=== PATIENT | female | born 1950 | race Caucasian/White ===

== ENCOUNTER 2017-08-03 17:53 | Inpatient (IN) | payer OTHER ==
[~2017-08-03] VITALS: Ht 157.5 cm; Wt 113.4 kg
--- NOTE | ~2017-08-03 | HC ---
[facility] [place] [address] CONSULTATION Name: SONIA FUENTES Room #: 402-P ADM IN M.R.#: [id number] Admission: 08/03/17 Attend Phys: Pelon Abbasi DO Discharge: Date of : 52 Report #: [id number] THIS REPORT FOR: //name// CC: Akash Fuentes DATE OF SERVICE: 08/05/2017 WOUND CARE CONSULTATION PERSONAL PHYSICIAN: Dr. Abbasi. CHIEF COMPLAINT: Right superior iliac crest decubitus ulcer. HISTORY OF PRESENT ILLNESS: This is a 67-year-old white female who is now status post fall and intertrochanteric fracture and a fracture of her left hip. The patient upon admission to the hospital was in severe pain because of the hip fracture and then was found to have a decubitus ulcer on her right superior iliac crest on full examination. I have been asked to assist in the care of this at that time. This is actually the xsiqjq-ka-wwx of the wound care nurse here at the hospital and the wound care nurse states that she has been fairly debilitated in the past several days, laying in bed for prolonged periods of time and she feels that is how she developed this ulceration at her assisted living facility. Supposedly, according to the family, the patient has a long-standing history of noncompliance as well as poorly controlled diabetes. PAST MEDICAL HISTORY: Significant for diabetes mellitus, insulin dependent; hypertension; previous back surgery; previous history of right hip replacement; previous neck surgery; cholecystectomy; appendectomy; total abdominal hysterectomy and carpal tunnel surgery. CURRENT MEDICATIONS: Multiple, I reviewed the patient's medication list. DRUG ALLERGIES: INCLUDE IV DYE, MORPHINE AND DEMEROL. SOCIAL HISTORY: The patient rarely drinks alcohol, never smokes. FAMILY HISTORY: Significant for heart disease and diabetes. REVIEW OF SYSTEMS: CONSTITUTIONAL: The patient denies fevers or chills. NEUROLOGIC: The patient complains of generalized weakness, but no isolated weakness in the arms or legs. EYES: No complaints. ENT: No complaints. [facility] [address] [place] [address] CONSULTATION Name: SONIA FUENTES Room #: [facility] IN M.R.#: [id number] Admission: 08/03/17 Attend Phys: Pelon Abbasi DO Discharge: Date of : 51 Report #: [id number] CARDIAC: The patient denies chest pain, palpitations or peripheral edema. RESPIRATORY: The patient denies shortness of breath, cough or wheezes. GASTROINTESTINAL: The patient denies nausea, vomiting or abdominal pain. GENITOURINARY: The patient denies urgency or frequency. MUSCULOSKELETAL: The patient has pain in her left hip where the fracture occurred. SKIN: There is an unstageable decubitus ulcer in the right superior iliac crest. PHYSICAL EXAMINATION: VITAL SIGNS: Temperature 37.4, pulse 113, respiratory rate 14 and blood pressure 131/57. GENERAL: This is an alert and oriented x 3 obese white female, who appears to be in moderate distress secondary to pain. HEENT: Normocephalic, atraumatic. Mucous membranes are somewhat dry. Pupils are round. Sclerae are white. NECK: Supple, without rigidity or lymphadenopathy. LUNGS: Clear. HEART: Regular, without murmur. ABDOMEN: Obese, soft, otherwise nontender. BACK: Evaluation of the back reveals a decubitus ulcer, once again over the area of the superior iliac crest, which is unstageable. It is tender to palpation. The wound itself is covered with ecchymotic slough. Periwound is otherwise intact, without signs of significant erythema, warmth or cellulitis. EXTREMITIES: The patient does move all extremities. Bilateral heels are intact. Distal neurovascular is otherwise intact. NEUROLOGIC: Cranial nerves 2-12 are grossly intact. Motor and sensory grossly intact. LABORATORY DATA: White count 8.9, hemoglobin 7.4. Albumin is 3.4. IMPRESSION: 1. Unstageable decubitus ulcer of the right superior iliac crest in a patient with noncompliance and recent debility, present on admission. 2. Comminuted intertrochanteric fracture of the left hip. 3. Diabetes mellitus. 4. Obesity. 5. Generalized debility. PLAN: At this time, we will place TheraHoney over the ulcer, cover this with an Optifoam and plan, in the next 1-2 days, possibly doing surgical bedside debridement of the ulceration. We will try to make sure we maximize the patient's oral protein supplementation for healing. We will utilize physical and occupational therapy as able for orthopedics restrictions. We will continue all of the current medications. [address] [address] CONSULTATION Name: SONIA FUENTES Room #: 402-P ADM IN M.R.#: [id number] Admission: 08/03/17 Attend Phys: Pelon Abbasi DO Discharge: Date of : 52 Report #: [id number] We appreciate the ability to consult. We will continue to follow the patient at this time. By: [id number] Rohan Herron MD /edda
--- NOTE | ~2017-08-03 | EKG ---
[address] [address] ELECTROCARDIOGRAM REPORT Name: SONIA FUENTES Room #: 402-P ADM IN M.R.#: [id number] Admission: 08/03/17 Attend Phys: Pelon Abbasi DO Discharge: Date of : 52 Report #: [id number] THIS REPORT FOR: //name// [facility] ED Test Date: 2017-08-03 Test Time: 19:19:11 Pat Name: SONIA FUENTES Department: Room: 402 Gender: F Molding Engineer: JONO : 1950 Requested By: Lisa Dalton Order Number: [id number] MD: Noam Gonzalez Measurements Intervals [place] Rate: 101 P: 44 TN: 174 QRS: 24 QRSD: 90 T: 28 QT: 352 QTc: 457 Interpretive Statements Sinus tachycardia No previous ECG available for comparison Electronically Signed On 08-03-2017 23:41:42 [employer] CONSULTANT by Noam Gonzalez [email or web address] <ELECTRONICALLY SIGNED> By: Noam Gonzalez MD 08/03/17 2341 [id number] 18 Noam Gonzalez MD /MIKAL
--- NOTE | ~2017-08-03 | O ---
[facility] [place] [address] OPERATIVE REPORT Name: SONIA FUENTES Room #: 402-P [facility] IN M.R.#: [id number] Admission: 08/03/17 Attend Phys: Pelon Abbasi DO Discharge: Date of : 51 Report #: [id number] THIS REPORT FOR: //name// CC: Akash Fuentes DATE OF SERVICE: 08/04/2017 PREOPERATIVE DIAGNOSIS: Complex comminuted intertrochanteric fracture, left proximal femur. POSTOPERATIVE DIAGNOSIS: Complex comminuted intertrochanteric fracture, left proximal femur. PROCEDURE: Reduction and fixation of left proximal femur fracture using intramedullary TFN nail fixation. SURGEON: Riky Swain MD INDICATIONS: This 67-year-old morbidly obese female has chronic degenerative arthritis and moderate osteoporosis. She has had previous right total hip arthroplasty and has moderate degenerative change at the left hip. She fell injuring the left proximal femur with a complex comminuted intertrochanteric femur fracture. We have discussed preoperatively with the patient and her family treatment options. She is certainly at risk for perioperative problems and difficulty with fracture healing given her morbid obesity and the difficult complex intertrochanteric and subtrochanteric fracture pattern. She also will probably have some ongoing hip discomfort as a result of degenerative arthritis. I have explained that we really cannot replace the hip joint at this point given the new fracture and we reviewed various methods of fracture fixation. We have elected to proceed with a TFN intramedullary fixation device. DESCRIPTION OF PROCEDURE: The patient was taken to the operating room where she was placed under general anesthesia. Prophylactic intravenous antibiotics were administered. She was positioned on the fracture table such that the left hip and thigh could be accessed, this is difficult given her very large size. The lateral aspect of left hip and thigh were then meticulously prepped and draped. C-arm was used to visualize the area to localize the appropriate skin incisions and help with fracture reduction. A longitudinal skin incision made above the greater trochanter allowing enough room to align and access the greater trochanter for introduction of an intramedullary device. A guidewire was then passed through the tip of the greater trochanter and extended down into the intramedullary canal. The trochanter was opened and a Synthes TFN nail was selected using a 230-mm length and a 10-mm diameter. The nail was then advanced down the canal with satisfactory alignment and fixation, it was advanced until [address] [address] OPERATIVE REPORT Name: SONIA FUENTES Room #: 402-P [facility] IN .R.#: [id number] Admission: 08/03/17 Attend Phys: Pelon Abbasi DO Discharge: Date of : 51 Report #: [id number] the crossing helical blade would lie low in the neck and in the mid to slightly posterior portion of the head to allow maximum contact and fixation in the head and neck. A guidewire was then passed using the outrigger, placing this in the mid to lower neck region and advancing as far as possible up into the femoral head to a point just below the subchondral bone. This appeared to be in satisfactory position on multiple C-arm views. The cortex was reamed and the guidewire was over reamed and then a 105-mm helical blade was impacted over the guidewire, positioning this well up into the femoral neck and head in the low to slightly posterior head and neck region allowing maximum purchase and fixation. This did seem to fit and seat nicely with satisfactory purchase. Once this position was confirmed, the proximal locking screw was tightened down securing rotation alignment. A distal interlocked screw was then placed using the outrigger device. This also seated nicely and appeared to be secure. Post-reduction and post-fixation x-rays confirmed satisfactory overall alignment of the fracture and good position of the edmundo and screws. The wounds were then copiously irrigated. Good hemostasis was established. The deeper tissues were closed with 0 Vicryl and the skin was closed with skin davy. A sterile dressing was applied. The patient was then awakened and returned to recovery room in good condition. <ELECTRONICALLY SIGNED> By: Riky Swain MD 08/06/17 0747 1236 1331 Riky Swain MD /nt
[2017-08-03 17:54] VITALS: BP 227/76
[2017-08-03] MEDS ORDERED: NOVOLOG100 UNIT/1 SUBQ ×2 (17:56→17:57)
[2017-08-03] MEDS ORDERED: SENNA PLUS TAB1 EACH PO (17:57)
[2017-08-03] MEDS ORDERED: KLOR-CON 1010 MEQ PO (17:57)
[2017-08-03] MEDS ORDERED: VITAMIN D2000 UNIT PO (17:58)
[2017-08-03] MEDS ORDERED: TYLENOL325 MG PO (17:58)
[2017-08-03] MEDS ORDERED: VENLAFAXINE HCL50 MG PO (17:58)
[2017-08-03] MEDS ORDERED: IBUPROFEN 400400 M2 PO (17:59)
[2017-08-03] MEDS ORDERED: MUCINEX600 MG PO (17:59)
[2017-08-03] MEDS ORDERED: NEURONTIN600 MG PO ×2 (17:59)
[2017-08-03] MEDS ORDERED: LASIX 20 MG TAB20 MG PO (18:00)
[2017-08-03] MEDS ORDERED: JANUVIA50 MG PO (18:00)
[2017-08-03] MEDS ORDERED: LEVEMIR SUBQ ×2 (18:01)
[2017-08-03] MEDS ORDERED: LEVEMIR100 UNIT/1 SUBQ (18:01)
[2017-08-03] MEDS ORDERED: CLARITIN10 MG PO (18:01)
[2017-08-03] MEDS ORDERED: MULTIPLE VITAM1 EAC2 PO (18:02)
[2017-08-03] MEDS ORDERED: ASPIR 8181 MG PO (18:02)
[2017-08-03] MEDS ORDERED: LIPITOR10 MG PO (18:02)
[2017-08-03] MEDS ORDERED: LOPRESSOR25 PO (18:02)
[2017-08-03] MEDS ORDERED: BIOFREEZE118 ML TOP (18:03)
[2017-08-03] MEDS ORDERED: CHOLESTYRAMINE P4 GM PO (18:03)
[2017-08-03] MEDS ORDERED: BENTYL 20 MG TA20 M1 PO (18:04)
[2017-08-03] MEDS ORDERED: CYCLOBENZAPRINE5 MG PO (18:04)
[2017-08-03] MEDS ORDERED: FLONASE 0.05%50 MCG NASAL (18:05)
[2017-08-03 18:58] LABS: ABSOLUTE NEUTROPHILS 4.1 thou/uL (1.4-8.2); EOSINOPHILS 3.3 % (0.0-3.0); HEMATOCRIT 27.1 % (37.0-47.0); HEMOGLOBIN 9.5 gm/dL (12.0-15.0); LYMPHOCYTES 35.3 % (24.0-44.0); MCH 35.1 pg (26.0-34.0); MCHC 34.9 g/dL (28.0-37.0); MCV 100.4 fL (80.0-100.0); PLATELET COUNT 182 thou/uL (150-400); POLYS 54.4 % (36.0-66.0); RDW 13.5 % (10.5-14.5); WBC 7.5 thou/uL (4.0-11.0)
[2017-08-03 18:59] LABS: MANUAL DIFF NO
[2017-08-03 19:01] LABS: CALCIUM 9.1 mg/dL (8.5-10.1); CREATININE 1.7 mg/dL (0.6-1.0); POTASSIUM 4.5 mmol/L (3.5-5.1)
[2017-08-03 19:07] LABS: ALBUMIN 3.4 g/dL (3.4-5.0); TOTAL BILIRUBIN 0.2 mg/dL (<0.1-1.0); TOTAL PROTEIN 6.5 g/dL (6.4-8.2)
[2017-08-03 19:16] VITALS: BP 169/75
[2017-08-03 19:18] VITALS: BP 169/75
[2017-08-03 19:33] LABS: APTT 25.1 Seconds (24.5-32.8)
[2017-08-03 20:30] VITALS: BP 165/76
[2017-08-03 21:29] VITALS: BP 117/64
[2017-08-04] VITALS (8 sets, daily range): BP systolic 88–159; BP diastolic 49–97
[2017-08-04 05:58] LABS: HEMATOCRIT 24.2 % (37.0-47.0); HEMOGLOBIN 8.3 gm/dL (12.0-15.0); MCH 34.8 pg (26.0-34.0); MCHC 34.4 g/dL (28.0-37.0); MCV 101.2 fL (80.0-100.0); RBC 2.39 mil/uL (4.20-5.00); RDW 13.8 % (10.5-14.5); WBC 9.6 thou/uL (4.0-11.0)
[2017-08-04 06:06] LABS: % SATURATION 17 % (20-39); IRON 40 ug/dL (50-170); TIBC 240 ug/dL (250-450); UIBC 200 ug/dL
[2017-08-04 06:09] LABS: CALCIUM 8.4 mg/dL (8.5-10.1); CREATININE 1.7 mg/dL (0.6-1.0); POTASSIUM 4.9 mmol/L (3.5-5.1)
[2017-08-04 07:15] LABS: FOLIC ACID 33.1 ng/mL (8.6-58.9)
[2017-08-04 16:57] LABS: HEMATOCRIT 20.3 % (37.0-47.0); HEMOGLOBIN 6.8 gm/dL (12.0-15.0); MCH 34.1 pg (26.0-34.0); MCHC 33.5 g/dL (28.0-37.0); MCV 101.8 fL (80.0-100.0); RDW 13.8 % (10.5-14.5); WBC 11.5 thou/uL (4.0-11.0)
[2017-08-05] VITALS (7 sets, daily range): BP systolic 102–155; BP diastolic 38–60
[2017-08-05 01:15] LABS: ABG SAMPLE TYPE ARTERIAL; BE(vivo) -4.1 mmol/L (-2 to +3); HCO3 19.8 mmol/L (22.0-26.0); LACTATE 2.07 mmol/L (0.5-2.0); O2(CT) 9.2 mL/dL (15.0-23.0); O2Hb 95.7 % (92.0-98.0); PCO2 30.5 mmHg (35.0-45.0); PO2 105.4 mmHg (80.0-100.0); STICK SITE R.RADIAL; tCO2 20.7 mmol/L (24.0-30.0)
[2017-08-05 05:07] LABS: GLYCOHEMOGLOBIN (HGB A1C) 6.9 % (4.8-5.6)
[2017-08-05 09:11] LABS: ABSOLUTE NEUTROPHILS 6.5 thou/uL (1.4-8.2); BASOPHILS 0.5 % (0.0-2.0); EOSINOPHILS 0.3 % (0.0-3.0); HEMOGLOBIN 7.4 gm/dL (12.0-15.0); LYMPHOCYTES 16.4 % (24.0-44.0); MANUAL DIFF NO; MCH 32.6 pg (26.0-34.0); MCHC 33.6 g/dL (28.0-37.0); MCV 97.1 fL (80.0-100.0); MONOCYTES 9.1 % (1.0-8.0); PLATELET COUNT 155 thou/uL (150-400); POLYS 73.7 % (36.0-66.0); RBC 2.27 mil/uL (4.20-5.00); RDW 19.2 % (10.5-14.5); WBC 8.9 thou/uL (4.0-11.0)
[2017-08-05 09:27] LABS: CALCIUM 7.6 mg/dL (8.5-10.1); CREATININE 1.8 mg/dL (0.6-1.0); POTASSIUM 4.5 mmol/L (3.5-5.1)
[2017-08-06 04:00] VITALS: BP 155/76
[2017-08-06 06:30] LABS: WBC 8.8 thou/uL (4.0-11.0)
[2017-08-06 06:32] LABS: MCH 33.3 pg (26.0-34.0); MCHC 34.4 g/dL (28.0-37.0); MCV 96.9 fL (80.0-100.0); RBC 1.91 mil/uL (4.20-5.00); RDW 18.8 % (10.5-14.5)
[2017-08-06 06:46] LABS: HEMOGLOBIN 6.4 gm/dL (12.0-15.0)
[2017-08-06 06:47] LABS: HEMATOCRIT 18.5 % (37.0-47.0)
[2017-08-06 07:36] VITALS: BP 176/75
[2017-08-06 09:15] VITALS: BP 131/69; BP 132/62
[2017-08-06 15:22] VITALS: BP 129/64; BP 130/61; BP 164/80
[2017-08-06 19:30] VITALS: BP 138/67
[2017-08-07 04:00] VITALS: BP 180/83
[2017-08-07 06:06] LABS: ABSOLUTE NEUTROPHILS 6.9 thou/uL (1.4-8.2); BASOPHILS 0.6 % (0.0-2.0); EOSINOPHILS 1.4 % (0.0-3.0); HEMATOCRIT 24.3 % (37.0-47.0); LYMPHOCYTES 16.8 % (24.0-44.0); MCH 32.2 pg (26.0-34.0); MCHC 34.4 g/dL (28.0-37.0); MCV 93.4 fL (80.0-100.0); MONOCYTES 7.6 % (1.0-8.0); PLATELET COUNT 153 thou/uL (150-400); POLYS 73.6 % (36.0-66.0); RDW 18.6 % (10.5-14.5); WBC 9.4 thou/uL (4.0-11.0)
[2017-08-07 06:12] LABS: CALCIUM 7.8 mg/dL (8.5-10.1); CREATININE 1.7 mg/dL (0.6-1.0); POTASSIUM 4.2 mmol/L (3.5-5.1)
[2017-08-07 06:24] LABS: HEMOGLOBIN 8.4 gm/dL (12.0-15.0); MANUAL DIFF NO
[2017-08-07 07:11] VITALS: BP 182/73
[2017-08-07] MEDS ORDERED: NORCO 10-325 T1 EACH PO (08:24)
[2017-08-07] MEDS ORDERED: XARELTO10 MG PO (08:24)
[2017-08-07] MEDS ORDERED: HALDOL 0.5 MG0.5 MG PO (08:25)
[2017-08-07 15:11] VITALS: BP 171/70
== END 2017-08-07 18:21 | DRG 480 ==
LOC: ER 17:53 → 4N 19:14 → EROBS 19:14 → 4N 19:14 → ENTRNSPT 08-07 18:15 → 4N 08-07 18:21
PROVIDERS: Family Medicine; Nurse Practitioner Acute Care; Orthopaedic Surgery; Physician Assistant
PROC: 0QS706Z Reposition Left Upper Femur with Intramedullary Internal Fixation Device, Open Approach (ICD-10-PCS; principal; 2017-08-04)
PROC: 30233N1 Transfusion of Nonautologous Red Blood Cells into Peripheral Vein, Percutaneous Approach (ICD-10-PCS; 2017-08-04)
DX: S72.142A Displaced intertrochanteric fracture of left femur, initial encounter for closed fracture (principal); N17.0 Acute kidney failure with tubular necrosis; Z68.42 Body mass index [BMI] 45.0-49.9, adult; Z96.641 Presence of right artificial hip joint; L89.130 Pressure ulcer of right lower back, unstageable; E66.9 Obesity, unspecified; D64.9 Anemia, unspecified; N18.3 Chronic kidney disease, stage 3 (moderate); I12.9 Hypertensive chronic kidney disease with stage 1 through stage 4 chronic kidney disease, or unspecified chronic kidney disease; E11.22 Type 2 diabetes mellitus with diabetic chronic kidney disease; F41.9 Anxiety disorder, unspecified; T50.905A Adverse effect of unspecified drugs, medicaments and biological substances, initial encounter; R41.0 Disorientation, unspecified; W18.39XA Other fall on same level, initial encounter; Z90.49 Acquired absence of other specified parts of digestive tract; Z90.710 Acquired absence of both cervix and uterus; Z82.49 Family history of ischemic heart disease and other diseases of the circulatory system; Z79.4 Long term (current) use of insulin; Z82.5 Family history of asthma and other chronic lower respiratory diseases; Z79.899 Other long term (current) drug therapy; Y92.89 Other specified places as the place of occurrence of the external cause; Z88.5 Allergy status to narcotic agent; Z88.8 Allergy status to other drugs, medicaments and biological substances; Z91.041 Radiographic dye allergy status; Z83.3 Family history of diabetes mellitus; Y93.89 Activity, other specified; Y99.8 Other external cause status
CPT/HCPCS: 10091; 50010; 50101; 50133; 50386; 51412; 51538; 52145; 52304; 55445; 56525; 57092; 62110; 62900; 64031; 70005

== ENCOUNTER 2017-08-07 12:55 | Inpatient (IN) | payer OTHER ==
[~2017-08-07] VITALS: Ht 157.5 cm; Wt 113.9 kg
--- NOTE | ~2017-08-07 | HC ---
[facility] [place] [address] CONSULTATION Name: SONIA FUENTES Room #: 514-P ADM IN M.R.#: [id number] Admission: 08/07/17 Attend Phys: Riky Mazariegos MD Discharge: Date of : 51 Report #: [id number] THIS REPORT FOR: //name// CC: Akash Mazariegos DATE OF SERVICE: 08/07/2017 HISTORY OF PRESENT ILLNESS: The patient is a 67-year-old white female, who had a fall at her assisted living facility, was admitted to [facility]. She was diagnosed with a left proximal femur fracture. She underwent open reduction and internal fixation with trochanteric fixation nail on 08/04/2017. She has a prior history of poorly controlled diabetes mellitus. Postoperatively, she has had problems with delirium/encephalopathy. Psychiatry has been involved. CT of the head was negative. She has had problems with confusion and continues confused today, but is improved. Psychiatry recommended Haldol 1 mg b.i.d. scheduled, along with p.r.n. We are seeing her in rehabilitation medicine consultation. PAST MEDICAL HISTORY: Includes insulin-dependent diabetes mellitus, hypertension, and back surgery. She had a prior right hip replacement about 5 years ago, neck surgery, ALESIA, joann, appendectomy, carpal tunnel surgery, and . She has premorbid peripheral neuropathy. MEDICATIONS: Please see the full medication listing. ALLERGIES: MORPHINE. SOCIAL HISTORY: She lives at [facility]. Premorbid walker ambulator. No steps. Her kbzjnfwm-vy-ero is a nurse here at the hospital in wound care. REVIEW OF SYSTEMS: She was noted to have a right iliac crest, unstageable ulcer. Wound care is following. Did not offer any current complaints of chest pain or shortness of breath. No abdominal discomfort. She has a left hip discomfort as expected. She does have decreased sensation consistent with her peripheral neuropathy. PHYSICAL EXAMINATION: GENERAL: A 67-year-old obese, pleasant white female, in no obvious distress. NEUROLOGIC: She could not tell me the name of the hospital, but she can tell me the year. She was not correct regarding the name of the place that she lives in, but she knew what city it was in. She does follow basic 1 step commands. VITAL SIGNS: Temperature 99.1, pulse 107, respirations 20, blood pressure 182/73. HEENT: Facies appeared symmetric. [facility] [address] [place] [address] CONSULTATION Name: SONIA FUENTES Room #: 514-P ADM IN M.R.#: [id number] Admission: 08/07/17 Attend Phys: Riky Mazariegos MD Discharge: Date of : 52 Report #: [id number] EXTREMITIES: She has functional range of motion of both upper extremities with strength grade 4-/5. DTRs are trace to 1. Left hip is dressed. There is no focal calf swelling. She can dorsiflex that left ankle. She can move the right ankle as well. I would grade her strength probably at least 3+ to 4- out of 5. Left lower extremity and right lower extremity is probably 3+ to 4- out of 5. She does have decreased distal sensation, left large toe. Functionally, she was max assist with sit to stand. She does have less than 25 pounds weightbearing restriction on that left lower extremity. ASSESSMENT: A 67-year-old white female with the following problems: 1. Left proximal femur fracture, status post open reduction and internal fixation with trochanteric fixation nailing 08/04/2017, less than 25 pounds weightbearing. 2. Encephalopathy versus delirium. Psychiatry is involved. She is currently on Haldol as per Psychiatry. 3. Premorbid peripheral neuropathy. 4. Poorly controlled diabetes mellitus. 5. Acute renal insufficiency superimposed on chronic kidney disease. 6. Exogenous obesity. 7. Right iliac crest unstageable ulcer. PLAN: We will be checking with the therapist regarding her tolerance for an acute rehabilitation level. We are considering her for an acute in-hospital inpatient rehabilitation stay. Discussion with her uwcoauzb-oc-uyo, Lucinda Fuentes. We will be glad to follow along with you. <ELECTRONICALLY SIGNED> By: Riky Mazariegos MD 08/14/17 1643 1007 1408 Riky Mazariegos MD /[facility]
--- NOTE | ~2017-08-07 | PLAN ---
[facility] [place] [address] REHAB UNIT PLAN OF CARE Name: SONIA FUENTES Room #: 514-P ADM IN M.R.#: [id number] Admission: 08/07/17 Attend Phys: Riky Mazareigos MD Discharge: Date of : 52 Report #: [id number] THIS REPORT FOR: //name// CC: Akash Mazariegos DATE OF SERVICE: 08/09/2017 The patient was seen earlier. Sleeping in no distress. Temperature 36.7, pulse 106, respirations 21, blood pressure 140/71. She has been working in therapies with transfers at a max assist, bed mobility is max assist, dressing upper body is setup, dressing lower body is max assist. This therapy, she is noted to have dckj-ow-mjodkvtb comprehensive deficits. ASSESSMENT: 1. Left proximal femur fracture status post open reduction and internal fixation with trochanteric fixation nailing 12, 18 17, 25 pounds weightbearing. 2. Encephalopathy versus delirium. Psychiatry continues to involve. She has been on scheduled Haldol. 3. Premorbid peripheral neuropathy. 4. Poorly controlled diabetes mellitus. 5. Acute renal insufficiency superimposed on chronic kidney disease. 6. Exogenous obesity. 7. Right iliac crest unstageable ulcer. PLAN: The overall plan of care is based on the preadmission screen, post-admission physician evaluation and information garnered from therapy assessments. 1. Estimated length of stay is probably going to be fairly long, as she is at a lower functional level. 2. Medical prognosis is reasonably good. 3. Anticipated interventions includes the interdisciplinary acute inpatient rehabilitation program. PT, OT, speech rehab nursing is assisting regarding medication management, skin care prophylaxis, bowel and bladder issues and nursing education. The call center support consultant physicians are continuing to follow. 4. Anticipated functional outcomes would be for the patient to become modified independent with transfers, mobility, ADLs and improvement in cognition, so that she can hopefully return back to her prior living situation. 5. Discharge destination would be ideally back to her assisted living facility. 6. Expected therapy by discipline includes PT, OT and speech 1 hour per day each five days a week throughout the duration of the acute inpatient ___ stay. <ELECTRONICALLY SIGNED> By: Riky Mazariegos MD 08/14/17 1643 0907 0948 Riky Mazariegos MD /[facility]
--- NOTE | ~2017-08-07 | HC ---
[facility] [place] [address] CONSULTATION Name: SONIA FUENTES Room #: 514-P ADM IN M.R.#: [id number] Admission: 08/07/17 Attend Phys: Riky Mazariegos MD Discharge: Date of : 51 Report #: [id number] THIS REPORT FOR: //name// CC: Akash Mazariegos DATE OF SERVICE: 08/08/2017 REQUESTING PHYSICIAN: Dr. Mazariegos. CHIEF COMPLAINT: Right superior iliac crest ulceration. HISTORY OF PRESENT ILLNESS: The patient is a 67-year-old white female who is now status post fracture of the left proximal femur with ORIF on 08/04/2017. The patient was found on admission to have a right superior iliac crest unstageable decubitus ulcer. I have been following this while she was an acute inpatient. The patient now has been transferred to the acute rehab floor and we have been asked to follow her there as well. The patient has no other associated wounds. PAST MEDICAL AND SURGICAL HISTORY: Significant for diabetes, hypertension, previous right hip replacement 5 years ago, cholecystectomy, appendectomy. CURRENT MEDICATIONS: Multiple, I reviewed the patient's medication list. DRUG ALLERGIES: MORPHINE. SOCIAL HISTORY: The patient lives in an assisted living facility. FAMILY HISTORY: Not pertinent to current medical condition. REVIEW OF SYSTEMS: CONSTITUTIONAL: The patient denies fevers or chills. NEUROLOGIC: The patient has been having episodes of confusion, most likely related to medicines and hospital stable, but today is very lucid. Denies numbness, tingling, weakness in arms or legs. EYES: No complaints. ENT: No complaints. CARDIAC: The patient denies chest pain, palpitations; does have chronic lower extremity edema. RESPIRATORY: The patient denies shortness of breath, cough, or wheezes. GASTROINTESTINAL: The patient denies nausea, vomiting, or diarrhea. GENITOURINARY: The patient denies urgency or frequency. The patient did not have a Ken catheter in place. MUSCULOSKELETAL: The patient has pain in her left hip on the surgical site. SKIN: There is a decubitus ulcer, in the right superior iliac crest. [facility] [address] [place] [address] CONSULTATION Name: SONIA FUENTES Room #: 514-P [facility] IN M.R.#: [id number] Admission: 08/07/17 Attend Phys: Riky Mazariegos MD Discharge: Date of : 52 Report #: [id number] PHYSICAL EXAMINATION: VITAL SIGNS: Temperature 36.7, pulse 99, respirations 24, BP 188/85. GENERAL: This is alert and oriented x 3, pleasant white female who is in no acute distress at this time. HEENT: Normocephalic, atraumatic. Mucous membranes are moist. Pupils are round. Sclerae white. NECK: Supple, nontender. LUNGS: Clear. HEART: Regular, without murmur. ABDOMEN: Obese, soft, nontender, without organomegaly. EXTREMITIES: The patient moves all extremities with minimal difficulty. Distal pulses are intact. Bilateral heels are intact. SKIN: Evaluation of skin on the back over the area of the superior iliac crest reveals an unstageable decubitus ulcer, slough and some denuded skin. Periulcer itself is otherwise intact without erythema, warmth or signs of cellulitis. NEUROLOGIC: Cranial nerves 2-12 are grossly. Motor and sensory grossly intact. LABORATORY DATA: White count 9.2, hemoglobin 9.1, albumin is 3.4. IMPRESSION: 1. Unstageable decubitus ulcer, right posterior-superior iliac crest -- present on admission. 2. Status post left intertrochanteric fracture, now status post open reduction and internal fixation with intermedullary nail. 3. Diabetes mellitus. 4. Generalized debility. PLAN: At this time, we will continue with Medihoney over the ulcer itself covered with a foam dressing. This will be changed Friday, Friday and Friday. The patient will utilize physical and occupational therapy on the rehabilitation floor for strengthening. We will continue all other current medications. Make sure we maximize the patient's protein supplementation for continued healing. We will continue to follow the patient. <ELECTRONICALLY SIGNED> By: Rohan Herron MD 08/14/17 1132 1118 25 Rohan Herron MD /nt
--- NOTE | ~2017-08-07 | H ---
[facility] [place] [address] HISTORY AND PHYSICAL Name: SONIA FUENTES Room #: 514-P ADM IN M.R.#: [id number] Admission: 08/07/17 Attend Phys: Riky Mazariegos MD Discharge: Date of : 51 Report #: [id number] THIS REPORT FOR: //name// CC: Akash Mazariegos DATE OF SERVICE: 08/08/2017 HISTORY OF PRESENT ILLNESS: The patient is a 67-year-old white female who had a fall at her assisted living facility, was admitted to [facility]. She was diagnosed with left proximal femur fracture. She underwent open reduction and internal fixation with a trochanteric fixation nail on 08/04/2017. She has a prior history of poorly controlled diabetes mellitus. Postoperatively, she had problems with delirium and encephalopathy. Psychiatry has been involved. CT of the head was negative. They have placed her on Haldol 1 mg b.i.d. She was noted to have significant functional mobility and ADL deficits along with the cognitive concerns with her encephalopathy. She does have limited weightbearing at 25 pounds, left lower extremity. She has been admitted for acute in-hospital inpatient rehabilitation. PAST MEDICAL HISTORY: Includes insulin-dependent diabetes mellitus, hypertension, back surgery. She has had prior right hip replacement about 5 years ago, neck surgery, ALESIA, cholecystectomy, appendectomy, carpal tunnel surgery, and . She has premorbid peripheral neuropathy. MEDICATIONS: Please see the full medication listing. This list includes vitamins, herbals, and supplements. ALLERGIES: MORPHINE. SOCIAL HISTORY: She lives at the [facility] in the assisted living facility. She is a premorbid walker ambulator. No steps. There is [id number] who is nurse here at the hospital in wound care. REVIEW OF SYSTEMS: She is noted to have a posterior iliac crest unstageable ulcer. No current complaints of chest pain, shortness of breath, or abdominal discomfort. She has the decreased sensation of her distal lower extremities consistent with her premorbid peripheral neuropathy. PHYSICAL EXAMINATION: GENERAL: A 67-year-old obese white female in no obvious distress. VITAL SIGNS: Last recorded temperature 37.6, pulse 105, respirations 22, and blood pressure 150/69. NEUROLOGIC: The patient is alert. She is somewhat tangential, but able to follow basic 1-step commands. Appears a little less confused when I saw her yesterday. EOMs are full. Facies are symmetric. [facility] [address] [place] [address] HISTORY AND PHYSICAL Name: SONIA FUENTES Room #: 514-P [facility] IN M.R.#: [id number] Admission: 08/07/17 Attend Phys: Riky Mazariegos MD Discharge: Date of : 51 Report #: [id number] CHEST: Sounded clear to auscultation. CARDIAC: Regular rate and rhythm. ABDOMEN: Obese, bowel sounds positive, and nontender. EXTREMITIES: She does have a wound over her posterior iliac crest. The wound care is following. Her left hip incisions appeared to be intact. There is some serous drainage. She has functional range of motion of the upper extremities. Strength is grade 4+/5. Lower extremities, she has decreased distal sensation. No focal calf swelling. Strength of that left lower extremity is probably a grade 3+/5 and right lower extremity is probably 3+ as well. She has been needing max assist with sit to stand. ASSESSMENT: A 67-year-old white female with the following problems: 1. Left proximal femur fracture, status post open reduction and internal fixation with trochanteric fixation nailing on 08/04/2017, 25-pound weightbearing. 2. Encephalopathy versus delirium. Psychiatry is involved and she is continuing on scheduled Haldol. 3. Premorbid peripheral neuropathy. 4. Poorly controlled diabetes mellitus. 5. Acute renal insufficiency superimposed on chronic kidney disease. 6. Exogenous obesity. 7. Right iliac crest unstageable ulcer. PLAN: The patient is admitted for acute in-hospital inpatient rehabilitation. From a post-admission physician evaluation perspective, there are no relevant changes since the preadmission screening. Please see the above review of prior and current medical and functional conditions and comorbidities. Please see the patient's previous and current functional status. As far as risk of complications, the patient has multiple medical comorbidities as noted above. Initial plan of care involves the interdisciplinary acute inpatient rehabilitation program with the goal of maximizing the patient's functional independence, so that she can hopefully return back to her home setting. Measurable functional goals would be for the patient to become modified independent with transfers, mobility, and ADLs as well as improvement in cognition, so that she can return back to the home setting. Prognosis is reasonably good with estimated length of stay probably at least 10 days to 2 weeks pending progress. Potential barriers would include her multiple medical comorbidities and decreased functional status. The patient meets diagnostic criteria for an acute in-hospital inpatient rehabilitation stay. She meets medical necessity criteria and we will have the multiple change consultant physicians continue to follow while she is on the rehab meza. Psychiatry will continue to follow with her encephalopathy/delirium as well as Wound Care and Internal Medicine. The patient does have the tolerance [address] [address] HISTORY AND PHYSICAL Name: SONIA FUENTES Room #: 514-P [facility] IN M.R.#: [id number] Admission: 08/07/17 Attend Phys: Riky Mazariegos MD Discharge: Date of : 51 Report #: [id number] for an acute rehab therapy program and has appropriate discharge goals back to the home setting. <ELECTRONICALLY SIGNED> By: Riky Mazariegos MD 08/14/17 1643 0844 1037 Riky Mazariegos MD /[facility]
--- NOTE | ~2017-08-07 | D ---
[facility] [place] [address] DISCHARGE SUMMARY Name: SONIA FUENTES Room #: 514-P [facility] IN M.R.#: [id number] Admission: 08/07/17 Attend Phys: Riky Mazariegos MD Discharge: 08/15/17 Date of : 51 Report #: [id number] THIS REPORT FOR: //name// CC: Akash Mazariegos DATE OF SERVICE: 08/15/2017 The patient is a 67-year-old white female with a fall at her assisted living facility, was originally admitted with a left proximal femur fracture. She underwent open reduction and internal fixation with trochanteric fixation nail on 08/04/2017. She has a history of poorly controlled diabetes mellitus. Postoperatively, her course was complicated by delirium and encephalopathy. She was seen by Psychiatry. CT of the head was negative and she was placed on scheduled Haldol. She has been limited to 25 pounds weightbearing. She was admitted for acute in-hospital inpatient rehabilitation. Please see the full admission note dictation. HOSPITAL COURSE: The patient was on the acute inpatient rehabilitation meza. She was seen by Dr. Antonio Wynn, neuropsychology and he indicated the presentation including her significant cognitive deficits and visual hallucinations were consistent with a major neurocognitive disorder with dementia thought to be of the frontotemporal type. She was noted to have ovppvaep-ea-twwdzc cognitive disorder. She was cantankerous at times and not always participatory with therapies. Psychiatry followed with her and placed her back on the scheduled Haldol. We did work with her in therapies and she was needing max assist x 2 for transfers. Bed mobility, max assist and lower extremity dressing, max assist. She began having increased swelling, pain, and redness with some purulent drainage from the incisional wounds of the left hip. Orthopedics has been involved. She underwent a CT scan of that hip showing a fracture more comminuted than expected. Orthopedics noted that she does have a left surgical wound infection and the plan is for her to undergo surgery to clean out the infection. DISCHARGE DIAGNOSES: 1. Left proximal femur fracture status post open reduction internal fixation, now complicated by postoperative wound infection. 2. Postoperative encephalopathy. 3. Frontotemporal dementia of a moderate severity per neuropsychology involvement. 4. Premorbid peripheral neuropathy. 5. Poorly controlled diabetes mellitus. 6. Acute renal insufficiency superimposed on chronic kidney disease. 6. Exogenous Anxiety. 7. Obesity. [address] [address] DISCHARGE SUMMARY Name: SONIA FUENTES Room #: 514-P DIS IN M.R.#: [id number] Admission: 08/07/17 Attend Phys: Riky Mazariegos MD Discharge: 08/15/17 Date of : 51 Report #: [id number] PLAN: The patient was discharged back to the acute Med/Surg meza to undergo I and D of that left hip surgical site infection. We will defer medications, activity level, etc. as per the accepting service. <ELECTRONICALLY SIGNED> By: Riky Mazariegos MD 08/26/17 1003 0703 0741 Riky Mazariegos MD /[facility]
--- NOTE | ~2017-08-07 | HC ---
[facility] [place] [address] CONSULTATION Name: SONIA FUENTES Room #: 514-P [facility] IN M.R.#: [id number] Admission: 08/07/17 Attend Phys: Riky Mazariegos MD Discharge: Date of : 51 Report #: [id number] THIS REPORT FOR: //name// CC: Akash Mazariegos DATE OF SERVICE: 08/09/2017 ATTENDING PHYSICIAN: Riky Mazariegos MD SALES REPRESENTATIVE UNIFORMS: Antonio Wynn PhD CLINICAL PRESENTATION: The patient is a 67-year-old female admitted to the [facility], rehabilitation unit, for comprehensive inpatient rehabilitation program to improve functional mobility, activities of daily living and self-care and mental status secondary to a left proximal femur fracture. She is status post open reduction and internal fixation with an intertrochanteric nailing on 08/04/2017. Her diagnoses also include encephalopathy versus delirium, premorbid peripheral neuropathy, poorly controlled diabetes mellitus, acute renal insufficiency superimposed on chronic kidney disease, exogenous obesity and right iliac crest unstageable ulcer. A complete description of her medical condition and history can be found in her medical record. Neuropsychological consultation was requested to provide assistance in the assessment of cognitive and emotional status and to provide recommendations and services. Prior to this most recent admission, she was living in an assisted living facility. The patient is retired. She reports having been a high school graduate with 2 years of college. 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 She has 2 children. The patient states that she quit driving at age 66, thinking that it was the right time to discontinue. She does not report a prior history of treatment for anxiety or depression, but does remember initiating a treatment program for anxiety that includes medication at the time of her admission. Her daughter reported that she has had a steady deterioration in her ability to function for several years. She was unable to maintain her house and adequately manage her health care. Her family had to provide very frequent supervision and monitoring when the patient was living in the community. TECHNIQUES UTILIZED: Clinical interview, review of medical records, staff consultation and behavioral observation, mini-mental status exam 2 standard version, clock drawing and verbal fluency assessment (category), family interview. [facility] [address] [place] [address] CONSULTATION Name: SONIA FUENTES Room #: 514-P [facility] IN .R.#: [id number] Admission: 08/07/17 Attend Phys: Riky Mazariegos MD Discharge: Date of : 51 Report #: [id number] EXAMINATION FINDINGS: The patient was alert and cooperative with the assessment. She accurately described her admission as the result of a fall. However, she isamnestic about the circumstances surrounding her fall. The patient indicates having a history of falling. She does not report auditory or visual hallucinations. There is no suicidal ideation. The patient does not present with an aphasia. Her thoughts are logical and goal oriented. The patient had difficulty with initiative in regard to planning and problem solving, for exampple positioning herself was poor. Her bed positioning was poor. She had a tray table contributing to an uncomfortable position; however, she did not initiate an attempt to improve her position as well as modify the bedside table. She reports subjective feelings of anxiety. Difficulty with memory, word finding and intermittent dizziness is described. The patient appears restless and fidgety. She does not report difficulty with sleep or appetite. Difficulty with verbal fluency is noted throughout the interview. Her performance on the MMSE 2 brief version is extremely low with a raw score of 9 of 16. She was 3 of 3 for initial registration, 4 of 5 for orientation to time, 3 of [address] and 0 of 3 for immediate recall of 3 items after a brief time delay and distraction. Her performance on the MMSE 2 standard version is extremely low with a raw score of 17 of 30. She was 1 of 5 for serial 7s, 2 of 2 for naming, 1 of 1 for repetition. She was 3 of 3 for auditory comprehension. She could read and follow a single command. The patient was unable to write a sentence and could not accurately copy a simple geometric design. The patient was unable to accurately set the hands of a clock at a designated time. Verbal fluency was extremely low with a raw score of 6. The patient is presenting with severe deficits in cognition. Impairment includes orientation to place, immediate recall, attention and sustained concentration and visual spatial organization. A higher level executive functioning including initiative along with planning and problem solving is severely impaired at this time. DIAGNOSTIC IMPRESSION: Major neurocognitive disorder (dementia), possibly frontal - temporal type, without behavior disorder - in the moderate range with moderate to severe cognitive disorder at this time. Unspecified anxiety disorder. RECOMMENDATIONS: The patient will require assistance in the management of [address] [address] CONSULTATION Name: SONIA FUENTES Room #: 514-P [facility] IN M.R.#: [id number] Admission: 08/07/17 Attend Phys: Riky Mazariegos MD Discharge: Date of : 51 Report #: [id number] medication, finances and decision making in regard to nutrition upon discharge. She is in an assisted living at this time and hoping to return. However, she will need assistance in order to maintain safety. Decreased insight into areas of deficit is also suggested. Thank you very much for allowing me to provide the consultation on this patient. <ELECTRONICALLY SIGNED> By: Antonio Wynn, PhD 08/13/17 [id number] 1716 Antonio Wynn, PhD /nt
--- NOTE | ~2017-08-07 | HC ---
[facility] [place] [address] CONSULTATION Name: SONIA FUENTES Room #: 514-P [facility] IN M.R.#: [id number] Admission: 08/07/17 Attend Phys: Riky Mazariegos MD Discharge: Date of : 51 Report #: [id number] THIS REPORT FOR: //name// CC: Akash Mazariegos TYPE OF REPORT: Infectious diseases consultation. REASON FOR CONSULTATION: I was asked to evaluate concerning surgical site infection, left hip. HISTORY OF PRESENT ILLNESS: The patient is a 67-year-old diabetic who fractured her left proximal femur with a comminuted intertrochanteric fracture that required ORIF on 08/04/[address] Riky Swain. No intraoperative complications. Postoperatively, she had delirium and has been transferred to the acute rehabilitation floor for further care. The past 24 hours noticed increased erythema and drainage from her hip and thigh incision. Temperature up to 100.1. No chills or sweats. REVIEW OF SYSTEMS: Notes persistent pain in her left hip and thigh region. REVIEW OF SYSTEMS: No cardiopulmonary, GI or complaints. ALLERGIES: MORPHINE. MEDICATIONS: As noted on her OCT. PAST MEDICAL HISTORY: Diabetes, hypertension, cholecystectomy, appendectomy, right total hip arthroplasty, chronic kidney disease and obesity. FAMILY HISTORY: Noncontributory. SOCIAL HISTORY: Lives in assisted living. Nonsmoker. No significant alcohol intake. REVIEW OF SYSTEMS: The patient denies any headache, cough or sputum production. No nausea, vomiting or diarrhea. PHYSICAL EXAMINATION: VITAL SIGNS: Afebrile and hemodynamically stable. GENERAL: She was alert and cooperative, in no acute distress. She had significant amount of pain with rolling over in bed. She was obese. CHEST: Clear. HEART: Regular. ABDOMEN: Soft and nontender. EXTREMITIES: Left hip incision included 2 incisions, one proximal femur and 1 mid thigh region. There was erythema surrounding both areas with purulent [facility] [address] [place] [address] CONSULTATION Name: SONIA FUENTES Room #: 514-P ADM IN [facility].#: [id number] Admission: 08/07/17 Attend Phys: Riky Mazariegos MD Discharge: Date of : 51 Report #: [id number] drainage, small amount involving the lower portion. She had ecchymosis involving the lower portion of her leg as well. LABORATORY STUDIES: From 08/10/2017: Creatinine 1.6, which was her baseline. Hemoglobin 8.6, down from 9.5 on admission; WBC 10.5 and platelet count 248,000. Wound culture pending. RADIOLOGICAL DATA: X-ray of the femur shows IM edmundo in stable position. IMPRESSION AND PLAN: A 67-year old with surgical site infection, left hip open reduction and internal fixation. Depth of infection is yet to be determined. RECOMMENDATIONS: Recommend laboratory studies, Followup imaging studies and begin empiric antibiotic therapy. <ELECTRONICALLY SIGNED> By: Bryce Burgos MD 08/15/17 1354 0022 Bryce Burgos MD /edda
[~2017-08-07 12:55] MED LIST: ASPIR 8181 MG PO; BENTYL 20 MG TA20 M1 PO; BIOFREEZE118 ML TOP; CHOLESTYRAMINE P4 GM PO; CLARITIN10 MG PO; CYCLOBENZAPRINE5 MG PO; FLONASE 0.05%50 MCG NASAL; HALDOL 0.5 MG0.5 MG PO; IBUPROFEN 400400 M2 PO; JANUVIA50 MG PO; KLOR-CON 1010 MEQ PO; LASIX 20 MG TAB20 MG PO; LEVEMIR SUBQ; LEVEMIR100 UNIT/1 SUBQ; LIPITOR10 MG PO; LOPRESSOR25 PO; MUCINEX600 MG PO; MULTIPLE VITAM1 EAC2 PO; NEURONTIN600 MG PO; NORCO 10-325 T1 EACH PO; NOVOLOG100 UNIT/1 SUBQ; SENNA PLUS TAB1 EACH PO; TYLENOL325 MG PO; VENLAFAXINE HCL50 MG PO; VITAMIN D2000 UNIT PO; XARELTO10 MG PO
[2017-08-07 18:38] VITALS: BP 175/65
[2017-08-07 19:47] VITALS: BP 150/69
[2017-08-08 06:16] LABS: HEMATOCRIT 26.5 % (37.0-47.0); HEMOGLOBIN 9.1 gm/dL (12.0-15.0); MCH 32.1 pg (26.0-34.0); MCHC 34.2 g/dL (28.0-37.0); MCV 93.7 fL (80.0-100.0); RBC 2.83 mil/uL (4.20-5.00); RDW 17.5 % (10.5-14.5); WBC 9.2 thou/uL (4.0-11.0)
[2017-08-08 06:31] LABS: CALCIUM 8.4 mg/dL (8.5-10.1); CREATININE 1.5 mg/dL (0.6-1.0)
[2017-08-08 08:00] VITALS: BP 188/85
[2017-08-08 20:00] VITALS: BP 158/65
[2017-08-09 06:04] LABS: HEMATOCRIT 26.6 % (37.0-47.0); MCH 32.1 pg (26.0-34.0); MCV 94.3 fL (80.0-100.0); PLATELET COUNT 222 thou/uL (150-400); RBC 2.82 mil/uL (4.20-5.00); RDW 17.5 % (10.5-14.5); WBC 9.2 thou/uL (4.0-11.0)
[2017-08-09 06:14] LABS: CALCIUM 8.6 mg/dL (8.5-10.1); CREATININE 1.6 mg/dL (0.6-1.0); MAGNESIUM 1.8 mg/dL (1.8-2.4); POTASSIUM 4.1 mmol/L (3.5-5.1)
[2017-08-09 06:46] LABS: ABSOLUTE NEUTROPHILS 5.9 thou/uL (1.4-8.2); ANISOCYTOSIS 1+; NUCLEATED RBCS 1 /100WBC
[2017-08-09 06:47] LABS: POLYCHROMASIA SLIGHT
[2017-08-09 08:18] VITALS: BP 140/71
[2017-08-09 20:03] VITALS: BP 150/86
[2017-08-10 06:01] LABS: HEMATOCRIT 25.1 % (37.0-47.0); HEMOGLOBIN 8.6 gm/dL (12.0-15.0); MCH 32.2 pg (26.0-34.0); MCHC 34.3 g/dL (28.0-37.0); MCV 93.9 fL (80.0-100.0); PLATELET COUNT 248 thou/uL (150-400); RBC 2.68 mil/uL (4.20-5.00); RDW 17.7 % (10.5-14.5); WBC 10.5 thou/uL (4.0-11.0)
[2017-08-10 06:12] LABS: CALCIUM 9.1 mg/dL (8.5-10.1); CREATININE 1.6 mg/dL (0.6-1.0); POTASSIUM 3.9 mmol/L (3.5-5.1)
[2017-08-10 06:42] LABS: ABSOLUTE NEUTROPHILS 6.9 thou/uL (1.4-8.2); ANISOCYTOSIS 1+; METAMYELOCYTES 2 %; MYELOCYTES 1 %; PLATELET ESTIMATE NORMAL; POLYCHROMASIA 1+
[2017-08-10 09:00] VITALS: BP 145/64
[2017-08-10 19:40] VITALS: BP 123/91
[2017-08-11 04:36] LABS: % SATURATION 14 % (20-39); IRON 31 ug/dL (50-170); TIBC 214 ug/dL (250-450)
[2017-08-11 08:04] VITALS: BP 159/52
[2017-08-11 19:50] VITALS: BP 137/73
[2017-08-12 08:00] VITALS: BP 155/92
[2017-08-12 19:48] VITALS: BP 149/35
[2017-08-13 08:00] VITALS: BP 143/75
[2017-08-13 19:35] VITALS: BP 157/66
[2017-08-14 08:00] VITALS: BP 142/82
[2017-08-14 20:31] VITALS: BP 150/51
[2017-08-14 22:42] LABS: ABSOLUTE NEUTROPHILS 8.3 thou/uL (1.4-8.2); BASOPHILS 0.6 % (0.0-2.0); EOSINOPHILS 2.3 % (0.0-3.0); HEMATOCRIT 23.7 % (37.0-47.0); LYMPHOCYTES 16.5 % (24.0-44.0); MCH 31.5 pg (26.0-34.0); MCHC 33.9 g/dL (28.0-37.0); MCV 92.9 fL (80.0-100.0); MONOCYTES 7.5 % (1.0-8.0); PLATELET COUNT 257 thou/uL (150-400); POLYS 73.1 % (36.0-66.0); RBC 2.55 mil/uL (4.20-5.00); RDW 17.1 % (10.5-14.5); WBC 11.4 thou/uL (4.0-11.0)
[2017-08-14 22:55] LABS: ALBUMIN 2.5 g/dL (3.4-5.0); CALCIUM 9.1 mg/dL (8.5-10.1); CREATININE 1.6 mg/dL (0.6-1.0); POTASSIUM 4.3 mmol/L (3.5-5.1); TOTAL BILIRUBIN 0.4 mg/dL (<0.1-1.0); TOTAL PROTEIN 6.2 g/dL (6.4-8.2)
[2017-08-15 08:49] VITALS: BP 140/59
[2017-08-15 18:44] VITALS: BP 140/59
[2017-08-15 19:31] VITALS: BP 140/59
== END 2017-08-15 20:37 | disposition home or self-care (01) | DRG 535 ==
PROVIDERS: Family Medicine; Hospitalist; Nurse Practitioner; Physical Medicine & Rehabilitation; Specialist
DX: S72.142A Displaced intertrochanteric fracture of left femur, initial encounter for closed fracture (principal); G93.40 Encephalopathy, unspecified; Z68.42 Body mass index [BMI] 45.0-49.9, adult; N17.9 Acute kidney failure, unspecified; T84.52XA Infection and inflammatory reaction due to internal left hip prosthesis, initial encounter; Z96.641 Presence of right artificial hip joint; E11.42 Type 2 diabetes mellitus with diabetic polyneuropathy; E11.65 Type 2 diabetes mellitus with hyperglycemia; E66.09 Other obesity due to excess calories; E11.22 Type 2 diabetes mellitus with diabetic chronic kidney disease; I12.9 Hypertensive chronic kidney disease with stage 1 through stage 4 chronic kidney disease, or unspecified chronic kidney disease; L89.890 Pressure ulcer of other site, unstageable; R53.81 Other malaise; F01.50 Vascular dementia, unspecified severity, without behavioral disturbance, psychotic disturbance, mood disturbance, and anxiety; F41.9 Anxiety disorder, unspecified; D64.9 Anemia, unspecified; K59.00 Constipation, unspecified; N18.3 Chronic kidney disease, stage 3 (moderate); W18.39XA Other fall on same level, initial encounter; T40.605A Adverse effect of unspecified narcotics, initial encounter; Y83.8 Other surgical procedures as the cause of abnormal reaction of the patient, or of later complication, without mention of misadventure at the time of the procedure; Z88.8 Allergy status to other drugs, medicaments and biological substances; Z90.49 Acquired absence of other specified parts of digestive tract; Y99.8 Other external cause status; Z79.4 Long term (current) use of insulin; Z79.899 Other long term (current) drug therapy; Z88.5 Allergy status to narcotic agent; Z91.041 Radiographic dye allergy status; Y93.89 Activity, other specified; Y92.89 Other specified places as the place of occurrence of the external cause
CPT/HCPCS: 10112

== ENCOUNTER 2017-08-15 21:21 | Inpatient (IN) | payer OTHER ==
[~2017-08-15] VITALS: Ht 157.5 cm; Wt 113.0 kg
--- NOTE | ~2017-08-15 | O ---
[facility] [place] [address] OPERATIVE REPORT Name: SONIA FUENTES Room #: 405-P [facility] IN M.R.#: [id number] Admission: 08/15/17 Attend Phys: Pelon Abbasi DO Discharge: Date of : 51 Report #: [id number] THIS REPORT FOR: //name// CC: Akash Abbasi DATE OF SERVICE: 08/16/2017 PREOPERATIVE DIAGNOSIS: Left thigh infected seroma. POSTOPERATIVE DIAGNOSIS: Left thigh infected seroma. PROCEDURE: Left thigh irrigation and debridement. SURGEON: Josias Mata M.D. ANESTHESIA: General. ESTIMATED BLOOD LOSS: Minimal. DRAINS: None. TOURNIQUET TIME: Zero. COMPLICATIONS: There were no complications. DESCRIPTION OF PROCEDURE: The patient brought to the operating room where she was placed under general anesthesia. Once under adequate general anesthesia, her davy were removed from her 3 lateral thigh incisions. Previous scars were excised in an elliptical fashion with a #10 blade and subsequently, the seromas beneath the incisions were released. Any foreign body suture was removed as well during this. Subsequent deep irrigation and debridement of the thigh in the musculature was then performed with a pulsatile lavage. Cultures were taken prior to the irrigation. The wounds were irrigated copiously and subsequently closed over Hemovac drains with 2-0 Vicryl and davy for the skin. The wounds were dressed with Xeroform, 4 x 4s, and a sterile soft compressive dressing was placed. There were no complications from the procedure. The patient tolerated the procedure well and went to the recovery room without incident. <ELECTRONICALLY SIGNED> By: Josias Mata MD 08/18/17 [phone] [id number] Josias Mata MD /nt
--- NOTE | ~2017-08-15 | HC ---
[facility] [place] [address] CONSULTATION Name: SNOIA FUENTES Room #: 405-[facility] IN M.R.#: [id number] Admission: 08/15/17 Attend Phys: Pelon Abbasi DO Discharge: 08/21/17 Date of : 51 Report #: [id number] THIS REPORT FOR: //name// CC: Akash Abbasi DATE OF SERVICE: 08/15/2017 REASON FOR CONSULTATION: Possible left hip wound infection. HISTORY OF PRESENT ILLNESS: The patient is a 67-year-old female who sustained a left hip intertrochanteric hip fracture. She underwent surgical fixation with an intramedullary nail on 08/04/2017, and apparently was doing well until yesterday when her dressing was changed and it was noted that she had significant amount of erythema, edema and some purulent drainage to her wounds, predominantly the distal wound. REVIEW OF SYSTEMS: INTEGUMENTARY: The patient reports an ulcer on the right side of her buttocks. NEUROLOGIC: Denies numbness or tingling. PAST MEDICAL HISTORY: Reviewed partially from the chart, partially from the patient, which includes insulin-dependent diabetes, hypertension, prior back surgery, peripheral neuropathy. PAST SURGICAL HISTORY: Right hip replacement, fixation of the left hip as mentioned above, total abdominal hysterectomy, cholecystectomy, appendectomy, carpal tunnel surgery, she has had a . ALLERGIES: INCLUDE MORPHINE, MEPERIDINE AND ORAL AND IV DYE. MEDICATIONS: The MAR was reviewed, please see that. SOCIAL HISTORY: She lives at [facility] in an assisted living. She ambulates with a walker. Smoking and alcohol status is unknown. LABORATORY DATA: Done on 08/14/2017 show white blood cell count of 11.4, hemoglobin 8, hematocrit 23.7, the white blood cell count has been elevated from 08/10/2017 at 10.5, platelet count 257. ESR is elevated at 110. Chemistry shows an elevation in her blood glucose levels. CT scan showed fluid at the wound sites and intact hardware and fracture site. PHYSICAL EXAMINATION: GENERAL: She is alert and oriented, interacts appropriately. She is a well-developed, well-nourished female, in no acute distress. [address] [address] CONSULTATION Name: SONIA FUENTES Room #: 405-P [facility] IN M.R.#: [id number] Admission: 08/15/17 Attend Phys: Pelon Abbasi DO Discharge: 08/21/17 Date of : 51 Report #: [id number] EXTREMITIES: Examination of her left lower extremity. She is distally neurovascularly intact. Brisk capillary refill. There is calf edema, but there is no tenderness and Homans' is negative. The surgical incisions were evaluated. All 3 surgical incisions on the lateral aspect of her left hip showed some erythema with tenderness, the distal most one had a significant amount of purulent-type drainage and maceration with a small amount of necrosis around the edges. The proximal incisions had some mild amount of purulent drainage. IMPRESSION AND PLAN: Left surgical wound infections. At this point, I will discuss with my partner, Dr. Josias Mata and most likely, he will take her to surgery tomorrow to clean out the infection. We will obtain cultures as well. Thank you very much for allowing me to participate in the care of this patient. <ELECTRONICALLY SIGNED> By: Eden Chambers MD 09/11/17 1503 1743 0528 Eden Chambers MD /nt
[2017-08-15 20:40] VITALS: BP 137/89
[2017-08-16 03:03] VITALS: BP 153/73
[2017-08-16 03:42] LABS: HEMATOCRIT 22.8 % (37.0-47.0); HEMOGLOBIN 7.8 gm/dL (12.0-15.0); INR 1.1; MCH 31.8 pg (26.0-34.0); MCV 93.4 fL (80.0-100.0); PROTIME 11.1 Seconds (9.3-11.4); RBC 2.45 mil/uL (4.20-5.00); RDW 17.1 % (10.5-14.5)
[2017-08-16 03:46] LABS: ALBUMIN 2.2 g/dL (3.4-5.0); CALCIUM 8.7 mg/dL (8.5-10.1); CREATININE 1.7 mg/dL (0.6-1.0); POTASSIUM 4.3 mmol/L (3.5-5.1); TOTAL BILIRUBIN 0.4 mg/dL (<0.1-1.0); TOTAL PROTEIN 5.8 g/dL (6.4-8.2)
[2017-08-16 07:45] VITALS: BP 157/56
[2017-08-16 11:46] LABS: ABSOLUTE RETIC COUNT 0.1142 10^6/uL; OBSERVED RETIC COUNT 4.71 % (0.6-2.6)
[2017-08-16 11:58] LABS: % SATURATION 20 % (20-39); IRON 36 ug/dL (50-170); TIBC 182 ug/dL (250-450)
[2017-08-16 15:15] VITALS: BP 157/87
[2017-08-16 20:00] VITALS: BP 160/57
[2017-08-17 03:42] LABS: MCH 32.2 pg (26.0-34.0); MCHC 34.2 g/dL (28.0-37.0); MCV 94.2 fL (80.0-100.0); RBC 1.98 mil/uL (4.20-5.00); WBC 8.4 thou/uL (4.0-11.0)
[2017-08-17 03:45] LABS: CALCIUM 7.9 mg/dL (8.5-10.1); CREATININE 1.6 mg/dL (0.6-1.0); MAGNESIUM 1.5 mg/dL (1.8-2.4); POTASSIUM 4.5 mmol/L (3.5-5.1)
[2017-08-17 03:46] LABS: HEMATOCRIT 18.7 % (37.0-47.0); HEMOGLOBIN 6.4 gm/dL (12.0-15.0)
[2017-08-17 04:00] VITALS: BP 150/57
[2017-08-17 08:15] VITALS: BP 162/59
[2017-08-17 09:50] VITALS: BP 138/49; BP 144/44
[2017-08-17 16:30] VITALS: BP 102/43
[2017-08-17 16:34] LABS: HEMATOCRIT 24.3 % (37.0-47.0); HEMOGLOBIN 8.2 gm/dL (12.0-15.0)
[2017-08-17 20:15] VITALS: BP 149/45
[2017-08-18 04:34] LABS: ABSOLUTE NEUTROPHILS 5.9 thou/uL (1.4-8.2); BASOPHILS 0.9 % (0.0-2.0); EOSINOPHILS 3.4 % (0.0-3.0); HEMATOCRIT 21.7 % (37.0-47.0); HEMOGLOBIN 7.5 gm/dL (12.0-15.0); LYMPHOCYTES 15.8 % (24.0-44.0); MCH 31.4 pg (26.0-34.0); MCHC 34.4 g/dL (28.0-37.0); MCV 91.4 fL (80.0-100.0); PLATELET COUNT 284 thou/uL (150-400); POLYS 71.9 % (36.0-66.0); RBC 2.37 mil/uL (4.20-5.00); RDW 16.9 % (10.5-14.5); WBC 8.2 thou/uL (4.0-11.0)
[2017-08-18 04:52] LABS: CALCIUM 8.4 mg/dL (8.5-10.1); CREATININE 1.5 mg/dL (0.6-1.0); POTASSIUM 4.4 mmol/L (3.5-5.1)
[2017-08-18 05:29] VITALS: BP 162/66
[2017-08-18 08:00] VITALS: BP 149/43
[2017-08-18 17:40] VITALS: BP 174/78
[2017-08-18 20:45] VITALS: BP 162/58
[2017-08-19 04:09] VITALS: BP 129/51
[2017-08-19 06:20] LABS: HEMATOCRIT 23.6 % (37.0-47.0); HEMOGLOBIN 8.1 gm/dL (12.0-15.0); MCH 31.2 pg (26.0-34.0); MCHC 34.2 g/dL (28.0-37.0); MCV 91.4 fL (80.0-100.0); PLATELET COUNT 318 thou/uL (150-400); RBC 2.59 mil/uL (4.20-5.00); RDW 16.9 % (10.5-14.5); WBC 7.1 thou/uL (4.0-11.0)
[2017-08-19 08:31] VITALS: BP 131/58
[2017-08-19 09:37] LABS: ABSOLUTE NEUTROPHILS 5.2 thou/uL (1.4-8.2); ANISOCYTOSIS 1+; POLYCHROMASIA SLIGHT
[2017-08-19 17:26] VITALS: BP 143/51
[2017-08-19 20:00] VITALS: BP 126/49
[2017-08-20 04:00] VITALS: BP 103/62
[2017-08-20 06:24] LABS: CREATININE 1.5 mg/dL (0.6-1.0); MAGNESIUM 1.6 mg/dL (1.8-2.4); POTASSIUM 4.5 mmol/L (3.5-5.1)
[2017-08-20 08:00] VITALS: BP 127/59
[2017-08-20 16:02] VITALS: BP 136/63
[2017-08-20 20:00] VITALS: BP 136/68
[2017-08-21 04:00] VITALS: BP 138/54
[2017-08-21 06:15] LABS: CALCIUM 9.4 mg/dL (8.5-10.1); CREATININE 1.6 mg/dL (0.6-1.0); POTASSIUM 4.7 mmol/L (3.5-5.1)
[2017-08-21 09:40] VITALS: BP 134/52
[2017-08-21] MEDS ORDERED: IRON325 PO (12:21)
== END 2017-08-21 15:02 | DRG 907 ==
LOC: 4N 21:21
PROVIDERS: Internal Medicine; Nurse Practitioner Acute Care
PROC: 0KDR0ZZ Extraction of Left Upper Leg Muscle, Open Approach (ICD-10-PCS; principal; 2017-08-16)
PROC: 30233N1 Transfusion of Nonautologous Red Blood Cells into Peripheral Vein, Percutaneous Approach (ICD-10-PCS; 2017-08-17)
DX: M96.842 Postprocedural seroma of a musculoskeletal structure following a musculoskeletal system procedure (principal); E43 Unspecified severe protein-calorie malnutrition; Z68.42 Body mass index [BMI] 45.0-49.9, adult; I12.0 Hypertensive chronic kidney disease with stage 5 chronic kidney disease or end stage renal disease; L89.890 Pressure ulcer of other site, unstageable; N18.9 Chronic kidney disease, unspecified; E83.42 Hypomagnesemia; E11.42 Type 2 diabetes mellitus with diabetic polyneuropathy; E11.22 Type 2 diabetes mellitus with diabetic chronic kidney disease; D64.9 Anemia, unspecified; Z96.641 Presence of right artificial hip joint; Z90.710 Acquired absence of both cervix and uterus; Z90.49 Acquired absence of other specified parts of digestive tract; Z88.6 Allergy status to analgesic agent; Z79.4 Long term (current) use of insulin; Z88.8 Allergy status to other drugs, medicaments and biological substances; Z82.49 Family history of ischemic heart disease and other diseases of the circulatory system; Z83.3 Family history of diabetes mellitus; Z82.5 Family history of asthma and other chronic lower respiratory diseases; Z79.899 Other long term (current) drug therapy
CPT/HCPCS: 10790; 50101; 50386; 50915; 51412; 53078; 56525; 62110; 62900; 70005

== ENCOUNTER 2017-08-21 13:39 | Inpatient (IN) | payer OTHER ==
[~2017-08-21] VITALS: Ht 157.5 cm; Wt 115.7 kg
--- NOTE | ~2017-08-21 | H ---
[facility] [place] [address] HISTORY AND PHYSICAL Name: SONIA FUENTES Room #: 516-1 ADM IN M.R.#: [id number] Admission: 08/21/17 Attend Phys: Riky Mazariegos MD Discharge: Date of : 51 Report #: [id number] THIS REPORT FOR: //name// CC: Akash Mazariegos DATE OF SERVICE: 08/21/2017 HISTORY OF PRESENT ILLNESS: The patient is a 67-year-old white female previously known to me who was on the acute inpatient rehab meza after having a fall with a left proximal femur fracture. She underwent open reduction internal fixation with a trochanteric fixation nail on 08/04/2017. She was limited to 25 pounds weightbearing. Her course was complicated by encephalopathy and some noted delirium. She was admitted to the inpatient rehab meza. She was thought to have some frontotemporal dementia of a moderate severity per neuropsychology involvement. Her course was complicated by infection of that left surgical site involving the hip incision. She was transferred off the rehab meza and underwent further surgery with an I and D of an infected left thigh seroma on 08/16/2017. She continues on the limited weightbearing. She has been transferred back now to the acute inpatient rehab meza to complete her rehabilitation therapies. PAST MEDICAL HISTORY: Insulin-dependent diabetes mellitus, hypertension, back surgery, prior right hip replacement approximately 5 years ago, neck surgery, ALESIA, cholecystectomy, appendectomy, carpal tunnel surgery, and . She has premorbid peripheral neuropathy. As far as her current status, she also has a wound with wound care following which is an unstageable pressure ulcer of right posterior iliac crest. MEDICATIONS: Please see the full medication listing. This does include vitamins, herbals, and supplements. ALLERGIES: MORPHINE. SOCIAL HISTORY: She has been living at the [facility] in the assisted living facility. She is a premorbid walker ambulator. No steps. [id number], who is a nurse here at the hospital in wound care. REVIEW OF SYSTEMS: She does have the posterior iliac crest unstageable ulcer. She complains of some nausea and apparently had an emesis last evening or early this morning. She did not offer any specific complaints of abdominal pain, but she notes she is concerned regarding trying to eat this morning. She has some left hip discomfort as expected. No other focal extremity pain complaints. PHYSICAL EXAMINATION: GENERAL: A 67-year-old obese white female who was intermittently having crying [facility] [address] [place] [address] HISTORY AND PHYSICAL Name: SONIA FUENTES Room #: 516-1 [facility] IN [facility].#: [id number] Admission: 08/21/17 Attend Phys: Riky Mazariegos MD Discharge: Date of : 51 Report #: [id number] episodes as she notes frustration with her condition and is concerned regarding whether she will be able to eat again with the nausea. VITAL SIGNS: Temperature is 98.6, pulse 96, respirations 20, blood pressure 115/53. Facies appeared symmetric. HEENT: Appeared benign. CHEST: Sounded clear to auscultation. CARDIOVASCULAR: Regular rate and rhythm. ABDOMEN: Obese, bowel sounds positive, nontender. EXTREMITIES: She has an unstageable ulcer over right iliac crest is noted. Left hip incisions with just a small amount of bloody serous drainage. No focal calf swelling. She has discomfort moving that left lower extremity. She can dorsiflex the left ankle greater than antigravity. Right lower extremity strength is probably at least a grade 3+/5. She is max assist with bed to chair. She has been unable to ambulate. She has been max assist for lower body dressing. She does have the weightbearing precautions as noted above. ASSESSMENT: 1. Left proximal femur fracture, status post open reduction and internal fixation with fixation nailing on 08/04/2017. She has had a subsequent I and D of a left hip seroma on 08/16/2017. She is limited to less than 25 pounds weightbearing on that left lower extremity. 2. Encephalopathy. Psychiatry has been involved and she has been on scheduled Haldol. She is currently on Effexor and is still on the scheduled Haldol as well as all the IV antibiotics and her medications as listed. 3. Premorbid peripheral neuropathy. 4. Nausea. I had a discussion with the patient's nurse as well as with the hospitalist nurse practitioner who was here and will be further evaluating the patient this morning. 5. Poorly controlled diabetes mellitus. 6. Acute renal insufficiency superimposed on chronic kidney disease. 7. Exogenous obesity. 9. Right iliac crest unstageable ulcer. PLAN: The patient is admitted for acute in-hospital inpatient rehabilitation. From a postadmission physician evaluation perspective, there are no relevant changes since the preadmission screening. Please see the above review of prior and current medical and functional conditions and comorbidities. Please see the patient's previous and current functional status. As far as risk of complications, the patient has multiple medical comorbidities as noted above. Initial plan of care involves the interdisciplinary acute inpatient rehabilitation program with the goal of maximizing the patient's functional independence, so that she can hopefully return back to her prior living situation. Measurable functional goals would be for her to become modified independent with transfers, mobility and ADLs, so she can hopefully return back to her prior living situation. Prognosis is reasonably good with estimated length of stay probably fairly long as she is at a lower level. We will need to [facility] [address] [place] [address] HISTORY AND PHYSICAL Name: SONIA FUENTES Room #: 516-1 ADM IN M.R.#: [id number] Admission: 08/21/17 Attend Phys: Riky Mazariegos MD Discharge: Date of : 51 Report #: [id number] see how she progresses as far as her functional mobility with a 25-pound weightbearing restriction. Potential barriers would include her multiple medical comorbidities and decreased functional status. The patient meets diagnostic criteria for an acute in-hospital inpatient rehabilitation stay. She meets medical necessity criteria with the multiple talent consultant physicians that will continue to follow. She does have the tolerance for therapies and we have been working with the patient's [id number] and encouraging the patient to continue in this regard. We may have some difficulty this morning; however, with her nausea, but we will see how things go. The patient is appropriate. As far as discharge goals, back to the home setting. <ELECTRONICALLY SIGNED> By: Riky Mazariegos MD 08/25/17 1509 [id number] Riyk Mazariegos MD /PMT
--- NOTE | ~2017-08-21 | HC ---
[facility] [place] [address] CONSULTATION Name: SONIA FUENTES Room #: 516-1 ADM IN M.R.#: [id number] Admission: 08/21/17 Attend Phys: Riky Mazariegos MD Discharge: Date of : 51 Report #: [id number] THIS REPORT FOR: //name// CC: Akash Mazariegos DATE OF SERVICE: 08/24/2017 ATTENDING PHYSICIAN: Riky Mazariegos MD TANK CAR INSPECTOR: Antonio Wynn PhD CLINICAL PRESENTATION: The patient is a 67-year-old female admitted to the [facility] for a comprehensive inpatient rehabilitation program following a left thigh infected seroma and a left hip ORIF on 08/04/2017. She was initially in inpatient rehab following an open reduction and internal fixation with a trochanteric fixation nail on 08/04/2017. Her course was complicated by an encephalopathy and delirium. PAST MEDICAL HISTORY: Includes insulin-dependent diabetes mellitus, hypertension, back surgery, prior right hip replacement approximately 5 years ago, neck surgery, ALESIA, cholecystectomy, appendectomy, carpal tunnel syndrome, and . She has premorbid peripheral neuropathy. The patient also has been requiring additional wound care because of a pressure ulcer on the right posterior iliac crest. A complete description of her medical condition and history can be found in her medical record. Neuropsychological consultation was requested to provide assistance in the assessment of cognitive and emotional status and to provide recommendations and services. The patient was seen during her previous rehabilitation admission prior to her transfer for acute medical intervention. Prior to this recent deterioration in her medical condition, she was living in an assisted living facility. Her daughter indicates that she had been in this assisted living following an attempt to live independently. She has had a steady deterioration in functioning that includes the inability to maintain her home, personal health care and social pragmatics for the last several years. Her family had been attempting to provide very frequent supervision and monitoring to keep her in the community; however, the extent of services required, led to her referral for placement in assisted living. She is a high school graduate with 2 years of college. The patient is vague in regard to her ability to describe her prior work history. She has 2 children. She reports having discontinued driving at age 66. Decreased insight is noted. TECHNIQUES UTILIZED: Clinical interview, review of medical records, staff [address] [address] CONSULTATION Name: SONIA FUENTES Room #: 516-1 ADM IN M.R.#: [id number] Admission: 08/21/17 Attend Phys: Riky Mazariegos MD Discharge: Date of : 51 Report #: [id number] consultation and behavioral observation, Mini-Mental status exam 2 standard version, calibrated ideational fluency assessment (category and letter). EXAMINATION FINDINGS: The patient was alert and cooperative with the assessment. She was disorganized in her ability to describe recent medical events and the purpose of her treatment. She does not report difficulty with sleep or appetite and was alert and oriented during the assessment. Deficits are reported in memory and word finding. She states that she can forget where she is currently living and instead think that she resides in her prior placement. Variable insight into cognitive deficits are noted. Her behavior is impulsive. Her performance on the MMSE 2 brief version is extremely low with a raw score of 10 of 16. She was 3 of 3 for initial registration, 4 of 5 for orientation to time, 3 of [address] and 0 of 3 for immediate recall of 3 items after a brief time delay and distraction. Her performance on the MMSE 2 standard version was extremely low with a raw score of 19 of 30. She was 1 of 5 for serial sevens, 2 of 2 for naming, 1 of 1 for repetition and 3 of 3 for comprehension. She could read and follow single command. Her performance in category fluency was extremely low with a raw score of 13, T score of 19. Letter fluency was extremely low with a raw score of 10 and a T score of 24. Deficits in executive functioning are suggested by her poor performance in verbal fluency. Brief abstract reasoning test was within normal limits. This type of presentation suggests neurocognitive deficits that are often seen in frontotemporal neurodegenerative disorder. Recommended is a followup assessment to clarify the severity of cognitive deficits and initiation of a treatment program for cognitive disorder. 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 RECOMMENDATIONS: As indicated, the patient will benefit from a treatment program for neurocognitive disorder. She will need increased structure and supervision to maintain safety. Redirection can be used to assist in behavior management. A followup neuropsych assessment will be of value to clarify the severity of cognitive deficits and provide recommendations to assist with compensation. [address] [address] CONSULTATION Name: SONIA FUENTES Room #: 516-1 ADM IN M.R.#: [id number] Admission: 08/21/17 Attend Phys: Riky Mazariegos MD Discharge: Date of : 51 Report #: [id number] Thank you very much for allowing me to provide the consultation on this patient. <ELECTRONICALLY SIGNED> By: Antonio Wynn, PhD 09/01/17 1818 [id number] [id number] Antonio Wynn, PhD /nt
--- NOTE | ~2017-08-21 | HC ---
[facility] [place] [address] CONSULTATION Name: SONIA FUENTES Room #: 516-1 ADM IN M.R.#: [id number] Admission: 08/21/17 Attend Phys: Riky Mazariegos MD Discharge: Date of : 51 Report #: [id number] THIS REPORT FOR: //name// CC: Akash Mazariegos PERSONAL PHYSICIAN: Akash Lynch MD CHIEF COMPLAINT: Left hip wounds and decubitus ulcer to the right flank. HISTORY OF PRESENT ILLNESS: This is a 67-year-old white female, previously known to us from initial hospitalization, and found to have a right superior iliac crest decubitus ulcer, which we have been treating and has been improving. The patient unfortunately initially had an open reduction and internal fixation with trochanteric fixation nail on 08/04/2017. She then; however, was up on the rehab floor and was noted to have increased erythema, warmth and drainage coming from the surgical site. The patient was taken back to the operating room and had an I and D of an infected seroma on 08/16/2017. The patient now has been readmitted back to the rehab unit and we have been asked to assist in the care of the wounds at this time. PAST MEDICAL HISTORY: Insulin-dependent diabetes, hypertension, previous back surgery, previous right hip replacement, neck surgery. The patient has peripheral neuropathy as well as the unstageable decubitus ulcer of the right posterior superior iliac crest. CURRENT MEDICATIONS: Multiple, I reviewed the patient's medication list. DRUG ALLERGIES: MORPHINE. SOCIAL HISTORY: The patient had been living in assisted living at [facility] prior to this recent hip fracture. FAMILY HISTORY: Not pertinent to current medical condition. REVIEW OF SYSTEMS: CONSTITUTIONAL: The patient denies fevers or chills. NEUROLOGIC: The patient complains of overall mild generalized weakness, but no isolated weakness in arms or legs. EYES: No complaints. ENT: No complaints. CARDIAC: The patient denies chest pain, palpitations, or peripheral edema. RESPIRATORY: The patient denies shortness breath, cough or wheezes. GASTROINTESTINAL: The patient has nausea and vomiting for past 24 hours and has diminished appetite, but denies actual abdominal pain or diarrhea. GENITOURINARY: The patient denies urgency or frequency. MUSCULOSKELETAL: The patient has pain in her left hip area. [address] [address] CONSULTATION Name: SONIA FUENTES Room #: 516-1 ADM IN M.R.#: [id number] Admission: 08/21/17 Attend Phys: Riky Mazariegos MD Discharge: Date of : 52 Report #: [id number] SKIN: There is surgical wound to the left hip as well as a decubitus ulcer in the right posterior superior iliac crest. PHYSICAL EXAMINATION: VITAL SIGNS: Temperature 37, pulse 96, respirations 20, and BP 115/53. GENERAL: This is an alert and oriented x3, pleasant white female who is in no acute distress. HEENT: Normocephalic, atraumatic. Mucous membranes are dry. Pupils are round. Sclerae are white. LUNGS: Show nonlabored respirations. ABDOMEN: Obese, soft, otherwise nontender. EXTREMITIES: Evaluation of left hip reveals surgical wounds times [address], it is otherwise clean and dry. There is mild erythema, warmth, and some mild tenderness. There is no associated fluctuance. Previous drains have been removed. Distal neurovascular is otherwise intact. Evaluation of right posterior superior iliac crest reveals an unstageable decubitus ulcer, which is fairly clean and granulating. There is minimal depth, periwound itself. Periulcer itself is otherwise intact without erythema, warmth or signs of cellulitis. Bilateral heels are intact. NEUROLOGIC: Cranial nerves 2-12 are grossly intact. Motor and sensory grossly intact. LABORATORY VALUES: White count 9.4, hemoglobin 8.1. Sed rate 100. Albumin low at 2.7. C-reactive protein was elevated at 30.6. BUN 43, creatinine 1.6. IMPRESSION: 1. Unstageable decubitus ulcer of the right posterior superior iliac crest, overall improving, present on admission. 2. Left lateral thigh surgical wounds, status post I and D of infected seroma, overall stable. 3. Status post open reduction and internal fixation of femoral neck fracture. 4. Diabetes mellitus. 5. Generalized debility. 6. Protein-calorie malnutrition-severe with albumin of 2.7. PLAN: At this time, we will continue with Aquacel Ag to all the wound sites, cover with an ABD, have this changed daily. The patient to utilize her physical and occupation therapy for strengthening. We have to make sure we maximize the patient's oral supplementation of protein for healing as well as nutritional supplementation as well for healing. We will continue to follow the patient and watch her wounds closely. <ELECTRONICALLY SIGNED> By: Rohan Herron MD 08/27/17 1316 [id number] [id number] Rohan Herron MD /nt
--- NOTE | ~2017-08-21 | PLAN ---
[facility] [place] [address] REHAB UNIT PLAN OF CARE Name: SONIA FUENTES Room #: 516-1 ADM IN M.R.#: [id number] Admission: 08/21/17 Attend Phys: Riky Mazariegos MD Discharge: Date of : 51 Report #: [id number] THIS REPORT FOR: //name// CC: Akash Mazariegos DATE OF SERVICE: 08/23/2017 The patient was seen back earlier. Last recorded temperature 38, pulse 111, respirations 16, blood pressure 167/70. She has had some intermittent episodes of crying and then she will be laughing. She was sleepy in no obvious distress. Hip incisional area is dressed. She has been working in therapies. Transfers bed to wheelchair are max assist utilizing a sliding board. She has not been able to ambulate. Bed mobility is max assist. Lower body dressing has been max assist. ASSESSMENT: 1. Left proximal femur fracture, status post open reduction and internal fixation with fixation nailing 08/04/2017. She had subsequent I and D of the left seroma of the hip on 08/16/2017. She is limited to less than 25 pounds weightbearing. 2. Encephalopathy. 3. Premorbid peripheral neuropathy. 4. Nausea that was a concern yesterday and she is to have Bentyl and Zofran as needed as per Internal Medicine. 5. Poorly controlled diabetes mellitus. 6. Acute renal insufficiency superimposed on chronic kidney disease. 7. Exogenous obesity. 8. Right iliac crest unstageable ulcer. PLAN: The overall plan of care is based on the preadmission screen, post-admission physician evaluation and information garnered from therapy assessments: 1. Estimated length of stay is probably at least 2-3 weeks and likely longer as she is at a lower level of functional mobility. 2. Medical prognosis is reasonably good. 3. Anticipated interventions include the interdisciplinary acute inpatient rehabilitation program with PT and OT and Speech, rehabilitation nursing assisting regarding medication management, skin care following bowel and bladder issues and nursing education. She is to have the multiple oracle hrms consultant physicians continue to follow her while she is on the rehab meza. 4. Anticipated functional outcomes would be for the patient to initially improve as far as her functional mobility and transfers. Goal would be to become independent with basic transfers within her weightbearing precautions at least at a wheelchair level. 5. Discharge destination would be back to the [place] [address] REHAB UNIT PLAN OF CARE Name: SONIA FUENTES Room #: 516-1 ADM IN [facility].#: [id number] Admission: 08/21/17 Attend Phys: Riky Mazariegos MD Discharge: Date of : 52 Report #: [id number] in an assisted living facility. She may likely need more assistance when she is ready for discharge. 6. Expected therapy by discipline includes PT, OT and Speech 1 hour per day each five days a week throughout the duration of the acute inpatient rehabilitation stay. <ELECTRONICALLY SIGNED> By: Riky Mazariegos MD 08/25/17 1509 [id number] Riky Mazariegos MD /[facility]
[~2017-08-21 13:39] MED LIST changes: +IRON325 PO
[2017-08-21 15:15] VITALS: BP 118/60
[2017-08-21 20:20] VITALS: BP 115/53
[2017-08-22 04:49] LABS: HEMATOCRIT 24.2 % (37.0-47.0); HEMOGLOBIN 8.1 gm/dL (12.0-15.0); MCH 31.4 pg (26.0-34.0); MCHC 33.5 g/dL (28.0-37.0); MCV 93.9 fL (80.0-100.0); RBC 2.57 mil/uL (4.20-5.00); RDW 17.3 % (10.5-14.5); WBC 9.4 thou/uL (4.0-11.0)
[2017-08-22 05:05] LABS: CALCIUM 8.9 mg/dL (8.5-10.1); CREATININE 1.6 mg/dL (0.6-1.0)
[2017-08-22 10:00] LABS: ALBUMIN 2.7 g/dL (3.4-5.0); DIRECT BILIRUBIN < 0.1 mg/dL (<0.1-0.3); MAGNESIUM 1.9 mg/dL (1.8-2.4); SGOT 28 U/L (15-37); SGPT 28 U/L (30-65); TOTAL BILIRUBIN 0.3 mg/dL (<0.1-1.0); TOTAL PROTEIN 6.3 g/dL (6.4-8.2)
[2017-08-22 12:00] VITALS: BP 127/45
[2017-08-22 20:59] VITALS: BP 167/70
[2017-08-23 11:04] VITALS: BP 176/67
[2017-08-23 20:05] VITALS: BP 142/47
[2017-08-24 07:25] VITALS: BP 146/62
[2017-08-24 22:05] VITALS: BP 140/80
[2017-08-25 04:27] LABS: BASOPHILS 1.2 % (0.0-2.0); HEMATOCRIT 22.4 % (37.0-47.0); HEMOGLOBIN 7.6 gm/dL (12.0-15.0); LYMPHOCYTES 27.8 % (24.0-44.0); MCH 31.5 pg (26.0-34.0); MCV 92.6 fL (80.0-100.0); MONOCYTES 7.2 % (1.0-8.0); PLATELET COUNT 272 thou/uL (150-400); POLYS 58.8 % (36.0-66.0); RBC 2.42 mil/uL (4.20-5.00); RDW 17.5 % (10.5-14.5); WBC 6.8 thou/uL (4.0-11.0)
[2017-08-25 04:45] LABS: ALBUMIN 2.4 g/dL (3.4-5.0); CALCIUM 9.1 mg/dL (8.5-10.1); CREATININE 1.3 mg/dL (0.6-1.0); POTASSIUM 4.1 mmol/L (3.5-5.1); TOTAL BILIRUBIN 0.3 mg/dL (<0.1-1.0)
[2017-08-25 07:30] VITALS: BP 154/77
[2017-08-25 19:43] VITALS: BP 120/60
[2017-08-26 08:45] VITALS: BP 143/60
[2017-08-26 20:11] VITALS: BP 158/90
[2017-08-27 08:23] VITALS: BP 128/70
[2017-08-27 21:11] VITALS: BP 175/53
[2017-08-28 09:00] VITALS: BP 152/92
[2017-08-28 20:21] VITALS: BP 144/94
[2017-08-29 06:29] LABS: HEMATOCRIT 21.1 % (37.0-47.0); HEMOGLOBIN 7.4 gm/dL (12.0-15.0); MCH 32.3 pg (26.0-34.0); MCHC 34.9 g/dL (28.0-37.0); MCV 92.6 fL (80.0-100.0); PLATELET COUNT 204 thou/uL (150-400); RBC 2.28 mil/uL (4.20-5.00); WBC 5.4 thou/uL (4.0-11.0)
[2017-08-29 06:49] LABS: CALCIUM 9.1 mg/dL (8.5-10.1); CREATININE 1.5 mg/dL (0.6-1.0); MAGNESIUM 1.7 mg/dL (1.8-2.4); POTASSIUM 4.6 mmol/L (3.5-5.1)
[2017-08-29 08:49] LABS: ABSOLUTE NEUTROPHILS 2.9 thou/uL (1.4-8.2); METAMYELOCYTES 2 %
[2017-08-29 08:50] LABS: ANISOCYTOSIS 1+; POLYCHROMASIA SLIGHT
[2017-08-29 10:46] VITALS: BP 138/80
[2017-08-29 21:15] VITALS: BP 144/86
[2017-08-30 08:00] VITALS: BP 157/59
[2017-08-30 20:05] VITALS: BP 180/92
[2017-08-31 10:34] VITALS: BP 146/71
[2017-08-31 20:09] VITALS: BP 176/84
[2017-09-01 06:20] LABS: ABSOLUTE NEUTROPHILS 2.2 thou/uL (1.4-8.2); BASOPHILS 0.8 % (0.0-2.0); EOSINOPHILS 6.2 % (0.0-3.0); HEMATOCRIT 23.1 % (37.0-47.0); HEMOGLOBIN 7.8 gm/dL (12.0-15.0); LYMPHOCYTES 35.6 % (24.0-44.0); MCH 31.8 pg (26.0-34.0); MCHC 33.8 g/dL (28.0-37.0); MCV 94.3 fL (80.0-100.0); PLATELET COUNT 218 thou/uL (150-400); POLYS 47.4 % (36.0-66.0); RBC 2.45 mil/uL (4.20-5.00); RDW 18.8 % (10.5-14.5); WBC 4.7 thou/uL (4.0-11.0)
[2017-09-01 06:40] LABS: ALBUMIN 2.8 g/dL (3.4-5.0); CALCIUM 9.1 mg/dL (8.5-10.1); CREATININE 1.2 mg/dL (0.6-1.0); POTASSIUM 4.3 mmol/L (3.5-5.1); TOTAL BILIRUBIN 0.3 mg/dL (<0.1-1.0); TOTAL PROTEIN 6.4 g/dL (6.4-8.2)
[2017-09-01 07:49] VITALS: BP 164/41
[2017-09-01 19:33] VITALS: BP 136/65
[2017-09-02 08:30] VITALS: BP 163/57
[2017-09-02 20:00] VITALS: BP 176/88
[2017-09-03 08:00] VITALS: BP 159/81
[2017-09-03 19:43] VITALS: BP 182/96
[2017-09-04 06:18] LABS: HEMATOCRIT 22.1 % (37.0-47.0); HEMOGLOBIN 7.4 gm/dL (12.0-15.0); MCH 31.9 pg (26.0-34.0); MCHC 33.3 g/dL (28.0-37.0); MCV 95.8 fL (80.0-100.0); RBC 2.31 mil/uL (4.20-5.00); RDW 19.5 % (10.5-14.5); WBC 4.6 thou/uL (4.0-11.0)
[2017-09-04 06:25] LABS: CREATININE 1.4 mg/dL (0.6-1.0); POTASSIUM 4.2 mmol/L (3.5-5.1)
[2017-09-04 08:30] VITALS: BP 139/64
[2017-09-04 19:40] VITALS: BP 146/74
[2017-09-05 08:00] VITALS: BP 147/68
[2017-09-05] MEDS ORDERED: CIPRO500 MG PO (11:51)
[2017-09-05] MEDS ORDERED: FLAGYL500 MG PO (11:52)
[2017-09-05] MEDS ORDERED: RIFAMPIN 300 M300 M1 PO (11:52)
[2017-09-05] MEDS ORDERED: LEVEMIR SUBQ (11:54)
== END 2017-09-05 17:46 | DRG 535 ==
PROVIDERS: Hospitalist; Nurse Practitioner; Physical Medicine & Rehabilitation; Specialist
PROC: 05HD33Z Insertion of Infusion Device into Right Cephalic Vein, Percutaneous Approach (ICD-10-PCS; principal; 2017-08-30)
PROC: B54MZZA Ultrasonography of Right Upper Extremity Veins, Guidance (ICD-10-PCS; principal; 2017-08-30)
DX: S72.002A Fracture of unspecified part of neck of left femur, initial encounter for closed fracture (principal); G93.40 Encephalopathy, unspecified; E43 Unspecified severe protein-calorie malnutrition; N17.9 Acute kidney failure, unspecified; Z68.42 Body mass index [BMI] 45.0-49.9, adult; D62 Acute posthemorrhagic anemia; T81.4XXA Infection following a procedure, initial encounter; M00.852 Arthritis due to other bacteria, left hip; R41.0 Disorientation, unspecified; F03.90 Unspecified dementia, unspecified severity, without behavioral disturbance, psychotic disturbance, mood disturbance, and anxiety; E11.42 Type 2 diabetes mellitus with diabetic polyneuropathy; R11.0 Nausea; I12.9 Hypertensive chronic kidney disease with stage 1 through stage 4 chronic kidney disease, or unspecified chronic kidney disease; E11.22 Type 2 diabetes mellitus with diabetic chronic kidney disease; N18.9 Chronic kidney disease, unspecified; E66.9 Obesity, unspecified; L89.890 Pressure ulcer of other site, unstageable; R53.81 Other malaise; F01.50 Vascular dementia, unspecified severity, without behavioral disturbance, psychotic disturbance, mood disturbance, and anxiety; F32.9 Major depressive disorder, single episode, unspecified; F41.9 Anxiety disorder, unspecified; B96.1 Klebsiella pneumoniae [K. pneumoniae] as the cause of diseases classified elsewhere; E11.65 Type 2 diabetes mellitus with hyperglycemia; B96.89 Other specified bacterial agents as the cause of diseases classified elsewhere; Z96.641 Presence of right artificial hip joint; Z79.4 Long term (current) use of insulin; Z91.041 Radiographic dye allergy status; Z88.8 Allergy status to other drugs, medicaments and biological substances; Z79.899 Other long term (current) drug therapy; Z90.710 Acquired absence of both cervix and uterus; Z90.49 Acquired absence of other specified parts of digestive tract; Z88.6 Allergy status to analgesic agent; W19.XXXA Unspecified fall, initial encounter; Y93.89 Activity, other specified; Y92.89 Other specified places as the place of occurrence of the external cause; Y99.8 Other external cause status; Z83.3 Family history of diabetes mellitus; Z82.49 Family history of ischemic heart disease and other diseases of the circulatory system
CPT/HCPCS: 10112; 27000

== ENCOUNTER → 2017-11-19 | Outpatient (CLI) | payer OTHER ==
[~2017-11-19] MED LIST changes: +CIPRO500 MG PO; +FLAGYL500 MG PO; +RIFAMPIN 300 M300 M1 PO
== END ==
LOC: CAT 06:12
DX: S72.92XD Unspecified fracture of left femur, subsequent encounter for closed fracture with routine healing (principal); X58.XXXD Exposure to other specified factors, subsequent encounter

== ENCOUNTER 2018-05-02 22:39 | Inpatient (IN) | payer OTHER ==
[~2018-05-02] VITALS: Ht 157.5 cm; Wt 107.2 kg
--- NOTE | ~2018-05-02 | EKG ---
[address] [address] ELECTROCARDIOGRAM REPORT Name: SONIA FUENTES Room #: 224-P [facility] IN M.R.#: [id number] Admission: 05/03/18 Attend Phys: Mike Cohn MD Discharge: 05/05/18 Date of : 52 Report #: [id number] THIS REPORT FOR: //name// [facility] ED Test Date: 2018-05-02 Test Time: 22:48:51 Pat Name: SONIA FUENTES Department: Room: 224 Gender: F Drilling Field Operator: CALEB : 1950 Requested By: Luis Tierney Order Number: [id number] MD: Noam Gonzalez Measurements Intervals G[place]mith Rate: 94 P: 45 IN: 160 QRS: 23 QRSD: 88 T: 49 QT: 338 QTc: 423 Interpretive Statements Sinus rhythm Low voltage, precordial leads Compared to ECG 08/03/2017 19:19:11 Low QRS voltage now present Sinus tachycardia no longer present Electronically Signed On 05-08-2018 14:23:55 CDT by Noam Gonzalez [email or web address] <ELECTRONICALLY SIGNED> By: Noam Gonzalez MD 05/08/18 1423 [id number] [id number] Noam Gonzalez MD /EPI
[2018-05-02 22:46] VITALS: BP 158/72
[2018-05-02 23:28] LABS: ABSOLUTE NEUTROPHILS 6.6 thou/uL (1.4-8.2); BASOPHILS 1.1 % (0.0-2.0); EOSINOPHILS 2.6 % (0.0-3.0); HEMOGLOBIN 10.7 gm/dL (12.0-15.0); LYMPHOCYTES 22.9 % (24.0-44.0); MCH 35.3 pg (26.0-34.0); MCHC 35.7 g/dL (28.0-37.0); MCV 98.8 fL (80.0-100.0); MONOCYTES 6.5 % (1.0-8.0); PLATELET COUNT 207 thou/uL (150-400); POLYS 66.9 % (36.0-66.0); RBC 3.04 mil/uL (4.20-5.00); RDW 13.4 % (10.5-14.5); WBC 9.9 thou/uL (4.0-11.0)
[2018-05-02 23:30] LABS: CALCIUM 9.4 mg/dL (8.5-10.1); CREATININE 1.7 mg/dL (0.6-1.0); POTASSIUM 5.3 mmol/L (3.5-5.1)
[2018-05-02 23:55] LABS: URINE BILIRUBIN NEGATIVE (Negative); URINE BLOOD 2+ (Negative); URINE CLARITY CLOUDY; URINE COLOR YELLOW; URINE GLUCOSE-RANDOM* NEGATIVE (Negative); URINE KETONES NEGATIVE (Negative); URINE PROTEIN (DIPSTICK) 2+ (Negative); URINE UROBILINOGEN 0.2 E.U./dl (0.2-1.0)
[2018-05-03 00:04] LABS: URINE LEUKOCYTES-REFLEX 2+ (Negative); URINE NITRITE-REFLEX POSITIVE (Negative)
[2018-05-03 00:05] LABS: CASTS None Seen /LPF (None Seen); MUCUS None Seen strn/LPF (None Seen); SQUAMOUS None Seen /LPF (0-3); URINE WBC-REFLEX >25 Many /HPF (0-5)
[2018-05-03 00:06] LABS: CRYSTALS None Seen /LPF (None Seen); URINE RBC 3-10 Few /HPF (0-2)
[2018-05-03 01:30] VITALS: BP 158/72
[2018-05-03 01:50] VITALS: BP 142/44
[2018-05-03 02:09] VITALS: BP 153/55
[2018-05-03] MEDS ORDERED: VITAMINC500 PO (02:52)
[2018-05-03] MEDS ORDERED: ASPERCREME76.5 GM TRANSDERM (02:54)
[2018-05-03] MEDS ORDERED: ASPIRIN325 PO (02:55)
[2018-05-03] MEDS ORDERED: BIOFREEZE118 ML TRANSDERM (02:56)
[2018-05-03] MEDS ORDERED: FOLIC ACID1 MG PO (02:58)
[2018-05-03] MEDS ORDERED: CHOLESTYRAMINE P4 GM PO (02:58)
[2018-05-03] MEDS ORDERED: LOPRESSOR50 PO (03:00)
[2018-05-03] MEDS ORDERED: LASIX 20 MG TAB20 MG PO (03:01)
[2018-05-03] MEDS ORDERED: LISINOPRIL10 MG PO (03:02)
[2018-05-03] MEDS ORDERED: LISINOPRIL20 MG PO (03:03)
[2018-05-03] MEDS ORDERED: NOVOLOG100 UNIT/1 SUBQ (03:04)
[2018-05-03] MEDS ORDERED: NORCO 5-325 TA1 EACH PO (03:05)
[2018-05-03] MEDS ORDERED: ONDANSETRON HCL4 M2 PO (03:14)
[2018-05-03] MEDS ORDERED: NYAMYC15 GM TOP (03:15)
[2018-05-03] MEDS ORDERED: PROBIOTIC1 EAC1 PO (03:15)
[2018-05-03 06:13] LABS: CALCIUM 9.3 mg/dL (8.5-10.1); CREATININE 1.7 mg/dL (0.6-1.0)
[2018-05-03 07:24] VITALS: BP 142/44
[2018-05-03 15:56] VITALS: BP 157/57
[2018-05-03 19:32] VITALS: BP 154/56
[2018-05-04] VITALS (7 sets, daily range): BP systolic 147–199; BP diastolic 60–82
[2018-05-04 00:05] LABS: GLYCOHEMOGLOBIN (HGB A1C) 5.5 % (4.8-5.6)
[2018-05-05 09:05] VITALS: BP 149/68
[2018-05-05 10:11] LABS: ABSOLUTE NEUTROPHILS 4.7 thou/uL (1.4-8.2); BASOPHILS 0.8 % (0.0-2.0); EOSINOPHILS 2.1 % (0.0-3.0); HEMATOCRIT 30.9 % (37.0-47.0); LYMPHOCYTES 27.8 % (24.0-44.0); MCH 35.2 pg (26.0-34.0); MCHC 35.5 g/dL (28.0-37.0); MCV 99.1 fL (80.0-100.0); MONOCYTES 4.4 % (1.0-8.0); PLATELET COUNT 249 thou/uL (150-400); POLYS 64.9 % (36.0-66.0); RBC 3.12 mil/uL (4.20-5.00); RDW 13.3 % (10.5-14.5); WBC 7.2 thou/uL (4.0-11.0)
[2018-05-05 10:17] LABS: CALCIUM 9.9 mg/dL (8.5-10.1); CREATININE 1.5 mg/dL (0.6-1.0); POTASSIUM 4.7 mmol/L (3.5-5.1)
[2018-05-05] MEDS ORDERED: CEFUROXIME500 MG PO (14:15)
== END 2018-05-05 18:12 | DRG 683 ==
LOC: ER 22:39 → EROBS 05-03 01:20 → 4W 05-03 01:20 → SICU 05-04 21:13
PROVIDERS: Emergency Medicine; Hospitalist; Nurse Practitioner Family
DX: N17.9 Acute kidney failure, unspecified (principal); N39.0 Urinary tract infection, site not specified; E11.40 Type 2 diabetes mellitus with diabetic neuropathy, unspecified; F32.9 Major depressive disorder, single episode, unspecified; F41.9 Anxiety disorder, unspecified; N18.9 Chronic kidney disease, unspecified; E11.22 Type 2 diabetes mellitus with diabetic chronic kidney disease; I12.9 Hypertensive chronic kidney disease with stage 1 through stage 4 chronic kidney disease, or unspecified chronic kidney disease; Z96.641 Presence of right artificial hip joint; W18.30XA Fall on same level, unspecified, initial encounter; Y93.89 Activity, other specified; Y92.89 Other specified places as the place of occurrence of the external cause; Y99.8 Other external cause status; Z98.891 History of uterine scar from previous surgery; Z90.49 Acquired absence of other specified parts of digestive tract; Z90.710 Acquired absence of both cervix and uterus; Z79.4 Long term (current) use of insulin; Z79.82 Long term (current) use of aspirin; Z79.51 Long term (current) use of inhaled steroids; Z79.899 Other long term (current) drug therapy; Z88.5 Allergy status to narcotic agent; Z88.8 Allergy status to other drugs, medicaments and biological substances; Z91.041 Radiographic dye allergy status; Z82.49 Family history of ischemic heart disease and other diseases of the circulatory system; Z83.3 Family history of diabetes mellitus; Z83.6 Family history of other diseases of the respiratory system
CPT/HCPCS: 10040; 15002

== ENCOUNTER 2019-10-11 19:22 | Inpatient (IN) | payer OTHER ==
[~2019-10-11] VITALS: Ht 157.5 cm; Wt 110.0 kg
--- NOTE | ~2019-10-11 | HC ---
[facility] [place] [address] CONSULTATION Name: SONIA FUENTES Room #: 357-P ADM IN M.R.#: [id number] Admission: 10/11/19 Attend Phys: Mega Soares MD Discharge: Date of : 52 Report #: [id number] THIS REPORT FOR: cc: ANGELICA SANCHEZ Physician not on staff Jayant Andersen MD ~ CC: ANGELICA Soares Physician staff DATE OF SERVICE: 10/13/2019 REASON FOR CONSULTATION: Elevated creatinine. REASON FOR PRESENTATION: Lower extremity wound. HISTORY OF PRESENT ILLNESS: This is a very well-known patient to me. She is 69 years old with past medical history of diabetes mellitus, hypertension, and issues with compliance. She is known to have cellulitis and diabetic ulcer. She failed outpatient medical therapy and was admitted to further evaluate her right lower extremity cellulitis and wound care. She is chronic kidney disease patient of myself. Her baseline creatinine is anywhere from 1.6 to 1.7. Workup in the past was all consistent with diabetic nephropathy. The patient is being considered for an angiogram and because of an elevated creatinine ____. PAST MEDICAL HISTORY: 1. Diabetes mellitus. 2. Hypertension. 3. Back surgery. 4. Right hip replacement. 5. Neck surgery. 6. Cholecystectomy. 7. Appendectomy. 8. Carpal tunnel surgery. 9. . ALLERGIES: MORPHINE. SOCIAL HISTORY: She resides in a nursing facility. REVIEW OF SYSTEMS: GENERAL: No fever or chills. CARDIOVASCULAR: No chest pain or palpitation. PULMONARY: No cough or hemoptysis. GASTROINTESTINAL: No nausea or vomiting. GENITOURINARY: No frequency, no urgency. [facility] [address] [place] [address] CONSULTATION Name: SONIA FUENTES Room #: 357-P ADM IN M.R.#: [id number] Admission: 10/11/19 Attend Phys: Mega Soares MD Discharge: Date of : 51 Report #: [id number] MUSCULOSKELETAL: As per the history of present illness. PHYSICAL EXAMINATION: GENERAL: She is alert, oriented, tearful and crying. VITAL SIGNS: Temperature is 36.6, pulse rate is 93, blood pressure is 152/67. HEAD AND NECK: No jugular venous distention. CHEST: No crackles. CARDIOVASCULAR: No rub detected. ABDOMEN: Soft, nontender with no hepatosplenomegaly. LOWER EXTREMITIES: Edema present. Dressing applied over the right ankle area. LABORATORY VALUES: From today revealed sodium of 137, potassium of 3.9, BUN of 33, creatinine of 1.8. ASSESSMENT AND IMPRESSION: 1. Chronic kidney disease at baseline. 2. Right diabetic foot ulcer. 3. Peripheral vascular disease. 4. Diabetes mellitus. 5. Hypertension. PLAN: 1. Risk of contrast nephropathy is high in this patient. This was discussed with her and she wants me to reach out to her [id number] who is a nurse with the wound care in our hospital. 2. Continue IV fluid. 3. Continue to hold all nephrotoxic medications. 4. Blood pressure control. 5. Blood sugar control. 6. We will continue to follow. By: [id number] Jayant Andersen MD /nt
[~2019-10-11 19:22] MED LIST changes: +ASPERCREME76.5 GM TRANSDERM; +ASPIRIN325 PO; +BIOFREEZE118 ML TRANSDERM; +CEFUROXIME500 MG PO; +FOLIC ACID1 MG PO; +LISINOPRIL10 MG PO; +LISINOPRIL20 MG PO; +LOPRESSOR50 PO; +NORCO 5-325 TA1 EACH PO; +NYAMYC15 GM TOP; +ONDANSETRON HCL4 M2 PO; +PROBIOTIC1 EAC1 PO; +VITAMINC500 PO
[2019-10-11 19:26] VITALS: BP 167/120; BP 76/57
[2019-10-11 20:09] LABS: ABSOLUTE NEUTROPHILS 4.2 thou/uL (1.4-8.2); BASOPHILS 0.5 % (0.0-2.0); EOSINOPHILS 0.8 % (0.0-3.0); HEMATOCRIT 22.3 % (37.0-47.0); HEMOGLOBIN 7.6 gm/dL (12.0-15.0); LYMPHOCYTES 27.9 % (24.0-44.0); MCH 34.1 pg (26.0-34.0); MCHC 33.8 g/dL (28.0-37.0); MCV 100.6 fL (80.0-100.0); MONOCYTES 9.9 % (1.0-8.0); PLATELET COUNT 337 thou/uL (150-400); POLYS 60.9 % (36.0-66.0); RBC 2.22 mil/uL (4.20-5.00); RDW 14.3 % (10.5-14.5); WBC 6.9 thou/uL (4.0-11.0)
[2019-10-11 20:13] LABS: CALCIUM 9.6 mg/dL (8.5-10.1); CREATININE 2.1 mg/dL (0.6-1.0); POTASSIUM 4.2 mmol/L (3.5-5.1)
[2019-10-11 21:06] VITALS: BP 162/67
--- NOTE | 2019-10-11 21:07 | NUR ---
HAND OFF TOOL SENT TO [facility]
[2019-10-11 21:17] VITALS: BP 162/67
--- NOTE | 2019-10-11 21:18 | NUR ---
ACUTE CARE NURSING ASSISTANT CALLED IN PATIENT UNIT TO GIVE REPORT ON PT, WAS TOLD NURSE WAS IN THE MIDDLE OF PT CARE AND WILL RETURN CALL DIOGENES.
[2019-10-11 22:00] VITALS: BP 135/114
[2019-10-12] VITALS (8 sets, daily range): BP systolic 124–188; BP diastolic 45–144
--- NOTE | 2019-10-12 06:17 | NUR ---
Arrived from ER around 2200 accompanied by family members. Only has pain whenever she moves otherwise she denies need for pain med. She has been assisted to reposition. Incontinent of bladder x1 , femae external cath applied. Right leg elevated with pillows. MRSA swab sent to lab to R/O isolation ( hx of MRSA >[address] per tele. Right lower leg edema. Iv fluids infusing and IV ABT given. Will continue to monitor.
[2019-10-12 07:13] LABS: MCHC 33.2 g/dL (28.0-37.0); WBC 4.3 thou/uL (4.0-11.0)
[2019-10-12 07:15] LABS: HEMOGLOBIN 6.7 gm/dL (12.0-15.0); MCH 33.7 pg (26.0-34.0); MCV 101.7 fL (80.0-100.0); RBC 1.97 mil/uL (4.20-5.00); RDW 14.2 % (10.5-14.5)
[2019-10-12 07:33] LABS: CALCIUM 8.4 mg/dL (8.5-10.1); CREATININE 1.8 mg/dL (0.6-1.0); POTASSIUM 3.9 mmol/L (3.5-5.1)
[2019-10-12] MEDS ORDERED: NEURONTIN300 MG PO (07:53)
[2019-10-12] MEDS ORDERED: NOVOLOG100 UNIT/1 SUBQ (08:03)
[2019-10-12] MEDS ORDERED: LEVEMIR100 UNIT/2 SUBQ ×2 (08:06→08:07)
[2019-10-12] MEDS ORDERED: LEVO-T25 MCG PO (08:08)
[2019-10-12] MEDS ORDERED: CLARITIN10 M3 PO (08:12)
[2019-10-12] MEDS ORDERED: MELATONIN3 M1 PO (08:16)
[2019-10-12] MEDS ORDERED: METOCLOPRAMIDE 55 M1 (08:25)
--- NOTE | 2019-10-12 10:06 | NUR ---
Pt consult d/t wound status. Admit from SNF w/ right LE blistering, swelling, erthyema. Hx neuropathy, CKD, anemia, DM, wounds. Most recent wound was ulcer to right valdez which had healed over past 2 weeks. Been on Abx since 10/04 without improvement. Labs: BUN 33, creat 1.8, BG 113-150. Meds: IVFs, IV Abx, insulin. BLE edema present. Weight consistent with last admit at 236-237#. Pt states she has her weight taken once a week at [facility] and is usually around 230#. Reports good appetite and intake, voices understanding of importance of protein foods for wound healing. Ate >75% of breakfast this morning. Reports eating 75-100% of meals at [facility] and doesn't normally drink supplements. Obtained lunch preference for today and instructed Pt on ordering meal changes from menu. No nutritional supplement indicated at this time. Will follow wound healing progress and intake records. Consider to be low nutritional risk.
--- NOTE | 2019-10-12 16:04 | NUR ---
INITIAL ASSESSMENT: Received consult. RAHEEM reviewed chart and spoke with nursing and attending physician. Pt was admitted from [facility] due to RLE cellulitis. Pt is currently on IV abx. ID/wound care/renal and IR consulted. Pt also with GI bleed. RAHEEM met with pt at bedside. Pt unable to answer questions. RAHEEM spoke with pt's dtr-in-law/DPOA, Anny, via phone to obtain info for assessment. Pt is currently in LTC at [facility]. Pt's DIL states that family has requested referral to be sent to [facility] for review. Pt's family have concerns regarding the care pt has been receiving at the [place] facility. Pt has not used skilled days since 2018. Family prefers [facility] and would be okay with [facility] if [facility] is not an option. Should pt need LTAC level of care, preference would be [facility]. Disharge community planner to fax referral to [facility] for review. RAHEEM is following to assist as needed with discharge planning.
--- NOTE | 2019-10-12 16:09 | NUR ---
DISCHARGE PLANNING. ANTICIPATED DISCHARGE PLANNED FOR LATER THIS WEEK. PATIENT REFERRAL FAXED TO [facility] PER FAMILY REQUEST. DISCHARGE PLAN IS TO [facility]. CALL PLACED TO [facility], [facility] ADMISSIONS TO NOTIFY. VOICE MAIL LEFT FOR [facility]. AWAITING RESPONSE. FOLLOWING.
--- NOTE | 2019-10-12 20:23 | NUR ---
PT IS A&OX3, PT IS CONTIUNING IV ABX AND PAIN MANAGENENT , PT HAS 1 UNIT BLOOD TRANSFUSTION , FINSHED AT 1600PM, PT DOES NOT HAVE REACHTION BY THIS TIME, PT'S VS ARE STABLE, PT WILL BE NPO AFTER MN FOR PROCEDUE ANGIOGRAPHY RIGHT LOW EXTREMITY INTERVENTION APPROPRIATE TOMORROW, PT HAS SIGNED THE CONSENT.
[2019-10-13 03:08] VITALS: BP 172/74
[2019-10-13 07:20] VITALS: BP 152/67
[2019-10-13 09:01] LABS: ABSOLUTE NEUTROPHILS 1.9 thou/uL (1.4-8.2); BASOPHILS 0.5 % (0.0-2.0); EOSINOPHILS 1.4 % (0.0-3.0); HEMATOCRIT 24.1 % (37.0-47.0); HEMOGLOBIN 8.1 gm/dL (12.0-15.0); LYMPHOCYTES 39.9 % (24.0-44.0); MCH 33.4 pg (26.0-34.0); MCHC 33.7 g/dL (28.0-37.0); MCV 98.9 fL (80.0-100.0); MONOCYTES 8.2 % (1.0-8.0); PLATELET COUNT 274 thou/uL (150-400); RBC 2.44 mil/uL (4.20-5.00); RDW 15.7 % (10.5-14.5); WBC 3.7 thou/uL (4.0-11.0)
[2019-10-13 15:00] VITALS: BP 152/64
[2019-10-13 19:30] VITALS: BP 159/64
--- NOTE | 2019-10-13 19:58 | NUR ---
SHE CONT TO REST IN BED AT THIS TIME. TO GEOTECHNICAL OPERATING ENGINEER EARLIER AND BACK. NO NEW ORDERS. SHE IS PLEASANT WITH CARE. RESPIRATIONS NO LABORED.
--- NOTE | 2019-10-14 03:13 | NUR ---
she has been refusing some turns tonight.. she has been awake all night watching movies. continues on iv fluids. careplan reviewed. denies pain. she has not been tearful, but has been a little agressive wth conversations. progressing slowly toward goals.
[2019-10-14 04:30] VITALS: BP 176/82
[2019-10-14 06:18] LABS: HEMATOCRIT 25.6 % (37.0-47.0); HEMOGLOBIN 8.6 gm/dL (12.0-15.0); MCH 32.9 pg (26.0-34.0); MCHC 33.5 g/dL (28.0-37.0); MCV 98.3 fL (80.0-100.0); RBC 2.61 mil/uL (4.20-5.00); RDW 15.9 % (10.5-14.5); WBC 3.4 thou/uL (4.0-11.0)
[2019-10-14 06:37] LABS: ALBUMIN 2.5 g/dL (3.4-5.0); CALCIUM 8.6 mg/dL (8.5-10.1); CREATININE 1.5 mg/dL (0.6-1.0); PHOSPHORUS 2.7 mg/dL (2.5-4.9); POTASSIUM 4.1 mmol/L (3.5-5.1)
[2019-10-14 08:14] VITALS: BP 158/89
--- NOTE | 2019-10-14 14:56 | NUR ---
ASSUMED CARE AT 0700, SHIFT ASSESSMENT DONE, MEDS GIVEN, VSS. REPORTED PAIN, PRN PAIN MEDS GIVEN. ON BEDREST FOR NOW. NSR ON MONITOR, ROOM AIR. WOUND CARE DONE PER ORDER. WILL CONTINUE TO ASSESS AND ASSIST WITH ADLs NEEDED.
--- NOTE | 2019-10-14 15:43 | NUR ---
SW reviewed chart and spoke with nursing and attending physician. Pt had angiogram yesterday. CTS consulted. [facility] is able to accept pt as skilled. They have a waiting list for their snf care unit. SW updated pt's dtr-in-law, Anny. Anny is agreeable with discharge plan. Should a LTC bed not be available when pt is done with her skilled time, pt's family is agreeable with pt returning to [facility] until a LTC bed is available at the [facility]. RAHEEM explained that [facility] does not accept Medicaid in their predatory animal exterminator care unit. Discharge is anticipated for early next week pending CTS recommendations. RAHEEM is following to assist as needed with discharge planning.
[2019-10-14 16:45] VITALS: BP 151/71
[2019-10-14 19:18] VITALS: BP 118/56
[2019-10-15 03:40] LABS: ALBUMIN 2.4 g/dL (3.4-5.0); CALCIUM 9.1 mg/dL (8.5-10.1); CREATININE 1.7 mg/dL (0.6-1.0); PHOSPHORUS 3.6 mg/dL (2.5-4.9); POTASSIUM 4.4 mmol/L (3.5-5.1)
[2019-10-15 04:36] VITALS: BP 147/70
--- NOTE | 2019-10-15 05:27 | NUR ---
encouraged turns, but is mostly wanting to stay in placed. pulled up in the bed. and she is staying dry with the external catheter. cooperative and no tearful episodes tonight. i encouraged her to take her hydrocodone, and she has had her pain controlled tonight.
[2019-10-15 07:29] VITALS: BP 135/49
--- NOTE | 2019-10-15 15:18 | 2DMMODE ---
[facility] [place] [address] 2 D/M-MODE ECHOCARDIOGRAM Name: SONIA FUENTES Room #: 357-P ADM IN M.R.#: [id number] Admission: 10/11/19 Attend Phys: Mega Soares MD Discharge: Date of : 52 Report #: [id number] THIS REPORT FOR: cc: ANGELICA SANCHEZ Physician not on staff Jaxon Chaudhary MD ~ APPROVED REPORT Study performed: 10/15/2019 14:30:20 EXAM: Comprehensive 2D, Doppler, and color-flow Echocardiogram Patient Location: Bedside Room #: 357 Status: routine BSA: 2.09 HR: 78 bpm BP: 135/49 mmHg Rhythm: NSR Other Information Study Quality: Technically Limited Technically limited study due to body habitus, inability to position patient. Indications Pre-Op Diabetes Hypertension/HDD Volumes Left Atrial Volume (Systole) Single Plane 4CH: 28.37 mL Single Plane 2CH: 23.05 mL LA ESV Index: 14.00 mL/m2 Aortic Valve AoV Peak Issac.: 1.41 m/s AO Peak Gr.: 7.96 mmHg LVOT Max P.89 mmHg LVOT Max V: 0.85 m/s Mitral Valve E/A Ratio: 0.7 MV Decel. Time: 254.05 ms MV E Max Issac.: 0.71 m/s MV A Issac.: 1.07 m/s [facility] [address] [place] [address] 2 D/M-MODE ECHOCARDIOGRAM Name: SONIA FUENTES Room #: 357-P ADM IN M.R.#: [id number] Admission: 10/11/19 Attend Phys: Mega Soares, Discharge: Date of : 52 Report #: [id number] MV PHT: 73.68 ms IVRT: 152.25 ms Pulmonary Valve PV Peak Issac.: 0.78 m/s PV Peak Gr.: 2.47 mmHg Pulmonary Vein P Vein S: 0.54 m/s P Vein A: 0.23 m/s P Vein D: 0.38 m/s P Vein A Dur.: 96.9 msec P Vein S/D Ratio: 1.42 Left Ventricle The left ventricle is normal size. There is normal left ventricular wall thickness. The left ventricular systolic function is normal. The left ventricular ejection fraction is within the normal range. LVEF is 55-60%. Grade I - abnormal relaxation pattern. Right Ventricle The right ventricle is normal size. The right ventricular systolic function is normal. Atria The left atrium size is normal. The right atrium size is normal. Aortic Valve The aortic valve is normal in structure. No aortic regurgitation is present. There is no aortic valvular stenosis. Mitral Valve The mitral valve is normal in structure. There is no mitral valve regurgitation noted. No evidence of mitral valve stenosis. Tricuspid Valve The tricuspid valve is normal in structure. There is no tricuspid valve regurgitation noted. Pulmonic Valve The pulmonary valve is normal in structure. There is no pulmonic valvular regurgitation. Great Vessels The aortic root is normal in size. The inferior vena cava is not well visualized. Pericardium [facility] [address] [place] [address] 2 D/M-MODE ECHOCARDIOGRAM Name: SONIA FUENTES Room #: 357-P ADM IN M.R.#: [id number] Admission: 10/11/19 Attend Phys: Mega Soares, Discharge: Date of : 52 Report #: [id number] There is no pericardial effusion. <Conclusion> The left ventricle is normal size. There is normal left ventricular wall thickness. The left ventricular systolic function is normal. Grade I - abnormal relaxation pattern. The right ventricle is normal size. The left atrium size is normal. The aortic valve is normal in structure. There is no mitral valve regurgitation noted. There is no tricuspid valve regurgitation noted. <ELECTRONICALLY SIGNED> By: Jaxon Chaudhary MD 10/15/19 1517 16 16 Jaxon Chaudhary MD /INF
[2019-10-15 16:17] VITALS: BP 125/98
--- NOTE | 2019-10-15 16:36 | NUR ---
RAHEEM reviewed chart and spoke with nursing and attending physician. CTS consulted. No weekend discharge planned. RAHEEM discussed discharge plan with pt's dtr-in-law. Plan is for [facility] to [facility] to [facility], then will return to [facility] for LTC if a LTC bed is not available. [facility] staff called into pt's room earlier today and told her that she needed to be back into their facility by October 20, or they will give away her LTC bed or start charging her $175/day. RAHEEM spoke with Daylin at [facility], who states that Medicaid only pays for 10 days of a bed hold. After the 10 days, the pt is charged a private pay rate of $175/day. RAHEEM discussed with Director of Case Mgmt. RAHEEM updated pt's dtr-in-law. RAHEEM is following to assist as needed with discharge planning.
[2019-10-15 19:55] VITALS: BP 94/29
[2019-10-16 03:52] VITALS: BP 124/62
--- NOTE | 2019-10-16 06:04 | NUR ---
FOLLOWING POC WITH IVPB ANTIBIOTICS. PT STATES NO PAIN OR NAUSEA. LOW LOSS AIR MATTRESS IN PLACE. EXTERNAL CATH IN PLACE WITH GOOD RESULTS. PT HAS NO COMPLAINTS AND IS GOOD SPIRITS.
[2019-10-16 06:09] LABS: ALBUMIN 2.3 g/dL (3.4-5.0); CALCIUM 8.6 mg/dL (8.5-10.1); CREATININE 1.9 mg/dL (0.6-1.0); PHOSPHORUS 4.3 mg/dL (2.5-4.9); POTASSIUM 4.4 mmol/L (3.5-5.1)
[2019-10-16 07:14] VITALS: BP 138/55
[2019-10-16 11:17] VITALS: BP 125/57
[2019-10-16 15:31] VITALS: BP 117/58
--- NOTE | 2019-10-16 16:10 | NUR ---
Assumed pt care at 7am.Pt in bed resting without c/o.Asessment completed.vss. Pt tolerated meds and diet.Drsg change done to rt heel as ordered.Pt instructed on hand hygiene. Dr Baptiste here,order noted.Pt will be going for nuc stress test on friday.Dtr in law here,updates given.Will continue to monitor.
[2019-10-16 19:10] VITALS: BP 125/57
[2019-10-17 04:25] VITALS: BP 120/62
--- NOTE | 2019-10-17 06:51 | NUR ---
VSS AND TELE SHOWS NSR. FOLLOWING POC WITH IVPB. EXTERNAL CATH IN PLACED AND FUNCTIONING WELL. PT IN GOOD SPIRITS. HOURLY ROUNDING.
[2019-10-17 07:29] VITALS: BP 136/62
--- NOTE | 2019-10-17 08:46 | HC ---
[facility] [place] [address] CONSULTATION Name: SONIA FUENTES Room #: 357-P ADM IN M.R.#: [id number] Admission: 10/11/19 Attend Phys: Mega Soares MD Discharge: Date of : 51 Report #: [id number] THIS REPORT FOR: cc: ANGELICA SANCHEZ Physician not on staff Arcenio Coats MD ~ CC: ANGELICA Soares Physician staff We were asked by Dr. Salazar and Dr. Chen to see the patient. HISTORY OF PRESENT ILLNESS: The patient is a 69-year-old with cellulitis of the right ankle. The patient has been in the hospital since 10/11/2019. [facility] with cellulitis in the right ankle, onset 2 days earlier. According to the correction facility records, the patient had been on doxycycline for 7 days prior to that. The patient has diabetes and blood glucose is not well controlled, ranging from 64-379 at the correction facility. 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 The orifice of the deep femoral artery also has discrete narrowing. PAST MEDICAL HISTORY: Significant for hypertension, diabetes mellitus (x 37 years according to the patient), neuropathy, chronic kidney disease and anemia. ALLERGIES: MORPHINE, CONTRAST DYE, DEMEROL. Past history also includes anxiety, depression and irritable bowel syndrome, orthopedics and back surgery. CURRENT MEDICATIONS: At time of discharge includes iron, insulin, gabapentin, levothyroxine, Claritin, melatonin, metoclopramide, ascorbic acid, aspirin, cholestyramine, folic acid, metoprolol, furosemide, lisinopril, hydrocodone, lactobacillus, venlafaxine, vitamin D, guaifenesin, multivitamins, atorvastatin, dicyclomine and fluticasone nasal spray. ALLERGIES: As mentioned MORPHINE, IODINATED CONTRAST and DEMEROL. SOCIAL HISTORY: The patient denies tobacco use. Does use alcohol on occasion. REVIEW OF SYSTEMS: At the time of admission; CONSTITUTIONAL: Negative for fever or chills. EYES: Negative for eye pain or visual change. HEENT: Negative for rhinorrhea, sore throat. RESPIRATORY: Negative for cough or shortness of breath. [address] [address] CONSULTATION Name: SONIA FUENTES Room #: 357-P [facility] IN M.R.#: [id number] Admission: 10/11/19 Attend Phys: Mega Soares MD Discharge: Date of : 51 Report #: [id number] CARDIAC: Negative for chest pain or palpitations. GASTROINTESTINAL: Negative for abdominal pain, nausea, vomiting and diarrhea. GENITOURINARY: Negative for burning, frequency, urgency or blood. MUSCULOSKELETAL: Negative for back pain or muscle pain. SKIN: Ulcer, right heel with cellulitis in the foot. NEUROLOGIC: Describes peripheral neuropathy in the feet. ENDOCRINE: Has diabetes. Denies tremor, palpitations or goiter. HEMATOLOGIC: Denies bruisability. Does have anemia. PHYSICAL EXAMINATION: GENERAL: The patient is status post catheterization. VITAL SIGNS: Temperature 36.6, heart rate 93, respiratory rate 18, blood pressure 152/67 and O2 sat 96% on room air. HEENT: No scleral icterus, no arcus. NECK: No mass, no bruit. CHEST: Clear to auscultation anteriorly. HEART: Rhythm regular, no murmur. ABDOMEN: Obese, soft, no mass. EXTREMITIES: Right leg is wrapped. Forefoot is cellulitic. Gaiter area and pretibial region has scaling skin and there is trace edema in that right lower extremity. Palpable left popliteal pulse. No right popliteal pulse. Right femoral pulse is 2+. Left femoral pulse has bandage from arteriogram. ASSESSMENT: The patient has lower extremity arterial occlusive disease. The patient does not present with claudication. She clearly does have cellulitis. This may improve with antibiotics and proper wound care. If the patient is felt to have failed conservative measures and we have risk for limb loss, then surgery would be appropriate. Risks and details of femoral to popliteal bypass were briefly discussed, but I will wait for full discussion until speaking with [id number] who is one of our wound care nurses and the referring physicians. Thank you for the consult. <ELECTRONICALLY SIGNED> By: Arcenio Coats MD 10/17/19 0846 1420 [id number] Arcenio Coats MD /nt
[2019-10-17 11:21] VITALS: BP 152/79
--- NOTE | 2019-10-17 15:32 | NUR ---
Assumed care approx. 0700 this AM. Pt ALOx4, on room air and SR on the monitor. Wound care completed per orders (see plan of care charting). Pt has been turning self in bed. Pt calls appropriately when help is needed. No acute changes noted. Will continue to monitor. Pt progressing toward plan of care goals.
[2019-10-17 21:00] VITALS: BP 133/49
[2019-10-18 04:20] VITALS: BP 154/71
[2019-10-18 05:18] LABS: ALBUMIN 2.6 g/dL (3.4-5.0); CALCIUM 9.5 mg/dL (8.5-10.1); CREATININE 1.7 mg/dL (0.6-1.0); PHOSPHORUS 4.8 mg/dL (2.5-4.9); POTASSIUM 3.9 mmol/L (3.5-5.1)
--- NOTE | 2019-10-18 05:59 | NUR ---
PT HAS BEEN NPO SINCE 2399 SHE IS SCHEDULED FOR STRESS TEST TODAY. PT STATES NO PAIN, VSS, TELE SHOWS SR. POC WITH IVPB ANTIBIOTICS. HOURLY ROUNDING.
[2019-10-18 07:37] VITALS: BP 152/70
[2019-10-18 09:28] LABS: APTT 30.6 Seconds (24.5-32.8); PROTIME 10.6 Seconds (9.3-11.4)
[2019-10-18 10:51] LABS: URINE BILIRUBIN NEGATIVE (Negative); URINE BLOOD 1+ (Negative); URINE CLARITY SL CLOUDY; URINE COLOR YELLOW; URINE GLUCOSE-RANDOM* NEGATIVE (Negative); URINE KETONES NEGATIVE (Negative); URINE LEUKOCYTES-REFLEX NEGATIVE (Negative); URINE NITRITE-REFLEX NEGATIVE (Negative); URINE PROTEIN (DIPSTICK) NEGATIVE (Negative); URINE UROBILINOGEN 0.2 E.U./dl (0.2-1.0)
[2019-10-18 11:20] LABS: BACTERIA-REFLEX 1-9 Few /HPF (None Seen); CASTS None Seen /LPF (None Seen); SQUAMOUS 0-3 Few /LPF (0-3); URIC ACID CRYSTALS 4-10 Moderate /LPF (None Seen); URINE RBC None Seen /HPF (0-2); URINE WBC-REFLEX 0-5 Rare /HPF (0-5)
--- NOTE | 2019-10-18 12:43 | NUR ---
RAHEEM reviewed chart and spoke with nursing and attending physician. Pt to have stress test today for cardiac clearance for CTS procedure. shoe lay out planner to fax clinical/therapy updates to [facility] for review. RAHEEM sent SNF/LTC list to pt's dtr-in-law for review. RAHEEM is following to assist as needed with discharge planning.
[2019-10-18 16:55] VITALS: BP 152/68
[2019-10-18 19:40] VITALS: BP 141/66
[2019-10-19] VITALS (20 sets, daily range): BP systolic 91–152; BP diastolic 35–70
[2019-10-19 04:35] LABS: ALBUMIN 2.6 g/dL (3.4-5.0); CALCIUM 9.3 mg/dL (8.5-10.1); CREATININE 1.8 mg/dL (0.6-1.0); PHOSPHORUS 4.6 mg/dL (2.5-4.9)
--- NOTE | 2019-10-19 05:30 | NUR ---
Pt. slept well during the night. Kept NPO after MN for procedure today. Hibiclens bath given at HS then again this am. Afebrile. Dressing intact on right foot. Lower extremities elevated with pillows. Denies being in pain. Bed alarm for safety. Making some progress towards care plan goals.
--- NOTE | 2019-10-19 09:26 | NUR ---
Nutrition Followup: Pt NPO for rt femoral popliteal artery bypass today. Rt mid back wound and rt lateral foot heel wound status improving. Cellulitis improving on abx. Weight trending up from 236# on 10/11 to current wt 242.4#, and highest at 250# on . Edema and diuresis continuing. PO intake at 50-100% past 7 days with an avg intake of 77%. Has had 3 meals NPO past 7 days. BG 135-239 past 4 days. Meds: IVF, IV Abx, insulin, folic acid, ascorbic acid, multi w/ iron, Vit. D. Pt unavailable on first attempt, but with improving wound status and avg intake >75%, remains low nutritional risk at this time. Will attempt followup to speak with Pt on 10/21/19.
--- NOTE | 2019-10-19 10:42 | NUR ---
SW reviewed chart and spoke with nursing. Pt to have fem-pop bypass today. Pt's dtr-in-law requests LTC referrals to be sent to [facility] for review. SW is following to assist as needed with discharge planning.
[2019-10-19 14:14] LABS: HEMATOCRIT 22.1 % (37.0-47.0); HEMOGLOBIN 7.2 gm/dL (12.0-15.0)
--- NOTE | 2019-10-19 15:00 | NUR ---
PT ARRIVED FROM RECOVERY TO ICU AT 1450. PT WAKES EASILY BUT APPEARS DROWSY. VSS. SEE ASSESSMENT FOR FURTHER DETAILS. BLOOD GLUCOSE NOTED TO BE 341 AND AN INSULIN GTT WAS INITIATED PER DR. CORDOVA. PT WAS STARTED ON 2 UNITS/HR PER PROTOCOL. NURSE WILL CONTINUE TO MONITOR.
--- NOTE | 2019-10-19 17:48 | HC ---
[facility] [place] [address] CONSULTATION Name: SONIA FUENTES Room #: [facility]-P ADM IN M.R.#: [id number] Admission: 10/11/19 Attend Phys: Mega Soares MD Discharge: Date of : 52 Report #: [id number] THIS REPORT FOR: cc: ANGELICA SANCHEZ Physician not on staff Garrett Betts MD ~ CC: ANGELICA Soares Physician staff DATE OF SERVICE: 10/11/2019 CHIEF COMPLAINT: Pressure ulcerations and cellulitis of the right lower extremity. HISTORY OF PRESENT ILLNESS: This is a 69-year-old female patient with whom I am familiar from prior hospitalization. The patient has developed over the last couple of days increasing pain involving her right leg. She has developed blistering to the posterior portion of her right heel as well as right lateral foot with significant surrounding redness, drainage and pain to the point where she is not able to bear weight. She denies any specific injury associated with this. PAST MEDICAL HISTORY: Positive for type 2 diabetes mellitus. She has had prior hip fracture, history of renal insufficiency, chronic kidney disease stage 3, history of peripheral neuropathy as well as pressure ulceration on her back. ALLERGIES: MORPHINE, IODINATED CONTRAST MATERIAL and MEPERIDINE. MEDICATIONS: Include Tylenol, amlodipine, vitamin C, Prevalite, aspirin, atorvastatin, ceftriaxone, vitamin D, Bentyl, enoxaparin, ferrous sulfate, folic acid, furosemide, gabapentin, gentamicin ointment, hydrocodone, hydromorphone, insulin, acidophilus, Zestril, loratadine, melatonin, metoprolol, ondansetron and venlafaxine. SOCIAL HISTORY: Negative for tobacco use. Positive for occasional alcohol use. FAMILY HISTORY: Positive for heart disease in her mother, diabetes and lung disease in her father. REVIEW OF SYSTEMS: CONSTITUTIONAL: The patient denies fever, chills or weight loss. NEUROLOGICAL: The patient has some numbness of her lower extremities. ENT: The patient denies earache, nasal drainage, sore throat. CARDIOVASCULAR: The patient denies chest pain, palpitations or diaphoresis. PULMONARY: The patient denies cough or shortness of breath. [facility] [address] [place] [address] CONSULTATION Name: SONIA FUENTES Room #: 247-P [facility] IN ..#: [id number] Admission: 10/11/19 Attend Phys: Mega Soares MD Discharge: Date of : 52 Report #: [id number] GASTROINTESTINAL: The patient denies nausea, vomiting, diarrhea or abdominal pain. ORTHOPEDIC: The patient does complain of significant pain in the right lower extremity with blistering and drainage. Other systems in a 14-point review of systems are negative. PHYSICAL EXAMINATION: VITAL SIGNS: At this time include temperature 99.5, pulse 121, respiratory rate 15, blood pressure 76/57. GENERAL: This is a somewhat chronically ill-appearing female patient who appears to be in moderate distress. Examination of the patient is performed in the Emergency Department as she has been brought in by ambulance. HEENT: Head normocephalic. Nose and throat are clear. NECK: Supple. LUNGS: Clear. HEART: Regular. ABDOMEN: Soft. Bowel sounds present. BACK: Examination of the back demonstrates a small stage 3 pressure ulceration to the right lower back area. No deep structures were exposed. No evidence of infection. Right lower extremity demonstrates significant tenderness, redness and swelling. Redness encompassing the entirety of the right foot as well as extending up the lower leg. The pressure ulceration to the heel and lateral foot are unstageable at this time. Pulses are not palpable at present. LABORATORY STUDIES: Include white blood cell count 6.9 with hemoglobin of 7.6. Sodium 132, potassium 4.2, chloride 99, CO2 of 21, BUN 42, creatinine 2.1, glucose 150. Albumin is low at 2.5. CLINICAL IMPRESSION: 1. Cellulitis of the right foot and lower leg. 2. Unstageable pressure ulceration to the right heel and right lateral foot. 3. Peripheral vascular disease by clinical exam. 4. Stage 2/3 pressure ulceration to the right lower back. 5. Diabetes mellitus with hyperglycemia. 6. Chronic kidney disease. RECOMMENDATIONS: At this point in time, recommend empiric antibiotic therapy, pending culture and sensitivity that has been obtained at the bedside today. Recommend topical Xeroform gauze and Kerlix, PRAFO boots, current medications. We will check an arterial Dopplers to examine her inflow. All questions have been answered. I had a discussion with the patient and family members at bedside and all in agreement with current plan of care. The patient was seen [address] [address] CONSULTATION Name: SONIA FUENTES Room #: 247-P ADM IN M.R.#: [id number] Admission: 10/11/19 Attend Phys: Mega Soares MD Discharge: Date of : 52 Report #: [id number] and evaluated in the Emergency Department. She will be admitted later. Wound care orders have been written. <ELECTRONICALLY SIGNED> By: Garrett Betts MD 10/19/19 1748 [id number] 0019 Garrett Betts MD /nt
[2019-10-20] VITALS (15 sets, daily range): BP systolic 96–171; BP diastolic 34–64
[2019-10-20 05:28] LABS: MCH 33.4 pg (26.0-34.0); MCHC 33.4 g/dL (28.0-37.0); MCV 99.9 fL (80.0-100.0); RBC 1.76 mil/uL (4.20-5.00); RDW 15.9 % (10.5-14.5); WBC 5.6 thou/uL (4.0-11.0)
[2019-10-20 05:38] LABS: CALCIUM 7.6 mg/dL (8.5-10.1); CREATININE 1.9 mg/dL (0.6-1.0); POTASSIUM 4.7 mmol/L (3.5-5.1)
[2019-10-20 05:39] LABS: HEMATOCRIT 17.6 % (37.0-47.0); HEMOGLOBIN 5.9 gm/dL (12.0-15.0)
--- NOTE | 2019-10-20 07:46 | NUR ---
Received report from offgoing RN and assumed patient care. Patient noted to have insulin infusing for the the target range of 90-130. Insulin titrated down throughout the night. Patient is oriented and on room air. Patient medicated for pain twice. Patient Hgb and Hct were critically low this morning. GLASS BEVELER (Megan Flowers) was notified and received orders for 2 units of PRBC's. Patient VS remained stable and no acute events occurred during this shift.
--- NOTE | 2019-10-20 13:43 | NUR ---
Pt is currently in ICU s/p fempop. DC Plan is to return to SNF at [facility] with transition back to ltc there. CM confirmed plan with the pt's dtr in law. 5N is not an option and LTAC not indicated at this time. The dc production planner scheduler has faxed clinical updates and talked with the admissions liason at LTAC[facility]. DC back to SNF anticipated soon. Care team updated. Will follow.
--- NOTE | 2019-10-20 16:58 | NUR ---
FAXED CLINICAL UPDATE TO [facility] RECEIVED CONFIRMATION WILL F/U WITH FACILITY IN THE AM. DP TO FOLLOW.
--- NOTE | 2019-10-20 17:08 | NUR ---
[place] CL[place] [facility] [place]FIRM[place] AND LEFT MSG WITH ADM. DP TO FOLLOW.
[2019-10-20 18:34] LABS: HEMATOCRIT 25.4 % (37.0-47.0)
[2019-10-20 18:38] LABS: HEMOGLOBIN 8.4 gm/dL (12.0-15.0)
--- NOTE | 2019-10-20 20:00 | NUR ---
PATIENT HOME MEDICATIONS RESUMED THIS SHIFT. PATIENT REPORTS PAIN MANAGED WITH MEDS ORDERED. PO AND IV PAIN MEDICATIONS ALTERNATED THIS SHIFT. PATIENT ABLE TO SIT UP ON SIDE OF BED WITH THERAPY, PAIN INCREASED AFTER ACTIVITY. BLOOD TRANSFUSED X2 UNITS THIS SHIFT. H & H RECHECKED POST ADMINISTRATION. WOUND CARE PROVIDED THIS SHIFT. BLE ELEVATED THROUGHOUT SHIFT. PATIENT RESISTANT TO SOME TURNS THIS SHIFT, ENCOURAGED TO MOVE MORE AND PARTICIPATE IN TURNS. VALERIA DRAINS REMAIN PATENT WITH SEROSANGUINEOUS DRAINAGE NOTED. PREVENA WOUND VAC INTACT WITH SUCTION IN PLACE, NO DRAINAGE NOTED THIS SHIFT IN WOUND VAC. FALL PRECAUTIONS MAINTAINED THIS SHIFT, PATIENT CALLS FOR ASSIST APPROPRIATELY.
[2019-10-21] VITALS (14 sets, daily range): BP systolic 125–160; BP diastolic 37–64
[2019-10-21 05:20] LABS: ALBUMIN 2.3 g/dL (3.4-5.0); CALCIUM 7.7 mg/dL (8.5-10.1); CREATININE 1.6 mg/dL (0.6-1.0); PHOSPHORUS 2.6 mg/dL (2.5-4.9); POTASSIUM 4.7 mmol/L (3.5-5.1)
--- NOTE | 2019-10-21 05:20 | NUR ---
Pt continues to have severe discomfort, in different areas, and declines movement/repositioning, but has been adjusted with pillows as she allows. She has rested well through the night, her vitals have been stable, is afebrile, the monitor reads ST rates in the 100's, BP cuff to her right upper arm is positional making for elevated SBP's. All her operative sites, wounds sites are intact. Ken remains patent, draining clear yellow urine, averaging 40+ ml/hr. Bowel sounds are hypoactive, abd is rounded, no BM this shift. The bed is in the low/locked position, the call light is within reach and the siderails are up x 4. Will continue to monitor.
--- NOTE | 2019-10-21 10:06 | NUR ---
PATIENT DROWSY, EASILY AROUSABLE. VITALS STABLE. INCISIONS, VALERIA DRAINS, AND WOUND VAC DOCUMENTED. ORDERS RECEIVED TO TRANSFER TO CCU AND AWAITING ROOM AVAILABILITY.
--- NOTE | 2019-10-21 11:55 | NUR ---
REPORT CALLED TO DAVIS COHEN IN CCU. DAUGHTER CAME IN PATIENT WAS BEING TRANSFERRED TO ROOM 201. BELONGINGS INCLUDING PURSE WITH PATIENT.
--- NOTE | 2019-10-21 18:00 | NUR ---
PATIENT TRANSFERRED FROM ICU, VIA BED,ALERT, ORIENTED X4 AND FORGETFUL. MEDICATED FOR PAIN INDICATED, WD VAC INPLACE TO RT LEG, VSS AND AFEBRILE. AND WILL CONTINUE WITH POC.
[2019-10-22 04:36] VITALS: BP 126/59
[2019-10-22 05:25] LABS: HEMATOCRIT 23.2 % (37.0-47.0); HEMOGLOBIN 7.6 gm/dL (12.0-15.0); MCH 31.1 pg (26.0-34.0); MCHC 32.6 g/dL (28.0-37.0); MCV 95.5 fL (80.0-100.0); RBC 2.43 mil/uL (4.20-5.00); RDW 17.5 % (10.5-14.5); WBC 5.2 thou/uL (4.0-11.0)
[2019-10-22 07:01] VITALS: BP 122/46
--- NOTE | 2019-10-22 07:41 | O ---
[facility] [place] [address] OPERATIVE REPORT Name: SONIA FUENTES Room #: 201-P ADM IN M.R.#: [id number] Admission: 10/11/19 Attend Phys: Mega Soares MD Discharge: Date of : 51 Report #: [id number] THIS REPORT FOR: cc: ANGELICA SANCHEZ Physician not on staff Arcenio Coats MD ~ CC: ANGELICA Soares Physician staff DATE OF SERVICE: 10/19/2019 PREOPERATIVE DIAGNOSIS: Right superficial femoral artery occlusion. POSTOPERATIVE DIAGNOSIS: Right superficial femoral artery occlusion. OPERATION: Right femoral to above knee popliteal artery bypass with reversed autogenous greater saphenous vein. Intraoperative arteriogram. SURGEON: Arcenio Coats MD RELAY TESTER: Alli Grant PA-C ANESTHESIA: General. INDICATIONS: The patient is a 69-year-old with diabetes mellitus with neuropathy and superficial femoral artery occlusion. There is also a tight lesion in the deep femoral and the patient has nonhealing lesions in the foot. FINDINGS AND TECHNIQUE: After general anesthesia was established, an incision was made in the medial distal thigh over the saphenous vein. The vein itself was identified and protected and the incision deepened to expose the above the knee popliteal artery. This was a soft vessel and felt to be a reasonable place for our distal anastomosis. An incision was made in the right groin to expose the common femoral artery. We needed to elevate the inguinal ligament to expose the most proximal portion of the common femoral as distally the vessel was quite calcified in the posterior aspect. The saphenous vein was harvested through interrupted incisions and prepared for use as a conduit. The reversed vein was sewn in end-to-side fashion to the common femoral artery. The vein was brought through the vein harvest tunnels and the distal end was sewn to the side of above the knee popliteal artery. Flow was established in [address] [address] OPERATIVE REPORT Name: SONIA FUENTES Room #: 201-P ADM IN M.R.#: [id number] Admission: 10/11/19 Attend Phys: Mega Soares MD Discharge: Date of : 51 Report #: [id number] this. An arteriogram was taken to demonstrate good flow through the graft and good patency of the distal anastomosis. When the arteriogram was done, protamine was given to reverse the heparin. Hemostasis was ascertained. Everardo drains were brought in the subcutaneous tunnels and when hemostasis was satisfactory, the wounds were closed in layers. Prior to closing the wounds, flow was checked and found to be approximately 70 mL per minute. A Doppler signal was audible as well. Satisfied with our graft, the incisions were closed in layers. The patient was taken to the recovery area in good condition with a warm foot. All counts were reported as correct. <ELECTRONICALLY SIGNED> By: Arcenio Coats MD 10/22/19 0741 1546 1559 Arcenio Coats MD /edda
[2019-10-22 11:15] VITALS: BP 137/54
--- NOTE | 2019-10-22 14:33 | NUR ---
Case discussed with the care team. Awaiting CTS imput regarding dc timeframe. Pt still has VALERIA drain intake with drainage this am. PT/OT worked with the pt and attempted to sob. Pt with pain tolerance and anxiety. Care team working on scheduled pain meds and to pretreat pain prior to therapy. Therapy to see jordana. Message left for admissions at [facility]. Anticipating the pt may be ready for dc early next week and will need SNF for ongoing therapy. She will likely dc with the prevena and need f/u in CTS office for removal. DC plan reveiwed with the pt's dtr in law Anny. Dc exercise planner to fax update to the SNF. Will follow.
--- NOTE | 2019-10-22 15:47 | NUR ---
FAXED CLINICAL UPDATE TO [facility] RECEIVED CONFIRMATION AND LEFT MSG WITH ADM. DP TO FOLLOW.
[2019-10-22 16:00] VITALS: BP 150/64
--- NOTE | 2019-10-22 17:23 | NUR ---
PT ASSESSED, VSS, R HEEL DRESSING CHANGED WHILE PT/OT WORKED WITH PT TO HELP HER TRY TO SIT ON THE SIDE OF THE BED. LOW AIRLOSS BED MACHINE ATTACHED TO MATTRESS. DR VALDERRAMA IN TO SEE PT, WILL CONTINUE TO ADDRESS PAIN NEEDS BY GIVING PAIN MEDS NEEDED,
[2019-10-22 20:30] VITALS: BP 139/52
--- NOTE | 2019-10-23 03:31 | NUR ---
ASSUMED CARE 1899. NO EVENTS OVERNIGHT. PT FLAT AFFECT. DECLINES TO BE REPOSITIONED BOTH BY RN AND METROLOGY TECHNICIAN. ENCOURAGED TO SELF SHIFT IN BED BUT PT STATES, " I KNOW BUT I DON'T WANT TO.". DENIES ANY PAIN. DRAINS AND WOUND VACs IN PLACE. RIGHT HEAL DRESSING INTACT. WILL CONTINUE TO MONITOR.
[2019-10-23 06:04] VITALS: BP 139/61
[2019-10-23 09:47] VITALS: BP 125/53
--- NOTE | 2019-10-23 10:45 | NUR ---
ORIENTED TO PLACE AND SELF. SOMNOLENT. REFUSING TO BE TURNED, REPOSITIONED. SR PER TELE. DENIES PAIN. WILL CONTINUE TO FOLLOW CLOSELY.
[2019-10-23 12:49] VITALS: BP 154/89
[2019-10-23 16:38] VITALS: BP 144/75
[2019-10-23 19:10] VITALS: BP 151/57
[2019-10-24 04:41] VITALS: BP 149/47
[2019-10-24 04:55] LABS: CALCIUM 8.9 mg/dL (8.5-10.1); CREATININE 1.5 mg/dL (0.6-1.0); POTASSIUM 4.5 mmol/L (3.5-5.1)
[2019-10-24 04:57] LABS: HEMATOCRIT 23.3 % (37.0-47.0); HEMOGLOBIN 7.7 gm/dL (12.0-15.0); MCH 31.3 pg (26.0-34.0); MCHC 32.9 g/dL (28.0-37.0); MCV 95.3 fL (80.0-100.0); RBC 2.45 mil/uL (4.20-5.00); RDW 17.3 % (10.5-14.5); WBC 6.2 thou/uL (4.0-11.0)
[2019-10-24 07:30] VITALS: BP 160/62
--- NOTE | 2019-10-24 08:07 | NUR ---
PAIN WELL CONTROLLED WITH HYDROCODONE AND WAS GIVEN TWICE THIS SHIFT.REFUSES TO TURN;NEEDS REINFORCEMENT.ORTIZ TO DD.WOUND VAC INTACT.MONITOR SHOWS SINUS TACHY.POC CONTINUED.
[2019-10-24 11:30] VITALS: BP 150/60
[2019-10-24 16:00] VITALS: BP 128/66
--- NOTE | 2019-10-24 19:03 | NUR ---
ASSUMED CARE OF PT AT SHIFT CHANGE. ASSESSMENTS CHARTED. MEDS GIVEN PER OCT. VSS. NO C/O PAIN. PT REPORTS FEELING MUCH BETTER. R FOOT/HEEL WOUNDS DRESSED. FAMILY AT BEDSIDE IN THE AFTERNOON. WILL CONTINUE TO MONITOR AND FOLOOW POC.
[2019-10-24 20:12] VITALS: BP 141/56
--- NOTE | 2019-10-25 04:16 | NUR ---
ASSESSMENT DOCUMENTED.PT BEEN RESTING IN NO ACUTE DISTRESS.VSS.A/OX4.DENIES PAIN.WOUND VAC IN PLACE.DIANA BOB.POC IS TO CONT WITH PLAN OF CARE.WILL CONT TO MONITOR.
[2019-10-25 05:05] VITALS: BP 149/64
[2019-10-25 08:10] VITALS: BP 160/68
[2019-10-25 11:18] VITALS: BP 141/59
[2019-10-25] MEDS ORDERED: KEFLEX500 M1 PO (12:43)
[2019-10-25] MEDS ORDERED: PEPCID20 MG PO (12:43)
--- NOTE | 2019-10-25 13:39 | NUR ---
PT DISCHARGING TODAY TO [facility] FAXED DC ORDERS/SUMMARY TO FACILITY RECEIVED CONFIRMATION TRANSPORT SET FOR 1500 BY IVAN PELAYO. FAMILY NOTIFIED BY RAHEEM LUBIN) OF DC AND TIME OF TRANSPORT. UNIT NOTIFIED AND CHART COPY PER US. RN TO CALL REPORT TO [phone].
--- NOTE | 2019-10-25 15:32 | NUR ---
ASSUMED CARE OF PT AT SHIFT CHANGE. ASSESSMENTS CHARTED. MEDS GIVEN PER OCT. PT A&OX4. NO C/O PAIN. WORKED WITH OT/PT, SITTING IN CHAIR. DISCHARGE ORDERS COMPLETE. MANJIT, BRITTANI AND DIANA [facility] WOUND VAC DISCONNECTED AND PORTABLE VAC ATTACHED. TRANSPORTED VIA WHEELCHAIR VAN TO FACILITY.
== END 2019-10-25 15:30 | DRG 252 ==
LOC: ER 19:22 → EROBS 20:42 → 3W 20:42 → ICU 10-19 14:27 → 2N 10-21 11:45
PROVIDERS: Emergency Medicine; Hospitalist; Nurse Practitioner; Nurse Practitioner Family; Student in an Organized Health Care Education/Training Program; Surgery Vascular Surgery; ADMIT Internal Medicine
DX: I70.201 Unspecified atherosclerosis of native arteries of extremities, right leg (principal); N17.0 Acute kidney failure with tubular necrosis; L03.115 Cellulitis of right lower limb; L97.319 Non-pressure chronic ulcer of right ankle with unspecified severity; L97.419 Non-pressure chronic ulcer of right heel and midfoot with unspecified severity; Z68.41 Body mass index [BMI] 40.0-44.9, adult; E44.0 Moderate protein-calorie malnutrition; D62 Acute posthemorrhagic anemia; L89.132 Pressure ulcer of right lower back, stage 2; L98.499 Non-pressure chronic ulcer of skin of other sites with unspecified severity; E11.42 Type 2 diabetes mellitus with diabetic polyneuropathy; E11.22 Type 2 diabetes mellitus with diabetic chronic kidney disease; N18.3 Chronic kidney disease, stage 3 (moderate); I12.9 Hypertensive chronic kidney disease with stage 1 through stage 4 chronic kidney disease, or unspecified chronic kidney disease; F41.9 Anxiety disorder, unspecified; F32.9 Major depressive disorder, single episode, unspecified; K58.9 Irritable bowel syndrome, unspecified; Z96.641 Presence of right artificial hip joint; D63.8 Anemia in other chronic diseases classified elsewhere; I77.1 Stricture of artery; D53.9 Nutritional anemia, unspecified; E11.43 Type 2 diabetes mellitus with diabetic autonomic (poly)neuropathy; K31.84 Gastroparesis; G47.00 Insomnia, unspecified; E11.51 Type 2 diabetes mellitus with diabetic peripheral angiopathy without gangrene; E66.01 Morbid (severe) obesity due to excess calories; Z79.01 Long term (current) use of anticoagulants; E11.621 Type 2 diabetes mellitus with foot ulcer; Z87.81 Personal history of (healed) traumatic fracture; Z79.2 Long term (current) use of antibiotics; Z90.710 Acquired absence of both cervix and uterus; Z90.49 Acquired absence of other specified parts of digestive tract; Z79.82 Long term (current) use of aspirin; Z82.49 Family history of ischemic heart disease and other diseases of the circulatory system; Z83.6 Family history of other diseases of the respiratory system; Z72.89 Other problems related to lifestyle; Z88.6 Allergy status to analgesic agent; Z91.041 Radiographic dye allergy status; Z79.4 Long term (current) use of insulin; Z79.899 Other long term (current) drug therapy
CPT/HCPCS: 10078; 10081; 10879; 47375; 48888; 50010; 50101; 50386; 50455; 50643; 50953; 51412; 51481; 51751; 56524; 56526; 56527; 56528; 56531; 56534; 56668; 56682; 56760; 57092; 57093; 57167; 57242; 62110; 62900; 70005; 85076

== ENCOUNTER → 2019-11-03 | Outpatient (CLI) | payer OTHER ==
[~2019-11-03] MED LIST changes: +CLARITIN10 M3 PO; +KEFLEX500 M1 PO; +LEVEMIR100 UNIT/2 SUBQ; +LEVO-T25 MCG PO; +MELATONIN3 M1 PO; +METOCLOPRAMIDE 55 M1; +NEURONTIN300 MG PO; +PEPCID20 MG PO
== END ==
LOC: HYPER 12:51
DX: T81.89XA Other complications of procedures, not elsewhere classified, initial encounter (principal); E11.621 Type 2 diabetes mellitus with foot ulcer; L89.612 Pressure ulcer of right heel, stage 2; L97.411 Non-pressure chronic ulcer of right heel and midfoot limited to breakdown of skin; E11.622 Type 2 diabetes mellitus with other skin ulcer; L89.132 Pressure ulcer of right lower back, stage 2; L98.491 Non-pressure chronic ulcer of skin of other sites limited to breakdown of skin; S90.821A Blister (nonthermal), right foot, initial encounter; L03.115 Cellulitis of right lower limb; E11.51 Type 2 diabetes mellitus with diabetic peripheral angiopathy without gangrene; E11.40 Type 2 diabetes mellitus with diabetic neuropathy, unspecified; E11.22 Type 2 diabetes mellitus with diabetic chronic kidney disease; I12.9 Hypertensive chronic kidney disease with stage 1 through stage 4 chronic kidney disease, or unspecified chronic kidney disease; N18.9 Chronic kidney disease, unspecified; E46 Unspecified protein-calorie malnutrition; E78.5 Hyperlipidemia, unspecified; I25.9 Chronic ischemic heart disease, unspecified; M62.81 Muscle weakness (generalized); M54.5 Low back pain; M16.0 Bilateral primary osteoarthritis of hip; K58.9 Irritable bowel syndrome, unspecified; F33.9 Major depressive disorder, recurrent, unspecified; F41.9 Anxiety disorder, unspecified; Z79.84 Long term (current) use of oral hypoglycemic drugs; Z79.4 Long term (current) use of insulin; Z68.42 Body mass index [BMI] 45.0-49.9, adult; Z95.828 Presence of other vascular implants and grafts; Z96.649 Presence of unspecified artificial hip joint; Z79.82 Long term (current) use of aspirin; X58.XXXA Exposure to other specified factors, initial encounter; Y93.89 Activity, other specified; Y99.8 Other external cause status; Y92.89 Other specified places as the place of occurrence of the external cause; Y83.8 Other surgical procedures as the cause of abnormal reaction of the patient, or of later complication, without mention of misadventure at the time of the procedure

== ENCOUNTER → 2019-11-17 | Outpatient (CLI) | payer OTHER | LOC: HYPER 09:04 | DX: T81.32XD Disruption of internal operation (surgical) wound, not elsewhere classified, subsequent encounter (principal); S90.821D Blister (nonthermal), right foot, subsequent encounter; L03.115 Cellulitis of right lower limb; E11.40 Type 2 diabetes mellitus with diabetic neuropathy, unspecified; E11.51 Type 2 diabetes mellitus with diabetic peripheral angiopathy without gangrene; E11.22 Type 2 diabetes mellitus with diabetic chronic kidney disease; I12.9 Hypertensive chronic kidney disease with stage 1 through stage 4 chronic kidney disease, or unspecified chronic kidney disease; N18.9 Chronic kidney disease, unspecified; M62.81 Muscle weakness (generalized); R26.2 Difficulty in walking, not elsewhere classified; M54.40 Lumbago with sciatica, unspecified side; E78.5 Hyperlipidemia, unspecified; K58.9 Irritable bowel syndrome, unspecified; M16.0 Bilateral primary osteoarthritis of hip; I25.9 Chronic ischemic heart disease, unspecified; F33.9 Major depressive disorder, recurrent, unspecified; F41.9 Anxiety disorder, unspecified; Z68.42 Body mass index [BMI] 45.0-49.9, adult; Z79.4 Long term (current) use of insulin; Z91.81 History of falling; Y83.8 Other surgical procedures as the cause of abnormal reaction of the patient, or of later complication, without mention of misadventure at the time of the procedure; X58.XXXD Exposure to other specified factors, subsequent encounter ==

== ENCOUNTER → 2019-11-24 | Outpatient (CLI) | payer OTHER | LOC: HYPER 13:35 | DX: T81.32XD Disruption of internal operation (surgical) wound, not elsewhere classified, subsequent encounter (principal); S90.821D Blister (nonthermal), right foot, subsequent encounter; L03.115 Cellulitis of right lower limb; E11.51 Type 2 diabetes mellitus with diabetic peripheral angiopathy without gangrene; E11.40 Type 2 diabetes mellitus with diabetic neuropathy, unspecified; E11.22 Type 2 diabetes mellitus with diabetic chronic kidney disease; I12.9 Hypertensive chronic kidney disease with stage 1 through stage 4 chronic kidney disease, or unspecified chronic kidney disease; N18.9 Chronic kidney disease, unspecified; E78.5 Hyperlipidemia, unspecified; E46 Unspecified protein-calorie malnutrition; I25.9 Chronic ischemic heart disease, unspecified; K58.9 Irritable bowel syndrome, unspecified; M16.0 Bilateral primary osteoarthritis of hip; M62.81 Muscle weakness (generalized); M54.40 Lumbago with sciatica, unspecified side; F41.9 Anxiety disorder, unspecified; F33.9 Major depressive disorder, recurrent, unspecified; Z68.42 Body mass index [BMI] 45.0-49.9, adult; Z79.84 Long term (current) use of oral hypoglycemic drugs; Z79.4 Long term (current) use of insulin; X58.XXXD Exposure to other specified factors, subsequent encounter; Y83.8 Other surgical procedures as the cause of abnormal reaction of the patient, or of later complication, without mention of misadventure at the time of the procedure ==

== ENCOUNTER → 2019-12-01 | Outpatient (CLI) | payer OTHER | LOC: HYPER 13:51 | DX: T81.32XD Disruption of internal operation (surgical) wound, not elsewhere classified, subsequent encounter (principal); L89.610 Pressure ulcer of right heel, unstageable; S90.821D Blister (nonthermal), right foot, subsequent encounter; L03.115 Cellulitis of right lower limb; L84 Corns and callosities; E11.51 Type 2 diabetes mellitus with diabetic peripheral angiopathy without gangrene; E11.40 Type 2 diabetes mellitus with diabetic neuropathy, unspecified; E11.22 Type 2 diabetes mellitus with diabetic chronic kidney disease; I12.9 Hypertensive chronic kidney disease with stage 1 through stage 4 chronic kidney disease, or unspecified chronic kidney disease; N18.9 Chronic kidney disease, unspecified; E46 Unspecified protein-calorie malnutrition; E78.5 Hyperlipidemia, unspecified; I25.9 Chronic ischemic heart disease, unspecified; K58.9 Irritable bowel syndrome, unspecified; M62.81 Muscle weakness (generalized); M16.0 Bilateral primary osteoarthritis of hip; M54.40 Lumbago with sciatica, unspecified side; F41.9 Anxiety disorder, unspecified; F33.9 Major depressive disorder, recurrent, unspecified; Z79.84 Long term (current) use of oral hypoglycemic drugs; Z79.4 Long term (current) use of insulin; X58.XXXD Exposure to other specified factors, subsequent encounter; Y83.8 Other surgical procedures as the cause of abnormal reaction of the patient, or of later complication, without mention of misadventure at the time of the procedure ==

== ENCOUNTER → 2019-12-15 | Outpatient (CLI) | payer OTHER | LOC: HYPER 14:06 | DX: T81.32XD Disruption of internal operation (surgical) wound, not elsewhere classified, subsequent encounter (principal); S90.821D Blister (nonthermal), right foot, subsequent encounter; S30.811D Abrasion of abdominal wall, subsequent encounter; L84 Corns and callosities; E11.51 Type 2 diabetes mellitus with diabetic peripheral angiopathy without gangrene; E11.40 Type 2 diabetes mellitus with diabetic neuropathy, unspecified; E11.22 Type 2 diabetes mellitus with diabetic chronic kidney disease; I12.9 Hypertensive chronic kidney disease with stage 1 through stage 4 chronic kidney disease, or unspecified chronic kidney disease; N18.9 Chronic kidney disease, unspecified; E78.5 Hyperlipidemia, unspecified; E46 Unspecified protein-calorie malnutrition; I25.9 Chronic ischemic heart disease, unspecified; K58.9 Irritable bowel syndrome, unspecified; M54.40 Lumbago with sciatica, unspecified side; M16.0 Bilateral primary osteoarthritis of hip; F41.9 Anxiety disorder, unspecified; F33.9 Major depressive disorder, recurrent, unspecified; Z79.4 Long term (current) use of insulin; Z79.84 Long term (current) use of oral hypoglycemic drugs; Z68.42 Body mass index [BMI] 45.0-49.9, adult; X58.XXXD Exposure to other specified factors, subsequent encounter ==

== ENCOUNTER 2019-12-24 06:17 | Emergency (ER) | payer OTHER ==
[~2019-12-24] VITALS: Ht 157.5 cm; Wt 102.6 kg
--- NOTE | ~2019-12-24 | EMS ---
[address] [address] EMS Patient Care Report Name: SONIA FUENTES Room #: DEP BRANDIN Laws#: [id number] Admission: 12/24/19 Attend Phys: Discharge: 12/24/19 Date of : 51 Report #: [id number] THIS REPORT FOR: //name// Report Transmitted: 12/24/2019 08:10 EMS Care Summary [facility] MED-ACT Incident [id number] @ 12/24/2019 05:35 Incident Location [address] [place] [address] Patient SONIA FUENTES Female, 69 Years 1950 Patient Address [address] [place] [address] Patient History Diabetes,Hypertension (HTN),Depression,Anxiety, Patient Allergies Morphine,Dye allergy,Demerol, Patient Medications Aspirin, Gabapentin, Lipitor, Insulin, Levothyroxine, Cholecalciferol, Novolog, Ascorbic Acid, Folic acid, Fluticasone, Loratadine, Lisinopril, Chief Complaint injury to left foot 5th digit Disposition Transported No Lights/[place] Dispatch Reason Falls Transported To [facility] Narrative Dispatched to a C2 fall. On arrival jail staff reports the following: [address] [address] EMS Patient Care Report Name: SONIA FUENTES Room #: DEP ER Eusebia#: [id number] Admission: 12/24/19 Attend Phys: Discharge: 12/24/19 Date of : 52 Report #: [id number] around 0400 patient was moving from wheel chair to the toilet when she fell. This resulted in a laceration to the bottom of her foot pinkie toe. Nurse has been holding pressure since it happened but it wouldn't stop bleeding so EMS activated. Patient is unsure of events today. Patient states sometimes she loses her balance and falls but isn't sure if that happened today. She denies; head/neck/chest/abd/back pain, shortness of breath. She reports she doesn't have pain when she has been up walking since the fall. Patient found in a wheel chair. A open, B non labored, C s/r radial. HPI, PE. Patient is able to stand and pivot to sit on the cot. Secure to cot. PMH, V/S. Move to MICU. Transport to [facility]. Monitor V/S. Biocom to [facility]. On arrival at [facility], sheet drag procedure used to move patient to ED bed 6. Report given to DAVIS Berry. Patient condition unchanged. Initial Vitals @06:09P: 105,R: 16,BP: 135/83,SpO2: 98, @06:00P: 106,R: 18,BP: 105/46,Temp: 97.7F,Glucose: 179,SpO2: 98, @05:50P: 114,R: 16,BP: 121/42,Pain: 0/10,GCS: 15,SpO2: 97,Revised Trauma: 12, Assessments @05:48MENTAL:Person Oriented,Time Oriented,Place Oriented,SKIN:HEENT:Head/Face: No Abnormalities,Neck/Airway: No Abnormalities,LUNG SOUNDS:General: No Abnormalities,ABDOMEN:General: No Abnormalities,PELVIS//GI:EXTREMITIES:Left Leg: Other,Right Leg: Other,Left Arm: No Abnormalities,Right Arm: No Abnormalities,PULSE:NEURO: Impression Injury of Foot Timeline 05:32,Call Received 05:32,Psap Call 05:35,Dispatched 05:36,En Route 05:40,On Scene 05:44,At Patient 05:50,BP: 121/42 M,PULSE: 114,RR: 16 R,SPO2: 97 Ox,ETCO2: ,BG: ,PAIN: 0,GCS: 15, 05:51,Depart Scene 06:00,BP: 105/46 M,PULSE: 106,RR: 18 R,SPO2: 98 Ox,ETCO2: ,B,PAIN: ,GCS: , 06:09,BP: 135/83 M,PULSE: 105,RR: 16 R,SPO2: 98 Ox,ETCO2: ,BG: ,PAIN: ,GCS: , 06:13,At Destination [facility] [address] [facility] [place] [address] EMS Patient Care Report Name: SONIA FUENTES Room #: DEP [facility] Laws#: [id number] Admission: 12/24/19 Attend Phys: Discharge: 12/24/19 Date of : 52 Report #: [id number] 06:29,Call Closed Disclaimer v1.1 Copyright 2020 [employer] This EMS Care Summary contains data elements from the applicable legal record (which may be displayed differently). It is designed to provide pertinent information for the following purposes: continuity of care, clinical quality, and state data reporting. The complete legal record is available to ED staff and administrators of the receiving hospital in [place]'s Patient Tracker. All data is provided "as is."
[2019-12-24] MEDS ORDERED: KEFLEX500 M1 PO (07:30)
[2019-12-24] MEDS ORDERED: BACITRAYCIN PLU28 G1 TOP (07:36)
[2019-12-24 08:05] LABS: HEMATOCRIT 21.5 % (37.0-47.0); HEMOGLOBIN 7.2 gm/dL (12.0-15.0); MCH 34.6 pg (26.0-34.0); MCHC 33.6 g/dL (28.0-37.0); MCV 102.9 fL (80.0-100.0); RBC 2.09 mil/uL (4.20-5.00); RDW 20.5 % (10.5-14.5); WBC 4.5 thou/uL (4.0-11.0)
[2019-12-24 08:21] VITALS: BP 145/60
--- NOTE | 2019-12-24 08:46 | EKG ---
[facility] [place] [address] ELECTROCARDIOGRAM REPORT Name: SONIA FUENTES Room #: [facility]..#: [id number] Admission: 12/24/19 Attend Phys: Discharge: Date of : 52 Report #: [id number] THIS REPORT FOR: cc: FAM - Family physician unknown FAM - Family physician unknown Lew Live MD [facility] ~ THIS REPORT FOR: //name// [facility] ED Test Date: 2019-12-24 Test Time: 06:32:45 Pat Name: SONIA FUENTES Department: Room: Gender: F Film Tests Checker: RAJESH : 1950 Requested By: Amanda Rivera Order Number: [id number] MD: Lew Live Measurements Intervals [place] Rate: 100 P: 31 IL: 165 QRS: -1 QRSD: 89 T: 11 QT: 336 QTc: 434 Interpretive Statements Sinus tachycardia Abnormal R-wave progression, early transition Cannot rule out inferior infarct, age indeterminant Compared to ECG 05/02/2018 22:48:51 Inferior Q waves are now present Electronically Signed On 12-24-2019 8:44:14 CDT by Lew Live [email or web address] <ELECTRONICALLY SIGNED> By: Lew Live MD, FAC 12/24/19 0844 0632 Lew Live MD, [facility] /EPI
== END 2019-12-24 09:06 ==
LOC: ER 06:17
PROVIDERS: Emergency Medicine Emergency Medical Services
DX: S91.115A Laceration without foreign body of left lesser toe(s) without damage to nail, initial encounter (principal); M54.6 Pain in thoracic spine; I12.9 Hypertensive chronic kidney disease with stage 1 through stage 4 chronic kidney disease, or unspecified chronic kidney disease; E11.22 Type 2 diabetes mellitus with diabetic chronic kidney disease; N18.3 Chronic kidney disease, stage 3 (moderate); Z96.641 Presence of right artificial hip joint; Z90.49 Acquired absence of other specified parts of digestive tract; Z98.890 Other specified postprocedural states; W01.0XXA Fall on same level from slipping, tripping and stumbling without subsequent striking against object, initial encounter; Y93.89 Activity, other specified; Y92.121 Bathroom in nursing home as the place of occurrence of the external cause; Y99.8 Other external cause status

== ENCOUNTER 2019-12-30 15:43 | Inpatient (IN) | payer OTHER ==
[~2019-12-30] VITALS: Ht 157.5 cm; Wt 105.7 kg
--- NOTE | ~2019-12-30 | HC ---
[facility] [place] [address] CONSULTATION Name: SONIA FUENTES Room #: 214-P ADM IN M.R.#: [id number] Admission: 12/30/19 Attend Phys: Mike Cohn MD Discharge: Date of : 52 Report #: [id number] THIS REPORT FOR: cc: ANGELICA SANCHEZ Physician not on staff Garrett Betts MD ~ CC: ANGELICA Cohn Physician staff DATE OF SERVICE: 12/31/2019 CHIEF COMPLAINT: Lower extremity ulcerations. HISTORY OF PRESENT ILLNESS: This is a 69-year-old female patient with history of diabetes, peripheral vascular disease and chronic lower extremity ulcers. She was admitted to the hospital with Hemoccult positive stool and a hemoglobin of 5.7. She is here for further workup and evaluation. She has ongoing wound care needs and I have been asked to see her with regard to wound care. The patient seems to be bright and in good spirits today. Denies any pain. States that she slept relatively well last night. PAST MEDICAL HISTORY: Prior history of anxiety, depression, peripheral neuropathy, diabetes mellitus, irritable bowel syndrome, history of hypertension, cholecystectomy, appendectomy, , left hip arthroplasty. SOCIAL HISTORY: The patient admits to occasional alcohol use. She is a nonsmoker. FAMILY HISTORY: Noncontributory. MEDICATIONS: Include insulin, Synthroid, loratadine, melatonin, ascorbic acid, aspirin, cholestyramine, metoprolol, furosemide, cholecalciferol, atorvastatin, fluticasone, gabapentin, famotidine, metoclopramide, Zestril, meclizine, hydrocodone. ALLERGIES: MORPHINE, IODINATED CONTRAST AND MEPERIDINE. REVIEW OF SYSTEMS: CONSTITUTIONAL: The patient denies fever, chills or weight loss. NEUROLOGICAL: The patient denies focal weakness, numbness or tingling. EYES: The patient denies visual changes, redness, or drainage. ENT: The patient denies earache, nasal drainage, sore throat. CARDIOVASCULAR: The patient denies chest pain, palpitations or diaphoresis. PULMONARY: The patient denies cough or shortness of breath. GASTROINTESTINAL: The patient denies nausea, vomiting, diarrhea or abdominal [address] [address] CONSULTATION Name: SONIA FUENTES Room #: 214-[facility] IN ..#: [id number] Admission: 12/30/19 Attend Phys: Mike Cohn MD Discharge: Date of : 52 Report #: [id number] pain. ORTHOPEDIC: The patient notes ulceration involving both feet. Other systems in a 14-point review of systems are negative. PHYSICAL EXAMINATION: VITAL SIGNS: At this time include temperature 36.7, pulse 98, respiratory rate 12, blood pressure 132/51. GENERAL: This is a chronically ill-appearing female patient who appears to be in minimal distress. HEENT: Head normocephalic. Nose and throat clear. NECK: Supple. LUNGS: Clear. ABDOMEN: Soft. EXTREMITIES: Examination of the lower extremities demonstrates a small circular ulceration on the medial right mid foot. There is a dry crust in place. It is not infected. She has a few areas of scattered eschar including the lateral ankle on the left foot and near the left fifth toe. The eschar is dry, stable and intact. Postoperative changes noted on the thigh area. LABORATORY DATA: Include white blood cell count 3000 with a hemoglobin of 7.0, up from 6.4 yesterday, hematocrit 21, platelet count 147,000. Sodium 144, potassium 4.5, chloride 114, CO2 of 18, BUN 47, creatinine 1.8, glucose of 137. Albumin is 3.3, total protein 6.5. CLINICAL IMPRESSION: 1. Arterial ulcerations of both lower extremities, right medial foot and left lateral ankle and fifth toe. 2. Diabetes mellitus with peripheral neuropathy. 3. Severe peripheral arterial disease, status post right superficial femoral artery occlusion and status post right femoral to above-knee popliteal artery bypass with reverse autogenous saphenous vein graft 10/19/2019. 4. Chronic kidney disease stage 3. 5. Anemia and gastrointestinal bleeding. 6. History of recurrent urinary tract infections. 7. Hypertension. RECOMMENDATIONS: At this point in time, we will recommend Betadine to the areas of eschar, a bordered gauze to the right medial foot. She will need ongoing nutritional support. She is to be seen by GI. Likely will have upper and lower endoscopy. She has been transfused. Recommend continuation of other current medications. I appreciate being asked to see her in consultation. By: [id number] Garrett Betts MD /nt
[~2019-12-30 15:43] MED LIST changes: +BACITRAYCIN PLU28 G1 TOP
[2019-12-30 16:51] LABS: MCHC 33.6 g/dL (28.0-37.0); MCV 104.3 fL (80.0-100.0); PLATELET COUNT 178 thou/uL (150-400); RBC 1.83 mil/uL (4.20-5.00); RDW 19.6 % (10.5-14.5); WBC 5.3 thou/uL (4.0-11.0)
[2019-12-30 17:02] LABS: HEMOGLOBIN 6.4 gm/dL (12.0-15.0)
[2019-12-30 17:03] LABS: HEMATOCRIT 19.1 % (37.0-47.0)
[2019-12-30 17:06] LABS: CALCIUM 7.8 mg/dL (8.5-10.1); CREATININE 2.4 mg/dL (0.6-1.0); POTASSIUM 4.5 mmol/L (3.5-5.1); PROTIME 10.5 Seconds (9.3-11.4)
[2019-12-30 17:09] LABS: % SATURATION 43 % (20-39); IRON 105 ug/dL (50-170); TIBC 247 ug/dL (250-450)
[2019-12-30 17:12] LABS: ALBUMIN 3.3 g/dL (3.4-5.0); TOTAL BILIRUBIN 0.3 mg/dL (<0.1-1.0); TOTAL PROTEIN 6.5 g/dL (6.4-8.2)
[2019-12-30 17:38] LABS: ABSOLUTE NEUTROPHILS 1.7 thou/uL (1.4-8.2); ATYPICAL LYMPHS 1 %
[2019-12-30 17:39] LABS: ANISOCYTOSIS 2+; MACROCYTES 2+; POLYCHROMASIA OCCASIONAL
[2019-12-30 18:44] LABS: URINE BILIRUBIN NEGATIVE (Negative); URINE BLOOD 2+ (Negative); URINE CLARITY CLEAR; URINE COLOR YELLOW; URINE GLUCOSE-RANDOM* NEGATIVE (Negative); URINE KETONES NEGATIVE (Negative); URINE NITRITE-REFLEX NEGATIVE (Negative); URINE PROTEIN (DIPSTICK) NEGATIVE (Negative); URINE UROBILINOGEN 0.2 E.U./dl (0.2-1.0)
[2019-12-30 18:45] LABS: URINE LEUKOCYTES-REFLEX 2+ (Negative)
[2019-12-30 18:50] LABS: SQUAMOUS 4-10 Moderate /LPF (0-3)
[2019-12-30 18:52] LABS: BACTERIA-REFLEX 1-9 Few /HPF (None Seen); CASTS None Seen /LPF (None Seen); CRYSTALS None Seen /LPF (None Seen)
[2019-12-30 19:03] VITALS: BP 127/65
[2019-12-30] MEDS ORDERED: FAMOTIDINE 20 M20 MG PO (19:06)
[2019-12-30] MEDS ORDERED: REGLAN 5 MG TAB5 MG PO (19:13)
[2019-12-30] MEDS ORDERED: LISINOPRIL10 MG PO (19:14)
[2019-12-30] MEDS ORDERED: MECLIZINE HCL25 M1 PO (19:15)
[2019-12-30] MEDS ORDERED: NORCO 5-325 TA1 EAC1 PO (19:16)
[2019-12-30 19:42] VITALS: BP 127/65
[2019-12-30 19:53] VITALS: BP 158/75
--- NOTE | 2019-12-30 20:38 | NUR ---
BLOOD COCHECKED WITH VIKTORIYA ADAIR, AND BRYANT CAMACHO
[2019-12-31 00:45] VITALS: BP 138/52
--- NOTE | 2019-12-31 03:58 | NUR ---
ASSUMED CARE OF PATIENT AT 1999. PATIENT TRANSFERRED FROM ER WITH RBCs INFUSING. UNABLE TO DOCUMENT/EDIT ED BLOOD TRANSFUSION DOCUMENTATION. 15 MIN V/S, POST TRANSFUSION V/S, AND TIME OF COMPLETION. PATIENT TOLERATED INFUSION WELL WITH NO REACTION OBSERVED OR SYMPTOMS REPORTED BY PATIENT. PATIENT REMAINED COMPLIANT WITH CLEAR LIQUID DIET THROUGHOUT NOC.
[2019-12-31 04:45] VITALS: BP 126/45
[2019-12-31 05:06] LABS: ABSOLUTE NEUTROPHILS 1.1 thou/uL (1.4-8.2); BASOPHILS 0.3 % (0.0-2.0); EOSINOPHILS 3.5 % (0.0-3.0); LYMPHOCYTES 52.7 % (24.0-44.0); MCH 33.5 pg (26.0-34.0); MCHC 33.4 g/dL (28.0-37.0); MCV 100.1 fL (80.0-100.0); MONOCYTES 6.2 % (1.0-8.0); PLATELET COUNT 147 thou/uL (150-400); POLYS 37.3 % (36.0-66.0); RBC 2.09 mil/uL (4.20-5.00); RDW 22.7 % (10.5-14.5)
[2019-12-31 05:20] LABS: CALCIUM 7.5 mg/dL (8.5-10.1); CREATININE 1.8 mg/dL (0.6-1.0); MAGNESIUM 1.4 mg/dL (1.8-2.4); POTASSIUM 4.5 mmol/L (3.5-5.1)
[2019-12-31 06:16] LABS: ANISOCYTOSIS 3+
[2019-12-31 08:10] VITALS: BP 132/51
--- NOTE | 2019-12-31 08:21 | EKG ---
[facility] [place] [address] ELECTROCARDIOGRAM REPORT Name: SONIA FUENTES Room #: 214-P ADM IN M.R.#: [id number] Admission: 12/30/19 Attend Phys: Mike Cohn MD Discharge: Date of : 52 Report #: [id number] THIS REPORT FOR: cc: ANGELICA SANCHEZ Physician not on staff Noam Gonzalez MD ~ THIS REPORT FOR: //name// [facility] ED Test Date: 2019-12-30 Test Time: 16:08:20 Pat Name: SONIA FUENTES Department: Room: [facility] Gender: F Mma Fighter: [facility] PE[facility] : 1950 Requested By: Romel Dhaliwal Order Number: [id number] MD: Noam Gonzalez Measurements Intervals Newton Rate: 96 P: 39 NC: 152 QRS: 2 QRSD: 92 T: 17 QT: 339 QTc: 429 Interpretive Statements Sinus rhythm Low voltage, precordial leads Compared to ECG 12/24/2019 06:32:45 Low QRS voltage now present Sinus tachycardia no longer present Myocardial infarct finding no longer present Electronically Signed On 12-31-2019 8:20:04 CDT by Noam Gonzalez [email or web address] <ELECTRONICALLY SIGNED> By: Noam Gonzalez MD 12/31/19 0820 Noam Gonzalez MD /EPI
--- NOTE | 2019-12-31 09:10 | NUR ---
ASSUMED CARE OF PT AT SHIFT CHANGE, A&0X4, MAYBE SLIGHTLY FORGETFUL, IN GOOD SPIRITS AND HUMOROUS, ENCOURAGED HER TO USE CALL LIGHT FOR ANY NEEDS. SEVERAL CONSULTS ON BOARD TO VISIT WITH HER, SHE'S AWARE OF HER CONDITION. NOTED MAG LOW PRIOR SHIFT, PHYSICIAN CONTACTED AND ORDER DONE. SEE SEPARATE INTERVENTIONS FOR ASSESSMENTS. WOUNDS/ABRASIONS, CHRONIC AND RECENT. WILL NOTE ANY NEW ORDERS. TURN Q2, LINENS CHANGED AND GOWN, NEW PUREWICK AND SUCTION CHOSEN TO FACILITATE OUTPUT, NOTED GOOD APPETITE EVEN WITH CLEAR LIQUIDS AND EXCELLENT OUTPUT THIS A.M.
[2019-12-31 09:27] LABS: FOLIC ACID 96.6 ng/mL (8.6-58.9)
[2019-12-31 12:30] VITALS: BP 122/51
[2019-12-31 16:37] VITALS: BP 143/46
--- NOTE | 2019-12-31 16:39 | NUR ---
Case opened to follow for dc planning. Pt known to cm from previous admissions. Pt admitted with low hgb 6.4.GI consult in progress. 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 She was recently here in October and dc'd back to the SNF for wound care and therapy. Therapy evals are in progress. Pt got blood transfusion and getting an EGD/Colon tomorrow. Pt's dtr in law is a nurse in wound care and available as needed via her cell phone. [facility] updated via phone and fax. They are holding her bed and can accept her for readmission when medically stable. The pt has 32 snf days left if therapy is needed. Should the pt be dc ready over the weekend;unit staff to call Sumit in admissions at [phone] to coordinate.Dtr in law Anny updated and feels pt would benefit from additional snf rehab when she returns there. They will need the covid screening form at [place]. Covid neg test results faxed with her clinical update.
[2019-12-31 20:05] VITALS: BP 161/60
[2020-01-01 04:49] VITALS: BP 128/41
--- NOTE | 2020-01-01 05:54 | NUR ---
ASSUMED CARE OF PATIENT AT 1900. PATIENT APPEARED TEARFUL AND STATED THAT SHE WAS ANXIOUS ABOUT UPCOMING PROCEDURES IN THE AM. PATIENT CONTINUED ON CLEAR LIQUID DIET AND THEN NPO AFTER MIDNIGHT. CONTINUING TO MONITOR FOR BLEEDING D/T POSITIVE OCCULT AND LOW HGB. PATIENT FINISHED PREP FOR COLONOSCOPY. PATIENT UNWILLING TO TRANSFER TO BEDSIDE COMMODE D/T URGENCY AND WAS INCONTINENT OF LOOSE, BROWN BM.
--- NOTE | 2020-01-01 07:03 | NUR ---
Dr. Benton notified that pt. completed bowel prep but bm not clear yet. Enema x1 given with large amount of liquid bm ,light greenish return.
[2020-01-01 08:00] VITALS: BP 135/57
[2020-01-01 09:06] LABS: ALBUMIN 2.8 g/dL (3.4-5.0); CALCIUM 7.2 mg/dL (8.5-10.1); CREATININE 1.5 mg/dL (0.6-1.0); POTASSIUM 4.5 mmol/L (3.5-5.1); TOTAL BILIRUBIN 0.6 mg/dL (<0.1-1.0); TOTAL PROTEIN 5.7 g/dL (6.4-8.2)
--- NOTE | 2020-01-01 09:22 | NUR ---
ASSUMED CARE OF PT AT SHIFT CHANGE, A&0X4 AND HUMOROUS YET IN A PERIOD OF CRYING, WITHOUT TEARS AND EASILY ANSWERS QUESTIONS AND JOKES, THEN OPENS UP HER MOUTH AGAIN AND WAILS. REPORTS OF CLEAR GREEN STOOL P ENEMA ORDERED AROUND 0700 AND REPORT OF LOW GRADE TEMP, PT WAS WARM TO TOUCH; REPORTED TO SURGERY W/DETAILS; ROOM ALSO VERY WARM. NOTED MAG WAS LOW YESTERDAY, DR SILVER 'LYTE PROTOCOL, GAVE MAG, THEN ENTERED LAB LATE FOR RE-DRAW. WILL CALL LAB ONCE PT RETURNS FOR FURTHER LABS ORDERED. TATYANA CUMMINGS'S (JEREMIAH-WOUND COORDINATOR RN) TELE NUMBER ON BOARD FOR ANY QUESTIONS NEEDING ANSWERED. FEEL FREE TO TEXT. PT LEFT AROUND 0800 FOR PROCEDURES, HAD BM ALL OVER FLOOR AND REC RN LET US KNOW; CLEANED. ENCOURAGED PT UPON RETURN TO CALL FOR ANY NEEDS. WILL CONT TO ASSESS UPON RETURN. NOTED HR TACHY THROUGH NIGHT.
[2020-01-01 12:00] VITALS: BP 145/45
[2020-01-01 16:00] VITALS: BP 154/64
[2020-01-01 16:01] LABS: HEMATOCRIT 21.2 % (37.0-47.0); HEMOGLOBIN 7.1 gm/dL (12.0-15.0); MCH 33.8 pg (26.0-34.0); MCHC 33.4 g/dL (28.0-37.0); MCV 101.2 fL (80.0-100.0); PLATELET COUNT 133 thou/uL (150-400); RDW 22.4 % (10.5-14.5); WBC 4.8 thou/uL (4.0-11.0)
[2020-01-01 16:25] LABS: ABSOLUTE NEUTROPHILS 2.7 thou/uL (1.4-8.2)
[2020-01-01 16:26] LABS: PLATELET ESTIMATE SLIGHTLY DECREASED
[2020-01-01 16:27] LABS: ANISOCYTOSIS 2+; MACROCYTES 2+
[2020-01-01 16:28] LABS: LARGE PLATELETS OCCASIONAL; POLYCHROMASIA SLIGHT
[2020-01-01 19:40] VITALS: BP 161/43
--- NOTE | 2020-01-02 04:09 | NUR ---
ASSUMED CARE OF PATIENT AT 1900. PATIENT C/O PRURITIS AND IRRITATION AROUND LEFT FOREARM IV. DISCONTINUED IV IN LEFT FOREARM. PATIENT REPORTED SOME RELIEF OF SYMPTOMS. IV IN RIGHT AC REMAINS PATENT. PATIENT SLEPT WELL THROUGH [facility] DESPITE BEING ANXIOUS AT BEGINNING OF SHIFT.
[2020-01-02 04:38] LABS: ABSOLUTE NEUTROPHILS 1.8 thou/uL (1.4-8.2); RDW 21.8 % (10.5-14.5); WBC 3.8 thou/uL (4.0-11.0)
[2020-01-02 04:40] LABS: BASOPHILS 0.2 % (0.0-2.0); EOSINOPHILS 3.4 % (0.0-3.0); LYMPHOCYTES 40.6 % (24.0-44.0); MCH 34.1 pg (26.0-34.0); MCHC 33.9 g/dL (28.0-37.0); MCV 100.7 fL (80.0-100.0); MONOCYTES 8.7 % (1.0-8.0); PLATELET COUNT 128 thou/uL (150-400); POLYS 47.1 % (36.0-66.0); RBC 1.87 mil/uL (4.20-5.00)
[2020-01-02 04:48] LABS: HEMATOCRIT 18.9 % (37.0-47.0); HEMOGLOBIN 6.4 gm/dL (12.0-15.0)
[2020-01-02 04:56] LABS: CALCIUM 7.1 mg/dL (8.5-10.1); CREATININE 1.6 mg/dL (0.6-1.0); MAGNESIUM 1.7 mg/dL (1.8-2.4); POTASSIUM 4.6 mmol/L (3.5-5.1)
[2020-01-02 05:12] VITALS: BP 146/44
[2020-01-02 08:00] VITALS: BP 144/57
[2020-01-02 11:33] VITALS: BP 136/46; BP 138/52; BP 140/49; BP 141/47
--- NOTE | 2020-01-02 16:07 | P ---
[facility] [place] [address] PROCEDURE REPORT Name: SONIA FUENTES Room #: 214-P ADM IN M.R.#: [id number] Admission: 12/30/19 Attend Phys: Mike Cohn MD Discharge: Date of : 51 Report #: [id number] THIS REPORT FOR: cc: ANGELICA SANCHEZ Physician not on staff Julius Benton MD ~ CC: ANGELICA Cohn MD Physician staff DATE OF SERVICE: 01/01/2020 PROCEDURE PERFORMED: Upper endoscopy with biopsies. HISTORY OF PRESENT ILLNESS: The patient is a 69-year-old female who is a fairly poor historian, who lives in a nursing facility with a history of chronic anemia, multiple medical problems, was noted to have a hemoglobin at 5.7 at the group home facility. Hemoglobin on admission here was 6.4. She received 1 unit of packed cells today. After transfusion, hemoglobin was 7. The patient does report some rust-colored type stools at times. She denies any abdominal pain, no nausea or vomiting. It is unclear when her last colonoscopy if ever was performed. The plan is for an EGD and colonoscopy today. The patient has been on aspirin in the past as well as Pepcid and iron. No family history of colon cancer. DESCRIPTION OF PROCEDURE: The risks and benefits of the procedure were explained to the patient, those risks including but not limited to bleeding, perforation and the risk of sedation. The durable power of disability attorney understood these risks and gave informed consent. Sedation was given using propofol per anesthesia. Next, using a standard Olympus upper endoscope, the scope was placed in the patient's mouth and advanced under direct vision through the esophagus, stomach and into the second portion of the duodenum. The esophagus was normal throughout. The GE junction was normal. Overall, the gastric mucosa was normal in the fundus and body. In the gastric antrum, mild gastritis was noted. Several small erosions were noted. No evidence of bleeding. No evidence of blood throughout the exam today. Biopsies were obtained to rule out H. pylori. The pylorus was normal and patent. The duodenal bulb, first and second portion were all normal. The scope was then withdrawn and the procedure terminated. The patient tolerated the procedure well. IMPRESSION: 1. Mild gastritis with a few antral erosions. No evidence of bleeding. 2. Otherwise, normal upper endoscopy. [address] [address] PROCEDURE REPORT Name: SONIA FUENTES Room #: 214-P [facility] IN .R.#: [id number] Admission: 12/30/19 Attend Phys: Mike Cohn MD Discharge: Date of : 52 Report #: [id number] RECOMMENDATIONS: 1. Await biopsy results. 2. Continue PPI therapy. 3. We will proceed with colonoscopy next today. Thank you for allowing me to participate in her care. <ELECTRONICALLY SIGNED> By: Julius Benton MD 01/02/20 1607 1010 1930 Julius Benton MD /nt
--- NOTE | 2020-01-02 16:07 | P ---
[facility] [place] [address] PROCEDURE REPORT Name: SONIA FUENTES Room #: 214-P [facility] IN M.R.#: [id number] Admission: 12/30/19 Attend Phys: Mike Cohn MD Discharge: Date of : 52 Report #: [id number] THIS REPORT FOR: cc: ANGELICA SANCHEZ Physician not on staff Julius Benton MD ~ CC: ANGELICA Cohn MD Physician staff PROCEDURE PERFORMED: Colonoscopy with snare polypectomy. HISTORY OF PRESENT ILLNESS: The patient is a 69-year-old female with anemia. She has a history of chronic anemia. Hemoglobin was 6.4 on admission, received 1 unit of packed cells. The patient is a fairly poor historian. Unsure when her last colonoscopy if ever was performed. She has a durable power of dealer development manager. Upper endoscopy was just performed, which showed a few gastric erosions. No signs of bleeding. Plan is for colonoscopy. DESCRIPTION OF PROCEDURE: The risks and benefits of the procedure were explained to the patient's durable power of dealer development manager. Those risks including but not limited to bleeding, perforation and the risk of sedation. She understood these risks and gave informed consent. Sedation was given using propofol per anesthesia. Next, a digital rectal exam was initially performed, which showed small nonbleeding external hemorrhoids, otherwise normal. Next, using a standard Olympus colonoscope, the scope was placed in the patient's anus and advanced under direct vision to the cecum. The overall prep was somewhat poor in areas. Multiple washings and aspirations were performed. I was able to visualize most areas quite well; however, in the cecum, there was an 8 mm partially pedunculated polyp. This was removed by snare cautery. No evidence of bleeding, otherwise normal. The ileocecal valve was normal. The ascending, transverse, descending and sigmoid colon were normal. The rectal mucosa was normal. Small nonbleeding internal hemorrhoids were also noted. The scope was then withdrawn and the procedure terminated. The patient tolerated the procedure well. IMPRESSION: 1. Cecal polyp 2. Small internal and external hemorrhoids,, nonbleeding. 3. Otherwise, normal colonoscopy. RECOMMENDATIONS: No obvious signs of bleeding were noted on EGD or colonoscopy today. The patient does have a few small antral erosions. We would recommend continuing PPI therapy, holding aspirin at this time. Continue to monitor hemoglobin. The patient does have a history of chronic anemia of note. [address] [address] PROCEDURE REPORT Name: SONIA FUENTES Room #: 214-P [facility] IN .R.#: [id number] Admission: 12/30/19 Attend Phys: Mike Cohn MD Discharge: Date of : 51 Report #: [id number] Thank you for allowing me to participate in her care. <ELECTRONICALLY SIGNED> By: Julius Benton MD 01/02/20 1607 1013 55 Julius Benton, /edda
[2020-01-02 16:14] LABS: HEMATOCRIT 22.7 % (37.0-47.0); HEMOGLOBIN 7.7 gm/dL (12.0-15.0)
[2020-01-02 16:15] VITALS: BP 140/79
[2020-01-02 16:25] VITALS: BP 147/47
--- NOTE | 2020-01-02 17:46 | NUR ---
RECEIVED PT'S CARE AROUND 714; PT. ON BED; RESTING WITH EYES CLOSED; EQUAL CHEST RISING NOTICED; SR ON THE MONITOR; HGB 6.4; PER RN NAVIGATOR REPORT TWO UNITS ORDERED; WAITING ENGINEER[employer] FROM BLOOD BLANK; DURING AM ASSESMENT PT. AOX4; NO C/O PAIN; AM MEDICATION GIVEN; TRANSFUSION ORDERS UPDATE BY DR. RAYGOZA; ONE UNIT OF BLOOD; BLOOD BLANK NOTIFIED; BLOOD TRANSFUSED; PT. TOLERATED WELL; NO C/O PAIN; HGB RE-ASSESED AFTER ONE HOUR; 7.7; PHYSICIAN NOTIFIED; FLUIDS D/C; PT. EDUCATED ABOUT THE IMPORTANCE OF TURNING FROM SIDE TO SIDE & RELIEVING BUTTOCKS PRESSURE; ST. UNDERSTANDING; SR ON THE MONITOR; MONITORING; NO BM THROUGH THE DAY; GI NOTIFIED ABOUT HGB; ORDERS RECEIVED; ASPIRIN D/C; ASSESSMENT CHARGED; FOLLOWING POC; WILL PASS ON REPORT;
[2020-01-02 19:58] VITALS: BP 153/61
--- NOTE | 2020-01-03 02:26 | NUR ---
PT LYING IN BED. DENIES PAIN. RESTING COMFORTABLY. NO NEEDS VOICED. CALL LIGHT WITHIN REACH. FREQUENT OBSERVATION.
[2020-01-03 04:17] VITALS: BP 155/65
[2020-01-03 04:37] LABS: CALCIUM 7.5 mg/dL (8.5-10.1); CREATININE 1.5 mg/dL (0.6-1.0); MAGNESIUM 1.9 mg/dL (1.8-2.4); PHOSPHORUS 1.8 mg/dL (2.5-4.9); POTASSIUM 4.5 mmol/L (3.5-5.1)
[2020-01-03 04:44] LABS: ABSOLUTE NEUTROPHILS 1.4 thou/uL (1.4-8.2); BASOPHILS 0.3 % (0.0-2.0); HEMATOCRIT 23.7 % (37.0-47.0); HEMOGLOBIN 8.1 gm/dL (12.0-15.0); LYMPHOCYTES 42.5 % (24.0-44.0); MCH 33.1 pg (26.0-34.0); MCHC 34.4 g/dL (28.0-37.0); MCV 96.4 fL (80.0-100.0); MONOCYTES 8.6 % (1.0-8.0); PLATELET COUNT 138 thou/uL (150-400); POLYS 43.6 % (36.0-66.0); RBC 2.46 mil/uL (4.20-5.00); RDW 22.3 % (10.5-14.5); WBC 3.1 thou/uL (4.0-11.0)
--- NOTE | 2020-01-03 05:55 | HC ---
[facility] [place] [address] CONSULTATION Name: SONIA FUENTES Room #: 214-P ADM IN M.R.#: [id number] Admission: 12/30/19 Attend Phys: Mike Cohn MD Discharge: Date of : 51 Report #: [id number] THIS REPORT FOR: cc: ANGELICA SANCHEZ Physician not on staff Jayant Andersen MD ~ CC: ANGELICA Cohn Physician staff REASON FOR THE CONSULTATION: Acute kidney injury. REASON FOR THE PRESENTATION: Abnormal labs. HISTORY OF PRESENT ILLNESS: A 69-year-old with extensive past medical history including diabetes mellitus and hypertension. She has chronic kidney disease. She follows up with me in the clinic. She is also known to have anemia in the past. Her baseline creatinine in my clinic runs in the 1.6 range. She was found to have a low hemoglobin and was transferred to our facility to further evaluate. She denies any melena or hematochezia. She denies any nausea or vomiting. She had been in the hospital for numerous issues including a recent fracture of the little toe of the left foot post fall. She also had the recent angiogram for a nonhealing foot ulcer. The patient's creatinine on presentation yesterday was 2.4 and has trended down to 1.8. PAST MEDICAL HISTORY: 1. Diabetes mellitus. 2. Hypertension. 3. Diabetic neuropathy. 4. Diabetic nephropathy. 5. Back surgery. 6. Right hip surgery. 7. Cholecystectomy. 8. Total abdominal hysterectomy. 9. Appendectomy. 10. Carpal tunnel surgery. 11. . 12. CKD with a baseline creatinine of around 1.6. MEDICATIONS: 1. Insulin. 2. Melatonin. 3. Aspirin. 4. Metoprolol. 5. Furosemide. 6. Lisinopril. [facility] [address] [place] [address] CONSULTATION Name: SONIA FUENTES Room #: 214-P [facility] IN [facility].#: [id number] Admission: 12/30/19 Attend Phys: Mike Cohn MD Discharge: Date of : 51 Report #: [id number] ALLERGIES: DYE AND MEPERIDINE. SOCIAL HISTORY: Resides in a nursing facility. No drug or alcohol abuse. REVIEW OF SYSTEMS: GENERAL: No fever or chills. CARDIOVASCULAR: No chest pain or palpitation. PULMONARY: No cough or hemoptysis. GASTROINTESTINAL: No nausea or vomiting. GENITOURINARY: No frequency or urgency. MUSCULOSKELETAL: Recent fracture of little toe. SKIN: Abrasion on the left lower extremity. NEUROLOGICAL: No headache, no dizziness. FAMILY HISTORY: Significant for hypertension. PHYSICAL EXAMINATION: VITAL SIGNS: Temperature 36.9, respiratory rate is 20, pulse rate is 80, blood pressure is 138/52. HEAD AND NECK: No jugular venous distention, no bruit, no thyromegaly. CHEST: Clear to auscultation bilaterally. CARDIOVASCULAR: Regular with no rub detected. ABDOMEN: Soft, nontender with no hepatosplenomegaly. EXTREMITIES: Lower extremities, no edema. LABORATORY VALUES: From today reviewed. Hemoglobin is up to 7 from 6.4 yesterday. Platelets are 147. Sodium is 144, BUN is 47, creatinine is down to 1.8. Magnesium is 1.4. ASSESSMENT, IMPRESSION, PLAN: 1. Acute kidney injury. 2. Chronic kidney disease with a baseline creatinine of around 1.6. 3. Anemia. 4. Diabetes mellitus. 5. Hypertension. 6. Creatinine seems to be improving and this seems to be all prerenal acute kidney failure due to volume depletion. 7. Continue to hold lisinopril and furosemide. 8. Continue IV fluid for one more day. 9. Okay to resume lisinopril when the acute kidney injury resolves. Her volume status seems to be acceptable and she is not in need for any diuretics at this point. <ELECTRONICALLY SIGNED> By: Jayant Andersen MD 01/03/20 0555 0613 [id number] Jayant Andersen MD /nt
[2020-01-03 07:45] VITALS: BP 171/82
--- NOTE | 2020-01-03 10:42 | NUR ---
Assess due to high BMI 45=extreme class III obesity. Hx DM, HTN. Admit with anemia and diabetic foot ulcer-seen by wound care. Last A1C from 09/2019 6% showing well controlled diabetes. This admit BG elevated 197-230 and on ss insulin. Appetite 75-100% of meals. Does have reduced tuber machine cutter strength 21.4 right and 27.4 left as noted by geriatric rRNP. Hgb continues to drop so NPO today for M2 capsule study. Wts gradually increasing from past few years. Low nutrition risk. Resume carb control diet when appropriate.
[2020-01-03 12:00] VITALS: BP 137/91
--- NOTE | 2020-01-03 13:17 | NUR ---
PT CARE ASSUMED AT 0700. A&Ox4. PT IN BED WITH EXTERNAL FEMALE CATHETER. NPO DUE TO SWALLOW CAPSUL. AFTER POSSIBLE DISCHARGE. BED BATH GIVEN. IV PATENT WITH NO REDNESS OR EDEMA. ACHS. ROOM AIR. FALL PROTOCOL IN PLACE. CALL LIGHT IN REACH. WILL CONTINUE TO MONITOR. REPORT GIVEN TO DAVIS SURESH.
--- NOTE | 2020-01-03 15:40 | NUR ---
FAXED TODAY'S PT/OT NOTES RECEIVED CONFIRMATION AND LEFT MSG WITH ADM. THAT PT IS NOT DISCHARGING TODAY POSS DC TOMORROW. DP TO FOLLOW.
--- NOTE | 2020-01-03 15:41 | NUR ---
tenative plan for dc tomorrow pending study and lab results.
[2020-01-03 16:00] VITALS: BP 137/91
[2020-01-03 16:09] LABS: HEMATOCRIT 25.6 % (37.0-47.0); HEMOGLOBIN 8.7 gm/dL (12.0-15.0); MCH 32.6 pg (26.0-34.0); MCHC 33.9 g/dL (28.0-37.0); MCV 96.3 fL (80.0-100.0); RBC 2.66 mil/uL (4.20-5.00); RDW 21.9 % (10.5-14.5); WBC 2.8 thou/uL (4.0-11.0)
[2020-01-03 16:35] LABS: CALCIUM 7.6 mg/dL (8.5-10.1); CREATININE 1.4 mg/dL (0.6-1.0); MAGNESIUM 1.7 mg/dL (1.8-2.4); PHOSPHORUS 3.2 mg/dL (2.5-4.9); POTASSIUM 4.4 mmol/L (3.5-5.1)
--- NOTE | 2020-01-03 18:46 | NUR ---
PT CARE ASSUMED AT 1230. ASSESSMENT CHARTED. MEDICATION CHARTED. GI CAPSULE SWALLOWED AT 1300, CLEAR LIQUIDS ALLOWED AT 1500, SOLID FOOD ALLOWED AT 1700. MINIMAL ASSISSTANCE REQUIRED. DAILY MORNING MEDS DELIVERED AFTER NPO D/C'D. PT IN CHAIR MUCH OF THE DAY, TOLERATED WELL.
[2020-01-03 20:24] VITALS: BP 151/48
--- NOTE | 2020-01-04 03:25 | NUR ---
SLEPT PART OF SHIFT. UP WATCHING TV LATE. DENIES COMPLAINTS OF PAIN OR SHORTNESS OF AIR. NO EVIDENCE OF GI BLEED THIS SHIFT. FEMALE CATH IN PLACE AND PERICARE DONE PRN. WORKING ON GOALS AND PLAN OF CARE A DAY. PROGRESSING SLOWLY TOWARDS DISCHARGE GOALS. M2 BELT REMOVED AT 2130 LAST NOC PER ORDERS. CONTINUE TO ASSES CLOSELY.
[2020-01-04 04:36] VITALS: BP 148/79
[2020-01-04 07:30] VITALS: BP 142/51
[2020-01-04 08:30] VITALS: BP 142/51
[2020-01-04] MEDS ORDERED: ACETAMINOPHEN325 M1 PO (09:25)
[2020-01-04] MEDS ORDERED: EFFEXOR 5050 MG/1 T1 PO (09:25)
[2020-01-04 11:30] VITALS: BP 142/51
--- NOTE | 2020-01-04 15:11 | NUR ---
PT DISCHARGING TODAY TO [facility] FAXED DC ORDERS/SUMMARY TO FACILITY SPOKE WITH JEREMY IN ADM SHE RECEIVED ORDERS AND ARRANGED TRANSPORTATION FOR 1530 BY VAN. NOTIFIED PT'S DIL (JEREMIAH) OF DC AND TIME OF TRANSPORT AND SHE WANTED TRANSPORT DELAYED TIL DR MARTINEZ READS THE M2 CAPSULE STUDY AND SAYS IT'S OK SO HE READ STUDY AND JULIÁN RYAN RN WILL NOTIFY JEREMIAH OF RESULTS. LEFT VOICEMAIL FOR JEREMIAH WITH TIME OF TRANSPORT AND UNIT NOTIFIED CHART COPY PER US. RN TO CALL REPORT TO [phone].
--- NOTE | 2020-01-06 10:08 | PATH ---
[facility] [address] [place] [address] PATHOLOGY RPT PROCEDURE Name: SONIA FUENTES Room #: 214-P DIS IN M.R.#: [id number] Admission: 12/30/19 Date of : 52 Discharge: 01/04/20 Report #: [id number] Path Case #: [id number] [facility] Accession Number: [id number] . 01 Material submitted: . PART A: gastrointestinal site - BIOPSY OF GASTRITIS RULE OUT H PYLORI PART B: cecum - POLYP AT CECUM . 01 Clinical history: . Anemia, GI bleed Rule H. pylori . 02 Diagnosis: A. Gastric mucosa, gastritis rule out H. pylori, endoscopic biopsy: - Moderate active gastritis with features of reactive gastropathy. - Negative for intestinal metaplasia or atrophy. - Negative for Helicobacter pylori (properly-controlled immunohistochemical stain performed). . B. Polyp, at cecum, endoscopic biopsy: - Inflammatory polyp with hyperplastic features. - Negative for dysplasia. . (IUV:mml; 01/05/2020) QLM 01/05/2020 1302 Local . 02 Electronically signed: . Gabbi Alvarez MD, Pathologist NPI- [id number] . 01 Gross description: . A. The specimen is received in formalin, labeled "LarrySonia barbour, BX of gastritis" and consists of 4 fragments of rodriguez tissue measuring 1.2 x 0.8 x 0.2 cm in aggregate which are entirely submitted in A1. . B. The specimen is received in formalin, labeled "Sonia Fuentes, polyp at cecum" and consists of a segment of rodriguez tissue measuring 0.7 x 0.5 x 0.4 cm. The margin is inked black. It is bisected and entirely submitted in B1. (SDY; 01/04/2020) SYU/SYU 01/04/2020 1310 Local . 02 Pathologist provided ICD-10: K29.00, K63.5 . 02 CPT . 250173, 688336, [id number] [place] [address] PATHOLOGY RPT PROCEDURE Name: LARRYSONIA BARBOUR Room #: 214-P DIS IN M.R.#: [id number] Admission: 12/30/19 Date of : 52 Discharge: 01/04/20 Report #: [id number] Path Case #: [id number] Specimen Comment: A courtesy copy of this report has been sent to [phone] Specimen Comment: [phone] Specimen Comment: Report sent to Specimen Comment: A duplicate report has been generated due to demographic updates. Performed at: [address], [place] [id number] MD Bandar Brewster MD Phone: [phone] Performed at: [address] [id number] MD Gabbi Alvarez MD Phone: [phone]
== END 2020-01-04 15:45 | DRG 377 ==
LOC: ER 15:43 → 2N 18:06 → EROBS 18:06 → 2N 21:42
PROVIDERS: Internal Medicine; Nurse Practitioner; Physician Assistant; ADMIT Hospitalist
DX: K29.71 Gastritis, unspecified, with bleeding (principal); N17.0 Acute kidney failure with tubular necrosis; L03.119 Cellulitis of unspecified part of limb; I77.2 Rupture of artery; Z68.41 Body mass index [BMI] 40.0-44.9, adult; E44.0 Moderate protein-calorie malnutrition; D12.0 Benign neoplasm of cecum; D64.9 Anemia, unspecified; K64.8 Other hemorrhoids; E11.649 Type 2 diabetes mellitus with hypoglycemia without coma; L97.519 Non-pressure chronic ulcer of other part of right foot with unspecified severity; F41.9 Anxiety disorder, unspecified; F32.9 Major depressive disorder, single episode, unspecified; E11.40 Type 2 diabetes mellitus with diabetic neuropathy, unspecified; K58.9 Irritable bowel syndrome, unspecified; J30.2 Other seasonal allergic rhinitis; N18.3 Chronic kidney disease, stage 3 (moderate); Z96.641 Presence of right artificial hip joint; E11.22 Type 2 diabetes mellitus with diabetic chronic kidney disease; I12.9 Hypertensive chronic kidney disease with stage 1 through stage 4 chronic kidney disease, or unspecified chronic kidney disease; Z96.642 Presence of left artificial hip joint; K64.4 Residual hemorrhoidal skin tags; D63.8 Anemia in other chronic diseases classified elsewhere; F03.90 Unspecified dementia, unspecified severity, without behavioral disturbance, psychotic disturbance, mood disturbance, and anxiety; E11.43 Type 2 diabetes mellitus with diabetic autonomic (poly)neuropathy; K31.84 Gastroparesis; E03.9 Hypothyroidism, unspecified; E83.42 Hypomagnesemia; K59.00 Constipation, unspecified; G47.00 Insomnia, unspecified; S90.512A Abrasion, left ankle, initial encounter; W18.39XA Other fall on same level, initial encounter; S91.119A Laceration without foreign body of unspecified toe without damage to nail, initial encounter; E66.01 Morbid (severe) obesity due to excess calories; Z98.1 Arthrodesis status; Z82.49 Family history of ischemic heart disease and other diseases of the circulatory system; Z87.440 Personal history of urinary (tract) infections; Z79.4 Long term (current) use of insulin; Z79.891 Long term (current) use of opiate analgesic; Z90.710 Acquired absence of both cervix and uterus; Z90.49 Acquired absence of other specified parts of digestive tract; Z90.89 Acquired absence of other organs; Z91.81 History of falling; Z79.2 Long term (current) use of antibiotics; Z79.899 Other long term (current) drug therapy; Z88.8 Allergy status to other drugs, medicaments and biological substances; Z88.5 Allergy status to narcotic agent; Z91.041 Radiographic dye allergy status; Z83.3 Family history of diabetes mellitus; Y93.89 Activity, other specified; Y92.89 Other specified places as the place of occurrence of the external cause; Y99.8 Other external cause status
CPT/HCPCS: 10081; 62110; 62900; 70005

== ENCOUNTER → 2020-01-12 | Outpatient (CLI) | payer OTHER ==
[~2020-01-12] MED LIST changes: +ACETAMINOPHEN325 M1 PO; +EFFEXOR 5050 MG/1 T1 PO; +FAMOTIDINE 20 M20 MG PO; +MECLIZINE HCL25 M1 PO; +NORCO 5-325 TA1 EAC1 PO; +REGLAN 5 MG TAB5 MG PO
== END ==
LOC: HYPER 13:45
DX: T81.32XD Disruption of internal operation (surgical) wound, not elsewhere classified, subsequent encounter (principal); S90.821D Blister (nonthermal), right foot, subsequent encounter; L84 Corns and callosities; E11.51 Type 2 diabetes mellitus with diabetic peripheral angiopathy without gangrene; E11.40 Type 2 diabetes mellitus with diabetic neuropathy, unspecified; E11.22 Type 2 diabetes mellitus with diabetic chronic kidney disease; I12.9 Hypertensive chronic kidney disease with stage 1 through stage 4 chronic kidney disease, or unspecified chronic kidney disease; N18.9 Chronic kidney disease, unspecified; E78.5 Hyperlipidemia, unspecified; E46 Unspecified protein-calorie malnutrition; R26.2 Difficulty in walking, not elsewhere classified; I25.9 Chronic ischemic heart disease, unspecified; I99.8 Other disorder of circulatory system; K58.9 Irritable bowel syndrome, unspecified; M62.81 Muscle weakness (generalized); M54.40 Lumbago with sciatica, unspecified side; M16.0 Bilateral primary osteoarthritis of hip; F41.9 Anxiety disorder, unspecified; F33.9 Major depressive disorder, recurrent, unspecified; Z79.4 Long term (current) use of insulin; Z68.42 Body mass index [BMI] 45.0-49.9, adult; Z79.84 Long term (current) use of oral hypoglycemic drugs; X58.XXXD Exposure to other specified factors, subsequent encounter; Y83.8 Other surgical procedures as the cause of abnormal reaction of the patient, or of later complication, without mention of misadventure at the time of the procedure

== ENCOUNTER → 2020-01-26 | Outpatient (CLI) | payer OTHER | LOC: HYPER 08:03 | PROVIDERS: ATTEND Emergency Medicine | DX: T81.32XD Disruption of internal operation (surgical) wound, not elsewhere classified, subsequent encounter (principal); E11.621 Type 2 diabetes mellitus with foot ulcer; L97.512 Non-pressure chronic ulcer of other part of right foot with fat layer exposed; S90.821D Blister (nonthermal), right foot, subsequent encounter; E11.22 Type 2 diabetes mellitus with diabetic chronic kidney disease; I12.9 Hypertensive chronic kidney disease with stage 1 through stage 4 chronic kidney disease, or unspecified chronic kidney disease; N18.9 Chronic kidney disease, unspecified; E11.40 Type 2 diabetes mellitus with diabetic neuropathy, unspecified; E11.51 Type 2 diabetes mellitus with diabetic peripheral angiopathy without gangrene; E78.5 Hyperlipidemia, unspecified; E46 Unspecified protein-calorie malnutrition; I25.10 Atherosclerotic heart disease of native coronary artery without angina pectoris; I25.9 Chronic ischemic heart disease, unspecified; R26.2 Difficulty in walking, not elsewhere classified; K58.9 Irritable bowel syndrome, unspecified; M16.0 Bilateral primary osteoarthritis of hip; M54.40 Lumbago with sciatica, unspecified side; F33.9 Major depressive disorder, recurrent, unspecified; F41.9 Anxiety disorder, unspecified; Z79.4 Long term (current) use of insulin; Z68.42 Body mass index [BMI] 45.0-49.9, adult; Z79.84 Long term (current) use of oral hypoglycemic drugs; X58.XXXD Exposure to other specified factors, subsequent encounter; Y83.8 Other surgical procedures as the cause of abnormal reaction of the patient, or of later complication, without mention of misadventure at the time of the procedure ==

== ENCOUNTER → 2020-02-09 | Outpatient (CLI) | payer OTHER | LOC: HYPER 07:53 | PROVIDERS: ATTEND Emergency Medicine | DX: T81.31XD Disruption of external operation (surgical) wound, not elsewhere classified, subsequent encounter (principal); S90.821D Blister (nonthermal), right foot, subsequent encounter; L03.115 Cellulitis of right lower limb; E11.51 Type 2 diabetes mellitus with diabetic peripheral angiopathy without gangrene; E11.40 Type 2 diabetes mellitus with diabetic neuropathy, unspecified; M62.81 Muscle weakness (generalized); R26.2 Difficulty in walking, not elsewhere classified; M54.40 Lumbago with sciatica, unspecified side; K58.9 Irritable bowel syndrome, unspecified; M16.0 Bilateral primary osteoarthritis of hip; E11.22 Type 2 diabetes mellitus with diabetic chronic kidney disease; I12.9 Hypertensive chronic kidney disease with stage 1 through stage 4 chronic kidney disease, or unspecified chronic kidney disease; N18.9 Chronic kidney disease, unspecified; I25.9 Chronic ischemic heart disease, unspecified; E46 Unspecified protein-calorie malnutrition; F33.9 Major depressive disorder, recurrent, unspecified; E78.5 Hyperlipidemia, unspecified; F41.9 Anxiety disorder, unspecified; Z91.81 History of falling; Z68.42 Body mass index [BMI] 45.0-49.9, adult; Z79.4 Long term (current) use of insulin; Z79.82 Long term (current) use of aspirin; X58.XXXD Exposure to other specified factors, subsequent encounter; Y83.8 Other surgical procedures as the cause of abnormal reaction of the patient, or of later complication, without mention of misadventure at the time of the procedure ==

== ENCOUNTER → 2020-03-01 | Outpatient (CLI) | payer OTHER ==
[~2020-03-01] MED LIST changes: +ASA81BEC PO; +AUGMENTIN 500-1 EACH PO; +CATAPRES0.1 MG PO; +CEFTRIAXON1 GM/50 M1 IVPB; +DILAUDID2 MG PO; +GABAPENTIN100 MG PO; +HUMALOG100 UNIT/1 SUBQ; +HYDROCORT-PRAMO30 G1 RECTAL; +INSULIN AS100 UNIT/3 SUBQ; +IRON325 M1 PO; +KLOR-CON 10 ER10 MEQ PO; +LANTUS SUBQ; +LEVEMIR FL100 UNIT/2 SUBQ; +LEVO-T100 MCG PO; +LORATIDINE 10 M10 M1 PO; +MONISTAT 315 GM TRANSDERM; +MOTION SICKNESS25 MG PO; +NEURONTIN100 MG PO; +NORVASC5 MG PO; +NOVOLOG FL100 UNIT/M SUBQ; +NYSTATIN1 EA10 TRANSDERM; +OLANZAPINE ODT5 MG PO; +OLANZAPINE2.5 MG PO; +SENNA LAXATIVE8.6 MG PO; +VITAMIN D350 MCG PO; +ZINC SULFATE 2220 MG PO
== END ==
LOC: HYPER 11:52
PROVIDERS: ATTEND Emergency Medicine
DX: T81.31XD Disruption of external operation (surgical) wound, not elsewhere classified, subsequent encounter (principal); S90.821D Blister (nonthermal), right foot, subsequent encounter; E11.51 Type 2 diabetes mellitus with diabetic peripheral angiopathy without gangrene; E11.40 Type 2 diabetes mellitus with diabetic neuropathy, unspecified; M62.81 Muscle weakness (generalized); R26.2 Difficulty in walking, not elsewhere classified; M54.40 Lumbago with sciatica, unspecified side; K58.9 Irritable bowel syndrome, unspecified; M16.0 Bilateral primary osteoarthritis of hip; E11.22 Type 2 diabetes mellitus with diabetic chronic kidney disease; I12.9 Hypertensive chronic kidney disease with stage 1 through stage 4 chronic kidney disease, or unspecified chronic kidney disease; N18.9 Chronic kidney disease, unspecified; I25.9 Chronic ischemic heart disease, unspecified; E46 Unspecified protein-calorie malnutrition; F33.9 Major depressive disorder, recurrent, unspecified; E78.5 Hyperlipidemia, unspecified; F41.9 Anxiety disorder, unspecified; Z91.81 History of falling; Z68.42 Body mass index [BMI] 45.0-49.9, adult; Z79.4 Long term (current) use of insulin; Z79.82 Long term (current) use of aspirin; X58.XXXD Exposure to other specified factors, subsequent encounter; Y83.8 Other surgical procedures as the cause of abnormal reaction of the patient, or of later complication, without mention of misadventure at the time of the procedure

== ENCOUNTER 2020-03-10 14:15 | Emergency (ER) | payer OTHER ==
[~2020-03-10] VITALS: Ht 157.5 cm; Wt 102.1 kg
[~2020-03-10 14:15] MED LIST changes: -ASA81BEC PO; -AUGMENTIN 500-1 EACH PO; -CATAPRES0.1 MG PO; -CEFTRIAXON1 GM/50 M1 IVPB; -DILAUDID2 MG PO; -GABAPENTIN100 MG PO; -HUMALOG100 UNIT/1 SUBQ; -HYDROCORT-PRAMO30 G1 RECTAL; -INSULIN AS100 UNIT/3 SUBQ; -IRON325 M1 PO; -KLOR-CON 10 ER10 MEQ PO; -LANTUS SUBQ; -LEVEMIR FL100 UNIT/2 SUBQ; -LEVO-T100 MCG PO; -LORATIDINE 10 M10 M1 PO; -MONISTAT 315 GM TRANSDERM; -MOTION SICKNESS25 MG PO; -NEURONTIN100 MG PO; -NORVASC5 MG PO; -NOVOLOG FL100 UNIT/M SUBQ; -NYSTATIN1 EA10 TRANSDERM; -OLANZAPINE ODT5 MG PO; -OLANZAPINE2.5 MG PO; -SENNA LAXATIVE8.6 MG PO; -VITAMIN D350 MCG PO; -ZINC SULFATE 2220 MG PO
[2020-03-10 15:11] LABS: ABSOLUTE NEUTROPHILS 1.9 thou/uL (1.4-8.2); EOSINOPHILS 2.7 % (0.0-3.0); HEMOGLOBIN 7.8 gm/dL (12.0-15.0); LYMPHOCYTES 49.5 % (24.0-44.0); MCH 35.4 pg (26.0-34.0); MCHC 33.7 g/dL (28.0-37.0); MONOCYTES 5.2 % (1.0-8.0); PLATELET COUNT 152 thou/uL (150-400); POLYS 41.6 % (36.0-66.0); RBC 2.19 mil/uL (4.20-5.00); RDW 18.9 % (10.5-14.5); WBC 4.5 thou/uL (4.0-11.0)
[2020-03-10 15:19] LABS: CALCIUM 8.8 mg/dL (8.5-10.1); POTASSIUM 4.6 mmol/L (3.5-5.1)
[2020-03-10 15:25] LABS: ALBUMIN 3.7 g/dL (3.4-5.0); TOTAL BILIRUBIN 0.3 mg/dL (0.2-1.0); TOTAL PROTEIN 6.7 g/dL (6.4-8.2)
[2020-03-10 18:00] VITALS: BP 152/55
== END 2020-03-10 18:09 | disposition home or self-care (01) ==
LOC: ER 14:15
PROVIDERS: Physician Assistant
DX: N17.9 Acute kidney failure, unspecified (principal); D64.9 Anemia, unspecified; I12.9 Hypertensive chronic kidney disease with stage 1 through stage 4 chronic kidney disease, or unspecified chronic kidney disease; E11.22 Type 2 diabetes mellitus with diabetic chronic kidney disease; N18.3 Chronic kidney disease, stage 3 (moderate); E11.40 Type 2 diabetes mellitus with diabetic neuropathy, unspecified; Z88.5 Allergy status to narcotic agent; Z88.8 Allergy status to other drugs, medicaments and biological substances; Z79.899 Other long term (current) drug therapy; Z79.82 Long term (current) use of aspirin; Z79.4 Long term (current) use of insulin; Z96.641 Presence of right artificial hip joint; Z98.890 Other specified postprocedural states; Z90.49 Acquired absence of other specified parts of digestive tract

== ENCOUNTER → 2020-03-22 | Outpatient (CLI) | payer OTHER | LOC: HYPER 07:36 | PROVIDERS: ATTEND Emergency Medicine | DX: T81.32XD Disruption of internal operation (surgical) wound, not elsewhere classified, subsequent encounter (principal); E11.51 Type 2 diabetes mellitus with diabetic peripheral angiopathy without gangrene; S90.821D Blister (nonthermal), right foot, subsequent encounter; L03.115 Cellulitis of right lower limb; E11.40 Type 2 diabetes mellitus with diabetic neuropathy, unspecified; M62.81 Muscle weakness (generalized); R26.2 Difficulty in walking, not elsewhere classified; M54.40 Lumbago with sciatica, unspecified side; K58.9 Irritable bowel syndrome, unspecified; M16.0 Bilateral primary osteoarthritis of hip; E46 Unspecified protein-calorie malnutrition; E11.22 Type 2 diabetes mellitus with diabetic chronic kidney disease; I13.0 Hypertensive heart and chronic kidney disease with heart failure and stage 1 through stage 4 chronic kidney disease, or unspecified chronic kidney disease; I25.9 Chronic ischemic heart disease, unspecified; N18.9 Chronic kidney disease, unspecified; E78.5 Hyperlipidemia, unspecified; F33.9 Major depressive disorder, recurrent, unspecified; F41.9 Anxiety disorder, unspecified; Z91.81 History of falling; Z68.42 Body mass index [BMI] 45.0-49.9, adult; Z79.4 Long term (current) use of insulin; Z79.82 Long term (current) use of aspirin; X58.XXXD Exposure to other specified factors, subsequent encounter; Y83.2 Surgical operation with anastomosis, bypass or graft as the cause of abnormal reaction of the patient, or of later complication, without mention of misadventure at the time of the procedure ==

== ENCOUNTER → 2020-04-12 | Outpatient (CLI) | payer OTHER | LOC: HYPER 14:12 | PROVIDERS: ATTEND Emergency Medicine | DX: T81.32XD Disruption of internal operation (surgical) wound, not elsewhere classified, subsequent encounter (principal); S91.301D Unspecified open wound, right foot, subsequent encounter; E11.40 Type 2 diabetes mellitus with diabetic neuropathy, unspecified; E11.51 Type 2 diabetes mellitus with diabetic peripheral angiopathy without gangrene; E11.22 Type 2 diabetes mellitus with diabetic chronic kidney disease; I12.9 Hypertensive chronic kidney disease with stage 1 through stage 4 chronic kidney disease, or unspecified chronic kidney disease; N18.9 Chronic kidney disease, unspecified; E78.5 Hyperlipidemia, unspecified; E66.01 Morbid (severe) obesity due to excess calories; E46 Unspecified protein-calorie malnutrition; R26.2 Difficulty in walking, not elsewhere classified; I25.9 Chronic ischemic heart disease, unspecified; K58.9 Irritable bowel syndrome, unspecified; M62.81 Muscle weakness (generalized); M16.0 Bilateral primary osteoarthritis of hip; M54.40 Lumbago with sciatica, unspecified side; F41.9 Anxiety disorder, unspecified; F33.9 Major depressive disorder, recurrent, unspecified; Z79.4 Long term (current) use of insulin; Z95.828 Presence of other vascular implants and grafts; Z68.42 Body mass index [BMI] 45.0-49.9, adult; Z79.84 Long term (current) use of oral hypoglycemic drugs; Z68.41 Body mass index [BMI] 40.0-44.9, adult; Y83.8 Other surgical procedures as the cause of abnormal reaction of the patient, or of later complication, without mention of misadventure at the time of the procedure ==

== ENCOUNTER 2020-06-08 12:43 | Inpatient (IN) | payer OTHER ==
[~2020-06-08] VITALS: Ht 157.5 cm; Wt 99.8 kg
--- NOTE | ~2020-06-08 | EMS ---
[address] [address] EMS Patient Care Report Name: SONIA FUENTES Room #: 463-P ADM IN M.R.#: [id number] Admission: 06/08/20 Attend Phys: Mike Cohn MD Discharge: Date of : 52 Report #: [id number] THIS REPORT FOR: //name// Report Transmitted: 06/08/2020 18:02 EMS Care Summary [facility] Incident [id number] @ 06/08/2020 12:07 Incident Location [address] [place] [address] Patient SONIA FUENTES Female, 70 Years 1950 Patient Address [address] [place] [address] Patient History Hypertension (HTN),Kidney/Renal Failure,Type 2 Diabetes, Patient Allergies Morphine,Dye allergy,Demerol, Patient Medications Lipitor, Gabapentin, Levothyroxine, Lasix, Metformin, Levemir, Famotidine, Metoprolol, Insulin, Loratadine, Chief Complaint "I am bleeding." Disposition Transported No Lights/Mosca Dispatch Reason Hemorrhage/Laceration Transported To [facility] Narrative The pt was found in her wheel chair being wheeled to the front to meet EMS c/o [address] [address] EMS Patient Care Report Name: SONIA FUENTES Room #: 463-P ADM IN [facility]#: [id number] Admission: 06/08/20 Attend Phys: Mike Cohn MD Discharge: Date of : 52 Report #: [id number] a lower GI bleed. The pt states she woke up this AM and went to the bathroom a found her brief to be full of bright red blood. She denies any pain, n/v or diarrhea. She state she felt fine yesterday and was having no issued. The pt denies having a GI bleed before. She states she has had multiple blood transfusions but no know cause for blood loss. She denies any pain. Initial Vitals @12:35P: 99,SpO2: 96, @12:25P: 102,R: 16,BP: 122/66,Pain: 0/10,SpO2: 96, @12:38P: 98,R: 16,BP: 120/80,Pain: 0/10,Glucose: 112,SpO2: 98,PA Suspected: false Assessments @12:22MENTAL:Person Oriented,Time Oriented,Event Oriented,Place Oriented,SKIN:Pale,HEENT:Head/Face: No Abnormalities,Neck/Airway: No Abnormalities,LUNG SOUNDS:General: No Abnormalities,ABDOMEN:General: No Abnormalities,PELVIS//GI:Rectal Bleeding,EXTREMITIES:Left Arm: No Abnormalities,Right Arm: No Abnormalities,Left Leg: No Abnormalities,Right Leg: No Abnormalities,PULSE:NEURO:No Abnormalities, Impression Hemorrhage Timeline 12:05,Call Received 12:05,Psap Call 12:07,Dispatched 12:07,En Route 12:14,On Scene 12:17,At Patient 12:21,Depart Scene 12:25,BP: 122/66 M,PULSE: 102,RR: 16 R,SPO2: 96 Ox,ETCO2: ,BG: ,PAIN: 0,GCS: , 12:35,BP: / M,PULSE: 99,RR: R,SPO2: 96 Ox,ETCO2: ,BG: ,PAIN: ,GCS: , 12:38,BP: 120/80 M,PULSE: 98,RR: 16 R,SPO2: 98 Ox,ETCO2: ,B,PAIN: 0,GCS: , 12:40,At Destination 13:06,Call Closed Disclaimer v1.1 Copyright 2020 [employer] This EMS Care Summary contains data elements from the applicable legal record (which may be displayed differently). It is designed to provide pertinent information for the following purposes: continuity of care, clinical quality, and state data reporting. The complete legal record is available to ED staff and administrators of the receiving hospital in [facility]'s Patient Tracker. All data [address] [address] EMS Patient Care Report Name: SONIA FUENTES Room #: 463-P ADM IN M.R.#: [id number] Admission: 06/08/20 Attend Phys: Mike Cohn MD Discharge: Date of : 52 Report #: [id number] is provided "as is."
[2020-06-08 12:45] VITALS: BP 131/58
[2020-06-08 13:20] LABS: ABSOLUTE NEUTROPHILS 6.8 thou/uL (1.4-8.2); BASOPHILS 0.2 % (0.0-2.0); EOSINOPHILS 1.3 % (0.0-3.0); HEMOGLOBIN 6.5 gm/dL (12.0-15.0); LYMPHOCYTES 24.1 % (24.0-44.0); MCV 109.2 fL (80.0-100.0); MONOCYTES 6.2 % (1.0-8.0); PLATELET COUNT 134 thou/uL (150-400); POLYS 68.2 % (36.0-66.0); RDW 15.6 % (10.5-14.5)
[2020-06-08 13:26] LABS: CALCIUM 9.1 mg/dL (8.5-10.1)
[2020-06-08 13:28] LABS: HEMATOCRIT 19.7 % (37.0-47.0)
[2020-06-08 13:35] LABS: APTT 31.2 Seconds (24.5-32.8); PROTIME 10.4 Seconds (9.3-11.4)
[2020-06-08 14:27] LABS: ANISOCYTOSIS 2+; MACROCYTES 1+; POLYCHROMASIA SLIGHT
[2020-06-08 14:53] VITALS: BP 131/47; BP 134/52; BP 140/44; BP 148/47
[2020-06-08] MEDS ORDERED: GABAPENTIN100 MG PO (15:01)
[2020-06-08] MEDS ORDERED: LEVO-T100 MCG PO (15:02)
[2020-06-08] MEDS ORDERED: LIPITOR10 MG PO (15:02)
[2020-06-08] MEDS ORDERED: LEVEMIR FL100 UNIT/2 SUBQ ×3 (15:02→15:14)
[2020-06-08] MEDS ORDERED: LORATIDINE 10 M10 M1 PO (15:02)
[2020-06-08] MEDS ORDERED: MOTION SICKNESS25 MG PO (15:03)
[2020-06-08] MEDS ORDERED: NOVOLOG FL100 UNIT/M SUBQ ×2 (15:06→15:07)
[2020-06-08] MEDS ORDERED: VITAMIN D350 MCG PO (15:08)
[2020-06-08] MEDS ORDERED: SENNA LAXATIVE8.6 MG PO (15:09)
[2020-06-08] MEDS ORDERED: ASA81BEC PO (15:10)
[2020-06-08] MEDS ORDERED: IRON325 M1 PO (15:11)
--- NOTE | 2020-06-08 15:15 | NUR ---
Blood increased to 175 ml/hr at this time as it has been 15 minutes since the start of the transfusion and patient is without complaints or reaction.
[2020-06-08] MEDS ORDERED: MONISTAT 315 GM TRANSDERM (15:17)
[2020-06-08] MEDS ORDERED: NYSTATIN1 EA10 TRANSDERM (15:18)
[2020-06-08 15:51] VITALS: BP 152/53
[2020-06-08 16:07] LABS: FOLIC ACID 91.7 ng/mL (8.6-58.9)
[2020-06-08 16:14] VITALS: BP 151/58
[2020-06-08 17:08] VITALS: BP 154/54
[2020-06-08 19:25] VITALS: BP 150/66
--- NOTE | 2020-06-08 19:56 | NUR ---
PT ARRIVED TO UNIT PER CART FROM ED AROUND 1700 IN STABLE CONDITION. ADMISSION HX COMPLETED.PT NORM LECHUGA HERE,UPDATES GIVEN.DR MARTINEZ HERE,ORDER NOTED.PT FAMILY TO SIGN ALL ADMITTING PAPERWORK IN AM.REPORT OFF TO JUSTINO CANNON.
[2020-06-09 00:32] VITALS: BP 114/43
[2020-06-09 00:41] VITALS: BP 133/57
--- NOTE | 2020-06-09 04:42 | NUR ---
care assumed at 1900 patient was in bed asleep. patient took hs meds with a lot of encouragement. snacks and fluids offered. patient skin is warm and pale. patient had a temp. of 101.0 patient temp is 99.0 at this time. patient had ct scan order with contast, patient allergic to contrast, called dr. dawn for ct witout contrast.fall precaution in place. call light within reach. patient in bed asleep at this time breathing regular and unlaboured.
[2020-06-09 05:49] LABS: HEMOGLOBIN 6.8 gm/dL (12.0-15.0); PLATELET COUNT 123 thou/uL (150-400)
[2020-06-09 05:51] LABS: ABSOLUTE NEUTROPHILS 11.5 thou/uL (1.4-8.2); BASOPHILS 0.4 % (0.0-2.0); EOSINOPHILS 0.6 % (0.0-3.0); HEMATOCRIT 20.6 % (37.0-47.0); LYMPHOCYTES 12.1 % (24.0-44.0); MCH 33.9 pg (26.0-34.0); MONOCYTES 6.4 % (1.0-8.0); POLYS 80.5 % (36.0-66.0); RBC 2.01 mil/uL (4.20-5.00); RDW 19.7 % (10.5-14.5); WBC 14.4 thou/uL (4.0-11.0)
[2020-06-09 06:05] LABS: MCV 102.5 fL (80.0-100.0)
[2020-06-09 06:09] LABS: CALCIUM 8.8 mg/dL (8.5-10.1); CREATININE 2.4 mg/dL (0.6-1.0); MAGNESIUM 1.6 mg/dL (1.8-2.4); POTASSIUM 4.6 mmol/L (3.5-5.1)
[2020-06-09 08:26] VITALS: BP 135/44
--- NOTE | 2020-06-09 09:46 | NUR ---
FAXED CLINICAL UPDATE TO JIM SPOKE WITH ATIF IN ADM SHE RECEIVED UPDATE. DP TO FOLLOW.
[2020-06-09 11:59] LABS: ABSOLUTE RETIC COUNT 0.2924 10^6/uL; OBSERVED RETIC COUNT 14.36 % (0.6-2.6)
[2020-06-09 12:04] LABS: DIRECT BILIRUBIN 0.2 mg/dL (<0.1-0.2); TOTAL BILIRUBIN 0.6 mg/dL (0.2-1.0)
[2020-06-09 13:38] LABS: % SATURATION 14 % (20-39); IRON 26 ug/dL (50-170); TIBC 189 ug/dL (250-450)
--- NOTE | 2020-06-09 14:21 | NUR ---
Assumed pt care at 7am.Pt in and out of bed with assist x1.Assessment completed.vss but low bp noted.Pt tolerated meds and diet.No bleeding stool noted this am but pt reported small bm early this am.Dr Chao and Lalit here,order noted.Around 1300,pt left per wc to gi lab for flex sig.Will continue to monitor.
--- NOTE | 2020-06-09 15:07 | NUR ---
PT ADMITTED RELATED TO GI BLEED. NAVDEEP REVIEWED CHART AND SPOKE WITH CARE TEAM. NAVDEEP ATTEMPTED PC TO PT IN HER ROOM BUT SHE WAS DOWN GETTING FLEX SIG. NAVDEEP CALLED AND LEFT VM WITH SON JUAN AND MARTINEZ DTR IN LAW JEREMIAH. JEREMIAH CALLED BACK AND INDICATED THAT PT RESIDES IN LTC AT [facility] AND THAT THEY ANTICIPATE HER RETURNING THERE ONCE MEDICALLY STABLE. SHE INDICATED THAT PT HAD BEEN USING A FWW AND A WC TO ASSIST WITH MOBILITY CROTCH BREAKER. GI INDICATED THAT SOURCE OF BLEEDING ISN'T GI RELATED AND GYNOCOLOGY WAS CONSULTED. JEREMIAH WAS AWARE AND IDNICATED THAT IF IT SHOULD BE DETERMIEND THAT PT NEEDS FURTHER UROLOGY SERVICES SHE WOULD PREFER THAT PT TRANSFER TO [facility]. CM TO FOLLOW INDICATED WITH DC PLANNING. PHYSICAIN INDICATED LIKELY NO DC OVER THE WEEKEND. HEALTHCARE RESORT SHAHEEN P: F:
[2020-06-09 16:00] VITALS: BP 148/67
[2020-06-09 20:24] VITALS: BP 146/68
[2020-06-10 00:10] VITALS: BP 146/68
--- NOTE | 2020-06-10 03:07 | NUR ---
PATIENT AOX4 FORGETFUL AND CONFUSED AT TIMES.PATIENT ENCOURAGED FLUIDS AND SNACKS. PATIENT CALM AND COOPERATIVE WITH CARE AND MEDS. PATIENT HAD VAGINAL BLEEDING THIS SHIFT. PERICARE AND BARRIER CREAM APPLIED NEEDED. FALL PRECAUTION IN PLACE. PATIENT IN BED ASLEEP AT THIS TIME BREATHING REGULAR AND UNLABOURED.
[2020-06-10 04:04] VITALS: BP 110/72
[2020-06-10 08:45] VITALS: BP 134/35
--- NOTE | 2020-06-10 14:46 | NUR ---
ASSUMED CARE OF PATIENT THIS AM. ASSESSMENT CHARTED. MEDS GIVEN PER MAR W SMALL SIPS OF WATER. BP LOW; PROVIDER CALLED AND ADVISED. PATIENT HAD A PELVIC EXAM W NO APPARENT FINDINGS. A&OX4 BUT DROWSY AND TIRED D/T HAVING TO AMBULATE FOR PELVIC EXAM. PATIENT IS CURRENTLY NPO BUT STATES SIGMOIDOSCOPY IS NO LONGER INDICATED; PROVIDER PAGED. FSBS ARE MONITORED W NO COVERAGE NEEDED. ENCOURAGED TO REPOSITION EVERY 2 HOURS. DENIES PAIN AT THIS TIME; VOICES NO NEEDS AT THIS TIME. WILL CONTINUE TO MONITOR
[2020-06-10 19:35] VITALS: BP 134/50
--- NOTE | 2020-06-10 23:35 | NUR ---
Care of patient assumed at 1915: Patient seated in bed at start of shift. Calm, pleasant and cooperative. Alert and oriented x4. Denies pain or discomfort. Dressing intact to right groin. Incontinent of bladder. Pericare, linen change and barrier cream applied. Took medication whole without difficulty. NPO at midnight for procedure in AM. Fall precautions in place.
[2020-06-11 05:36] LABS: MCH 34.4 pg (26.0-34.0); MCHC 33.5 g/dL (28.0-37.0); MCV 102.6 fL (80.0-100.0); RBC 1.74 mil/uL (4.20-5.00); RDW 18.7 % (10.5-14.5); WBC 7.4 thou/uL (4.0-11.0)
[2020-06-11 05:45] LABS: HEMATOCRIT 17.8 % (37.0-47.0)
[2020-06-11 05:54] LABS: CALCIUM 8.6 mg/dL (8.5-10.1); CREATININE 2.4 mg/dL (0.6-1.0); POTASSIUM 4.4 mmol/L (3.5-5.1)
[2020-06-11 07:20] VITALS: BP 120/44
[2020-06-11 07:41] VITALS: BP 131/46
[2020-06-11 10:50] VITALS: BP 119/44; BP 137/50
[2020-06-11 14:06] LABS: HEMOGLOBIN 6.8 g/dL (11.1-15.9)
[2020-06-11 14:28] VITALS: BP 119/44; BP 147/73; BP 150/46
--- NOTE | 2020-06-11 16:03 | NUR ---
Assumed pt care at 7am.Assessment completed.vss b ut low dbp noted.Pt was npo this am untill cleared by Dr Ramey.Pt hgb was 6.0. Two units prbc on hold in the lab.Transfusion started at 1050 and well tolerated.Pt will bed having flex. sig in am.Regular meal given at lunch.Pt has fair appetite. Fall bundle in place.Pt in and out of bed with assist.No verbal c/o.Will continue to monitor.
[2020-06-11 17:39] VITALS: BP 174/73
[2020-06-11 19:40] VITALS: BP 144/69
[2020-06-11 20:15] LABS: HEMOGLOBIN 9.5 gm/dL (12.0-15.0)
--- NOTE | 2020-06-12 04:46 | NUR ---
ASSUMED CARE OF PT AT 1900HRS. PT IS A0X3 AND LETS NEEDS BE KNOWN. FALL PRECAUTION IN PLACE. PT WAS INCT TO BLADDER THIS SHIFT. PT PLACED NPO AT TX FOR POSSIBLE PROCEDURE IN THE AM. NO BLEEDING NOTED. PT RECEIVED 2 UNITS OF PRBC PREVIOUS SHIFT. PT CAN BE EMOTIONAL AT TIMES. VSS AND NO S/S OF ACUTE DISTRESS. WILL CONTINUE TO MONITOR.
[2020-06-12 05:46] LABS: CALCIUM 8.7 mg/dL (8.5-10.1); HEMATOCRIT 27.2 % (37.0-47.0); HEMOGLOBIN 9.2 gm/dL (12.0-15.0); MCH 32.1 pg (26.0-34.0); POTASSIUM 4.3 mmol/L (3.5-5.1); RBC 2.88 mil/uL (4.20-5.00); RDW 20.2 % (10.5-14.5); WBC 7.7 thou/uL (4.0-11.0)
[2020-06-12 05:49] LABS: MCV 94.7 fL (80.0-100.0)
--- NOTE | 2020-06-12 07:04 | HC ---
[facility] [place] [address] CONSULTATION Name: SONIA FUENTES Room #: 463-P ADM IN M.R.#: [id number] Admission: 06/08/20 Attend Phys: Mike Cohn MD Discharge: Date of : 52 Report #: [id number] THIS REPORT FOR: cc: FAM - No family physician/PCP FAM - No family physician/PCP Karlos Bryant MD ~ REQUESTING PHYSICIAN: Mike Cohn M.D. REASON FOR CONSULTATION: Macrocytic anemia with mild thrombocytopenia. HISTORY OF PRESENT ILLNESS: The patient is a 70-year-old female admitted from an outside facility after she was noted to have bright red blood in her brief. She was uncertain whether it was vaginal or GI. Note that the patient's history is pertinent that she has had several admissions for anemia since at least December of this year. Back in December, she had seen Dr. Benton and she has had both upper and lower endoscopy as well as capsule endoscopy that found a few hemorrhoids, but nothing to suggest that as a reason for her severe anemia. Also, during those times, she had iron panel back done, B12 and folate. They were all replete. Do note that her MCV has been increasing since at least 12/2019 and also note that her platelets have been decreasing since about the same time. Note that her hemoglobin has quite been less than 10 since at least 07/2017. The patient at this time denies any headache, significant pain, swallowing trouble, significant weight change, awareness of adenopathy or masses, new skin rash, exposure to anyone with any unusual illnesses. PAST MEDICAL HISTORY: 1. Notable for the anemia, macrocytic with mild thrombocytopenia with normal B12, folate and iron in the past. 2. Peripheral arterial disease, status post surgery in September with wound difficulties since then by her description, also history of diabetes, history of hypertension, history of left hip fracture, history of peripheral arterial disease, peripheral neuropathy, renal insufficiency, transfusions. 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 Note that recent CAT scan raised the question of a pelvic mass of both the cystic and solid components. PAST SURGICAL HISTORY: Right hip replacement, cholecystectomy, appendectomy, , carpal tunnel, left hip repair, left hip infection, debility, chronic kidney disease 3, protein-calorie malnutrition and hemorrhoids. 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 No recent smoking or alcohol. No street drugs. [facility] [address] [place] [address] CONSULTATION Name: SONIA FUENTES Room #: 463-P [facility] IN ..#: [id number] Admission: 06/08/20 Attend Phys: Mike Cohn MD Discharge: Date of : 52 Report #: [id number] FAMILY HISTORY: No one with any blood disorder that she is aware of. Do note that she has a family member that works at [employer], I believe, in [place]. CURRENT MEDICATIONS: List currently includes furosemide 20 daily, folic acid 1 mg daily, cholestyramine 4 grams daily, fluticasone 2 sprays daily, ferrous sulfate 325 daily with meals, levothyroxine 12.5 mcg daily, atorvastatin 10 mg daily, gabapentin ____ at bedtime, venlafaxine 50 b.i.d., metoclopramide 5 mg a.c. and at bedtime, metoprolol 50 b.i.d., sennosides p.r.n., meclizine p.r.n., insulin on a sliding scale, MiraLax p.r.n. PHYSICAL EXAMINATION: GENERAL: The patient appears her stated age. VITAL SIGNS: Height is 5 feet 2, 157.5 cm; weight is 225 pounds, 102 kilograms. NEUROLOGIC: She is alert, oriented and pleasant and thought to be a reliable historian. LUNGS: Clear. HEART: Regular rate. ABDOMEN: Obese. No masses. EXTREMITIES: Does have some may be 1-2 mm edema at the ankles. LABORATORY DATA: As mentioned above. Do note that we have not had liver functions for some time. ASSESSMENT AND PLAN: 1. Macrocytic anemia, unclear at this time either hyper or hypoproliferative. We will check reticulocyte count, LDH and haptoglobin. Doubt she has hemolysis, but we will check these and also liver functions. We will also check erythropoietin. I am suspicious that a component of this may be hypoproliferative related to renal insufficiency. There is also a distinct possibility given her macrocytosis and/or platelets that this could be related to evolving bone marrow disorder. The possibility of a bone marrow biopsy thereafter was discussed with the patient. She is agreeable with blood tests at this time. We will transfuse to keep hemoglobin above 7. Also note that coags were normal. 2. Questionable pelvic mass. Await CAT scan results and workup for others. 3. Peripheral arterial disease, defer to others. 4. Hypertension, meds per others. 5. Diabetes management and meds per others. 6. Weakness. Physical therapy, occupational therapy to see the patient. 7. History of fever ____ will defer to others. [facility] [address] [place] [address] CONSULTATION Name: SONIA FUENTES Room #: 463-P ADM IN M.R.#: [id number] Admission: 06/08/20 Attend Phys: Mike Cohn MD Discharge: Date of : 52 Report #: [id number] We will follow with you. <ELECTRONICALLY SIGNED> By: Karlos Bryant MD 06/12/20 0704 [id number] Karlos Bryant MD /nt
[2020-06-12 08:45] VITALS: BP 157/83
[2020-06-12 11:33] LABS: APTT 29.6 Seconds (24.5-32.8); PROTIME 10.5 Seconds (9.3-11.4)
[2020-06-12 15:40] VITALS: BP 137/59
--- NOTE | 2020-06-12 15:40 | NUR ---
Received awake on bed. Very tearful and emotional- reassured and talked to patient. On room air. Vital signs stable. On MS, not on telemetry; no signs and complains of chest pain, crushing sensation and heaviness. On nothing per omid- pt informed and aware, mouth swabs done; possible flexisig today. On blood sugar monitoring- taken and recorded accordingly; with sliding scale insulin given as prescribed. With SL at R AC and L AC- intact; C/D/I. With wound at R groin- dressing in place. Falls bundle in place. With on and off incontinence due to stress; able to use bedside commode with moderate assist and gait belt. Bilateral LE edema, kept elevated; skin intact. Monitored closely for bleeding; none noted. Pt seen and examined by Dr Chao this AM, for bone marrow aspiration under IR- called IR to check, as per staff IR doctor is requiring covid swab to be done prior to procedure- Covid swab done and sent to lab- pt informed. Talked to Gastro COMMISSION AUDITOR if they are planning to do flexisig today- as per COMMISSION AUDITOR Gastro, no procedure scheduled for today- patient informed again and resumed diet since she won't have any procedure scheduled today as per IR and Gastro. To continue monitoring patient. Diet resumed for lunch time, tolerated and no nausea, no vomiting and no abdominal pain noted. Still a/w urine sample.
[2020-06-12 19:45] VITALS: BP 147/84
[2020-06-12 23:28] LABS: URINE BILIRUBIN NEGATIVE (Negative); URINE BLOOD 3+ (Negative); URINE CLARITY CLEAR; URINE COLOR YELLOW; URINE GLUCOSE-RANDOM* NEGATIVE (Negative); URINE KETONES NEGATIVE (Negative); URINE LEUKOCYTES 3+ (Negative); URINE NITRITE NEGATIVE (Negative); URINE PROTEIN (DIPSTICK) 2+ (Negative); URINE SPECIFIC GRAVITY 1.025 (1.005-1.035); URINE UROBILINOGEN 0.2 E.U./dl (0.2-1.0)
[2020-06-12 23:37] LABS: BACTERIA 1-9 Few /HPF (None Seen); CASTS None Seen /LPF (None Seen); MUCUS 0-3 Light strn/LPF (None Seen); SQUAMOUS 0-3 Few /LPF (0-3); URINE RBC 0-2 Rare /HPF (0-2); URINE WBC >25 Many /HPF (0-5); WBC CLUMPS Packed (None Seen)
[2020-06-12 23:38] LABS: CRYSTALS None Seen /LPF (None Seen)
--- NOTE | 2020-06-13 02:21 | NUR ---
ASSUMED PT CARE AROUND 1930. AXOX4. IRRITABLE AND DOES NOT SHOW INTEREST IN HOLDING A CONVERSATION. VSS. NO S/S ACUTE DISTRESS NOTED OR REPORTED AT THIS TIME. WILL CONT TO MONITOR FOR ANY CHANGES IN CONDITION.
[2020-06-13 07:00] VITALS: BP 148/59
--- NOTE | 2020-06-13 10:01 | NUR ---
CM SPOKE MARTINEZ PT'S DTR IN LAW YESTERDAY EVENING AND SHE EXPRESSED FRUSTRATION THAT SHE HADN'T HEARD FROM PHYSICIANS. SHE INDICATED THAT SHE WAS ALSO FRUSTRATED THAT IT APPEARED THAT ALL SOURCES OF BLEEDING HAD BEEN RULED OUT AND THAT IT APPEARED TO HER THAT TRANSFER FOR UROLOGICAL EVAL AND TREAT SEEDED APPROPRIATE AND THAT SHE DIDN'T FEEL ANYONE WAS WANTING TO HELP WITH THAT. NAVDEEP NOTIFIED DR. SOUZA AND CM COMPRESSOR OPERATOR PORTABLE. IT LOOKS AT THOUGH PT IS TO HAVE BONE MARROW BIOPSY IN IR THIS DAY. DR. SOUZA ASKED THAT CM INITIATE POSSIBLE TRANSFER TO [facility] FOR UROLOGY SERVICES EVAL AND TREAT. CM CALLED [facility] AND SPOKE MARTINEZ [place]. SHE INDICATED THAT [facility] IS OPEN FOR TRANSFERS AND THAT THEY WOULD REVIEW FOR POSSIBLE TRANSFER. CM FAXED CLINICAL REFERRAL FOR REVIEW AND PROVIDED DR. SOUZA'T PHONE NUMBER. CM TO FOLLOW INDICATED WITH DC PLANNING.
--- NOTE | 2020-06-13 11:00 | NUR ---
PT. IS CALM AND COOPERATIVE. BLEEDING IS CURRENTLY CONTROLLED. DENIES PAIN TRANSFER TO [facility] FOR UROLOGY REQUEST BONE MARROW BIOPSY R/O FOR BLEEDING RIGHT GROIN DRESSING INTACT
--- NOTE | 2020-06-13 12:36 | NUR ---
I have reviewed the student's documentation.
--- NOTE | 2020-06-13 13:56 | NUR ---
Assumed pt care at 7am.Assessment completed.vss.Pt in bed for breakfast.Am meds given and well tolerated.Received call from IR about picking up pt for bone marrow biopsy.Dpoa called and consent obtained. At 1330,pt left per bed accompanied by 2 rns.Will continue to monitor.
[2020-06-13 15:59] VITALS: BP 181/86
[2020-06-13 20:35] VITALS: BP 143/63
--- NOTE | 2020-06-14 00:17 | NUR ---
Care assumed of patient at 1915: Patient sleeping quietly in bed at start of shift. Easily aroused. Alert and oriented x4. Pleasant and cooperative. 1+ pitting edema to bilateral lower extremities. Legs elevated. Patient incontinent of bladder x2. Aruna care, barrier cream and linens changed. New dressing placed to right groin. Dressing clean, dry and intact to left flank. Denies pain or discomfort. No s/s of bleeding observed this shift. Took HS medication whole without difficulty. Resting quietly in bed at this time.
[2020-06-14 05:37] LABS: HEMATOCRIT 27.6 % (37.0-47.0); HEMOGLOBIN 9.1 gm/dL (12.0-15.0); MCH 31.6 pg (26.0-34.0); MCHC 33.1 g/dL (28.0-37.0); MCV 95.3 fL (80.0-100.0); RBC 2.89 mil/uL (4.20-5.00); RDW 19.5 % (10.5-14.5); WBC 7.1 thou/uL (4.0-11.0)
[2020-06-14 05:59] LABS: CALCIUM 8.9 mg/dL (8.5-10.1); CREATININE 2.2 mg/dL (0.6-1.0); POTASSIUM 4.5 mmol/L (3.5-5.1)
[2020-06-14 08:01] VITALS: BP 151/76
--- NOTE | 2020-06-14 13:37 | NUR ---
PATIENT WAS IN BED SLEEPING WHEN CARE ASSUMED AT 0700AM. PATIENT IS ALERT, AND ORIENTED X 3-4 ABLE TO VOICE NEED. PATIENT IS CALM, COOPERATIVE WITH CARE. PATIENT TOOK ALL MORNING MEDICATION WHOLE WITHOUT DIFFICULTY. PATIENT IS ABLE TO FEED SELF, APPETITE GOOD. BLOOD SUGAR THIS MORNIG WITH RESULT OF 240, 10 UNITS INSULIN GIVEN PER SLIDING SCALE ORDER. FOR LUNCH, BLOOD SUGAR 409, 20 UNITS INSLIN GIVEN PER SLIDING SCALE ORDER, AND DR. SOUZA PAGED X 2, AWAITING CALL BACK. BLE REMAIN WITH 1+ PITTING EDEMA, ELEVATED. PATIENT DECLINE SCD'S PATIENT DENIES HAVING PHYSICAL PAIN, NO SIGN OF ACUTE DISTRESS NOTED AT THIS TIME, CALL LIGHT IN REACH, WILL MONITOR FOR SAFETY.
--- NOTE | 2020-06-14 14:09 | NUR ---
CM CALLED THE [facility] TO CHECK ON STATUS OF TRANSFER THIS AM. THEY INDICATED THAT [facility] IS CLOSED TO TRANSFERS DUE TO CAPACITY. CM NOTIFIED PT'S DTR IN LAW AND SHE INDICATED THAT SHE WOULD PREFER THAT WE WAIT ON [facility] BUT THAT IF IT HAD TO BE [facility] WOULD BE OK TO CONSIDER FOR POSSIBEL TRANSFER. CM FAXED UPDATED HEM ONC NOTES FROM TODAY AND ASKED [facility] ACCESS TO SEE ABOUT POSSIBLE TRANSFER TO [facility] FOR UROLOGY SERVICES. CM TO FOLLOW INDICATED WITH DC PLANNING.
[2020-06-14 15:56] VITALS: BP 151/78
[2020-06-14] MEDS ORDERED: CEFTRIAXON1 GM/50 M1 IVPB (17:36)
[2020-06-14 19:05] VITALS: BP 138/79
--- NOTE | 2020-06-14 20:11 | NUR ---
PATIENT IV SITES X 2 REMOVED AND CLEANED AND DRESSED. VSS. PATIENT PICKED UP BY AMBULANCE FOR TRANSFER TO [facility]. REPORT CALLED AND GIVEN BY DAY NURSE AT 1830. PATIENT A/0 X4 AND IN GOOD SPIRITS. DENIES PAIN. HRR, LUNGS CTA BILATERALLY. SMALL BM TODAY. LEFT FLOOR AT 2009 BY CART. [facility] NURSE DARIUS ON 4TH FLOOR NOTIFIED PATIENT IS ON WAY. TRANSFER PAPERS AND ALL PATIENT BELONGINGS SENT WITH EMS.
--- NOTE | 2020-06-16 08:10 | HC ---
[facility] [place] [address] CONSULTATION Name: SONIA FUENTES Room #: 463-P [facility] IN M.R.#: [id number] Admission: 06/08/20 Attend Phys: Mike Cohn MD Discharge: 06/14/20 Date of : 52 Report #: [id number] THIS REPORT FOR: cc: FAM - No family physician/PCP FAM - No family physician/PCP Garrett Betts MD ~ DATE OF SERVICE: 06/08/2020 CHIEF COMPLAINT: Right inguinal surgical wound. HISTORY OF PRESENT ILLNESS: This is a 70-year-old female patient with whom I am familiar from multiple previous hospitalizations as well as outpatient evaluation. She has had chronic ulcerations on her lower extremities with peripheral vascular disease, has undergone percutaneous revascularization as well as fem-pop bypass and then a more recent femoral endarterectomy. She has had a chronic wound following the endarterectomy in the groin that is not entirely healed. I have been asked to see her with regard to wound care. Overall, she is admitted for bleeding. 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 She has had multiple evaluations in the past for possible GI bleeding and no source has ever been located. Her hemoglobin is low and she is requiring transfusion. PAST MEDICAL HISTORY: Positive for history of diabetes mellitus, peripheral arterial disease, irritable bowel syndrome, hypertension, chronic kidney disease, debility, and protein-calorie malnutrition. SOCIAL HISTORY: The patient has never smoked, only drinks alcohol on special occasions. She currently lives in a long-term care facility. CURRENT MEDICATIONS: Include insulin, melatonin, vitamin C, metoprolol, Lasix, vitamin D3, fluticasone, metoclopramide, gabapentin, levothyroxine, loratadine, meclizine, ferrous sulfate. ALLERGIES: MORPHINE, IODINATED CONTRAST AND MEPERIDINE. REVIEW OF SYSTEMS: CONSTITUTIONAL: The patient denies fever, chills or weight loss. NEUROLOGICAL: The patient denies focal weakness, numbness or tingling. EYES: The patient denies visual changes, redness, or drainage. ENT: The patient denies earache, nasal drainage, sore throat. CARDIOVASCULAR: The patient denies chest pain, palpitations or diaphoresis. PULMONARY: The patient denies cough or shortness of breath. GASTROINTESTINAL: The patient denies nausea, vomiting, diarrhea or abdominal pain. [address] [address] CONSULTATION Name: SONIA FUENTES Room #: 463-P [facility] IN .R.#: [id number] Admission: 06/08/20 Attend Phys: Mike Cohn MD Discharge: 06/14/20 Date of : 52 Report #: [id number] GENITOURINARY: The patient does complain of bleeding, unclear as to whether it is vaginal or urinary. Other systems in a 14-point review of systems are negative. PHYSICAL EXAMINATION: VITAL SIGNS: At this time include temperature 38.7, pulse 118, respiratory rate 16, blood pressure 133/57. GENERAL: This is a chronically ill-appearing female patient who appears to be in minimal distress. HEENT: Head normocephalic. Nose and throat are clear. NECK: Supple. LUNGS: Clear. ABDOMEN: Soft. Bowel sounds present. EXTREMITIES: In the inguinal region on the right side, there is a small surgical wound that is healthy, clean, granulating, and superficial with no exposure of deep structures. Distally, she has no breakdown on her heels or feet. NEUROLOGIC: The patient is alert, does move all 4 extremities spontaneously. LABORATORY DATA: Includes white blood cell count 14.4 with a hemoglobin of 6.8. Sodium 137, potassium 4.0, chloride 105, CO2 of 21, BUN 42, creatinine 2.0, glucose of 108. CLINICAL IMPRESSION: 1. Surgical wound to the right inguinal region following a previous femoral endarterectomy. 2. Anemia of unknown etiology with bleeding, possibly urological source. 3. Hypertension. 4. Diabetes type 2. 5. Chronic kidney disease stage 3. 6. Peripheral neuropathy. 7. Moderate protein-calorie malnutrition. RECOMMENDATIONS: At this point in time, we will recommend topical Puracol AG, Xeroform and bordered foam to the groin. She is being worked up for a bleeding source and her chronic condition is being managed. She will need ongoing nutritional support. I appreciate being asked to see her in consultation. <ELECTRONICALLY SIGNED> By: Garrett Betts MD 06/16/20 0810 [id number] Garrett Betts MD /nt
--- NOTE | 2020-06-21 05:08 | PATH ---
[facility] [place] [address] [address] PATHOLOGY RPT PROCEDURE Name: SONIA FUENTES Room #: 463-P DIS IN M.R.#: [id number] Admission: 06/08/20 Date of : 52 Discharge: 06/14/20 Report #: [id number] Path Case #: [id number] [facility] Accession Number: [id number] . 01 Material submitted: . PART A: bone - BONE MARROW BIOPSY PART B: bone - BONE MARROW CLOT PART C: bone - BONE MARROW ASPIRATE SLIDES PART D: bone - PERIPHERAL BLOOD SMEARS PART E: bone - BONE MARROW FLOW . 01 Clinical history: . MACROCYTIC ANEMIA, LOW PLATELETS 70 year old woman with anemia and thrombocytopenia. . 02 Diagnosis: Bone marrow aspirate, biopsy and cell clot: - Hypercellular bone marrow with trilineage hematopoiesis, mild dyspoiesis and no evidence of lymphoma or acute leukemia. (See comment) (CLW/db; 06/20/2020) . . Special studies report received from [facility], [address] [place] [address], [address], [place], [address], on case [id number], labeled with their number [id number], dated 06/16/2020. . Flow Cytometry: Hematologic Neoplasia Assessment . Clinical History Macrocytic anemia and low platelets . Indication for Study Evaluation for anemia and thrombocytopenia . Specimen Bone Marrow Aspirate . Viability 90% (7AAD exclusion) . Interpretation Bone Marrow Aspirate: - Features of myeloid dysmaturation without overt increase in blasts (see comment). - No immunophenotypic evidence of a B-cell or a T-cell lymphoproliferative disorder. . 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 Correlation with available clinical, laboratory, and morphologic data is required for confirmation and subclassification. . Populations Analyzed Myeloid Blasts: 1.6% CD56 on a minor subset; in absence of other significant immunophenotypic abnormalities Lymphocytes: 11% B-cells: 0.7%, polytypic/polyclonal sIg light chain pattern T-cells: no significant abnormalities of the markers tested CD4+ T-cells: 6.3% (including 0.2% CD57+ cells) CD8+ T-cells: 3.0% (including 0.6% CD57+ cells) CD4:CD8: 2.1 NK cells: 0.7% Neutrophilic Cells: 77% Partial CD56 ( 29% of neutrophilic cells positive) Monocytic Cells: 4% Slightly decreased CD14, CD11b, and CD13; partial CD56 (approximately 59% of monocytic cells positive) Eosinophils: 4% No relative increase Basophils: 1.1% No relative increase Plasma Cells: 0.0% None detected (plasma cells are typically underrepresented by flow cytometry; cytoplasmic light chains were not assessed) CD45 Negative 1% No significant reactivity with the markers Events/Debris: tested (may represent unlysed red blood cells, erythroid precursors, platelets, debris, etc.) (erythroid precursors may be underrepresented due to sample lysis/processing) . Morphologic Evaluation A slide was reviewed for quality control specialist purposes only. . Specimen Description Total Cell Yield: 19.56 X 10 and 6 . Reagent(s) Used CD2, CD3, CD4, CD5, CD7, CD8, CD10, CD11b, CD13, CD14, CD16, CD19, CD20, CD33, CD34, CD38, CD45, CD56, CD57, CD64, CD117, HLA-DR, kappa, lambda . at [facility]. Trisha Livingston MD Pathologist . [place] [address] PATHOLOGY RPT PROCEDURE Name: SONIA FUENTES Room #: 463-P DIS IN M.R.#: [id number] Admission: 06/08/20 Date of : 52 Discharge: 06/14/20 Report #: [id number] Path Case #: [id number] Flow cytometry is optimally used to immunophenotypically characterize abnormal populations when they are detected. Negative flow cytometry results do not exclude lymphoma or neoplasia. Possible false negative flow cytometry results may occur in, but are not limited to, the following: neoplastic cells in Hodgkin lymphoma are not typically adequately represented by routine clinical flow cytometry; neoplastic cells may be lost or inadequately represented due to degeneration, sample processing, sampling artifact, or patchy involvement; plasma cells are typically underrepresented by flow cytometry; immature cells/blasts may be underrepresented due to hemodilution; myeloproliferative disorders and low grade myelodysplasia may not have immunophenotypic abnormalities or increased blasts. Correlation with all available clinical, laboratory, and morphologic data is always necessary to assess for the possibility of false negative flow cytometry results and to establish a diagnosis. Each marker in this analysis was used to assess for potential antigenic abnormalities or to evaluate detected abnormalities. . Any image or images that accompany this report are labor representative images only and should not be used to render a diagnosis. . Disclaimer(s) This test was developed and its performance characteristics determined by [facility]. It has not been cleared or approved by the Food and Drug Administration. . Performing [facility] is a business unit of [employer] a wholly-owned subsidiary of [employer]. . This test was performed at [facility]. at [address], [address] - [employer]: Kirby Felix MD. . For inquiries, the physician may contact Lab: [phone] . A complete copy of the report is on file. . Professional services performed by [employer] at [address], [place] [address]. Technical services performed by [employer]. at [address] [facility] [address], [place] [address]. . (CLW:xin 06/16/2020) . [facility] 06/20/2020 1308 Local . 02 [facility] [place] [address] PATHOLOGY RPT PROCEDURE Name: SONIA FUENTES Room #: 463-P DIS IN M.R.#: [id number] Admission: 06/08/20 Date of : 52 Discharge: 06/14/20 Report #: [id number] Path Case #: [id number] Comment: Overall, the bone marrow is hypercellular for the patient's age with trilineage hematopoiesis, dyspoiesis and no evidence of lymphoma or acute leukemia. The findings may represent a low grade myelodysplastic syndrome; however, that diagnosis requires correlation with clinical history, additional laboratory data and cytogenetic chromosomal analysis. Please correlate clinically. (CLW/db; 06/20/2020) . 02 Electronically signed: . Amanda Fish MD, Pathologist NPI- [id number] . 01 Gross description: . A. Received in formalin labeled "RogelioMadalynla, bone" is a cylindrical core of rodriguez-white bone measuring 0.9 cm in length and 0.2 cm in diameter. The specimen is submitted entirely in cassette A1 following immuno-decalcification. . B. Received in formalin labeled "Phillyangle Sonia, BM clot" is a portion of red-brown clotted blood material measuring 4.6 x 3.0 x 0.8 cm. The specimen is serially sectioned and submitted entirely in cassettes B1-B3. (SK; 06/14/2020) [facility] 06/14/2020 0826 Local . 02 Microscopic: . CBC Data (06/13/20): WBC 7,800 /uL, RBC 2.92, hemoglobin 9.2 g/dL, hematocrit 29.9%, MCV 102.5 fL, MCH 31.6 pg, MCHC 30.8 g/dL, RDW 23.9%, and platelet count 119,000 /uL. White blood cell differential: segs 68.3%, lymphs 23.4%, monos 4.7%, eos 2.8%, and basos 0.8%. . Peripheral Blood Smear: No peripheral blood smear submitted. . Aspirate Smears: Cytomorphological examination of the Marks's stained aspirate smears show spicules present. The overall cellularity is approximately 60%. The myeloid to erythroid ratio is 2:1. Full myeloid maturation is identified and is mildly dyspoietic with abnormal nuclear lobation and mitotic figures. Erythroid maturation is mildly dyserythropoietic with irregular nuclear contours, nuclear cytoplasmic dyssynchrony, basophilic stippling and rare mitotic figures. In a 500 cell differential, there are 4% blasts (no Tressa rods are seen), 55% more differentiated myeloids, 29% erythroid precursors, and 12% lymphocytes. Megakaryocytes are proportional in number and both normal and abnormal in morphology with variable sizes and nuclear abnormalities. No lymphoid aggregates or markedly atypical lymphoid cells are seen. Plasma cells are without atypia. Iron stain of the aspirate smear shows 0/4+ iron positivity with only a rare small [address] [address] PATHOLOGY RPT PROCEDURE Name: SONIA FUENTES Room #: 463-P DIS IN M.R.#: [id number] Admission: 06/08/20 Date of : 52 Discharge: 06/14/20 Report #: [id number] Path Case #: [id number] disrupted spicule present. No ringed sideroblasts are identified. . Core Biopsy and Cell Clot: The decalcified bone marrow core biopsy is small but adequate. The bone marrow is hypercellular with an overall cellularity of approximately 70%. The myeloid to erythroid ratio is 2:1. Myeloid and erythroid maturation are mildly dyspoietic. Megakaryocytes are normal in number and both normal and abnormal in morphology. No lymphoid aggregates or markedly atypical lymphoid cells are seen. Bony trabeculae and blood vessels are unremarkable. The cell clot has rare spicules present that are similar in cellularity and differential morphology as previously described. . Properly controlled special stains are performed. . Block A1: Iron - 2/4+ iron positivity; Reticulin - Focal 1/4+ reticulin fibrosis (no significant fibrosis). . Block B1: Iron - 3/4+ iron positivity with rare spicules present. . To confirm the flow cytometry findings and to identify cells in a tissue architectural context, properly controlled immunohistochemical stains are performed. . Block A1: CD34 - No increased or abnormally localized blasts; CD117 - Stains scattered cells (suggesting mildly left shifted maturation); MPO - Confirms the M:E ratio; Glycophorin A - Confirms the M:E ratio; CD68 - Stains scattered histiocytes. . Block B1: CD34 - No increased blasts; CD117 - Stains scattered cells; MPO - Confirms the M:E ratio; Glycophorin A - Confirms the M:E ratio; CD68 - Stain scattered histiocytes. . Flow Cytometry: Flow cytometric immunophenotypic analysis was performed at [facility]. The diagnosis is "features of myeloid dysmaturation without overt increase in blasts, no immunophenotypic evidence of a B-cell or a T-cell lymphoproliferative disorder." There are 1.6% myeloid blasts. CD56 is on a minor subset in the absence of other significant immunophenotypic abnormalities. There are 11% lymphocytes. Of the lymphocytes, there are 0.7% polyclonal B-cells. T-cells have a CD4/CD8 ratio of 2.1 and no aberrant T-cell antigen expression. There are 77% [facility] [address] [place] [address] PATHOLOGY RPT PROCEDURE Name: SONIA FUENTES Room #: 463-P DIS IN M.R.#: [id number] Admission: 06/08/20 Date of : 52 Discharge: 06/14/20 Report #: [id number] Path Case #: [id number] neutrophilic cells that have partial CD56 expression (approximately 29% of neutrophilic cells). There are 4% monocytic cells that have slightly decreased CD14, CD11b and CD13 expression with partial CD56 co-expression (approximately 59% of monocytic cells). Please see separate flow cytometry report from [facility] ([id number]). . Cytogenetics: Cytogenetic chromosomal analysis is pending at [facility] ([id number]). (CLW/db; 06/20/2020) . 02 Pathologist provided ICD-10: D75.89, D69.6, D53.9 . 02 CPT . 167606, 355906, 797126, 418018, 436832, 743016, 106506, 760706, 628893, V04841, [id number] Specimen Comment: A courtesy copy of this report has been sent to [phone], [phone] Specimen Comment: [id number] Specimen Comment: Report sent to / DR SOUZA Performed at: 01 [facility] [address] [place] [address] [address], [place], [place] [id number] MD Giovany Saba MD Phone: [phone] Performed at: 02 [facility] [address] [place], [place] [id number] MD Pelon Branham MD Phone: [phone]
== END 2020-06-14 20:15 | disposition short-term general hospital (02) | DRG 871 ==
LOC: ER 12:43 → EROBS 13:56 → 4W 13:56 → 4S 16:19 → EROBS 16:19 → 4W 16:29
PROVIDERS: Emergency Medicine; Internal Medicine Hematology & Oncology; Nurse Practitioner; ADMIT Hospitalist; ATTEND Hospitalist
PROC: 30233N1 Transfusion of Nonautologous Red Blood Cells into Peripheral Vein, Percutaneous Approach (ICD-10-PCS; principal; 2020-06-08)
PROC: 07DR3ZX Extraction of Iliac Bone Marrow, Percutaneous Approach, Diagnostic (ICD-10-PCS; 2020-06-13)
DX: A41.9 Sepsis, unspecified organism (principal); N17.0 Acute kidney failure with tubular necrosis; K92.2 Gastrointestinal hemorrhage, unspecified; L03.314 Cellulitis of groin; E44.0 Moderate protein-calorie malnutrition; N18.4 Chronic kidney disease, stage 4 (severe); Z68.41 Body mass index [BMI] 40.0-44.9, adult; R19.00 Intra-abdominal and pelvic swelling, mass and lump, unspecified site; K64.9 Unspecified hemorrhoids; D50.0 Iron deficiency anemia secondary to blood loss (chronic); Z20.828 Contact with and (suspected) exposure to other viral communicable diseases; F41.9 Anxiety disorder, unspecified; F32.9 Major depressive disorder, single episode, unspecified; Z96.641 Presence of right artificial hip joint; D53.9 Nutritional anemia, unspecified; E11.42 Type 2 diabetes mellitus with diabetic polyneuropathy; G47.00 Insomnia, unspecified; N93.9 Abnormal uterine and vaginal bleeding, unspecified; R31.9 Hematuria, unspecified; F03.90 Unspecified dementia, unspecified severity, without behavioral disturbance, psychotic disturbance, mood disturbance, and anxiety; E11.22 Type 2 diabetes mellitus with diabetic chronic kidney disease; S31.103A Unspecified open wound of abdominal wall, right lower quadrant without penetration into peritoneal cavity, initial encounter; E11.51 Type 2 diabetes mellitus with diabetic peripheral angiopathy without gangrene; Z90.49 Acquired absence of other specified parts of digestive tract; Z88.8 Allergy status to other drugs, medicaments and biological substances; Z88.6 Allergy status to analgesic agent; Z91.041 Radiographic dye allergy status; Y92.89 Other specified places as the place of occurrence of the external cause; Z82.49 Family history of ischemic heart disease and other diseases of the circulatory system; Z83.3 Family history of diabetes mellitus; Z83.6 Family history of other diseases of the respiratory system; X58.XXXA Exposure to other specified factors, initial encounter; Y93.89 Activity, other specified; Y99.8 Other external cause status
CPT/HCPCS: 10047

== ENCOUNTER 2020-06-21 20:28 | Inpatient (IN) | payer OTHER ==
[~2020-06-21] VITALS: Ht 157.5 cm; Wt 105.7 kg
--- NOTE | ~2020-06-21 | O ---
[facility] [place] [address] OPERATIVE REPORT Name: SONIA FUENTES Room #: 452- ADM IN M.R.#: [id number] Admission: 06/21/20 Attend Phys: Moi Baptiste MD Discharge: Date of : 52 Report #: [id number] THIS REPORT FOR: cc: ERICA - No family physician/PCP ERICA - No family physician/PCP Onur Kirby MD ~ CC: [facility] physician/PCP Moi Baptiste DATE OF SERVICE: 07/10/2020 PREOPERATIVE DIAGNOSIS: Rectal bleeding. POSTOPERATIVE DIAGNOSIS: Rectal bleeding. OPERATION: Rectal exam under anesthesia with oversewing of bleeding ulcer. SURGEON: Onur Kirby MD ANESTHESIA: General. ESTIMATED BLOOD LOSS: 20 mL. SPECIMEN: None. DESCRIPTION OF PROCEDURE: After informed consent was obtained, the patient was brought to the operating room and placed supine. SCDs were placed and working, general anesthesia was induced. The patient was placed in the lithotomy position. The area was then prepped and draped in the usual sterile fashion with Betadine. Digital rectal exam was performed and this did not demonstrate any hard masses. Troy speculum was then inserted. There was phill bleeding. She did have some ulcerated areas that did appear somewhat circumferential but these were not actively bleeding. They just appeared raw. There was a spot in the mucosa that was actively bleeding. This was approximately 4 cm from the anal verge. I grasped the area. It was somewhat friable. I then placed a [id number]-tc-ygfth 2-0 Vicryl suture to oversew this area. This controlled the bleeding very nicely. I then packed the anus with gauze. There was no more bleeding. The area was then packed with FloSeal and Gelfoam. Sterile dressings were applied. COMPLICATIONS: None. [facility] [address] [place] [address] OPERATIVE REPORT Name: ALFREDOSONIA Room #: 452-P [facility] IN ..#: [id number] Admission: 06/21/20 Attend Phys: Moi Baptiste MD Discharge: Date of : 52 Report #: [id number] DISPOSITION: The patient was taken to recovery in satisfactory condition. By: 1722 1736 Onur Kirby MD /nt
[~2020-06-21 20:28] MED LIST changes: +ASA81BEC PO; +CEFTRIAXON1 GM/50 M1 IVPB; +GABAPENTIN100 MG PO; +IRON325 M1 PO; +LEVEMIR FL100 UNIT/2 SUBQ; +LEVO-T100 MCG PO; +LORATIDINE 10 M10 M1 PO; +MONISTAT 315 GM TRANSDERM; +MOTION SICKNESS25 MG PO; +NOVOLOG FL100 UNIT/M SUBQ; +NYSTATIN1 EA10 TRANSDERM; +SENNA LAXATIVE8.6 MG PO; +VITAMIN D350 MCG PO
[2020-06-21 20:29] VITALS: BP 118/55
[2020-06-21 20:53] LABS: HEMOGLOBIN 9.7 gm/dL (12.0-15.0); RDW 19.2 % (10.5-14.5)
[2020-06-21 21:07] LABS: ANION GAP 15 mmol/L (7-16); BUN 61 mg/dL (7-18); CHLORIDE 100 mmol/L (98-107); CO2 17 mmol/L (21-32); CREATININE 3.5 mg/dL (0.6-1.0); GLUCOSE 297 mg/dL (74-106); POTASSIUM 4.6 mmol/L (3.5-5.1); SODIUM 132 mmol/L (136-145)
[2020-06-21 21:09] LABS: HEMATOCRIT 28.7 % (37.0-47.0); MCH 31.7 pg (26.0-34.0); MCHC 33.7 g/dL (28.0-37.0); MCV 94.2 fL (80.0-100.0); RBC 3.04 mil/uL (4.20-5.00); WBC 2.3 thou/uL (4.0-11.0)
[2020-06-21 21:17] LABS: ALBUMIN 3.6 g/dL (3.4-5.0); SGOT 34 U/L (15-37); SGPT 29 U/L (30-65); TOTAL BILIRUBIN 0.4 mg/dL (0.2-1.0); TROPONIN-I <0.06 ng/mL (<0.06)
[2020-06-21 21:46] VITALS: BP 118/55
[2020-06-21 21:53] LABS: URINE BILIRUBIN NEGATIVE (Negative); URINE BLOOD 1+ (Negative); URINE CLARITY CLEAR; URINE COLOR YELLOW; URINE GLUCOSE-RANDOM* NEGATIVE (Negative); URINE KETONES NEGATIVE (Negative); URINE LEUKOCYTES-REFLEX NEGATIVE (Negative); URINE NITRITE-REFLEX NEGATIVE (Negative); URINE PROTEIN (DIPSTICK) 2+ (Negative); URINE SPECIFIC GRAVITY 1.025 (1.005-1.035); URINE UROBILINOGEN 0.2 E.U./dl (0.2-1.0)
[2020-06-21 22:35] LABS: BACTERIA-REFLEX 1-9 Few /HPF (None Seen); CELLULAR CASTS 0-3 Few /LPF (None Seen); CRYSTALS None Seen /LPF (None Seen); FINE GRANULAR CASTS 0-3 Few /LPF (None Seen); HYALINE CASTS 0-3 Few /LPF (None Seen); MUCUS 0-3 Light strn/LPF (None Seen); SQUAMOUS 0-3 Few /LPF (0-3); URINE WBC-REFLEX 0-5 Rare /HPF (0-5)
[2020-06-22 06:06] LABS: HEMATOCRIT 24.9 % (37.0-47.0); HEMOGLOBIN 8.4 gm/dL (12.0-15.0); MCHC 33.8 g/dL (28.0-37.0); MCV 94.6 fL (80.0-100.0); RBC 2.63 mil/uL (4.20-5.00); RDW 20.1 % (10.5-14.5); WBC 2.8 thou/uL (4.0-11.0)
[2020-06-22 06:12] LABS: CALCIUM 8.3 mg/dL (8.5-10.1); CREATININE 2.8 mg/dL (0.6-1.0); POTASSIUM 4.1 mmol/L (3.5-5.1)
[2020-06-22] MEDS ORDERED: NEURONTIN100 MG PO (07:16)
[2020-06-22] MEDS ORDERED: INSULIN AS100 UNIT/3 SUBQ (07:22)
[2020-06-22 18:39] VITALS: BP 174/78
[2020-06-22 19:41] VITALS: BP 171/81
[2020-06-22 20:10] VITALS: BP 158/68
[2020-06-23 04:34] VITALS: BP 146/59
[2020-06-23 05:43] LABS: HEMATOCRIT 27.1 % (37.0-47.0); HEMOGLOBIN 9.1 gm/dL (12.0-15.0); MCH 31.7 pg (26.0-34.0); MCHC 33.5 g/dL (28.0-37.0); MCV 94.6 fL (80.0-100.0); RBC 2.87 mil/uL (4.20-5.00); WBC 8.3 thou/uL (4.0-11.0)
[2020-06-23 06:15] LABS: ALBUMIN 2.7 g/dL (3.4-5.0); CALCIUM 7.9 mg/dL (8.5-10.1); CREATININE 2.7 mg/dL (0.6-1.0); PHOSPHORUS 2.9 mg/dL (2.5-4.9); POTASSIUM 4.5 mmol/L (3.5-5.1)
--- NOTE | 2020-06-23 06:29 | NUR ---
PT ARRIVED FROM ER VIA CART. CAREPLAN, MED REC, AND INTERVENTIONS COMPLETED. PT HAS A SMALL WOUND ON LLQ OF ABDOMEN AND HEALING WOUNDS TO TOP OF BUTTOCK. BARRIER CREAM APPLIED TO BOTTOM. PT ARRIVED AMS FROM FACILITY. PT WILL CRY OUT WHEN MOVING OR DOING CARES. PT DC'D HERE ON 06/14 AND WAS A/0 X4 AND WOULD AMBULATE X1 WITH WALKER. KEPT PT ON BEDREST WITH Q2 TURNS. POC WITH IVF AND IVPB ANTIBIOTICS FOR UTI. PT POSITIVE FOR COVID. FALL AND ISOLATION PRECAUTIONS IN PLACE.
[2020-06-23 07:23] VITALS: BP 153/59
--- NOTE | 2020-06-23 15:15 | NUR ---
INITIAL ASSESSMENT: Received consult. RAHEEM reviewed chart and spoke with nursing and attending physician. Pt was admitted from [facility] due to CHRIS. Pt placed in Enhanced Isolation due to positive COVID test on 06/21. Pt also tested positive at her facility. Pt was recently at [facility] and transferred to [facility] on 06/14 for urology services. Pt returned to [facility] on Sat. 06/17. 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 Pt is currently on IV abx. Not requiring O2. RAHEEM placed call to pt's room. No answer. RAHEEM spoke with pt's dtr-in-law, Anny, via phone. Introduced role of RAHEEM. Pt is normally alert/orientated and able to make her needs known. Anny is unsure if pt was using her skilled benefit prior to admission. Discharge plan is for pt to return to [facility] when medically stable. Should pt need LTAC level of care, family's preference is [facility]. No weekend discharge planned. Pt's family request ID consult. RAHEEM notified attending physician of request. RAHEEM left voice message for the admissions gate attendant at [facility]. RAHEEM is following to assist as needed with discharge planning.
[2020-06-23 15:42] VITALS: BP 154/57
--- NOTE | 2020-06-23 18:37 | NUR ---
PT ALERT AND ORIENTED TIMES THREE, WITH BLUNTED AFFECT. VSS, IVF INFUSING PER ORDER. PT TOLERATES MEDS, BUT HAS VERY POOR APPETITE. DRESSING TO ABD CHANGED. PT TURNED FREQUENTLEY THIS SHIFT. WILL CONTINUE TO MONITOR.
[2020-06-23 19:22] VITALS: BP 152/62
[2020-06-24 03:27] VITALS: BP 153/58
--- NOTE | 2020-06-24 05:01 | HC ---
[facility] [place] [address] CONSULTATION Name: SONIA FUENTES Room #: 356-P ADM IN M.R.#: [id number] Admission: 06/21/20 Attend Phys: Moi Baptiste MD Discharge: Date of : 52 Report #: [id number] THIS REPORT FOR: cc: ERICA - Moira family physician/PCP ERICA - No family physician/PCP Grover Brar MD ~ DATE OF SERVICE: 06/23/2020 INFECTIOUS DISEASE CONSULTATION ATTENDING PHYSICIAN: Dr. Baptiste. REASON FOR EVALUATION: COVID-19 infection in the setting of pancytopenia and chronic ulcerations, been followed by Wound Care. HISTORY OF SUBJECTIVE: Chart reviewed, patient examined. This is a 70-year-old woman with history of diabetes mellitus, has had a recent complicated history, had recently been hospitalized and discharged within the last 10 days with essentially anemia, felt to be chronic with associated gastrointestinal blood loss, also had longstanding lower extremity wounds, has known history of vasculopathy as well. At the time of discharge, she was noted to have elevated creatinine as well as anemia that had been progressive and recheck these values had worsened. She apparently had a fall as well, became more confused and lethargic. It is difficult to get any additional history from her. She only wakes up briefly. She was noted to have fevers overnight to 101.3. She did test positive for SARS-CoV-2. Of note, had tested negative within the last 2 weeks. On 06/12/2020, she did undergo bone marrow test examination at the previous hospitalization for the macrocytic anemia and thrombocytopenia. There is no evidence of lymphoma or acute leukemia at that point. In fact, her recent leukopenia has resolved. She did undergo chest x-ray, which was otherwise unremarkable and she was maintained on room air. Empirically, started on ceftriaxone. ALLERGIES: LISTED TO IODINE, MORPHINE, MEPERIDINE. CURRENT MEDICATIONS: Include ascorbic acid, folic acid, cholecalciferol, famotidine, loratadine, levothyroxine, ceftriaxone, ferrous sulfate, metoprolol, atorvastatin, alprazolam, gabapentin, venlafaxine, p.r.n. analgesics and antiemetics. PAST MEDICAL HISTORY: Includes anxiety and depression, IBS, diabetes mellitus, hypertension, previous cholecystectomy, appendectomy, , carpal tunnel, multiple orthopedic surgeries. She has had some chronic renal insufficiency, chronic anemia. [address] [address] CONSULTATION Name: SONIA FUENTES Room #: 356-P [facility] IN M.R.#: [id number] Admission: 06/21/20 Attend Phys: Moi Baptiste MD Discharge: Date of : 52 Report #: [id number] SOCIAL HISTORY: Nonsmoker, occasional ethanol, no illicit drug use. FAMILY HISTORY: Noncontributory. REVIEW OF SYSTEMS: Limited due to her encephalopathy. PHYSICAL EXAMINATION: GENERAL: She appears somewhat chronically ill, undernourished. She is in grzw-jl-mnozulje distress. She is pleasant when she arouses, although is evidently confused. VITAL SIGNS: Temperature now 98, pulse 92, respirations 19, blood pressure 154/57. SKIN: Warm, dry, no rashes. HEENT: Normocephalic. Extraocular muscles intact. NECK: Supple. LUNGS: Diminished breath sounds, otherwise clear. HEART: Regular. I do not appreciate a murmur. ABDOMEN: Soft, no apparent peritoneal signs. GENITOURINARY AND RECTAL: Deferred. LABORATORY DATA: CBC from this morning, white count of 8.3, H and H 9.1 and 27.1, platelets of 61. Renal function, sodium 137, potassium 4.5, chloride 106, bicarbonate is 18, anion gap of 13, BUN and creatinine 44 and 2.7, glucose of 241. Albumin of 2.7, estimated GFR of 17. Bone marrow as described above. Urinalysis was otherwise unremarkable with 0-[address] of the head was otherwise unremarkable for acute process. Liver functions were unremarkable as well. Albumin 3.6, total protein 7.0 on admission. ASSESSMENT: Febrile illness. The patient with now confirmed coronavirus. It certainly could be playing a role. At this point, she is not overtly symptomatic from a pulmonary standpoint. She has an unremarkable chest x-ray. She is maintained adequate sats on room air. I think we will do some watchful waiting and is problematic with her elevated creatinine with utilizing remdesivir as well. If would worsen, could consider convalescent plasma and corticosteroids. She is on famotidine and vitamins as well. We will monitor expectantly, certainly at risk for nosocomial related complications. I think it is reasonable to continue empiric therapy with ceftriaxone in the event that she has an occult pyogenic infection. At this point, it is not evident and [facility] [address] [place] [address] CONSULTATION Name: SONIA FUENTES Room #: [facility] IN M.R.#: [id number] Admission: 06/21/20 Attend Phys: Moi Baptiste MD Discharge: Date of : 52 Report #: [id number] certainly the usual sites including lungs and urinary tract do not bear that out. Continue wound care as prescribed. We will follow. <ELECTRONICALLY SIGNED> By: Grover Brar MD 06/24/20 0501 1729 0119 Grover Brar MD /nt
[2020-06-24 06:23] LABS: CALCIUM 7.2 mg/dL (8.5-10.1); CREATININE 2.7 mg/dL (0.6-1.0)
[2020-06-24 06:27] LABS: ALBUMIN 2.3 g/dL (3.4-5.0); PHOSPHORUS 1.6 mg/dL (2.5-4.9)
[2020-06-24 08:37] VITALS: BP 154/58
--- NOTE | 2020-06-24 11:17 | NUR ---
ASSUMED PATIENT CARE THIS AM AT APPROXIMATELY 0700, PATIENT IS AWAKE, ALERT AND ORIENTED TO PERSON/PLACE. PATIENT IS SLEEPING WELL. VSS. REMAINS IN COVID ISOLATION, ON ROOM AIR, LOW GRADE FEVER NOTED THIS AM WILL CTM. NO ACUTE DISTRESS NOTED THIS AM. POOR APPETITE THIS AM. ONLY DRINKING PO LIQUIDS PATIENT ASSESSMENT AND MEDS CHARTED. TURNING Q2H AND PRN, HEELS OFFLOADED WITH PRAFO BOOTS. ALL SAFETY PRECAUTIONS IN PLACE.
[2020-06-24 17:02] VITALS: BP 141/53
[2020-06-24 19:32] LABS: ABSOLUTE NEUTROPHILS 6.9 thou/uL (1.4-8.2); EOSINOPHILS 0.4 % (0.0-3.0); WBC 8.8 thou/uL (4.0-11.0)
[2020-06-24 19:34] LABS: BASOPHILS 0.3 % (0.0-2.0); HEMATOCRIT 20.3 % (37.0-47.0); LYMPHOCYTES 16.6 % (24.0-44.0); MCH 31.5 pg (26.0-34.0); MCHC 33.6 g/dL (28.0-37.0); MCV 93.7 fL (80.0-100.0); MONOCYTES 3.6 % (1.0-8.0); POLYS 79.1 % (36.0-66.0); RBC 2.17 mil/uL (4.20-5.00)
[2020-06-24 19:37] LABS: PLATELET COUNT 51 thou/uL (150-400)
[2020-06-24 19:38] LABS: HEMOGLOBIN 6.8 gm/dL (12.0-15.0)
[2020-06-24 20:50] VITALS: BP 134/47
[2020-06-25 03:46] VITALS: BP 154/61
[2020-06-25 06:57] LABS: URINE BILIRUBIN NEGATIVE (Negative); URINE BLOOD 3+ (Negative); URINE GLUCOSE-RANDOM* NEGATIVE (Negative); URINE KETONES NEGATIVE (Negative); URINE LEUKOCYTES 1+ (Negative); URINE NITRITE NEGATIVE (Negative); URINE PROTEIN (DIPSTICK) 2+ (Negative); URINE SPECIFIC GRAVITY 1.015 (1.005-1.035)
[2020-06-25 06:58] LABS: URINE CLARITY CLOUDY; URINE COLOR BROWN
[2020-06-25 07:12] LABS: BACTERIA >30 Many /HPF (None Seen); CASTS None Seen /LPF (None Seen); SQUAMOUS 4-10 Moderate /LPF (0-3); URINE RBC >20 Many /HPF (0-2); URINE WBC 6-15 Few /HPF (0-5)
[2020-06-25 07:13] LABS: TRIPLE PHOSPHATE CRYSTALS >10 Many /LPF (None Seen)
[2020-06-25 07:16] VITALS: BP 182/48
[2020-06-25 08:06] LABS: HEMATOCRIT 21.9 % (37.0-47.0); HEMOGLOBIN 7.3 gm/dL (12.0-15.0); MCH 31.4 pg (26.0-34.0); MCHC 33.4 g/dL (28.0-37.0); MCV 94.1 fL (80.0-100.0); RBC 2.33 mil/uL (4.20-5.00); RDW 21.1 % (10.5-14.5); WBC 7.7 thou/uL (4.0-11.0)
[2020-06-25 08:17] LABS: CALCIUM 7.6 mg/dL (8.5-10.1); CREATININE 2.4 mg/dL (0.6-1.0); MAGNESIUM 1.3 mg/dL (1.8-2.4)
[2020-06-25 08:23] VITALS: BP 163/64
[2020-06-25 11:50] LABS: ALBUMIN 2.2 g/dL (3.4-5.0); DIRECT BILIRUBIN 0.1 mg/dL (<0.1-0.2); TOTAL BILIRUBIN 0.7 mg/dL (0.2-1.0); TOTAL PROTEIN 5.7 g/dL (6.4-8.2)
--- NOTE | 2020-06-25 14:39 | NUR ---
ASSUMED PATIENT CARE THIS AM AT APPROXIMATELY 0700. PATIENT IS AWAKE AND ORIENTED TO SELF, DROWSY BUT OPENS EYES WITH VERBAL STIMULI. PATIENT ASSESSMENTS AND MEDICATIONS CHARTED. O2 SAT STABLE ON ROOM AIR, CONTINUED TO HAVE FEVERS GREATER THAN [address] LEMUS AWARE AND ORDERS HAVE BEEN RECIEVED. ANTIBIOTICS CHANGED BY ID PHYSICIAN AUTOMOTIVE SERVICES MANAGER DR. BARROS. CT SCAN COMPLETED THIS SHIFT FOR FEVER OF UNKNOWN ORIGIN. REPORT CALLED TO DR. BARROS. AWAITING ANY NEW ORDERS. PATIENT TURNED AND REPOSITIONED Q2H. MOISTURE BARRIER CREAM APPLIED PRN TO BUTTOCKS WITH INCONTINENT EPISODES. HEELS OFFLOADED IN PRAFO BOOTS, JEFF PUMP IN PLACE. ISOLATION PRECAUTIONS REMAIN IN PLACE
[2020-06-25 16:11] VITALS: BP 164/68
[2020-06-25 19:51] VITALS: BP 159/71
[2020-06-26 04:47] VITALS: BP 121/57
[2020-06-26 08:01] VITALS: BP 142/48
--- NOTE | 2020-06-26 08:05 | NUR ---
Pt. very drowsy at beginning of shift. Opened eyes briefly ,took meds and went right back to sleep. She has been repositioned. Cont. on enhanced precaution. Tylenol given for elevated temp wth good results. She has been afebrile this am. Tolerating room air well with no respiratory distress. Incontinent of bladder and bowel. Complete bed bath given to help with elevated temp and for incontinence. Female extrnal cath in place. Z guard applied to buttocks after each incontinence. Foam dressing intact on right abdominal area. Pt. slept well during the night and she definitely is more awake this am and talking though oriented to person only.
[2020-06-26 09:19] LABS: HEMATOCRIT 22.8 % (37.0-47.0); HEMOGLOBIN 7.5 gm/dL (12.0-15.0); MCH 31.1 pg (26.0-34.0); MCV 94.4 fL (80.0-100.0); RBC 2.41 mil/uL (4.20-5.00); RDW 20.4 % (10.5-14.5); WBC 4.8 thou/uL (4.0-11.0)
[2020-06-26 09:42] LABS: ALBUMIN 2.1 g/dL (3.4-5.0); CALCIUM 7.8 mg/dL (8.5-10.1); CREATININE 2.4 mg/dL (0.6-1.0); MAGNESIUM 1.3 mg/dL (1.8-2.4); TOTAL BILIRUBIN 0.4 mg/dL (0.2-1.0); TOTAL PROTEIN 5.7 g/dL (6.4-8.2)
--- NOTE | 2020-06-26 15:08 | NUR ---
RAHEEM reviewed chart and spoke with nursing and attending physician. Pt remains in Enhanced Isolation due to COVID-19. Pt is febrile and on IV abx. Pt is not requiring O2. RA[facility]. RAHEEM left voice message for Sumit in admissions. RAHEEM discussed case with pt's dtr-in-law, Anny. RAHEEM is following to assist as needed with discharge planning.
[2020-06-26 15:10] VITALS: BP 118/53
[2020-06-26 20:05] VITALS: BP 115/44
[2020-06-27 04:00] VITALS: BP 120/51
[2020-06-27 06:29] LABS: HEMATOCRIT 21.4 % (37.0-47.0); HEMOGLOBIN 7.1 gm/dL (12.0-15.0); MCH 31.3 pg (26.0-34.0); MCHC 33.4 g/dL (28.0-37.0); MCV 93.9 fL (80.0-100.0); PLATELET COUNT 59 thou/uL (150-400); RBC 2.27 mil/uL (4.20-5.00); RDW 20.4 % (10.5-14.5); WBC 3.4 thou/uL (4.0-11.0)
[2020-06-27 06:50] LABS: ALBUMIN 2.1 g/dL (3.4-5.0); CALCIUM 7.9 mg/dL (8.5-10.1); CREATININE 2.3 mg/dL (0.6-1.0); POTASSIUM 4.1 mmol/L (3.5-5.1); TOTAL BILIRUBIN 0.4 mg/dL (0.2-1.0); TOTAL PROTEIN 5.5 g/dL (6.4-8.2)
--- NOTE | 2020-06-27 07:21 | NUR ---
Pt. drowsy but arousable at beginning of shift. Tylenol given for elevated temp. Dr. Moisés Burgos made some changes on her IV ABT. She is afebrile this am and more awake. Tolerating room air well with no respiratory distress. She has been repositioned with arms elevated. Incontinent of bladder and had small greenish bm x1. External cath in place and changed again this am. Z guard applied to buttocks after each incontinence. PRAFO boots on and JEFF on the bed.
[2020-06-27 07:46] VITALS: BP 118/38
[2020-06-27 08:40] LABS: ABSOLUTE NEUTROPHILS 1.2 thou/uL (1.4-8.2); ANISOCYTOSIS 2+; ATYPICAL LYMPHS 2 %; PLATELET ESTIMATE DECREASED
[2020-06-27 08:42] LABS: LARGE PLATELETS FEW; MACROCYTES 1+; MICROCYTES 1+
[2020-06-27 15:22] VITALS: BP 121/60
--- NOTE | 2020-06-27 18:08 | HC ---
[facility] [place] [address] CONSULTATION Name: SONIA FUENTES Room #: 356-P ADM IN M.R.#: [id number] Admission: 06/21/20 Attend Phys: Moi Baptiste MD Discharge: Date of : 52 Report #: [id number] THIS REPORT FOR: cc: ERICA - No family physician/PCP ERICA - No family physician/PCP Rohan Herron MD ~ DATE OF SERVICE: 06/23/2020 WOUND CARE CONSULTATION PERSONAL PHYSICIAN: Nata. CHIEF COMPLAINT: Gluteal rash and COVID-19 positive. HISTORY OF PRESENT ILLNESS: This is a 70-year-old white female who has been a previous patient of mine for a right inguinal surgical wound and right foot diabetic ulcer, all of which is healed. The patient is now admitted for COVID-19 positive as well as low hemoglobin levels. The patient was supposedly more confused and lethargic, which prompted them to transfer her back to [facility] for admission. The patient most recently was admitted for GI bleed and has had a complete workup and still the actual cause is unclear. We have been asked to follow the patient for gluteal rash. PAST MEDICAL HISTORY: Significant for neuropathy, diabetes mellitus, hypertension, peripheral arterial disease, generalized debility, anemia. CURRENT MEDICATIONS: Multiple. I reviewed the patient's medication list. DRUG ALLERGIES: Include IV CONTRAST. SOCIAL HISTORY: The patient resides in a care facility. Does not smoke. Drinks alcohol occasionally. FAMILY HISTORY: Not pertinent to current medical condition. REVIEW OF SYSTEMS: Unobtainable because of the patient's altered mental status. PHYSICAL EXAMINATION: VITAL SIGNS: Temperature 37.2, pulse 91, respirations 19, BP 153/59. GENERAL: This is an alert and oriented x 1 person, but not place or time, chronically ill-appearing white female who is in mild distress secondary to her symptoms. HEENT: Normocephalic, atraumatic. Mucous membranes are dry. Pupils are round. Sclerae white. [facility] [address] [place] [address] CONSULTATION Name: SONIA FUENTES Room #: [facility]- ADM IN M.R.#: [id number] Admission: 06/21/20 Attend Phys: Moi Baptiste MD Discharge: Date of : 52 Report #: [id number] NECK: Without JVD. LUNGS: Slight diminished breath sounds heard throughout. Occasional scattered wheeze. HEART: Regular. ABDOMEN: Obese, soft, nontender. On the right lower abdominal wall is a small resolving papule without signs of overt infection. Right groin shows a surgical wound to be well healed without signs of any open area. ABDOMEN: Otherwise soft, nontender. Evaluation of the gluteal region reveals moisture-associated dermatitis without signs of active open ulcerations or significant excoriation. EXTREMITIES: The patient moves all extremities without difficulty. Evaluation of bilateral heels reveals the heels to be tender and slightly boggy, but no open ulcerations. Distal pulses are intact. NEUROLOGIC: Cranial nerves 2-12 grossly intact. Motor and sensory grossly intact. LABORATORY DATA: White count 8.3, hemoglobin 9.1. COVID-19 test was positive. BUN 44, creatinine 2.7, albumin 2.7. Chest x-ray essentially showed no acute findings. IMPRESSION: 1. Abrasion to right lower abdominal wall. 2. Moisture-associated skin dermatitis to the sacral/gluteal region. 3. Boggy heels bilaterally. 4. COVID-19 positive. 5. Anemia of unknown etiology, chronic for the past year. 6. Hypertension. 7. Diabetes mellitus type 2. 8. Chronic kidney disease - 3. 9. Peripheral neuropathy. 10. Moderate protein-calorie malnutrition, albumin 2.7 and generalized debility. PLAN: We will start bordered foam to the lower abdominal wall abrasion Friday, Friday and Friday and p.r.n. We will start moisture barrier cream, leave open to air not to the moisture-associated skin dermatitis in the sacral-gluteal region. Have the patient turned every 2 hours and offload as much as possible. We will put heel protectors on the patient all times. The patient will be on enhanced precautions secondary to the COVID-19 positive test. We will continue to maximize her oral protein supplementation for [place] [address] CONSULTATION Name: SONIA FUENTES Room #: 356-P [facility] IN M.R.#: [id number] Admission: 06/21/20 Attend Phys: Moi Baptiste MD Discharge: Date of : 52 Report #: [id number] physical and occupation as the patient is able. Continue all other current medications. <ELECTRONICALLY SIGNED> By: Rohan Herron MD 06/27/20 1808 1155 28 Rohan Herron MD /nt
[2020-06-27 21:29] VITALS: BP 155/67
[2020-06-28 00:34] VITALS: BP 121/48
[2020-06-28 04:15] VITALS: BP 110/42
--- NOTE | 2020-06-28 05:26 | NUR ---
Pt. more alert at HS though she tearful at times. Oriented to person only. She has been afebrile this shift. Tolerating room air well with no respiratory distress. She has been repositioned. Incontinent of bladder and had a small greenish bm. External cath in place and had another 800 ml. Z guard aplied to buttocks. Foam dressing intact on right upper abd and right dorsal foot. Prafo boot in place.
[2020-06-28 07:36] VITALS: BP 120/49
--- NOTE | 2020-06-28 13:53 | NUR ---
Note Given: Y Facility List Provided:Y Facility Britt: [facility] Has access to smartphone however is a LTC resident at [facility]. Facility to be called for status updates upon discharge.
[2020-06-28 15:24] VITALS: BP 130/63
--- NOTE | 2020-06-28 15:46 | NUR ---
RAHEEM reviewed chart and spoke with nursing and attending physician. Pt remains in Enhanced Isolation due to COVID-19. PT is afebrile and not requiring O2. Pt is on IV abx. Therapy ordered to evaluate pt. RAHEEM spoke with Daylin in admissions at [facility], who states pt was in the group home care unit, and they will use pt's skilled benefit when she returns. SW to fax clinical/therapy updates to the facility tomorrow. RAHEEM updated pt's dtr-in-law. RAHEEM is following to assist as needed with discharge planning.
--- NOTE | 2020-06-28 16:30 | NUR ---
assumed care of pt at at 0700. pt aox2-3 voicing no concerns but is tearful throughout the day - unwilling to discuss why. eating small amounts. incontinent. on room air. afebrile today. dressings changed per order. turned q2h and prn. ivf infusing per order. wcm.
[2020-06-28 19:25] VITALS: BP 146/53
[2020-06-29 03:27] VITALS: BP 156/62
[2020-06-29 06:01] LABS: WBC 3.8 thou/uL (4.0-11.0)
[2020-06-29 06:03] LABS: MCH 31.2 pg (26.0-34.0); MCHC 32.9 g/dL (28.0-37.0); MCV 94.8 fL (80.0-100.0); RBC 1.95 mil/uL (4.20-5.00); RDW 20.7 % (10.5-14.5)
[2020-06-29 06:09] LABS: CALCIUM 7.1 mg/dL (8.5-10.1); CREATININE 2.4 mg/dL (0.6-1.0); MAGNESIUM 1.4 mg/dL (1.8-2.4); POTASSIUM 4.1 mmol/L (3.5-5.1)
[2020-06-29 06:12] LABS: HEMATOCRIT 18.5 % (37.0-47.0); HEMOGLOBIN 6.1 gm/dL (12.0-15.0)
--- NOTE | 2020-06-29 06:30 | NUR ---
AM HGB IS 6.1, NOTIFIED PROVIDER. NO DERICK BLEEDING. PROVIDER ORDERED PROTONIX AND D/C THE FAMOTIDINE. PROTONIX IS THE GI BLEED DOSAGE. T&C FOR ONE UNIT.
[2020-06-29 08:55] VITALS: BP 156/64
[2020-06-29 10:44] VITALS: BP 121/65; BP 144/75
[2020-06-29 12:28] VITALS: BP 144/75
--- NOTE | 2020-06-29 16:21 | NUR ---
RAHEEM reviewed chart and spoke with nursing and attending physician. Pt remains in Enhanced Isolation due to COVID-19. Pt was febrile and is on IV abx. Pt is not requiring O2. GI consulted due to hemoglobin: 6.1. RAHEEM faxed clinical updates to [facility] for review. RAHEEM updated pt's dtr-in-law, Anny. Plan is for pt to reutrn to [facility] when medically stable. RAHEEM is following to assist as needed with discharge planning.
--- NOTE | 2020-06-29 16:22 | NUR ---
ASSUMED CARE OF PT AT 0700. PT AOX4 MOD RESP DISTRESS. INCREASED TO 6L NC. COARSE LUNG SOUNDS. PRODUCTIVE COUGH. OTHERWISE STABLE FOR NOW. CALLS APPROPRIATELY. PHYISICIAN NOTIFIED OF INCREASED O2 NEEDS. WCM.
[2020-06-29 16:31] VITALS: BP 158/76
[2020-06-29 20:59] VITALS: BP 128/62
--- NOTE | 2020-06-30 03:46 | NUR ---
Patient making slow progress towards outcome goals. Vital signs and rhythm stable. COVID positive but asymptomatic. No active signs of bleeding. Incontinent of urine, external female catheter in place. Patient tearful, Xanax given with some relief.
[2020-06-30 04:34] VITALS: BP 133/62
[2020-06-30 07:57] VITALS: BP 145/68
--- NOTE | 2020-06-30 09:42 | NUR ---
Nutrition: pt with inadequate intake > 7 days, eating 0-25% of meals plus some supplements. Requires to be fed. REC consider change IVFs to Clinimix PPN at same rate to supplement nutrition til po/LOC improves.
[2020-06-30 09:53] LABS: HEMATOCRIT 23.8 % (37.0-47.0); HEMOGLOBIN 7.8 gm/dL (12.0-15.0); MCH 30.5 pg (26.0-34.0); MCHC 32.8 g/dL (28.0-37.0); MCV 92.9 fL (80.0-100.0); RBC 2.56 mil/uL (4.20-5.00); RDW 20.7 % (10.5-14.5); WBC 4.1 thou/uL (4.0-11.0)
[2020-06-30 10:04] LABS: CALCIUM 7.6 mg/dL (8.5-10.1); CREATININE 2.2 mg/dL (0.6-1.0); MAGNESIUM 1.4 mg/dL (1.8-2.4); POTASSIUM 4.2 mmol/L (3.5-5.1)
[2020-06-30 14:55] LABS: OBSERVED RETIC COUNT 2.88 % (0.6-2.6)
--- NOTE | 2020-06-30 16:04 | NUR ---
If patient to discharge over the weekend call [facility] at [phone]. Fax orders to [phone]. Call [facility] for transport at [phone] and request transport and give time. Request chart copy to be made.
[2020-06-30 16:06] LABS: APTT 24.5 Seconds (24.5-32.8); D-DIMER 3.77 ug/mLFEU (0.19-0.50); INR 1.1
[2020-06-30 16:11] LABS: FIBRINOGEN 456.4 mg/dL (210-360)
[2020-06-30 19:42] VITALS: BP 165/56
[2020-07-01 03:52] VITALS: BP 144/68
--- NOTE | 2020-07-01 04:03 | NUR ---
ASSESSED AT START OF SHIFT. PT ALERT TO SELF TEARFUL ON ASSESSMENT. IV INTACT WITH FLUIDS INFUSING. ANXIETY MED WITH NIGHT TIME MEDS GIVEN AND PT JOSETTE IT WELL. EXT FEMALE CAH IN PLACE AND PATENT. PT NPO AFTER MIDNIGHT. BSG CHECKED WITH COVERAGE. FALL PREC IN PLACE AND WILL CONT WIH POC TILL EOS.
[2020-07-01 06:09] LABS: HEMATOCRIT 21.5 % (37.0-47.0); HEMOGLOBIN 7.1 gm/dL (12.0-15.0); MCH 30.7 pg (26.0-34.0); MCHC 33.2 g/dL (28.0-37.0); MCV 92.5 fL (80.0-100.0); PLATELET COUNT 132 thou/uL (150-400); RBC 2.32 mil/uL (4.20-5.00); RDW 20.4 % (10.5-14.5); WBC 5.6 thou/uL (4.0-11.0)
[2020-07-01 06:40] LABS: ALBUMIN 1.9 g/dL (3.4-5.0); CALCIUM 7.6 mg/dL (8.5-10.1); MAGNESIUM 1.5 mg/dL (1.8-2.4); POTASSIUM 3.9 mmol/L (3.5-5.1); TOTAL BILIRUBIN 0.5 mg/dL (0.2-1.0); TOTAL PROTEIN 5.7 g/dL (6.4-8.2)
[2020-07-01 07:29] LABS: ABSOLUTE NEUTROPHILS 2.5 thou/uL (1.4-8.2); ANISOCYTOSIS 1+; PLATELET ESTIMATE NORMAL
[2020-07-01 07:53] VITALS: BP 141/62
--- NOTE | 2020-07-01 15:44 | NUR ---
ASSUMED CARE OF PT AT 0700. PT AOX1-2 IN MILD RESP DISTRESS. SUPPLEMENTED WITH O2 AND BIPAP PRN PER PULM. MAINTAINS SPO2. INCONTINENT OF DARK STOOL. FLEX SIGMOID PLANNED FOR FRIDAY. MINIMAL APPETITE. NO PROGRESS TOWARD POC GOALS.
[2020-07-01 17:30] VITALS: BP 187/81
[2020-07-01 19:11] VITALS: BP 152/54
[2020-07-02 03:35] VITALS: BP 161/68
--- NOTE | 2020-07-02 07:43 | NUR ---
able to drink and swollow pudding. she needs encouraging to drink. lethargic. turns, and adl's. continues on iv fluids.
[2020-07-02 10:22] LABS: HCO3 12.4 mmol/L (22.0-26.0); PCO2 26.6 mmHg (35.0-45.0); PO2 102.7 mmHg (80.0-100.0); sO2 97.2 % (92.0-98.0)
[2020-07-02 10:25] LABS: pH 7.285 (7.360-7.450)
[2020-07-02 11:25] VITALS: BP 134/82
[2020-07-02 13:17] LABS: HEMATOCRIT 21.9 % (37.0-47.0); HEMOGLOBIN 7.2 gm/dL (12.0-15.0); MCH 30.5 pg (26.0-34.0); MCHC 32.9 g/dL (28.0-37.0); MCV 92.9 fL (80.0-100.0); PLATELET COUNT 153 thou/uL (150-400); RBC 2.36 mil/uL (4.20-5.00); RDW 19.8 % (10.5-14.5); WBC 3.8 thou/uL (4.0-11.0)
[2020-07-02 13:29] LABS: CREATININE 1.9 mg/dL (0.6-1.0); POTASSIUM 4.5 mmol/L (3.5-5.1)
[2020-07-02 13:37] LABS: MAGNESIUM 1.8 mg/dL (1.8-2.4); PHOSPHORUS 3.6 mg/dL (2.5-4.9); TOTAL BILIRUBIN 0.6 mg/dL (0.2-1.0); TOTAL PROTEIN 6.3 g/dL (6.4-8.2)
[2020-07-02 13:38] LABS: ABSOLUTE NEUTROPHILS 2.8 thou/uL (1.4-8.2); ANISOCYTOSIS 1+; PLATELET ESTIMATE NORMAL
[2020-07-02 14:42] VITALS: BP 126/68; BP 132/70
[2020-07-02 15:48] VITALS: BP 129/67
--- NOTE | 2020-07-02 16:09 | NUR ---
VAT CONSULTED FOR A LINE FOR THIS CKD3, COVID+ PT. A 4FRDBL PLACED IN RT IJ AND LINE RELEASED TO RN FOR USE. PLEASE SEE NI FOR DETAILS
[2020-07-02 18:40] LABS: HEMATOCRIT 25.9 % (37.0-47.0); HEMOGLOBIN 8.6 gm/dL (12.0-15.0)
[2020-07-02 19:00] LABS: CALCIUM 8.1 mg/dL (8.5-10.1); CREATININE 2.1 mg/dL (0.6-1.0); POTASSIUM 4.5 mmol/L (3.5-5.1)
[2020-07-02 19:01] LABS: BE(vivo) -14.7 mmol/L (-2 to +3); PCO2 25.7 mmHg (35.0-45.0); PO2 161.4 mmHg (80.0-100.0); sO2 98.8 % (92.0-98.0)
[2020-07-02 19:08] LABS: pH 7.251 (7.360-7.450)
--- NOTE | 2020-07-02 19:38 | NUR ---
ASSUMED PATIENT CARE AT 0700. NOTED PATIENT LATHARGIC IN EARLY AM. NOTIFIED DR MEANS AND DR RAYGOZA. NEW ORDER RECEIVED. PATIANT ON 35% FI02 BIPAP AFTER ABG. PATIENT RECEIVED ONE UNIT RBC NO REACTION NOTED. INCONTINUE URINE AND BM. GENERLIZED EDEMA 3+. NOT FLOLLOW COMMAND. FAMILY UPDATED. NOT TOWARDS POC GOALS.
[2020-07-02 20:07] VITALS: BP 132/64
--- NOTE | 2020-07-02 23:00 | NUR ---
ABG results reported to Dr. Rogers at shift change. He ordered to transfer pt. to ICU and place a arana for accurate I/O. Pt. remains lethargic on a BIPAP at 35%. She started moaning when arana placed. Incontinent of bladder and had medium dark green bm at that time. Family member notified that pt. being trasferred to ICU who stated she missed a call from Dr. Rogers and she will get hold of him. Report given to CURATOR OF PHOTOGRAPHY AND PRINTS and pt. transferred with all her belongings.
[2020-07-02 23:32] VITALS: BP 125/88
[2020-07-03] VITALS (29 sets, daily range): BP systolic 115–176; BP diastolic 46–99
[2020-07-03 05:46] LABS: BE(vivo) -9.4 mmol/L (-2 to +3); HCO3 16.6 mmol/L (22.0-26.0); PCO2 36.4 mmHg (35.0-45.0); PO2 123.6 mmHg (80.0-100.0); pH 7.277 (7.360-7.450); sO2 98.1 % (92.0-98.0)
[2020-07-03 05:50] LABS: ABSOLUTE NEUTROPHILS 2.2 thou/uL (1.4-8.2); BASOPHILS 0.2 % (0.0-2.0); EOSINOPHILS 0.1 % (0.0-3.0); HEMATOCRIT 22.9 % (37.0-47.0); HEMOGLOBIN 7.5 gm/dL (12.0-15.0); LYMPHOCYTES 17.6 % (24.0-44.0); MCH 30.6 pg (26.0-34.0); MCHC 32.8 g/dL (28.0-37.0); MCV 93.2 fL (80.0-100.0); MONOCYTES 7.8 % (1.0-8.0); PLATELET COUNT 138 thou/uL (150-400); POLYS 74.3 % (36.0-66.0); RBC 2.46 mil/uL (4.20-5.00); RDW 18.4 % (10.5-14.5)
[2020-07-03 06:08] LABS: ALBUMIN 1.9 g/dL (3.4-5.0); CALCIUM 7.8 mg/dL (8.5-10.1); CREATININE 1.7 mg/dL (0.6-1.0); POTASSIUM 3.8 mmol/L (3.5-5.1); TOTAL BILIRUBIN 0.4 mg/dL (0.2-1.0); TOTAL PROTEIN 5.8 g/dL (6.4-8.2)
[2020-07-03 06:26] LABS: INR 1.2; PROTIME 11.8 Seconds (9.3-11.4)
[2020-07-03 06:31] LABS: FIBRINOGEN 479.4 mg/dL (210-360)
--- NOTE | 2020-07-03 07:01 | NUR ---
PT SLEEPING . CONT ON BIPAP-DOES AWAKEN EASILY WITH NURSING CARE AND REPOSITIONING. SPEAKING IN SENTENCES THIS AM. WILL CONT TO CRY, DENIES PAIN. PH IMPROVING ON ABG. BICARB GTT INFUSING ORDERED. UO ADEQUATE. CONT PLAN OF CARE. REMAINS IN ENHANCED PRECAUTIONS
--- NOTE | 2020-07-03 07:35 | NUR ---
Pt TRANSFERRED TO ICU. WILL PLACE ON HOLD AND AWAIT NEW ORDERS TO RESUME WHEN APPROPRIATE
[2020-07-04] VITALS (16 sets, daily range): BP systolic 156–189; BP diastolic 59–84
[2020-07-04 05:39] LABS: CALCIUM 7.7 mg/dL (8.5-10.1); CREATININE 1.7 mg/dL (0.6-1.0); PHOSPHORUS 2.5 mg/dL (2.5-4.9); POTASSIUM 3.3 mmol/L (3.5-5.1)
--- NOTE | 2020-07-04 08:21 | HC ---
[facility] [place] [address] CONSULTATION Name: SONIA FUENTES Room #: 244-P ADM IN M.R.#: [id number] Admission: 06/21/20 Attend Phys: Moi Baptiste MD Discharge: Date of : 52 Report #: [id number] THIS REPORT FOR: cc: ERICA - No family physician/PCP ERICA - No family physician/PCP Jayant Andersen MD ~ REASON FOR CONSULTATION: Elevated creatinine. REASON FOR PRESENTATION: ____ facility because of abnormal labs and low hemoglobin. HISTORY OF PRESENT ILLNESS: This is a very well-known patient to me. She is a 70-year-old with long-standing diabetes mellitus, hypertension, chronic kidney disease with a baseline creatinine of around 2.0. She had some issues with a diabetic foot infection in the previous admissions. She is known to reside in a nursing facility and was sent from her nursing facility because of low hemoglobin, elevated creatinine. The patient's creatinine on arrival was 3.5 and it has gone to 2.7. Baseline creatinine is as stated above is anywhere from 2 to 2.4. She has chronic kidney disease related to longstanding diabetes mellitus and lots of complications. The patient is very lethargic and not able to provide me with further details. PAST MEDICAL HISTORY: 1. Diabetes mellitus. 2. Hypertension. 3. Chronic kidney disease. 4. Status post right hip replacement. 5. Total abdominal hysterectomy. 6. Cholecystectomy. 7. Appendectomy. 8. . 9. Anemia. MEDICATIONS: From the nursing facility includes the following; 1. Insulin. 2. Cholestyramine. 3. Lasix. 4. Gabapentin. 5. Atorvastatin. 6. Meclizine. ALLERGIES: LISTED MORPHINE AND IODINE. REVIEW OF SYSTEMS: The patient is having an acute mental status changes and not able to provide me with any details about her review of systems. [facility] [address] [address] CONSULTATION Name: SONIA FUENTES Room #: 244-P ADM IN .Eduin.#: [id number] Admission: 06/21/20 Attend Phys: Moi Baptiste MD Discharge: Date of : 52 Report #: [id number] SOCIAL HISTORY: Apparently, she resides in a nursing facility. No further details available given the patient's current mental status. FAMILY HISTORY: No details available given the patient's current mental status. PHYSICAL EXAMINATION: GENERAL: She is disoriented. VITAL SIGNS: Blood pressure is 153/59, temperature is 37.2. HEAD AND NECK: No jugular venous distention. CHEST: Decreased air entry bilaterally. CARDIOVASCULAR: No rub detected. ABDOMEN: Soft. EXTREMITIES: Lower extremities, +1 edema. LABORATORY DATA: Hemoglobin is 9.1, platelet is 61. Chemistry from today revealed sodium 137, potassium 4.5, chloride 106, carbon dioxide 18, BUN 44, creatinine 2.7. Chest x-ray with no acute process. ASSESSMENT/IMPRESSION/PLAN: 1. Acute kidney injury. The patient's creatinine is back to her baseline. 2. Chronic kidney disease with a baseline creatinine of around 2-2.5. 3. Altered mental status. 4. Anemia. 5. Diabetes mellitus. 6. Hypertension. 7. Continue with the IV fluid for now. Continue to hold diuretics. The patient's creatinine seems to be trending back to her baseline. This patient has a liability to have recurrent acute kidney injury due to diuresis, her limited ability to have good oral fluid intake given her dementia and so many comorbid conditions. I expect her to fully recover back to her baseline. 8. Management of hypertension and diabetes mellitus as per the primary team. <ELECTRONICALLY SIGNED> By: Jayant Andersen MD 07/04/20 0821 0750 1223 Jayant Andersen MD /nt
--- NOTE | 2020-07-04 09:40 | NUR ---
Pt has eating poorly for at least 2 months. Severe protein calorie malnutrition. Now NPO, BIPAP needs. Since unable to feed enterally, suggest start of TPN with pharmacy to manage. Recommend start at 30ml/hr and progress slowly to goal of 65ml/hr 15%dex, 5%AA, 2.9% lipids.
[2020-07-04 10:39] LABS: MAGNESIUM 1.7 mg/dL (1.8-2.4)
[2020-07-04 12:51] LABS: BE(vivo) -3.5 mmol/L (-2 to +3); HCO3 20.7 mmol/L (22.0-26.0); PCO2 33.5 mmHg (35.0-45.0); PO2 119.2 mmHg (80.0-100.0); pH 7.408 (7.360-7.450); sO2 98.4 % (92.0-98.0)
--- NOTE | 2020-07-04 17:50 | NUR ---
chart review. unable to visit, cont to require the use of bipap. covid +. will cont following as needed for dc needs. she from [facility].
--- NOTE | 2020-07-04 23:13 | NUR ---
>>>1900 BEDSIDE SHIFT REPORT RECEIVED, CARE ASSUMED, PT IS AWAKE. TEARFUL AND CRYING. DENIES PAIN, GIVES NO REASON TO CRYING. NO SOA NOTED. >>>ASSESSMENTS DONE DOCUMENTED. PT CONTINUES ON 4L MNC. 02 AT 100%. DENIES PAIN, REMAINS TEARFUL. >>>REPORT GIVEN TO RECEIVING NURSE ON 3W. PT TRANSFERED TO ROOM 351. FAMILY NOTIFIED, ALL QUESTRIONS ANSWRED, WILL CONTINUE TO MONITOR.
[2020-07-04 23:44] LABS: MAGNESIUM 1.9 mg/dL (1.8-2.4); POTASSIUM 4.2 mmol/L (3.5-5.1)
[2020-07-05 02:22] VITALS: BP 180/88
--- NOTE | 2020-07-05 02:59 | NUR ---
PT AOX1, TO PERSON. PT GRIMACING, CRYING, AND FUSSY, FLACC OF 2. PT ABLE TO RESPOND TO PROMPTS THEN HAS MUMBLING, INCOMPREHENSIBLE WORDS. PT DENIES PAIN AND SOB WITH 3-4L O2 VIA NC. PT NOTED TO REMOVE O2 INTERMITTENTLY, DIFFICULT TO REDIRECT. PT NONAMBULATING, RESTING IN BED THROUGHOUT SHIFT. FREQUENT REPOSITIONING ENCOURAGED, PT ACCEPTING OF REPOSITIONING ASSISTANCE. PT NOTED TO HAVE DRY MOUTH, PO FLUID INTAKE ENCOURAGED. PT MAINTAINS CARB CONTROLLED DIET WITH PUREED CONTENTS AND HONEY THICK LIQUIDS. PT WITHOUT BM THIS SHIFT, ORTIZ MAINTAINED. PT ENCOURAGED TO NOTIFY STAFF FOR ALL NEEDS, CALL LIGHT WITHIN REACH, BED ALARM ON, ROOM NEAR NURSES STATION, FREQUENT MONITORING WILL CONTINUE.
[2020-07-05 04:53] LABS: ALBUMIN 2.3 g/dL (3.4-5.0); DIRECT BILIRUBIN 0.2 mg/dL (<0.1-0.2); TOTAL BILIRUBIN 0.5 mg/dL (0.2-1.0); TOTAL PROTEIN 5.2 g/dL (6.4-8.2)
[2020-07-05 05:10] LABS: ALBUMIN 2.1 g/dL (3.4-5.0); CALCIUM 7.6 mg/dL (8.5-10.1); CREATININE 1.6 mg/dL (0.6-1.0); PHOSPHORUS 1.8 mg/dL (2.5-4.9); POTASSIUM 3.8 mmol/L (3.5-5.1)
[2020-07-05 06:38] VITALS: BP 169/78
[2020-07-05 07:13] VITALS: BP 164/71
[2020-07-05 11:06] VITALS: BP 179/86
--- NOTE | 2020-07-05 13:32 | NUR ---
RAHEEM reviewed chart and spoke with nursing and attending physician. Pt was transferred to from ICU. Pt remains in Enhanced Isolation due to COVID-19. Pt is afebrile and not requiring O2. Pt is on IV abx and IV steroids. Pt is completing course of Remdesivir. PT/OT ordered today to evaluate pt. Discharge is anticipated in 1-2 days. RAHEEM faxed clinical updates to [facility] for review. Spoke with Daylin in admissions, who confirmed they are able to accept pt back when ready for discharge. RAHEEM notified pt's dtr-in-law, Anny or anticipated discharge, who is agreeable with discharge plan. RAHEEM is following to assist as needed with discharge planning.
[2020-07-05 14:08] LABS: HEMATOCRIT 23.7 % (37.0-47.0); HEMOGLOBIN 7.8 gm/dL (12.0-15.0); MCHC 32.9 g/dL (28.0-37.0); MCV 94.4 fL (80.0-100.0); RBC 2.51 mil/uL (4.20-5.00); RDW 19.8 % (10.5-14.5); WBC 3.3 thou/uL (4.0-11.0)
[2020-07-05 15:09] VITALS: BP 177/58
--- NOTE | 2020-07-05 19:14 | NUR ---
PATIENT TO HAVE KEPT SCREAMING AND YELLING THROUGH THE DAY. REDIRECTED TO NO AVAIL. SHE STATES SHE CANNOT STOP YELLING. SHE DENIES PAIN.RESPIRATINS ARE NON LABORED. SHE KEEPS TAKING OFF NC. OXYGEN HAS REMAINED ABOVE 90% HOWEVER. HAD A LARGE BM AND KEPT CLEAN AND DRY.
[2020-07-05 19:45] VITALS: BP 171/81
--- NOTE | 2020-07-05 20:36 | NUR ---
PT YELLING LOUDLY, CURSING AT STAFF, RESISTING VS AND ASSESSMENT, TAKING OFF OXYGEN NC. PT NOT ABLE TO BE VERBALLY REDIRECTED, PRN IM PROVIDED.
--- NOTE | 2020-07-06 01:40 | NUR ---
PT RESTLESS CONFUSED AND AGITATED, YELLING LOUDLY AND YELLING LEAVE ME ALONE. GENERALIZED EDEMA, PALE SKIN TONE, OBESE, HR IRREG, BUE +4, BLE +3. O2 PER NC, LUNGS DIMINISHED. ORTIZ TO DD. MEDS PLACED IN FLUIDS FOR COMPLIANCE. IVF INTACT. BED ALARM ON.
[2020-07-06 03:15] VITALS: BP 164/73
[2020-07-06 07:09] LABS: HEMOGLOBIN 6.8 gm/dL (12.0-15.0); WBC 2.8 thou/uL (4.0-11.0)
[2020-07-06 07:10] LABS: HEMATOCRIT 20.7 % (37.0-47.0); MCH 30.3 pg (26.0-34.0); MCHC 32.7 g/dL (28.0-37.0); MCV 92.6 fL (80.0-100.0); PLATELET COUNT 107 thou/uL (150-400); RBC 2.23 mil/uL (4.20-5.00); RDW 18.5 % (10.5-14.5)
[2020-07-06 07:26] LABS: ALBUMIN 2.1 g/dL (3.4-5.0); CALCIUM 7.8 mg/dL (8.5-10.1); CREATININE 1.7 mg/dL (0.6-1.0); DIRECT BILIRUBIN 0.1 mg/dL (<0.1-0.2); POTASSIUM 3.2 mmol/L (3.5-5.1); TOTAL BILIRUBIN 0.4 mg/dL (0.2-1.0); TOTAL PROTEIN 5.2 g/dL (6.4-8.2)
[2020-07-06 07:52] LABS: ABSOLUTE NEUTROPHILS 1.8 thou/uL (1.4-8.2)
[2020-07-06 07:53] LABS: ANISOCYTOSIS 1+; HYPOCHROMASIA 1+
[2020-07-06 08:00] VITALS: BP 141/68
--- NOTE | 2020-07-06 11:38 | NUR ---
Nutrition Recommendation: If not against pt/DPOA wishes, would recommend NGT placement (with bridle) and initiation of tube feeds to supplement oral diet and to prevent further advancement of malnutrition status. If in agreement, would start Glucerna 1.2 @20mL/hr with 30mL water flushes q4hr. Advance 10mL as tolerated q4hr until goal rate of @50mL/hr. Tube feeds at goal to provide 1440kcal, 72g protein, and 1044mL free water x 24hr.
[2020-07-06 12:25] VITALS: BP 142/68
[2020-07-06 13:15] VITALS: BP 135/68; BP 148/67
--- NOTE | 2020-07-06 14:02 | NUR ---
RAHEEM reviewed chart and spoke with nursing and attending physician. Pt remains in Enhanced Isolation due to COVID-19. Pt is afebrile and on 2L of O2. Pt is on IV abx and IV steroids. Pt to complete course of Remdesivir today. Order for blood transfusion. [facility]2 days. RAHEEM updated Daylin at the facility, who confirms they are able to accept pt back when discharged. Pt will returned using her skilled benefit. RAHEEM updated pt's dtr-in-law, Anny. RAHEEM is following to assist as needed with discharge planning.
[2020-07-06 15:30] VITALS: BP 147/74
--- NOTE | 2020-07-06 19:26 | NUR ---
ASSUMED PATIENT CARE AT 0700. WAKE UP AT NOON. ALERT TO SELF. CONFUSED. GOOD APPETITE. RECEIVED ONE UNIT RBC NO REACTION NOTED. GENERLIZED EDEMA. VSS. SLOWLY TOWARDS POC GOALS.
[2020-07-06 21:42] VITALS: BP 161/88
--- NOTE | 2020-07-07 04:00 | NUR ---
ASSUMED CARE FROM DAY SHIFT PT ALERT TO SELF ONLY, YELLING THAT SHE WANTS TO GO HOME, PT ABLE TO TAKE PO MEDICATION, TOLERATED WELL. AM BLOOD GLUCOSE 59 PT DRINK ORANGE JUICE RECHECK BLOOD GLUCOSE 79 . PT ALERT, TURNED TO SIDE NOTED BLOOD CLOT IN RECTUM AREA. PT RESTED WELL THROUHGOUT HOURLY ROUNDS.
[2020-07-07 05:00] VITALS: BP 121/46
[2020-07-07 06:52] LABS: HEMATOCRIT 28.9 % (37.0-47.0); MCH 30.3 pg (26.0-34.0); MCHC 33.4 g/dL (28.0-37.0); MCV 90.8 fL (80.0-100.0); RBC 3.18 mil/uL (4.20-5.00); RDW 17.4 % (10.5-14.5); WBC 6.7 thou/uL (4.0-11.0)
[2020-07-07 06:53] LABS: HEMOGLOBIN 9.7 gm/dL (12.0-15.0)
[2020-07-07 07:16] VITALS: BP 114/57
[2020-07-07 11:21] VITALS: BP 137/54
[2020-07-07] MEDS ORDERED: OLANZAPINE ODT5 MG PO (11:21)
[2020-07-07] MEDS ORDERED: ZINC SULFATE 2220 MG PO (11:21)
[2020-07-07] MEDS ORDERED: OLANZAPINE2.5 MG PO (11:21)
[2020-07-07] MEDS ORDERED: LANTUS SUBQ (11:28)
[2020-07-07] MEDS ORDERED: AUGMENTIN 500-1 EACH PO (11:28)
[2020-07-07] MEDS ORDERED: HUMALOG100 UNIT/1 SUBQ (11:28)
[2020-07-07 13:05] LABS: CALCIUM 8.1 mg/dL (8.5-10.1); CREATININE 1.8 mg/dL (0.6-1.0); POTASSIUM 3.2 mmol/L (3.5-5.1)
--- NOTE | 2020-07-07 14:00 | NUR ---
RAHEEM reviewed chart and spoke with nursing and attending physician. Pt remains in Enhanced Isolation due to COVID-19. Pt is afebrile and on 2L of O2. Discharge order entered this morning. RAHEEM notified that flex-sig is planned for tomorrow per GI. RAHEEM contacted Daylin at [facility], who states that they are able to accept pt back over the weekend if she is ready for discharge. Finalized discharge orders/summary will need to be faxed when available. Nursing to call report prior to pt's discharge. Chart will need to be copied. Staff to contact [facility] to notify of [facility]. Stretcher van transportation will need to arranged by staff through [facility]. RAHEEM is following to assist as needed. [facility]-- Daylin (Admissions) [phone]
[2020-07-07 15:23] VITALS: BP 147/69
[2020-07-07 16:03] LABS: HEMOGLOBIN 8.6 gm/dL (12.0-15.0)
--- NOTE | 2020-07-07 18:15 | NUR ---
PATIENT GETTING MORE ALERT AND TOLEATED ON RA. GOOD APPETITE. HAD ONE TIME BLOOD TINGED STOOL. GI MWILL DO FLEX SIG TOMORROW. VSS. PROGRESSING TOWARDS POC GOALS.
[2020-07-07 20:09] VITALS: BP 142/67
--- NOTE | 2020-07-08 02:59 | NUR ---
PROGRESS PT ALERT TO SELF UPSET AND CRYING AT START OF SHIFT STATING SHE NEEDS A KIDNEY TRANSPLANT AND WANTED TO SPEAK TO HER SON AND DAUGHTER TO ASK IF THEY WOULD GIVE HER A KIDNEY. PHONE CALL TO SON AND PT SETTLED DOWN AFTER TALKING TO HIM. TELE INTACT READING SR WITH RATE IN 70 TO 80'S. LUNGS DIMINISHED BUT GOOD AIR MOVEMENT NOTED, BS POSITIVE ORTIZ CATH IN PLACE PROFO BOOTS ON AND PT REPOSITIONED Q2HRS ORDERED. ACCUCHECK AT 2100 247 AND 14 UNITS SSI GIVEN PER PROTOCOL. HAD ANOTHER STOOL WITH FRESH BRIGHT RED BLOOD CLOTS NOTED. TO BE NPO AT MINDNIGHT FOR A FLEXIBLE SIGMOID COLONOSCOPY SCHEDULED FOR TOMORROW. DRESSINGS INTACT CONTINUE POC.
[2020-07-08 04:37] LABS: HEMATOCRIT 26.6 % (37.0-47.0); HEMOGLOBIN 8.9 gm/dL (12.0-15.0)
[2020-07-08 04:52] VITALS: BP 179/76
[2020-07-08 16:37] VITALS: BP 190/89
--- NOTE | 2020-07-08 17:52 | NUR ---
ASSUMED CARE OF PATIENT AT SHIFT CHNAGE. ASSESSMENT CHARTED. AM MEDS HELD PER NPO STATUS. BP ELEVATED; BP MEDICATION ADMINISTERED. PROCEDURE TODAY REVEALED ULCERS IN GI TRACT, SEE REPORT. US OF ARMS REVEALED CLOT IN CEPHALIC VEIN; NO FURTHER ORDERS. ORTIZ IN PLACE. INTACT AND VOIDING WELL. REGULAR DIET RESUMED AND TOLERATING WELL. ABX INFUSING ON R IJ W NO ISSUES. PATIENT DENIES PAIN. NO BM THIS SHIFT. FALL PRECAUTIONS IN PLACE AND FREQUENT CHECKS IMPLEMENTED. WILL CONTINUE TO MONITOR
[2020-07-08 20:00] VITALS: BP 166/80
[2020-07-09] VITALS (8 sets, daily range): BP systolic 103–141; BP diastolic 48–95
--- NOTE | 2020-07-09 08:22 | NUR ---
progress pt a/o x2 to 3 had 3 large red bloody jelly like stools blood is phill red with large jelly like clots pt denies pain. turned q2hrs medications given as ordered swallowed without difficulty. pt slept most of shift continue poc.
[2020-07-09 10:15] LABS: PLATELET COUNT 67 thou/uL (150-400)
[2020-07-09 10:16] LABS: MCH 31.2 pg (26.0-34.0); MCHC 34.1 g/dL (28.0-37.0); MCV 91.5 fL (80.0-100.0); RBC 2.05 mil/uL (4.20-5.00); RDW 17.2 % (10.5-14.5); WBC 4.9 thou/uL (4.0-11.0)
[2020-07-09 10:32] LABS: ALBUMIN 1.8 g/dL (3.4-5.0); CALCIUM 7.4 mg/dL (8.5-10.1); CREATININE 1.9 mg/dL (0.6-1.0); MAGNESIUM 1.1 mg/dL (1.8-2.4); POTASSIUM 3.7 mmol/L (3.5-5.1); TOTAL BILIRUBIN 0.6 mg/dL (0.2-1.0); TOTAL PROTEIN 4.3 g/dL (6.4-8.2)
[2020-07-09 10:34] LABS: HEMATOCRIT 18.8 % (37.0-47.0); HEMOGLOBIN 6.4 gm/dL (12.0-15.0)
[2020-07-09 12:08] LABS: ABSOLUTE NEUTROPHILS 3.1 thou/uL (1.4-8.2); ANISOCYTOSIS 1+; METAMYELOCYTES 3 %; MYELOCYTES 2 %; NUCLEATED RBCS 1 /100WBC
[2020-07-09 20:13] LABS: HEMATOCRIT 23.6 % (37.0-47.0); HEMOGLOBIN 7.9 gm/dL (12.0-15.0)
--- NOTE | 2020-07-09 21:02 | NUR ---
PT ORIENTED TO SELF, LETHARGIC, VSS. 1 UNIT BLOOD GIVEN. LOVENOX PLACED ON HOLD PER DOCTOR UNTIL LOOSE STOOLS SUBSIDE. MEDS GIVEN PER OCT. CENTRAL LINE PATENT. PATIENT HAS COUGH, DOCTOR AND METAL MOVER MADE AWARE. ORTIZ PATENT. WOUND CARES COMPLETED. TURNS COMPLETED. NO SIGNS OF DISTRESS. WILL CONTINUE TO MONITOR.
[2020-07-10] VITALS (9 sets, daily range): BP systolic 148–199; BP diastolic 62–116
[2020-07-10 05:39] LABS: HEMOGLOBIN 6.8 gm/dL (12.0-15.0); RDW 16.3 % (10.5-14.5); WBC 4.1 thou/uL (4.0-11.0)
[2020-07-10 05:41] LABS: MCH 30.7 pg (26.0-34.0); MCHC 34.2 g/dL (28.0-37.0); MCV 89.8 fL (80.0-100.0); PLATELET COUNT 53 thou/uL (150-400)
[2020-07-10 05:48] LABS: HEMATOCRIT 19.8 % (37.0-47.0)
[2020-07-10 05:49] LABS: INR 1.1; PROTIME 11.1 Seconds (9.3-11.4)
[2020-07-10 05:54] LABS: CALCIUM 8.1 mg/dL (8.5-10.1); CREATININE 2.1 mg/dL (0.6-1.0); MAGNESIUM 1.3 mg/dL (1.8-2.4); PHOSPHORUS 4.1 mg/dL (2.5-4.9); POTASSIUM 3.5 mmol/L (3.5-5.1)
--- NOTE | 2020-07-10 06:00 | NUR ---
Assumed pt care at 1900. A/OX2,confused but able to make needs known. VSS. Denied pain on assessment. NSR on telemetry. Pt still has an intermittent loose cough. Loose bloody stools X3 this shift. Transfused 1 unit yesterday,hgb 6.8 this morning orders given to transfuse 1 Unit PRBC today by HAZEL Doyle. Ken patent to DD with dark yellow urine,incontinent of bowels with excoriation noted on buttoccks,moisture barrier applied as need. Took all meds whole in pudding w/o problems. RIJ double in place and patent. Reports sleeping well last night. Fall precautions in place.
[2020-07-10 10:23] LABS: ABSOLUTE NEUTROPHILS 2.1 thou/uL (1.4-8.2); METAMYELOCYTES 1 %; MYELOCYTES 1 %
[2020-07-10 10:24] LABS: ANISOCYTOSIS 1+
--- NOTE | 2020-07-10 14:52 | NUR ---
CARE TEAM INDICATED THAT DR. WEST IS TO PROVIDE SURGICAL INTERVENTION THIS DAY. PT HAD MORE BLOOD GIVEN TODAY. CM TO FOLLOW INDICATED WITH DC PLANNING.
[2020-07-10 18:15] LABS: HEMATOCRIT 27.3 % (37.0-47.0); HEMOGLOBIN 9.3 gm/dL (12.0-15.0)
--- NOTE | 2020-07-10 20:31 | NUR ---
Assumed pt care this am.had 3 bloody loose stools. 1 unit of RBC with no adverse effects noted. Was NPO since pt was taken down for surgery to repair ulcer in the rectum. Generalized edema was noted, refused most meals stating "this does not taste good" blood sugar checks done, medications given as per emar. POC followed, pt would refuse at time Q2 turned. FC in place draini yellow urine. Endorsed to the night nurse.
[2020-07-11 06:10] LABS: HEMATOCRIT 26.1 % (37.0-47.0); HEMOGLOBIN 8.8 gm/dL (12.0-15.0)
--- NOTE | 2020-07-11 07:16 | NUR ---
BPCI LETTER ISSUED TO PATIENT AND OR ADMISSION PACKET
[2020-07-11 07:41] VITALS: BP 154/61
[2020-07-11 08:50] VITALS: BP 154/61
[2020-07-11] MEDS ORDERED: NORVASC5 MG PO (10:54)
[2020-07-11] MEDS ORDERED: LANTUS SUBQ (10:54)
[2020-07-11] MEDS ORDERED: AUGMENTIN 500-1 EACH PO (10:54)
[2020-07-11] MEDS ORDERED: OLANZAPINE2.5 MG PO (10:54)
[2020-07-11] MEDS ORDERED: HUMALOG100 UNIT/1 SUBQ (10:54)
--- NOTE | 2020-07-11 11:34 | NUR ---
CARE TEAM INDICATED THAT PT IS MEDICALLY STABLE TO DISCHARGE TO [facility] THIS DAY. CHART COPY ORDERD. ORDERD FAXED. CM SPOKE WITH PT'S SON AT BEDSIDE HE IS AWARE AND AGREEALBE WITH DC BACK TO FACILITY THIS DAY. [facility] TRANSPORT ARRANGED FOR 1200. NURSE GIVEN NUMBER FOR REPORT. PT'S DTR IN LAW NOTIFED OF TIME OF TRANSPORT. SHE IS ALSO AWARE AND AGREEABLE. NO OTHER CM INTERVENTION INDICATED. CASE CLOSED.
--- NOTE | 2020-07-11 11:53 | NUR ---
PT DISCHARGING TODAY BACK TO [facility] FAXED DC ORDER/SUMMARY TO FACILITY SPOKE WITH JEREMY IN ADM SHE RECEIVED ORDERS AND ARRANGED TRANSPORT BY STRETCHER VAN FOR 2:30-3:00 TODAY. NOTIFIED PT'S DTR IN LAW (JEREMIAH) OF DC AND TIME OF TRANSPORT. UNIT NOTIFIED AND CHART COPY PER US. RN TO CALL REPORT [phone].
--- NOTE | 2020-07-11 12:33 | NUR ---
Received awake on bed. Due medications given as prescribed, able to swallow meds w/o difficulty. On room air. Vital signs stable. On telemetry; no complains and signs of chest pain, crushing sensation and heaviness. Assisted in ADLs. On carb controlled diet- assisted and encouraged in eating and drinking; no nausea,no abdominal pain, and no vomiting noted. With arana in place- draining well; output measured and recorded accordingly. With sacral wound- dressing changed, photo taken. With 2 lumen PICC line on R chest- C/D/I- removed as per protocol; no bleeding noted. Turned on her sides regularly. No complains of pain made and no bleeding noted during assessment. Pt visited by her son this AM, update given. Seen and examined by Dr Bhatt this AM, discharge orders made- CM informed. Discharge forms co signed with CM, pt unable to sign her documents and son already left this AM. Arana removed as per protocol. Transport set up at 1230 by [facility].
[2020-07-11] MEDS ORDERED: HYDROCORT-PRAMO30 G1 RECTAL (14:48)
--- NOTE | 2020-07-14 15:07 | PATH ---
[facility] [address] [place] [address] PATHOLOGY RPT PROCEDURE Name: SONIA FUENTES Room #: 452-P DIS IN M.R.#: [id number] Admission: 06/21/20 Date of : 52 Discharge: 07/11/20 Report #: [id number] Path Case #: [id number] L[facility] Accession Number: [id number] . 01 Material submitted: . rectum - BIOPSY OF PROCTITIS . 01 Clinician provided ICD-10: A41.9 U07.1 . 01 Clinical history: . CHRIS SIMMONS, SUSPECTED COVID . 02 Diagnosis: "BX of proctitis": - Active colitis, mild, with mild architectural distortion and hyperplastic changes. - Negative for granulomas. - See comment. LBQ 07/14/2020 1248 Local . 02 Comment: Mild active colitis is present with mild architectural distortion and hyperplastic changes. These findings can be seen in the setting of inflammatory bowel disease, however, the overall features in this biopsy specimen are non-specific. Clinical correlation is recommended. (MAP/db; 07/14/20) . 02 Electronically signed: . Kapil Vigil MD, Pathologist NPI- [id number] . 01 Gross description: . The specimen is received in formalin, labeled "Sonia Fuentes, BX of proctitis" and consists of 3 fragments of pink-rodriguez tissue measuring between 0.2 x 0.2 cm and 0.4 x 0.2 cm which are entirely submitted in A1. (SDY; 07/12/2020) SYU/SYU 07/12/2020 1021 Local . 02 Pathologist provided ICD-10: K52.9 . 02 CPT . 992276 Specimen Comment: A courtesy copy of this report has been sent to [phone] Specimen Comment: Report sent to [address] [address] PATHOLOGY RPT PROCEDURE Name: SONIA FUENTES Room #: 452-P DIS IN M.R.#: [id number] Admission: 06/21/20 Date of : 52 Discharge: 07/11/20 Report #: [id number] Path Case #: [id number] Performed at: 01 [facility] [place] [address], [place], [place] [id number] MD Giovany Saba MD Phone: [phone] Performed at: [address] [id number] MD Gabbi Alvarez MD Phone: [phone]
== END 2020-07-11 16:19 | DRG 853 ==
LOC: ER 20:28 → 3W 21:38 → EROBS 21:38 → 3W 06-22 19:49 → ICU 07-02 23:15 → 3W 07-04 22:03 → 4W 07-08 06:10
PROVIDERS: Hospitalist; Internal Medicine; Internal Medicine Pulmonary Disease; Nurse Practitioner Family; Pediatrics; Specialist; Student in an Organized Health Care Education/Training Program; ADMIT Internal Medicine; ATTEND Internal Medicine
PROC: 30233N1 Transfusion of Nonautologous Red Blood Cells into Peripheral Vein, Percutaneous Approach (ICD-10-PCS; 2020-06-29)
PROC: 02HV33Z Insertion of Infusion Device into Superior Vena Cava, Percutaneous Approach (ICD-10-PCS; 2020-07-02)
PROC: 5A09357 Assistance with Respiratory Ventilation, Less than 24 Consecutive Hours, Continuous Positive Airway Pressure (ICD-10-PCS; 2020-07-02)
PROC: XW033E5 Introduction of Remdesivir Anti-infective into Peripheral Vein, Percutaneous Approach, New Technology Group 5 (ICD-10-PCS; 2020-07-02)
PROC: 5A09357 Assistance with Respiratory Ventilation, Less than 24 Consecutive Hours, Continuous Positive Airway Pressure (ICD-10-PCS; 2020-07-03)
PROC: 5A09357 Assistance with Respiratory Ventilation, Less than 24 Consecutive Hours, Continuous Positive Airway Pressure (ICD-10-PCS; 2020-07-04)
PROC: 0DBP8ZX Excision of Rectum, Via Natural or Artificial Opening Endoscopic, Diagnostic (ICD-10-PCS; 2020-07-08)
PROC: 0DQP0ZZ Repair Rectum, Open Approach (ICD-10-PCS; principal; 2020-07-10)
DX: A41.89 Other specified sepsis (principal); U07.1 COVID-19; J96.01 Acute respiratory failure with hypoxia; J96.02 Acute respiratory failure with hypercapnia; G92 Toxic encephalopathy; E43 Unspecified severe protein-calorie malnutrition; J12.89 Other viral pneumonia; K62.6 Ulcer of anus and rectum; N17.9 Acute kidney failure, unspecified; L97.929 Non-pressure chronic ulcer of unspecified part of left lower leg with unspecified severity; L97.919 Non-pressure chronic ulcer of unspecified part of right lower leg with unspecified severity; Z68.41 Body mass index [BMI] 40.0-44.9, adult; D61.818 Other pancytopenia; K92.1 Melena; N18.4 Chronic kidney disease, stage 4 (severe); E87.0 Hyperosmolality and hypernatremia; F41.9 Anxiety disorder, unspecified; F32.9 Major depressive disorder, single episode, unspecified; K58.9 Irritable bowel syndrome, unspecified; I12.9 Hypertensive chronic kidney disease with stage 1 through stage 4 chronic kidney disease, or unspecified chronic kidney disease; E11.22 Type 2 diabetes mellitus with diabetic chronic kidney disease; E11.51 Type 2 diabetes mellitus with diabetic peripheral angiopathy without gangrene; S30.811A Abrasion of abdominal wall, initial encounter; X58.XXXA Exposure to other specified factors, initial encounter; E11.42 Type 2 diabetes mellitus with diabetic polyneuropathy; D63.1 Anemia in chronic kidney disease; R53.81 Other malaise; E66.01 Morbid (severe) obesity due to excess calories; B95.2 Enterococcus as the cause of diseases classified elsewhere; K62.89 Other specified diseases of anus and rectum; N30.90 Cystitis, unspecified without hematuria; G47.33 Obstructive sleep apnea (adult) (pediatric); R41.0 Disorientation, unspecified; Z96.641 Presence of right artificial hip joint; Z90.49 Acquired absence of other specified parts of digestive tract; Z98.891 History of uterine scar from previous surgery; Z79.4 Long term (current) use of insulin; Z79.899 Other long term (current) drug therapy; Z88.5 Allergy status to narcotic agent; Z88.8 Allergy status to other drugs, medicaments and biological substances; Z91.041 Radiographic dye allergy status; Y93.89 Activity, other specified; Y92.89 Other specified places as the place of occurrence of the external cause; Y99.8 Other external cause status
CPT/HCPCS: 10045; 10078; 10879; 50101; 50386; 51751; 56526; 62110; 62900

== ENCOUNTER 2020-08-10 19:47 | Emergency (ER) | payer OTHER ==
[~2020-08-10] VITALS: Ht 157.5 cm; Wt 102.5 kg
--- NOTE | ~2020-08-10 | EMS ---
[address] [address] EMS Patient Care Report Name: SONIA FUENTES Room #: REG BRANDIN Laws#: [id number] Admission: 08/10/20 Attend Phys: Discharge: Date of : 52 Report #: [id number] THIS REPORT FOR: //name// Report Transmitted: 08/10/2020 21:20 EMS Care Summary [facility] MED-ACT Incident [id number] @ 08/10/2020 19:11 Incident Location [address] [place] [address] Patient SONIA FUENTES Female, 70 Years 1950 Patient Address [address] [place] [address] Patient History Hypertension (HTN),Kidney/Renal Failure,Type 2 Diabetes, Patient Allergies Morphine,Dye allergy,Demerol, Patient Medications Gabapentin, Levemir, Metformin, Levothyroxine, Lasix, Lipitor, Famotidine, Loratadine, Insulin, Metoprolol, Chief Complaint none by pt Disposition Transported No Lights/Ringoes Dispatch Reason Sick Person Transported To [facility] Narrative Arrived to find pt sitting in a wheelchair alert and oriented. Staff stated pt [address] [address] EMS Patient Care Report Name: SONIA FUENTES Room #: REG BRANDIN Laws#: [id number] Admission: 08/10/20 Attend Phys: Discharge: Date of : 52 Report #: [id number] had routine labs drawn today and found pt's hemoglobin to be 6.6. Pt denied any complaint and stated she felt fine. En route to ER pt rested on the cot in the position of comfort without change. Initial Vitals @19:37P: 92,SpO2: 96, @19:27P: 92,R: 18,BP: 188/83,Pain: 0/10,GCS: 15,Temp: 97.6F,SpO2: 98,Revised Trauma: 12, @19:41P: 76,R: 18,BP: 143/106,Pain: 0/10,GCS: 15,SpO2: 97,Revised Trauma: 12, Assessments @19:37MENTAL:Person Oriented,Time Oriented,Place Oriented,Event Oriented,SKIN:HEENT:Head/Face: No Abnormalities,Neck/Airway: No Abnormalities,LUNG SOUNDS:General: No Abnormalities,Left Upper: No Abnormalities,Right Upper: No Abnormalities,Left Lower: No Abnormalities,Right Lower: No Abnormalities,ABDOMEN:General: No Abnormalities,Left Upper: No Abnormalities,Right Upper: No Abnormalities,Left Lower: No Abnormalities,Right Lower: No Abnormalities,PELVIS//GI:No Abnormalities,EXTREMITIES:Left Arm: No Abnormalities,Right Arm: No Abnormalities,Left Leg: No Abnormalities,Right Leg: No Abnormalities,PULSE:NEURO:No Abnormalities, Impression Anemia Timeline 19:10,Call Received 19:10,Psap Call 19:11,Dispatched 19:12,En Route 19:19,On Scene 19:20,At Patient 19:25,Depart Scene 19:27,BP: 188/83 M,PULSE: 92,RR: 18 R,SPO2: 98 Ox,ETCO2: ,BG: ,PAIN: 0,GCS: 15, 19:37,BP: / M,PULSE: 92,RR: R,SPO2: 96 Ox,ETCO2: ,BG: ,PAIN: ,GCS: , 19:41,BP: 143/106 M,PULSE: 76,RR: 18 R,SPO2: 97 Ox,ETCO2: ,BG: ,PAIN: 0,GCS: 15, 19:43,At Destination 19:57,Call Closed Disclaimer v1.1 Copyright 2020 [employer] This EMS Care Summary contains data elements from the applicable legal record (which may be displayed differently). It is designed to provide pertinent information for the following purposes: continuity of care, clinical quality, and state data reporting. The complete legal record [place] [address] EMS Patient Care Report Name: ALFREDOSONIA Room #: REG BRANDIN Laws#: [id number] Admission: 08/10/20 Attend Phys: Discharge: Date of : 52 Report #: [id number] and administrators of the receiving hospital in [employer] Patient Tracker. All data is provided "as is."
[~2020-08-10 19:47] MED LIST changes: +AUGMENTIN 500-1 EACH PO; +HUMALOG100 UNIT/1 SUBQ; +HYDROCORT-PRAMO30 G1 RECTAL; +INSULIN AS100 UNIT/3 SUBQ; +LANTUS SUBQ; +NEURONTIN100 MG PO; +NORVASC5 MG PO; +OLANZAPINE ODT5 MG PO; +OLANZAPINE2.5 MG PO; +ZINC SULFATE 2220 MG PO
[2020-08-10] MEDS ORDERED: NORCO 10-325 T1 EACH PO (20:01)
[2020-08-10] MEDS ORDERED: DILAUDID2 MG PO (20:01)
[2020-08-10] MEDS ORDERED: KLOR-CON 10 ER10 MEQ PO (20:03)
[2020-08-10] MEDS ORDERED: REGLAN 5 MG TAB5 MG PO (20:14)
[2020-08-10] MEDS ORDERED: CATAPRES0.1 MG PO (20:17)
[2020-08-10 20:32] LABS: HEMATOCRIT 20.9 % (37.0-47.0); HEMOGLOBIN 7.1 gm/dL (12.0-15.0); MCH 31.8 pg (26.0-34.0); MCV 93.5 fL (80.0-100.0); RBC 2.24 mil/uL (4.20-5.00); RDW 20.4 % (10.5-14.5); WBC 8.5 thou/uL (4.0-11.0)
[2020-08-10 20:37] LABS: CALCIUM 9.1 mg/dL (8.5-10.1); CREATININE 2.1 mg/dL (0.6-1.0); POTASSIUM 4.1 mmol/L (3.5-5.1)
[2020-08-10] MEDS ORDERED: HUMALOG100 UNIT/1 SUBQ ×2 (20:38→20:39)
[2020-08-10] MEDS ORDERED: LANTUS SUBQ (20:42)
[2020-08-10 22:23] VITALS: BP 143/67; BP 174/52
[2020-08-11 01:49] VITALS: BP 154/48; BP 154/54; BP 167/50
[2020-08-11 05:55] LABS: HEMATOCRIT 26.9 % (37.0-47.0); MCH 30.6 pg (26.0-34.0); RBC 2.98 mil/uL (4.20-5.00); RDW 16.8 % (10.5-14.5); WBC 6.5 thou/uL (4.0-11.0)
[2020-08-11 05:58] LABS: HEMOGLOBIN 9.1 gm/dL (12.0-15.0)
[2020-08-11 11:00] VITALS: BP 179/71
== END 2020-08-11 11:00 | disposition home or self-care (01) ==
LOC: ER 19:47
PROVIDERS: Emergency Medicine
DX: D64.9 Anemia, unspecified (principal); F32.9 Major depressive disorder, single episode, unspecified; F41.9 Anxiety disorder, unspecified; I12.9 Hypertensive chronic kidney disease with stage 1 through stage 4 chronic kidney disease, or unspecified chronic kidney disease; E11.22 Type 2 diabetes mellitus with diabetic chronic kidney disease; N18.30 Chronic kidney disease, stage 3 unspecified; Z90.49 Acquired absence of other specified parts of digestive tract; Z96.641 Presence of right artificial hip joint; Z90.89 Acquired absence of other organs; Z79.899 Other long term (current) drug therapy; Z79.4 Long term (current) use of insulin; Z88.5 Allergy status to narcotic agent; E11.40 Type 2 diabetes mellitus with diabetic neuropathy, unspecified; Z91.041 Radiographic dye allergy status; Z88.8 Allergy status to other drugs, medicaments and biological substances

== ENCOUNTER 2020-08-25 18:04 | Inpatient (IN) | payer OTHER ==
[~2020-08-25] VITALS: Ht 160 cm; Wt 100.3 kg
[~2020-08-25 18:04] MED LIST changes: +CATAPRES0.1 MG PO; +DILAUDID2 MG PO; +KLOR-CON 10 ER10 MEQ PO
[2020-08-25 18:05] VITALS: BP 128/51
[2020-08-25 18:30] LABS: HEMOGLOBIN 6.8 gm/dL (12.0-15.0)
[2020-08-25 18:32] LABS: HEMATOCRIT 20.5 % (37.0-47.0); MCH 29.7 pg (26.0-34.0); MCHC 33.3 g/dL (28.0-37.0); MCV 89.4 fL (80.0-100.0); PLATELET COUNT 167 thou/uL (150-400); WBC 11.5 thou/uL (4.0-11.0)
[2020-08-25 18:44] LABS: APTT 30.3 Seconds (24.5-32.8); INR 1.1; PROTIME 10.8 Seconds (9.3-11.4)
[2020-08-25 18:45] LABS: ANION GAP 13 mmol/L (7-16); BUN 55 mg/dL (7-18); CALCIUM 9.4 mg/dL (8.5-10.1); CHLORIDE 100 mmol/L (98-107); CO2 21 mmol/L (21-32); CREATININE 2.4 mg/dL (0.6-1.0); GLUCOSE 80 mg/dL (74-106); POTASSIUM 4.2 mmol/L (3.5-5.1); SODIUM 134 mmol/L (136-145)
[2020-08-25 18:55] LABS: ALBUMIN 2.6 g/dL (3.4-5.0); SGOT 18 U/L (15-37); SGPT 16 U/L (14-59); TOTAL BILIRUBIN 0.4 mg/dL (0.2-1.0); TOTAL PROTEIN 6.2 g/dL (6.4-8.2); TROPONIN-I <0.06 ng/mL (<0.06)
[2020-08-25 19:29] LABS: ABSOLUTE NEUTROPHILS 7.6 thou/uL (1.4-8.2); ANISOCYTOSIS 2+; ATYPICAL LYMPHS 2 %; NUCLEATED RBCS 2 /100WBC
[2020-08-25 19:30] LABS: LARGE PLATELETS OCCASIONAL
[2020-08-25 22:14] LABS: URINE BILIRUBIN NEGATIVE (Negative); URINE BLOOD 2+ (Negative); URINE CLARITY CLOUDY; URINE COLOR YELLOW; URINE GLUCOSE-RANDOM* NEGATIVE (Negative); URINE KETONES NEGATIVE (Negative); URINE PROTEIN (DIPSTICK) 2+ (Negative); URINE UROBILINOGEN 0.2 E.U./dl (0.2-1.0)
[2020-08-25 22:24] LABS: URINE LEUKOCYTES-REFLEX 3+ (Negative); URINE NITRITE-REFLEX POSITIVE (Negative)
[2020-08-25 22:27] LABS: SQUAMOUS 0-3 Few /LPF (0-3)
[2020-08-25 22:28] LABS: CASTS None Seen /LPF (None Seen); CRYSTALS None Seen /LPF (None Seen); MUCUS 0-3 Light strn/LPF (None Seen)
[2020-08-25 22:29] LABS: URINE RBC 3-10 Few /HPF (0-2); URINE WBC-REFLEX >25 Many /HPF (0-5)
[2020-08-26] VITALS (9 sets, daily range): BP systolic 130–161; BP diastolic 47–68
--- NOTE | 2020-08-26 07:41 | NUR ---
PATIENT WAS A NEW ADMISSION TO THE UNIT THIS SHIFT. SHE ARRIVED VIA CART FROM THE ER AND WAS TRANSFERRED TO THE BED WITHOUT INCIDENT. PATIENT IS FULLY ALERT AND ORIENTED AND ABLE TO PARTICIPATE IN CARE. PATIENT ASSESSED FOR NIH WITH SCORE OF THREE PRIMARILY FOR ARM DRIFT. NURSE COMPLETED ADMISSION AND INITIATED PLAN OF CARE.
[2020-08-26 10:48] LABS: MCHC 33.3 g/dL (28.0-37.0); MCV 90.2 fL (80.0-100.0); RBC 2.12 mil/uL (4.20-5.00)
[2020-08-26 10:50] LABS: MCH 30.1 pg (26.0-34.0); RDW 17.4 % (10.5-14.5); WBC 8.9 thou/uL (4.0-11.0)
[2020-08-26 11:01] LABS: ANION GAP 16 mmol/L (7-16); BUN 49 mg/dL (7-18); CHLORIDE 98 mmol/L (98-107); CHOLESTEROL 115 mg/dL (<200); CO2 20 mmol/L (21-32); CREATININE 2.6 mg/dL (0.6-1.0); GLUCOSE 225 mg/dL (74-106); HDL CHOLESTEROL 27 mg/dL (>40); HEMATOCRIT 19.2 % (37.0-47.0); HEMOGLOBIN 6.4 gm/dL (12.0-15.0); LDL CHOLESTEROL 67 mg/dL (<100); SODIUM 134 mmol/L (136-145); TC:HDL 4.3 Ratio (Not establshd); TRIGLYCERIDE 108 mg/dL (<150); VLDL 22 mg/dL (<40)
[2020-08-26 17:52] LABS: HEMOGLOBIN 8.5 gm/dL (12.0-15.0)
--- NOTE | 2020-08-26 18:02 | NUR ---
ASSESSMENT CHARTED - MEDS PER OCT - ACCUCHECKS CHARTED - PT NPO THIS AM - NOT COVERED. JOSETTE DIET AND FLUIDS. SEEN BY NEURO / GI TODAY. NIH STROKE SCALE D/C'D PER NEURO. VT HAS BEEN TURNED IN BED. BLOOD X 1 UNIT GIVEN THIS SHIFT FOR HEAM 6.4 POST TRANSFUSION HEAM 8.4. . PT CONFUDES/ FORGETFUL AND WILL START CRYING FOR NO APPARENT REASON - TAKES ALOT OF REASSURING TO GET PATIENT TO CALM DOWN - VERY FRETFUL. PATIENT WANTING STAFF TO STAY IN ROOM AND HOLD HER HAND WHILE CAROITID DOPPLERS WHERE BEING DONE -STAYED WITH APTIENT TO ATTEMPT TO KEEP HER STILL AND NOT CRYING SO TEST COULD BE COMPLETED. PT APPEARS TO BE RESTING AT THE PRESENT TIME. PAPERS AT BEDSIDE AND MRI FORM TO BE COMPLETED WHEN FAMILY MEMBER VISITS.
[2020-08-27 00:30] VITALS: BP 153/71
[2020-08-27 04:45] VITALS: BP 150/65
[2020-08-27 05:36] LABS: GLYCOHEMOGLOBIN (HGB A1C) 7.4 % (4.8-5.6)
--- NOTE | 2020-08-27 07:48 | NUR ---
PT ORIENTED TO SELF.DENIES CHEST PAIN. C/O FOOT PAIN. ELEVATED ON THE PILLOW. Q2 TURNS BUT FREQUENTLY DECLINES DUE TO GENERALIZED WEAKNESS. PT HAD A FEVER OF 102.1 AT THE BEGINNING OF THE SHIFT, TREATED WITH TYLENOL X 1. SCHOOL AGE PROGRAM ASSOCIATE ON NOTIFIED. BLOOD CULTURES DRAWN . WILL CONTINUE TO MONITOR.
[2020-08-27 08:39] VITALS: BP 157/83
--- NOTE | 2020-08-27 10:57 | HC ---
[facility] [place] [place] [address] CONSULTATION Name: SONIA FUENTES Room #: 205-P ADM IN M.R.#: [id number] Admission: 08/25/20 Attend Phys: Deo Roldan MD Discharge: Date of : 52 Report #: [id number] THIS REPORT FOR: cc: ANGELICA SANCHEZ - Family physician unknown Devi Ackerman DO ~ NEUROLOGY CONSULTATION HISTORY OF PRESENT ILLNESS: The patient is a 70-year-old female who was brought from [facility] ____ for concerns of left-sided facial droop and left-sided weakness. The patient was evaluated in the Emergency Room. She had a CT scan of the head, which showed no acute abnormalities; however, her hemoglobin was 6.8 and she was also found to have a urinary tract infection. I spoke to the patient and she was really unable to provide any history. She told me that she has really not noticed any weakness on one side or another. Apparently, she does not walk. I asked her if she used a walker and she told me no, but she has people who assists her when she walks. Reviewing the ER record, it states that she uses a wheelchair for ambulation. PAST MEDICAL HISTORY: Chronic anemia, diabetes, peripheral neuropathy, hypertension, depression. PAST SURGICAL HISTORY: Back surgery, right hip replacement, cervical spine surgery, total abdominal hysterectomy, cholecystectomy, appendectomy, section x 2, carpal tunnel surgery, left hip surgery x 2. MEDICATIONS: Rocephin 1 g IV daily, Humalog insulin sliding scale, pantoprazole 40 mg b.i.d. ALLERGIES: MORPHINE, IODINATED CONTRAST MEDIA, MEPERIDINE. VITAL SIGNS: Temperature 37.9, pulse rate 125, respiratory rate 18, blood pressure 137/47, bedside pulse oximetry 98% on 2 liters nasal cannula. LABORATORY DATA: Hematology: White blood cell count 8.9, hemoglobin 6.4, hematocrit 19.2, MCV 90.2, platelet count 142,000. Urinalysis; 2+ protein, 2+ blood, nitrite positive, leukocyte esterase 3+. Chemistry: Sodium 134, potassium 4, chloride 98, carbon dioxide 20, BUN 49, creatinine 2.6, glucose 225. Liver functions normal. IMAGING STUDIES: CT scan of the head demonstrates chronic changes, no acute intracranial process is identified. NEUROLOGIC EXAMINATION: Cranial nerves 2-12 demonstrate a left facial droop. Motor exam, demonstrates generalized weakness. There did not appear to be more [facility] [address] [place] [address] CONSULTATION Name: SONIA FUENTES Room #: 205-P ADM IN .R.#: [id number] Admission: 08/25/20 Attend Phys: Deo Roldan MD Discharge: Date of : 52 Report #: [id number] weakness on one side versus another. She was lying flat in bed and could barely raise her legs just above the bed. Reflexes are absent throughout. Plantar responses are flexor. Coordination could not be performed. She is receiving a transfusion in the right upper extremity. The patient may be nonambulatory. IMPRESSION: This patient does have a left facial droop. It was difficult to assess strength in the extremities. I have ordered an MRI of the head for Friday. We will also order carotid ultrasound and echocardiogram. She is going to be seen by GI and after that we can determine whether or not she can be on aspirin 81 mg daily. She certainly has risk factors for stroke. She may also benefit from physical therapy. I thank you for your kind referral of the patient and we will continue to follow her with you. <ELECTRONICALLY SIGNED> By: Devi Ackerman DO 08/27/20 1057 1253 1538 Devi Ackerman DO /nt
[2020-08-27 11:39] VITALS: BP 132/61
[2020-08-27 15:25] VITALS: BP 143/54
[2020-08-27 20:20] VITALS: BP 152/75
[2020-08-28 04:19] VITALS: BP 149/62
--- NOTE | 2020-08-28 07:19 | NUR ---
DENIES PAIN.NPO SINCE MIDNIGHT FOR POSSIBLE PROCEDURES TODAY.MONITOR SHOWS SR,ST.POC CONTINUED.
--- NOTE | 2020-08-28 07:22 | EKG ---
[address] [place] [address] ELECTROCARDIOGRAM REPORT Name: SONIA FUENTES Room #: 205- ADM IN M.R.#: [id number] Admission: 08/25/20 Attend Phys: Deo Roldan MD Discharge: Date of : 52 Report #: [id number] [facility] ED Test Date: 2020-08-25 Test Time: 18:57:38 Pat Name: SONIA FUENTES Department: Room: 205 Gender: F Order Taker: JCHAICORY : 1950 Requested By: Elkin Bobo Order Number: [id number] MD: Lew Live Measurements Intervals [place] Rate: 88 P: 30 OK: 158 QRS: -2 QRSD: 88 T: 22 QT: 344 QTc: 417 Interpretive Statements Sinus rhythm Normal tracing Compared to ECG 12/30/2019 16:08:20 No significant changes Electronically Signed On 08-28-2020 7:21:48 EARLY LEARNING TEACHER by Lew Live [email or web address] <ELECTRONICALLY SIGNED> By: Lew Live MD, [facility] 08/28/20 07 185 1857 Lew Live MD, FACC /EPI
[2020-08-28 08:04] VITALS: BP 156/75
[2020-08-28 09:50] LABS: CALCIUM 9.4 mg/dL (8.5-10.1); POTASSIUM 3.9 mmol/L (3.5-5.1)
[2020-08-28 12:47] VITALS: BP 118/45
--- NOTE | 2020-08-28 13:11 | NUR ---
WHEN I TOLD PT SHE WAS GOING FOR MRI SHE STARTED TO CRY, THEN REFUSED TO GO, REFUSED HER ECHO, CALLED PT'S DPOA, DAUGHTER IN LAW, AND SHE CAME AND SPOKE WITH PT, SHE SIGNED ALL CONSENTS, TOLD PT IT IS IMPORTANT THAT SHE IMPROVE, SO PT CONSENTED, LEFT FOR MRI, AWAITING RESULTS FOR POSSIBLE EGD, WILL DO CARONA TEST PRE-PROCEDURE EVEN THOUGH PT HAD POSITIVE COVID TEST A MONTH AGO, ANESTHESIA STILL WANTS ANOTHER ONE, PT STILL NPO BUT WILL ALLOW SOME ICE CHIPS
--- NOTE | 2020-08-28 14:28 | NUR ---
FAXED CLINICAL UPDATE TO [facility] RECEIVED CONFIRMATION AND LEFT MSG WITH TIMUR AT FACILITY.
[2020-08-28 16:12] VITALS: BP 161/53
--- NOTE | 2020-08-28 16:20 | NUR ---
[facility] in Nov. Patient admits with Anemia and possible CVA. CVA ruled out. Patient is ltc at facility. Sp with ROYAL Mccormick. She reports patient with recent COVID. She has returned to facility for skilled rehab care. Since her COVID diagnosis she has not recovered with strength. She uses w/c at facility but needs assist to transfer in wc likely 2 person assist. ROYAL unsure of skilled days at facility. [facility] has left message with admissions. Patient to be evaled by [facility] acute rehab. Family agreeable to [facility] if accepted. [facility] following
[2020-08-28 20:00] VITALS: BP 119/50
[2020-08-29 03:58] VITALS: BP 140/54
--- NOTE | 2020-08-29 07:30 | NUR ---
PATIENT NPO SINCE MIDNIGHT FOR POSSIBLE PROCEDURE TODAY.DENIES PAIN AND SOB.MONITOR SHOWS SR.POC CONTINUED.
[2020-08-29 08:05] VITALS: BP 138/55
[2020-08-29 09:42] LABS: HEMOGLOBIN 7.5 gm/dL (12.0-15.0)
--- NOTE | 2020-08-29 15:10 | NUR ---
RECEIVED PT'S CARE AROUND 0720; PT. ON BED; ALERT; DURING AM ASSESSMENT AOX4; FORGETFUL; NO C/O PAIN; AM MEDICATIONS GIVEN; SR ON THE MONITOR; TURNED FROM SIDE WHEN AGREABLE; LEVEL OF CARE CHANGED TO PA; ROOM 446; SCHEDULED PROCEDURE FOR 08/30/19; JESS DANIELS, NOTIFIED OVER THE PHONE; UNDERSTANDING; CALL FOR REPORT; NURSE NOT AVAILABLE; REQUESTED TO CALL BACK; ASSESSMENT CHARGED; FOLLOWING POC; WILL PASS ON REPORT;
[2020-08-29 15:25] VITALS: BP 120/51
[2020-08-29 15:55] VITALS: BP 136/44
[2020-08-29 21:45] VITALS: BP 138/52
--- NOTE | 2020-08-30 00:58 | NUR ---
ASSUMED PT CARE AT SHIFT CHANGE, GAVE REPORT TO ARBEN(DAVIS).
--- NOTE | 2020-08-30 02:06 | NUR ---
ASSUMED PATIENT CARE AT APPROXIMATELY 0100.
[2020-08-30 04:15] VITALS: BP 150/59
--- NOTE | 2020-08-30 05:24 | NUR ---
ASSUMED PATIENT CARE AT 0100. VITAL SIGNS STABLE WITH PATIENT HAVING NO COMPLAINTS OF PAIN OR NAUSEA. FULLY ORIENTED, PATIENT IS ABLE TO CALL APPROPRIATELY FOR NEEDS AND PARTICIPATE IN CARE. PATIENT NPO FROM MIDNIGHT ON IN ANTICIPATION OF TODAYS PROCEDURE. PATIENT HAD WELL OVER A LITER OUT THROUGH EXTERNAL CATHETER. TURNS WITH SKIN CARE PROVIDED. CONTINUE PLAN OF CARE.
[2020-08-30 08:08] VITALS: BP 128/47
[2020-08-30] MEDS ORDERED: KEFLEX500 M1 PO (09:39)
[2020-08-30 11:54] LABS: ABSOLUTE RETIC COUNT 0.1136 10^6/uL; OBSERVED RETIC COUNT 4.81 % (0.6-2.6)
[2020-08-30 12:07] LABS: % SATURATION 38 % (20-39); IRON 57 ug/dL (50-170); TIBC 152 ug/dL (250-450)
[2020-08-30 12:58] VITALS: BP 128/77
--- NOTE | 2020-08-30 13:48 | NUR ---
ON-GOING ASSESSMENT: CM REVIEWED CHART AND SPOKE WITH ATTENDING WHO STATES PT HAD EGD AND IS STABLE TO DISCHARGE TODAY BACK TO FACILITY. CONSULT WAS PUT IN FOR DR. OWEN AND ATTENDING STATING WE DO NOT NEED TO WAIT ON THIS CONSULT THIS CAN BE DONE OUTPATIENT AND PT CAN BE DISCHARGED TODAY. CM NOTIFIED PTS DAUGHTER ARSLAN OF DISCHARGE AND SHE IS AGREEABLE WITH PLAN. CHART COPY WAS ORDERED AND CM NOTIFIED BEDSIDE RN THE NUMBER FOR REPORT. DIESEL TECHNOLOGY INSTRUCTOR NOTIFIED FACILITY AND ARRANGED TRANSPORTATION/FAXED ORDERS. CM NOTIFIED PT AND BEDSIDE RN THAT TRANSPORTATION WAS ARRANGED FOR 1230. PT REPORTED NO FURTHER NEEDS FROM CM.
[2020-08-30 14:53] LABS: FOLIC ACID 36.2 ng/mL (8.6-58.9)
--- NOTE | 2020-08-30 14:56 | P ---
[facility] [place] [address] [place] [address] PROCEDURE REPORT Name: SONIA FUENTES Room #: 446-P [facility] IN M.R.#: [id number] Admission: 08/25/20 Attend Phys: Ellie Nguyen Andre Discharge: 08/30/20 Date of : 52 Report #: [id number] THIS REPORT FOR: cc: ANGELICA SANCHEZ - Family physician unknown Julius Benton MD ~ DATE OF SERVICE: 08/30/2020 PROCEDURE PERFORMED: Flexible sigmoidoscopy. HISTORY OF PRESENT ILLNESS: The patient is a 70-year-old female with a history of chronic anemia, who has required blood transfusions at times. Upper endoscopy was just performed, which was normal. She did have mild erosions in January of last year. She underwent a colonoscopy in January as well, in which a polyp was removed, but otherwise was essentially normal. However, she later had a large distal rectal ulcer in June with visible vessel that eventually required surgical oversew. Plan is to reassess this area as the patient continues to drop her hemoglobin at times, even though there are no signs of bright red blood per rectum or melena. Also of note, the patient has had a previous M2 capsule study within the last 6 months, which was normal. DESCRIPTION OF PROCEDURE: The risks and benefits of the procedure were explained to the patient, those risks including but not limited to bleeding, perforation and the risk of sedation. She understood these risks and gave informed consent. Sedation was given using propofol per anesthesia. Next, digital rectal exam was initially performed, which was normal. Next, using a standard Olympus upper endoscope, the scope was placed in the patient's anus and advanced under direct vision into the rectum. The overall prep was poor in the rectosigmoid area. Multiple washings and aspirations were performed. I was able to visualize the rectum well; however, the previous large rectal ulcer with visible vessel was completely healed. There was no rectal mucosal abnormalities. Small internal hemorrhoids were noted; however, again, the previous ulcer is healed. No other changes were noted. The scope at this point was then withdrawn and the procedure terminated. The patient tolerated the procedure well. IMPRESSION: 1. Previous rectal ulcer, completely healed. 2. Small internal hemorrhoids. RECOMMENDATIONS: Would continue to monitor at this point. If her hemoglobin continues to drop, may need to consider a Hematology consult. [address] [address] PROCEDURE REPORT Name: SONIA FUENTES Room #: 446-P DIS IN M.R.#: [id number] Admission: 08/25/20 Attend Phys: Ellie Powell Discharge: 08/30/20 Date of : 52 Report #: [id number] Thank you for allowing me to participate in her care. <ELECTRONICALLY SIGNED> By: Julius Benton MD 08/30/20 1456 1001 1009 Julius Benton MD /nt
--- NOTE | 2020-08-30 14:56 | P ---
[facility] [place] [address] PROCEDURE REPORT Name: SONIA FUENTES Room #: 446-P [facility] IN M.R.#: [id number] Admission: 08/25/20 Attend Phys: Ellie Patrick Madalynalanna Discharge: 08/30/20 Date of : 52 Report #: [id number] THIS REPORT FOR: cc: ANGELICA SANCHEZ - Family physician unknown Julius Benton MD ~ DATE OF SERVICE: 08/30/2020 PROCEDURE PERFORMED: Upper endoscopy. HISTORY OF PRESENT ILLNESS: The patient is a 70-year-old female with a history of chronic anemia, who has required multiple blood transfusions over time. She has had several hospitalizations, was diagnosed eventually with a distal rectal ulcer with visible vessel that later required oversew surgery, this was in 06/2020. She denies any obvious bright red blood per rectum. Her hemoglobin dropped to 6.4 on 08/26, was given a unit of packed cells, hemoglobin at this time is 7.5. Again, she has had chronic anemia. Previous upper endoscopy did show some small erosions and mild gastritis in the past. The plan is for EGD and flexible sigmoidoscopy today. DESCRIPTION OF PROCEDURE: The risks and benefits of the procedure were explained to the patient, those risks including but not limited to bleeding, perforation and the risk of sedation. She understood these risks and gave informed consent. Sedation was given using propofol per anesthesia. Next, using a standard Olympus upper endoscope, the scope was placed in the patient's mouth and advanced under direct vision through the esophagus, stomach and into the second portion of the duodenum. The esophagus was normal throughout. The GE junction was normal. The gastric mucosa was normal. The pylorus was normal and patent. The duodenal bulb, first and second portion were all normal. The scope was then withdrawn and the procedure terminated. The patient tolerated the procedure well. IMPRESSION: Normal upper endoscopy. RECOMMENDATIONS: We will proceed with flexible sigmoidoscopy next today. Thank you for allowing me to participate in her care. <ELECTRONICALLY SIGNED> By: Julius Benton MD 08/30/20 1456 0958 1005 Julius Benton MD /nt
--- NOTE | 2020-08-30 16:54 | NUR ---
DISCHARGE PAPERS REVIEWED WITH PATIENT SIGNED AND COPY IN CHART. IV ACSESS DCD. ALL BELONGINGS PACKED AND SENT WITH PATIENT. NO PAIN OR RESP DISTRESS AT DC. TRANSPORTATION HERE EARLY. PT LEFT VIA STRETCHER.
== END 2020-08-30 13:10 | DRG 682 ==
LOC: ER 18:04 → EROBS 20:58 → 2N 20:58 → EROBS 08-26 02:19 → 2N 08-26 02:51 → 4S 08-29 17:50
PROVIDERS: Emergency Medicine; Nurse Practitioner; Nurse Practitioner Family; ADMIT Hospitalist; ATTEND Hospitalist
PROC: 0DJ08ZZ Inspection of Upper Intestinal Tract, Via Natural or Artificial Opening Endoscopic (ICD-10-PCS; principal; 2020-08-25)
PROC: 30233N1 Transfusion of Nonautologous Red Blood Cells into Peripheral Vein, Percutaneous Approach (ICD-10-PCS; principal; 2020-08-25)
PROC: 0DDN8ZX Extraction of Sigmoid Colon, Via Natural or Artificial Opening Endoscopic, Diagnostic (ICD-10-PCS; 2020-08-25)
DX: N17.9 Acute kidney failure, unspecified (principal); L89.313 Pressure ulcer of right buttock, stage 3; G93.41 Metabolic encephalopathy; E43 Unspecified severe protein-calorie malnutrition; N39.0 Urinary tract infection, site not specified; I69.352 Hemiplegia and hemiparesis following cerebral infarction affecting left dominant side; D64.9 Anemia, unspecified; F41.9 Anxiety disorder, unspecified; F32.9 Major depressive disorder, single episode, unspecified; E11.40 Type 2 diabetes mellitus with diabetic neuropathy, unspecified; K58.9 Irritable bowel syndrome, unspecified; Z96.641 Presence of right artificial hip joint; K64.8 Other hemorrhoids; E66.9 Obesity, unspecified; G47.33 Obstructive sleep apnea (adult) (pediatric); F03.90 Unspecified dementia, unspecified severity, without behavioral disturbance, psychotic disturbance, mood disturbance, and anxiety; E11.22 Type 2 diabetes mellitus with diabetic chronic kidney disease; N18.30 Chronic kidney disease, stage 3 unspecified; R13.10 Dysphagia, unspecified; S30.0XXA Contusion of lower back and pelvis, initial encounter; X58.XXXA Exposure to other specified factors, initial encounter; I12.9 Hypertensive chronic kidney disease with stage 1 through stage 4 chronic kidney disease, or unspecified chronic kidney disease; S90.32XA Contusion of left foot, initial encounter; S90.31XA Contusion of right foot, initial encounter; Z20.822 Contact with and (suspected) exposure to COVID-19; L89.326 Pressure-induced deep tissue damage of left buttock; Z87.440 Personal history of urinary (tract) infections; Z68.39 Body mass index [BMI] 39.0-39.9, adult; Z90.49 Acquired absence of other specified parts of digestive tract; Z90.89 Acquired absence of other organs; Z98.1 Arthrodesis status; Z90.710 Acquired absence of both cervix and uterus; Z88.5 Allergy status to narcotic agent; Z88.8 Allergy status to other drugs, medicaments and biological substances; Z91.041 Radiographic dye allergy status; Y93.89 Activity, other specified; Y92.89 Other specified places as the place of occurrence of the external cause; Y99.8 Other external cause status; Z79.899 Other long term (current) drug therapy
CPT/HCPCS: 10081; 10102; 62110; 62900; 70005

== ENCOUNTER 2020-09-21 11:10 | Emergency (ER) | payer OTHER ==
[~2020-09-21] VITALS: Ht 157.5 cm; Wt 108.9 kg
[2020-09-21] MEDS ORDERED: CATAPRES0.1 MG PO (11:16)
[2020-09-21 11:44] LABS: HEMOGLOBIN 6.9 gm/dL (12.0-15.0); PLATELET COUNT 103 thou/uL (150-400)
[2020-09-21 11:45] LABS: HEMATOCRIT 20.3 % (37.0-47.0); MCH 31.2 pg (26.0-34.0); MCHC 33.7 g/dL (28.0-37.0); MCV 92.5 fL (80.0-100.0); RDW 22.6 % (10.5-14.5); WBC 8.3 thou/uL (4.0-11.0)
[2020-09-21 11:50] LABS: CALCIUM 9.1 mg/dL (8.5-10.1); CREATININE 1.9 mg/dL (0.6-1.0); POTASSIUM 4.4 mmol/L (3.5-5.1)
[2020-09-21 11:57] LABS: ALBUMIN 3.1 g/dL (3.4-5.0); TOTAL BILIRUBIN 0.6 mg/dL (0.2-1.0); TOTAL PROTEIN 6.7 g/dL (6.4-8.2)
[2020-09-21 13:14] LABS: ABSOLUTE NEUTROPHILS 4.6 thou/uL (1.4-8.2); ANISOCYTOSIS 1+; METAMYELOCYTES 1 %
[2020-09-21 19:05] VITALS: BP 140/48; BP 143/54; BP 149/46; BP 150/55
[2020-09-21 20:56] VITALS: BP 131/63
== END 2020-09-21 23:09 | disposition home or self-care (01) ==
LOC: ER 11:10
PROVIDERS: Emergency Medicine
DX: D64.9 Anemia, unspecified (principal); E11.22 Type 2 diabetes mellitus with diabetic chronic kidney disease; I12.9 Hypertensive chronic kidney disease with stage 1 through stage 4 chronic kidney disease, or unspecified chronic kidney disease; N18.30 Chronic kidney disease, stage 3 unspecified; Z90.49 Acquired absence of other specified parts of digestive tract; Z79.899 Other long term (current) drug therapy; Z88.5 Allergy status to narcotic agent; Z88.8 Allergy status to other drugs, medicaments and biological substances; Z91.041 Radiographic dye allergy status

== ENCOUNTER 2020-09-27 12:01 | Inpatient (IN) | payer OTHER ==
[~2020-09-27] VITALS: Ht 157.5 cm; Wt 98.9 kg
--- NOTE | ~2020-09-27 | EMS ---
[address] [address] EMS Patient Care Report Name: SONIA FUENTES Room #: REG BRANDIN Laws#: [id number] Admission: 09/27/20 Attend Phys: Discharge: Date of : 52 Report #: [id number] THIS REPORT FOR: //name// Report Transmitted: 09/27/2020 11:31 EMS Care Summary [facility] MED-ACT Incident [id number] @ 09/27/2020 11:18 Incident Location [address] [place] [address] Patient SONIA FUENTES Female, 70 Years 1950 Patient Address [address] [place] [address] Patient History Hypertension (HTN),Kidney/Renal Failure,Type 2 Diabetes, Patient Allergies Morphine,Dye allergy,Demerol, Patient Medications Lipitor, Famotidine, Levemir, Metoprolol, Insulin, Metformin, Loratadine, Levothyroxine, Lasix, Gabapentin, Chief Complaint Fever Disposition Transported No Lights/[place] Dispatch Reason Sick Person Transported To [facility] Narrative This 70 year old female patient is a long term care social [place] [address] EMS Patient Care Report Name: SONIA FUENTES Room #: REG BRANDIN Laws#: [id number] Admission: 09/27/20 Attend Phys: Discharge: Date of : 52 Report #: [id number] [facility] [place]. They state that she went out last week for a transfusion due to a presumed GI bleed and has been ill ever since her return. They state that she has been lethargic and feverish for several days. Today the [place] staff report a fever of 105F. her BG is elevated, but they have withheld insulin because she has not been eating. The patient has no complaints at this time. Her temp measured with our IR thermometer reads 98.1. The patient is very emotionally upset about having to go back to the hosptial again, but the nursing staff tells the patient that she has to be sent out. The patient is loaded on the cot and taken to the ambulance. She is monitored enroute to [facility]. The patient is taken to room 6 and report is given to nurses and doctor at bedside. Initial Vitals @11:53P: 131,R: 16,BP: 112/84,Pain: 0/10,GCS: 15,SpO2: 96,Revised Trauma: 12, @11:42P: 125,R: 18,BP: 108/64,Pain: 0/10,GCS: 15,Temp: 98.1F,Glucose: 274,SpO2: 94,Revised Trauma: 12, Assessments @11:51MENTAL:No Abnormalities,SKIN:HEENT:LUNG SOUNDS:General: No Abnormalities,ABDOMEN:General: No Abnormalities,PELVIS//GI:No Abnormalities,EXTREMITIES:Left Arm: No Abnormalities,Right Arm: No Abnormalities,Left Leg: No Abnormalities,Right Leg: No Abnormalities,PULSE:NEURO:No Abnormalities, Impression Fever Procedures @PTASurgical Mask on PatientResponse: Unchanged Timeline SALES DEVELOPMENT ASSOCIATE,Surgical Mask on Patient,Response: Unchanged 11:17,Call Received 11:17,Psap Call 11:18,Dispatched 11:18,En Route 11:26,On Scene 11:30,At Patient 11:38,Depart Scene 11:42,BP: 108/64 M,PULSE: 125,RR: 18 R,SPO2: 94 Ox,ETCO2: ,B,PAIN: 0,GCS: 15, [facility] [address] [address] EMS Patient Care Report Name: SONIA FUENTES Room #: REG M.R.#: [id number] Admission: 09/27/20 Attend Phys: Discharge: Date of : 52 Report #: [id number] 11:53,BP: 112/84 M,PULSE: 131,RR: 16 R,SPO2: 96 Ox,ETCO2: ,BG: ,PAIN: 0,GCS: 15, 11:58,At Destination 12:17,Call Closed Disclaimer v1.1 Copyright 2020 [employer] This EMS Care Summary contains data elements from the applicable legal record (which may be displayed differently). It is designed to provide pertinent information for the following purposes: continuity of care, clinical quality, and state data reporting. The complete legal record is available to ED staff and administrators of the receiving hospital in [email or web address]'s Patient Tracker. All data is provided "as is."
--- NOTE | ~2020-09-27 | HC ---
[facility] [place] [address] CONSULTATION Name: SONIA FUENTES Room #: 453-P ADM IN M.R.#: [id number] Admission: 09/27/20 Attend Phys: Moi Baptiste MD Discharge: Date of : 52 Report #: [id number] THIS REPORT FOR: cc: ANGELICA SANCHEZ Physician not on staff Rohan Herron MD ~ DATE OF SERVICE: 09/29/2020 WOUND CARE CONSULTATION PERSONAL PHYSICIAN: Dr. Moi Baptiste CHIEF COMPLAINT: Right heel and foot ulcer. HISTORY OF PRESENT ILLNESS: This is a 70-year-old white female who has been a patient of ours in the past for previous ulcerations. The patient was admitted at this time with critical anemia. Upon admission, she was found to have the ulceration on the right heel, chronic ulcer on the right lateral foot as well as deep tissue injuries to the sacral-gluteal area. We have been asked to assist in the care of these while she is here. The patient does complain of pain in the right foot. This is also the foot where she has had previous bypass surgery on the right lower extremity. The patient denies pain in the sacral-gluteal region. PAST MEDICAL HISTORY: Significant for peripheral neuropathy, hypertension, diabetes mellitus, venous insufficiency with edema in lower extremities, generalized debility, persistent anemia. CURRENT MEDICATIONS: Multiple, I reviewed the patient's medication list. DRUG ALLERGIES: MORPHINE. IODINE. DEMEROL. SOCIAL HISTORY: The patient resides in a care facility. Does not smoke or drink alcohol. FAMILY HISTORY: Not pertinent to current medical condition. REVIEW OF SYSTEMS: CONSTITUTIONAL: The patient denies fevers or chills. NEUROLOGIC: The patient has overall generalized weakness, but no isolated weakness in arms or legs. EYES: No complaints. ENT: No complaints. CARDIAC: The patient denies chest pain, palpitations, peripheral edema. RESPIRATORY: The patient denies shortness of breath, cough or wheezes. [facility] [address] [place] [address] CONSULTATION Name: SONIA FUENTES Room #: 453-P [facility].#: [id number] Admission: 09/27/20 Attend Phys: Moi Baptiste MD Discharge: Date of : 52 Report #: [id number] GASTROINTESTINAL: The patient complains of loose stools. Denies abdominal pain, nausea, vomiting. GENITOURINARY: The patient denies urgency or frequency, but does have urinary incontinence. MUSCULOSKELETAL: The patient has pain in her right foot. SKIN: There is a deep tissue into the right heel, chronic ulcer to the right lateral foot deep tissue injury to the sacral-gluteal region. PHYSICAL EXAMINATION: VITAL SIGNS: Stable. The patient is afebrile. GENERAL: This is a chronically ill-appearing white female who is currently crying in bed because of the pain. HEENT: Normocephalic, atraumatic. Mucous membranes are dry. Pupils are round. Sclerae white. NECK: Without JVD. LUNGS: Clear. HEART: Regular. ABDOMEN: Obese, soft, nontender. EXTREMITIES: Evaluation of left lower extremity reveals 1+ edema, but no open ulcerations. Left heel is intact. Evaluation of the right heel reveals a deep tissue injury, which is a boggy hemorrhagic blister, which is intact. Deep tender to palpation to the right lateral foot reveals a chronic ulcer on the fifth metatarsal head as well as the right lateral ankle, both of which are fairly clean and granulating. Distal pulses are 1+ bilaterally. There is 2+ edema in the right lower extremity. Evaluation of sacral-gluteal region reveals a deep tissue injury, which is greenish discoloration, which does booker. No open ulcerations. NEUROLOGIC: Cranial nerves 2-12 grossly intact. Motor and sensory grossly intact. LABORATORY DATA: White count 8.6, hemoglobin 8.2. BUN 52, creatinine 2.2. Recent hemoglobin A1c was 7.4, albumin 2.6. Chest x-ray shows mild bilateral perihilar infiltrates. IMPRESSION: 1. Deep tissue injury to the sacral-gluteal region. 2. Deep tissue injury to the right heel. 3. Unstageable decubitus ulcer, right lateral foot and the fifth metatarsal. 4. History of previous transient ischemic attack. 5. History of COVID-19 infection. 6. History of gastrointestinal bleeds. 7. Chronic anemia. 8. Dementia with behavioral disturbances. 9. Diabetes mellitus with peripheral neuropathy. 10. Protein-calorie malnutrition - moderate with albumin 2.6. [place] [address] CONSULTATION Name: SONIA FUENTES Room #: 453-P ADM IN M.R.#: [id number] Admission: 09/27/20 Attend Phys: Moi Baptiste MD Discharge: Date of : 52 Report #: [id number] PLAN: We will start barrier cream to the sacral-gluteal ulcer region, nondisplaced b.i.d. and p.r.n. We will put on a low air loss surface, having turned every 2 hours. We will start heel protection at all times on bilateral heels, paint the right heel with Betadine daily. Right lateral foot also paints with Betadine daily. We will utilize physical and occupational therapy for strengthening as the patient is able to. We will make sure we maximize the patient's oral protein supplementation for healing. Continue all other current medications. I appreciate ability to consult. By: [id number] Rohan Herron MD /edda
--- NOTE | ~2020-09-27 | HC ---
[facility] [place] [address] CONSULTATION Name: SONIA FUENTES Room #: 453-P ADM IN M.R.#: [id number] Admission: 09/27/20 Attend Phys: Moi Baptiste MD Discharge: Date of : 52 Report #: [id number] THIS REPORT FOR: cc: ANGELICA SANCHEZ Physician not on staff Karlos Bryant MD ~ REASON FOR CONSULTATION: Anemia and myelodysplasia. 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 She had a low erythropoietin at 57 range when her hemoglobin is low. She has required multiple transfusions. She has some cognitive impairment, so some of the discussion was held with her and much was held with her daughter, Lucinda and her son, Alli by telephone today on 09/29/2020. We had previously discussed initiating this medication, but because of the patient's residence issues, repeat hospitalizations, it had not been initiated as an outpatient. I also had talked quite a bit yesterday with Dr. Moi Baptiste regarding the patient's other medical issues. We are not sure if this will help or do better, but I think it is reasonable to try it for 4-6 weeks and if it does not improve, then we can stop it. We will see whether her other health conditions limit her prognosis. At this time, the patient denies fevers, chills, nausea, vomiting, new arm or leg swelling, bowel changes. I am not sure she is the most reliable historian to be honest though. The patient also has a history of peripheral arterial disease, hypertension, left hip fracture in the past, renal insufficiency, requiring transfusions. 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 Also has a history of cholecystectomy, appendectomy. Also, chronic kidney disease stage 3, protein-calorie malnutrition, urinary incontinence with frequent UTIs. 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 No recent alcohol or tobacco use. No street drugs. MEDICATIONS: At this time in the hospital currently include multivitamin with iron, cholecalciferol 2000 units daily, vitamin C 500 daily, folic acid 1 mg daily, insulin, fluticasone propionate 2 sprays daily in the nose, furosemide 20 daily, zinc 220 daily, amlodipine 5 daily, loratadine 10 daily, insulin on a sliding scale, melatonin 5 at bedtime, famotidine 10 b.i.d., olanzapine 2.5 b.i.d., venlafaxine 50 b.i.d., atorvastatin 10 at bedtime, ceftriaxone daily, gabapentin 100 t.i.d., metoclopramide 5 q.i.d., iron sulfate with meals. PHYSICAL EXAMINATION: GENERAL: The patient appears her stated age, is a white female, lying in bed. VITAL SIGNS: Recent height is 5 feet 2 inches, 157.5 cm. Weight 218 pounds or [facility] [address] [place] [address] CONSULTATION Name: SONIA FUENTES Room #: 453-P ADM IN M.Eduin.#: [id number] Admission: 09/27/20 Attend Phys: Moi Baptiste MD Discharge: Date of : 52 Report #: [id number] 98 kilograms. Blood pressure is 120/51, O2 sat 98%, respirations 20, pulse 95, temperature 98.8 and 99.7. HEENT: Face is symmetrical. NEUROLOGIC: Speech and thought pattern are somewhat slow and memory is poor, consistent with her history of cognitive impairment. LUNGS: Mostly clear anteriorly. There is a slight rhonchi that clear when she coughs. HEART: Regular rate. ABDOMEN: Very obese. EXTREMITIES: Without clubbing, cyanosis. There is some edema. No unusual ecchymosis. ASSESSMENT AND PLAN: 1. 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 Long discussion with the patient, but mostly with family. We will initiate Procrit 40,000 units weekly. We will continue to see if we can provide this medication as an outpatient. Hope it is helping, we would be able to tell the difference in the next 4-6 weeks and may need to do a dose adjustment. The family realized that this will not help fix her other comorbidities that may limit her improvement and would also transfuse to keep her hemoglobin above 7, would also suggest weekly CBCs. 2. Urinary tract infection. Antibiotics per others. 3. Generalized debility. Rehab services. 4. Hyperlipidemia. Dose meds. 5. Hypertension. Dose meds. 6. Renal insufficiency. Monitor drug uses and serum levels. 7. Protein-calorie malnutrition, supplements. We will follow with you. By: [id number] Karlos Bryant MD /nt
[2020-09-27 12:03] VITALS: BP 119/53
[2020-09-27 12:25] LABS: HEMATOCRIT 21.7 % (37.0-47.0); MCH 30.1 pg (26.0-34.0); MCHC 32.2 g/dL (28.0-37.0); MCV 93.4 fL (80.0-100.0); PLATELET COUNT 107 thou/uL (150-400); RBC 2.32 mil/uL (4.20-5.00); RDW 19.9 % (10.5-14.5); WBC 12.6 thou/uL (4.0-11.0)
[2020-09-27 12:34] LABS: CALCIUM 9.3 mg/dL (8.5-10.1); CREATININE 2.4 mg/dL (0.6-1.0)
[2020-09-27 12:40] LABS: ALBUMIN 2.6 g/dL (3.4-5.0); TOTAL BILIRUBIN 0.9 mg/dL (0.2-1.0); TOTAL PROTEIN 6.9 g/dL (6.4-8.2)
[2020-09-27 13:03] LABS: URINE BILIRUBIN NEGATIVE (Negative); URINE BLOOD 2+ (Negative); URINE CLARITY CLOUDY; URINE COLOR YELLOW; URINE GLUCOSE-RANDOM* NEGATIVE (Negative); URINE KETONES TRACE (Negative); URINE NITRITE-REFLEX NEGATIVE (Negative); URINE PROTEIN (DIPSTICK) 3+ (Negative); URINE SPECIFIC GRAVITY >= 1.030 (1.005-1.035); URINE UROBILINOGEN 0.2 E.U./dl (0.2-1.0)
[2020-09-27 13:06] LABS: URINE LEUKOCYTES-REFLEX 3+ (Negative)
[2020-09-27 13:06] LABS: ABSOLUTE NEUTROPHILS 9.2 thou/uL (1.4-8.2); PLATELET ESTIMATE NORMAL
[2020-09-27 13:15] LABS: SQUAMOUS 0-3 Few /LPF (0-3)
[2020-09-27 13:16] LABS: AMORPHOUS URATES Moderate /LPF (None Seen); CASTS None Seen /LPF (None Seen); URINE RBC 3-10 Few /HPF (0-2); URINE WBC-REFLEX >25 Many /HPF (0-5)
[2020-09-27 14:03] VITALS: BP 146/50
[2020-09-27 14:57] VITALS: BP 152/57
[2020-09-27 15:30] VITALS: BP 163/63
[2020-09-27] MEDS ORDERED: LANTUS SUBQ (17:57)
[2020-09-28 05:02] VITALS: BP 143/58
[2020-09-28 06:29] LABS: MCHC 33.1 g/dL (28.0-37.0)
[2020-09-28 06:31] LABS: MCH 30.9 pg (26.0-34.0); MCV 93.2 fL (80.0-100.0); RDW 20.1 % (10.5-14.5)
[2020-09-28 06:34] LABS: CALCIUM 8.8 mg/dL (8.5-10.1); CREATININE 2.6 mg/dL (0.6-1.0); MAGNESIUM 1.7 mg/dL (1.8-2.4); POTASSIUM 4.1 mmol/L (3.5-5.1)
[2020-09-28 06:38] LABS: HEMATOCRIT 18.6 % (37.0-47.0); HEMOGLOBIN 6.2 gm/dL (12.0-15.0)
--- NOTE | 2020-09-28 07:24 | EKG ---
[place] [address] [facility] [place] [address] ELECTROCARDIOGRAM REPORT Name: SONIA FUENTES Room #: 354-P ADM IN M.R.#: [id number] Admission: 09/27/20 Attend Phys: Moi Baptiste MD Discharge: Date of : 52 Report #: [id number] [facility] ED Test Date: 2020-09-27 Test Time: 12:08:12 Pat Name: SONIA FUENTES Department: Room: 354 Gender: F Swimming Pool Attendant: NICOLASA : 1950 Requested By: Riky Chandra Order Number: [id number] MD: John Trejo Measurements Intervals [place] Rate: 126 P: 50 WY: 151 QRS: 13 QRSD: 87 T: 8 QT: 306 QTc: 444 Interpretive Statements Sinus tachycardia Baseline wander in lead(s) V2,V3 Compared to ECG 08/25/2020 18:57:38 Sinus rhythm no longer present Electronically Signed On 09-28-2020 7:24:11 RECRUITING SCHEDULER by John Trejo [email or web address] <ELECTRONICALLY SIGNED> By: John Trejo MD, [facility] 09/28/20 0724 D: [id number] John Trejo MD, FACC /EPI
[2020-09-28 08:54] VITALS: BP 145/61
[2020-09-28 11:56] VITALS: BP 128/47; BP 153/57; BP 158/61
[2020-09-28 17:11] LABS: HEMATOCRIT 23.5 % (37.0-47.0); HEMOGLOBIN 7.8 gm/dL (12.0-15.0)
[2020-09-28 17:35] VITALS: BP 176/67
[2020-09-29 00:14] VITALS: BP 120/51
[2020-09-29 10:42] LABS: HEMATOCRIT 24.9 % (37.0-47.0); HEMOGLOBIN 8.2 gm/dL (12.0-15.0); MCH 29.5 pg (26.0-34.0); MCHC 32.8 g/dL (28.0-37.0); RBC 2.77 mil/uL (4.20-5.00); RDW 19.2 % (10.5-14.5); WBC 8.6 thou/uL (4.0-11.0)
[2020-09-29 10:51] LABS: CALCIUM 9.3 mg/dL (8.5-10.1); CREATININE 2.2 mg/dL (0.6-1.0); MAGNESIUM 1.7 mg/dL (1.8-2.4); POTASSIUM 3.6 mmol/L (3.5-5.1)
[2020-09-29 14:00] VITALS: BP 140/61
[2020-09-29 20:20] VITALS: BP 140/67
[2020-09-30 08:08] VITALS: BP 122/58
[2020-09-30] MEDS ORDERED: CEFUROXIME500 MG PO (12:41)
[2020-09-30 17:00] VITALS: BP 135/62
== END 2020-09-30 16:44 | DRG 871 ==
LOC: ER 12:01 → 3W 14:06 → EROBS 14:06 → 3W 15:16 → 4W 09-28 23:00
PROVIDERS: Emergency Medicine; ADMIT Internal Medicine; ATTEND Internal Medicine
PROC: 30233N1 Transfusion of Nonautologous Red Blood Cells into Peripheral Vein, Percutaneous Approach (ICD-10-PCS; principal; 2020-09-28)
DX: A41.9 Sepsis, unspecified organism (principal); N17.0 Acute kidney failure with tubular necrosis; N39.0 Urinary tract infection, site not specified; F03.91 Unspecified dementia, unspecified severity, with behavioral disturbance; E44.0 Moderate protein-calorie malnutrition; F41.9 Anxiety disorder, unspecified; F32.9 Major depressive disorder, single episode, unspecified; I12.9 Hypertensive chronic kidney disease with stage 1 through stage 4 chronic kidney disease, or unspecified chronic kidney disease; E11.22 Type 2 diabetes mellitus with diabetic chronic kidney disease; N18.30 Chronic kidney disease, stage 3 unspecified; D46.9 Myelodysplastic syndrome, unspecified; R53.81 Other malaise; L89.156 Pressure-induced deep tissue damage of sacral region; L89.616 Pressure-induced deep tissue damage of right heel; E11.42 Type 2 diabetes mellitus with diabetic polyneuropathy; E66.01 Morbid (severe) obesity due to excess calories; L89.890 Pressure ulcer of other site, unstageable; E78.5 Hyperlipidemia, unspecified; Z96.641 Presence of right artificial hip joint; Z86.16 Personal history of COVID-19; Z88.5 Allergy status to narcotic agent; Z88.8 Allergy status to other drugs, medicaments and biological substances; Z68.39 Body mass index [BMI] 39.0-39.9, adult; Z86.73 Personal history of transient ischemic attack (TIA), and cerebral infarction without residual deficits; Z90.49 Acquired absence of other specified parts of digestive tract; Z20.822 Contact with and (suspected) exposure to COVID-19
CPT/HCPCS: 10045; 10080

== ENCOUNTER → 2020-12-18 | Outpatient (CLI) | payer OTHER | LOC: HYPER 13:18 | PROVIDERS: ATTEND Emergency Medicine | DX: E11.621 Type 2 diabetes mellitus with foot ulcer (principal); L89.610 Pressure ulcer of right heel, unstageable; L97.412 Non-pressure chronic ulcer of right heel and midfoot with fat layer exposed; E66.01 Morbid (severe) obesity due to excess calories; E78.5 Hyperlipidemia, unspecified; E11.22 Type 2 diabetes mellitus with diabetic chronic kidney disease; I12.9 Hypertensive chronic kidney disease with stage 1 through stage 4 chronic kidney disease, or unspecified chronic kidney disease; N18.9 Chronic kidney disease, unspecified; E11.51 Type 2 diabetes mellitus with diabetic peripheral angiopathy without gangrene; E11.40 Type 2 diabetes mellitus with diabetic neuropathy, unspecified; E46 Unspecified protein-calorie malnutrition; I25.9 Chronic ischemic heart disease, unspecified; R26.2 Difficulty in walking, not elsewhere classified; M62.81 Muscle weakness (generalized); M16.0 Bilateral primary osteoarthritis of hip; M54.40 Lumbago with sciatica, unspecified side; F33.9 Major depressive disorder, recurrent, unspecified; F41.9 Anxiety disorder, unspecified; Z68.41 Body mass index [BMI] 40.0-44.9, adult; Z79.4 Long term (current) use of insulin; Z96.649 Presence of unspecified artificial hip joint ==

== ENCOUNTER → 2021-01-08 | Outpatient (CLI) | payer OTHER | LOC: HYPER 08:18 | PROVIDERS: ATTEND Emergency Medicine | DX: E11.621 Type 2 diabetes mellitus with foot ulcer (principal); L89.610 Pressure ulcer of right heel, unstageable; L97.412 Non-pressure chronic ulcer of right heel and midfoot with fat layer exposed; E66.01 Morbid (severe) obesity due to excess calories; E78.5 Hyperlipidemia, unspecified; E11.22 Type 2 diabetes mellitus with diabetic chronic kidney disease; I12.9 Hypertensive chronic kidney disease with stage 1 through stage 4 chronic kidney disease, or unspecified chronic kidney disease; N18.9 Chronic kidney disease, unspecified; E11.51 Type 2 diabetes mellitus with diabetic peripheral angiopathy without gangrene; E11.40 Type 2 diabetes mellitus with diabetic neuropathy, unspecified; E46 Unspecified protein-calorie malnutrition; I25.9 Chronic ischemic heart disease, unspecified; R26.2 Difficulty in walking, not elsewhere classified; M62.81 Muscle weakness (generalized); M16.0 Bilateral primary osteoarthritis of hip; M54.40 Lumbago with sciatica, unspecified side; F33.9 Major depressive disorder, recurrent, unspecified; F41.9 Anxiety disorder, unspecified; Z68.41 Body mass index [BMI] 40.0-44.9, adult; Z79.4 Long term (current) use of insulin; Z96.649 Presence of unspecified artificial hip joint ==

== ENCOUNTER → 2021-01-29 | Outpatient (CLI) | payer OTHER | LOC: HYPER 07:48 | PROVIDERS: ATTEND Emergency Medicine Emergency Medical Services | DX: E11.621 Type 2 diabetes mellitus with foot ulcer (principal); L89.610 Pressure ulcer of right heel, unstageable; L97.412 Non-pressure chronic ulcer of right heel and midfoot with fat layer exposed; L89.893 Pressure ulcer of other site, stage 3; L97.511 Non-pressure chronic ulcer of other part of right foot limited to breakdown of skin; E66.01 Morbid (severe) obesity due to excess calories; E78.5 Hyperlipidemia, unspecified; E11.22 Type 2 diabetes mellitus with diabetic chronic kidney disease; I12.9 Hypertensive chronic kidney disease with stage 1 through stage 4 chronic kidney disease, or unspecified chronic kidney disease; N18.9 Chronic kidney disease, unspecified; E11.51 Type 2 diabetes mellitus with diabetic peripheral angiopathy without gangrene; E11.40 Type 2 diabetes mellitus with diabetic neuropathy, unspecified; E46 Unspecified protein-calorie malnutrition; I25.9 Chronic ischemic heart disease, unspecified; R26.2 Difficulty in walking, not elsewhere classified; M62.81 Muscle weakness (generalized); M16.0 Bilateral primary osteoarthritis of hip; M54.40 Lumbago with sciatica, unspecified side; F33.9 Major depressive disorder, recurrent, unspecified; F41.9 Anxiety disorder, unspecified; Z68.41 Body mass index [BMI] 40.0-44.9, adult; Z79.4 Long term (current) use of insulin; Z96.649 Presence of unspecified artificial hip joint ==

== ENCOUNTER → 2021-02-26 | Outpatient (CLI) | payer OTHER | LOC: HYPER 07:48 | PROVIDERS: ATTEND Emergency Medicine Emergency Medical Services | DX: E11.621 Type 2 diabetes mellitus with foot ulcer (principal); L89.610 Pressure ulcer of right heel, unstageable; L97.412 Non-pressure chronic ulcer of right heel and midfoot with fat layer exposed; L89.893 Pressure ulcer of other site, stage 3; L97.512 Non-pressure chronic ulcer of other part of right foot with fat layer exposed; E66.01 Morbid (severe) obesity due to excess calories; E78.5 Hyperlipidemia, unspecified; E11.22 Type 2 diabetes mellitus with diabetic chronic kidney disease; I12.9 Hypertensive chronic kidney disease with stage 1 through stage 4 chronic kidney disease, or unspecified chronic kidney disease; N18.9 Chronic kidney disease, unspecified; E11.51 Type 2 diabetes mellitus with diabetic peripheral angiopathy without gangrene; E11.40 Type 2 diabetes mellitus with diabetic neuropathy, unspecified; E46 Unspecified protein-calorie malnutrition; I25.9 Chronic ischemic heart disease, unspecified; R26.2 Difficulty in walking, not elsewhere classified; M62.81 Muscle weakness (generalized); M16.0 Bilateral primary osteoarthritis of hip; M54.40 Lumbago with sciatica, unspecified side; F33.9 Major depressive disorder, recurrent, unspecified; F41.9 Anxiety disorder, unspecified; Z68.41 Body mass index [BMI] 40.0-44.9, adult; Z79.4 Long term (current) use of insulin; Z96.649 Presence of unspecified artificial hip joint ==

== ENCOUNTER → 2021-03-19 | Outpatient (CLI) | payer OTHER | LOC: HYPER 07:52 | PROVIDERS: ATTEND Emergency Medicine Emergency Medical Services | DX: E11.621 Type 2 diabetes mellitus with foot ulcer (principal); L89.610 Pressure ulcer of right heel, unstageable; L97.412 Non-pressure chronic ulcer of right heel and midfoot with fat layer exposed; L89.893 Pressure ulcer of other site, stage 3; L97.512 Non-pressure chronic ulcer of other part of right foot with fat layer exposed; E66.01 Morbid (severe) obesity due to excess calories; E78.5 Hyperlipidemia, unspecified; E11.22 Type 2 diabetes mellitus with diabetic chronic kidney disease; I12.9 Hypertensive chronic kidney disease with stage 1 through stage 4 chronic kidney disease, or unspecified chronic kidney disease; N18.9 Chronic kidney disease, unspecified; E11.51 Type 2 diabetes mellitus with diabetic peripheral angiopathy without gangrene; E11.40 Type 2 diabetes mellitus with diabetic neuropathy, unspecified; E46 Unspecified protein-calorie malnutrition; I25.9 Chronic ischemic heart disease, unspecified; R26.2 Difficulty in walking, not elsewhere classified; M62.81 Muscle weakness (generalized); M16.0 Bilateral primary osteoarthritis of hip; M54.40 Lumbago with sciatica, unspecified side; F33.9 Major depressive disorder, recurrent, unspecified; F41.9 Anxiety disorder, unspecified; Z68.41 Body mass index [BMI] 40.0-44.9, adult; Z79.4 Long term (current) use of insulin ==

== ENCOUNTER → 2021-04-09 | Outpatient (CLI) | payer OTHER | LOC: HYPER 10:32 | PROVIDERS: ATTEND Emergency Medicine Emergency Medical Services | DX: E11.621 Type 2 diabetes mellitus with foot ulcer (principal); L89.610 Pressure ulcer of right heel, unstageable; L97.412 Non-pressure chronic ulcer of right heel and midfoot with fat layer exposed; L84 Corns and callosities; L89.893 Pressure ulcer of other site, stage 3; L97.512 Non-pressure chronic ulcer of other part of right foot with fat layer exposed; E66.01 Morbid (severe) obesity due to excess calories; E78.5 Hyperlipidemia, unspecified; E11.22 Type 2 diabetes mellitus with diabetic chronic kidney disease; I12.9 Hypertensive chronic kidney disease with stage 1 through stage 4 chronic kidney disease, or unspecified chronic kidney disease; N18.9 Chronic kidney disease, unspecified; E11.51 Type 2 diabetes mellitus with diabetic peripheral angiopathy without gangrene; E11.40 Type 2 diabetes mellitus with diabetic neuropathy, unspecified; E46 Unspecified protein-calorie malnutrition; I25.9 Chronic ischemic heart disease, unspecified; R26.2 Difficulty in walking, not elsewhere classified; M62.81 Muscle weakness (generalized); M16.0 Bilateral primary osteoarthritis of hip; M54.40 Lumbago with sciatica, unspecified side; F33.9 Major depressive disorder, recurrent, unspecified; F41.9 Anxiety disorder, unspecified; Z68.41 Body mass index [BMI] 40.0-44.9, adult; Z79.4 Long term (current) use of insulin ==

== ENCOUNTER → 2021-04-30 | Outpatient (CLI) | payer OTHER | LOC: HYPER 07:52 | PROVIDERS: ATTEND Emergency Medicine Emergency Medical Services | DX: E11.621 Type 2 diabetes mellitus with foot ulcer (principal); L89.610 Pressure ulcer of right heel, unstageable; L97.412 Non-pressure chronic ulcer of right heel and midfoot with fat layer exposed; L84 Corns and callosities; L89.893 Pressure ulcer of other site, stage 3; L97.512 Non-pressure chronic ulcer of other part of right foot with fat layer exposed; E66.01 Morbid (severe) obesity due to excess calories; E78.5 Hyperlipidemia, unspecified; E11.22 Type 2 diabetes mellitus with diabetic chronic kidney disease; I12.9 Hypertensive chronic kidney disease with stage 1 through stage 4 chronic kidney disease, or unspecified chronic kidney disease; N18.9 Chronic kidney disease, unspecified; E11.51 Type 2 diabetes mellitus with diabetic peripheral angiopathy without gangrene; E11.40 Type 2 diabetes mellitus with diabetic neuropathy, unspecified; E46 Unspecified protein-calorie malnutrition; I25.9 Chronic ischemic heart disease, unspecified; R26.2 Difficulty in walking, not elsewhere classified; M62.81 Muscle weakness (generalized); M16.0 Bilateral primary osteoarthritis of hip; M54.40 Lumbago with sciatica, unspecified side; F33.9 Major depressive disorder, recurrent, unspecified; F41.9 Anxiety disorder, unspecified; Z68.41 Body mass index [BMI] 40.0-44.9, adult; Z79.4 Long term (current) use of insulin ==

== ENCOUNTER → 2021-05-28 | Outpatient (CLI) | payer OTHER | LOC: HYPER 09:34 | PROVIDERS: ATTEND Emergency Medicine Emergency Medical Services | DX: E11.621 Type 2 diabetes mellitus with foot ulcer (principal); L89.610 Pressure ulcer of right heel, unstageable; L97.411 Non-pressure chronic ulcer of right heel and midfoot limited to breakdown of skin; L89.890 Pressure ulcer of other site, unstageable; L97.512 Non-pressure chronic ulcer of other part of right foot with fat layer exposed; L03.115 Cellulitis of right lower limb; E11.51 Type 2 diabetes mellitus with diabetic peripheral angiopathy without gangrene; E11.40 Type 2 diabetes mellitus with diabetic neuropathy, unspecified; E11.22 Type 2 diabetes mellitus with diabetic chronic kidney disease; I12.9 Hypertensive chronic kidney disease with stage 1 through stage 4 chronic kidney disease, or unspecified chronic kidney disease; N18.9 Chronic kidney disease, unspecified; M62.81 Muscle weakness (generalized); R26.2 Difficulty in walking, not elsewhere classified; L84 Corns and callosities; M54.40 Lumbago with sciatica, unspecified side; M16.0 Bilateral primary osteoarthritis of hip; I25.9 Chronic ischemic heart disease, unspecified; E78.5 Hyperlipidemia, unspecified; K58.9 Irritable bowel syndrome, unspecified; I25.89 Other forms of chronic ischemic heart disease; F33.9 Major depressive disorder, recurrent, unspecified; F41.9 Anxiety disorder, unspecified; Z91.81 History of falling; Z68.42 Body mass index [BMI] 45.0-49.9, adult; Z79.4 Long term (current) use of insulin; Z79.82 Long term (current) use of aspirin; Z79.899 Other long term (current) drug therapy ==

== ENCOUNTER → 2021-06-18 | Outpatient (CLI) | payer OTHER | LOC: HYPER 09:59 | PROVIDERS: ATTEND Emergency Medicine Emergency Medical Services | DX: E11.621 Type 2 diabetes mellitus with foot ulcer (principal); L89.610 Pressure ulcer of right heel, unstageable; L97.412 Non-pressure chronic ulcer of right heel and midfoot with fat layer exposed; L89.890 Pressure ulcer of other site, unstageable; L97.511 Non-pressure chronic ulcer of other part of right foot limited to breakdown of skin; L03.115 Cellulitis of right lower limb; E11.51 Type 2 diabetes mellitus with diabetic peripheral angiopathy without gangrene; E11.40 Type 2 diabetes mellitus with diabetic neuropathy, unspecified; E11.22 Type 2 diabetes mellitus with diabetic chronic kidney disease; I12.9 Hypertensive chronic kidney disease with stage 1 through stage 4 chronic kidney disease, or unspecified chronic kidney disease; N18.9 Chronic kidney disease, unspecified; M62.81 Muscle weakness (generalized); R26.2 Difficulty in walking, not elsewhere classified; L84 Corns and callosities; M54.40 Lumbago with sciatica, unspecified side; M16.0 Bilateral primary osteoarthritis of hip; I25.9 Chronic ischemic heart disease, unspecified; E78.5 Hyperlipidemia, unspecified; K58.9 Irritable bowel syndrome, unspecified; I25.89 Other forms of chronic ischemic heart disease; F33.9 Major depressive disorder, recurrent, unspecified; F41.9 Anxiety disorder, unspecified; Z91.81 History of falling; Z68.42 Body mass index [BMI] 45.0-49.9, adult; Z79.4 Long term (current) use of insulin; Z79.82 Long term (current) use of aspirin ==

== ENCOUNTER → 2021-07-02 | Outpatient (CLI) | payer OTHER | LOC: HYPER 09:12 | PROVIDERS: ATTEND Emergency Medicine Emergency Medical Services | DX: E11.621 Type 2 diabetes mellitus with foot ulcer (principal); L89.610 Pressure ulcer of right heel, unstageable; L97.412 Non-pressure chronic ulcer of right heel and midfoot with fat layer exposed; L89.890 Pressure ulcer of other site, unstageable; L97.511 Non-pressure chronic ulcer of other part of right foot limited to breakdown of skin; L03.115 Cellulitis of right lower limb; E11.51 Type 2 diabetes mellitus with diabetic peripheral angiopathy without gangrene; E11.40 Type 2 diabetes mellitus with diabetic neuropathy, unspecified; E11.22 Type 2 diabetes mellitus with diabetic chronic kidney disease; I12.9 Hypertensive chronic kidney disease with stage 1 through stage 4 chronic kidney disease, or unspecified chronic kidney disease; N18.9 Chronic kidney disease, unspecified; M62.81 Muscle weakness (generalized); R26.2 Difficulty in walking, not elsewhere classified; L84 Corns and callosities; M54.40 Lumbago with sciatica, unspecified side; M16.0 Bilateral primary osteoarthritis of hip; I25.9 Chronic ischemic heart disease, unspecified; E78.5 Hyperlipidemia, unspecified; K58.9 Irritable bowel syndrome, unspecified; I25.89 Other forms of chronic ischemic heart disease; F33.9 Major depressive disorder, recurrent, unspecified; F41.9 Anxiety disorder, unspecified; Z68.42 Body mass index [BMI] 45.0-49.9, adult; Z79.4 Long term (current) use of insulin; Z79.82 Long term (current) use of aspirin ==

== ENCOUNTER → 2021-07-23 | Outpatient (CLI) | payer OTHER | LOC: HYPER 08:24 | PROVIDERS: ATTEND Emergency Medicine Emergency Medical Services | DX: E11.621 Type 2 diabetes mellitus with foot ulcer (principal); L89.890 Pressure ulcer of other site, unstageable; L97.512 Non-pressure chronic ulcer of other part of right foot with fat layer exposed; L89.610 Pressure ulcer of right heel, unstageable; L97.411 Non-pressure chronic ulcer of right heel and midfoot limited to breakdown of skin; E11.51 Type 2 diabetes mellitus with diabetic peripheral angiopathy without gangrene; E11.40 Type 2 diabetes mellitus with diabetic neuropathy, unspecified; L03.115 Cellulitis of right lower limb; M62.81 Muscle weakness (generalized); R26.2 Difficulty in walking, not elsewhere classified; L84 Corns and callosities; M54.40 Lumbago with sciatica, unspecified side; M16.0 Bilateral primary osteoarthritis of hip; E11.22 Type 2 diabetes mellitus with diabetic chronic kidney disease; I13.10 Hypertensive heart and chronic kidney disease without heart failure, with stage 1 through stage 4 chronic kidney disease, or unspecified chronic kidney disease; N18.9 Chronic kidney disease, unspecified; I25.9 Chronic ischemic heart disease, unspecified; E78.5 Hyperlipidemia, unspecified; K58.9 Irritable bowel syndrome, unspecified; F33.9 Major depressive disorder, recurrent, unspecified; F41.9 Anxiety disorder, unspecified; Z68.42 Body mass index [BMI] 45.0-49.9, adult; Z91.81 History of falling; Z79.4 Long term (current) use of insulin; Z79.82 Long term (current) use of aspirin; Z79.899 Other long term (current) drug therapy ==

== ENCOUNTER → 2021-08-06 | Outpatient (CLI) | payer OTHER | LOC: HYPER 09:34 | PROVIDERS: ATTEND Emergency Medicine Emergency Medical Services | DX: E11.621 Type 2 diabetes mellitus with foot ulcer (principal); L89.890 Pressure ulcer of other site, unstageable; L97.512 Non-pressure chronic ulcer of other part of right foot with fat layer exposed; L89.610 Pressure ulcer of right heel, unstageable; L97.412 Non-pressure chronic ulcer of right heel and midfoot with fat layer exposed; E11.40 Type 2 diabetes mellitus with diabetic neuropathy, unspecified; E11.51 Type 2 diabetes mellitus with diabetic peripheral angiopathy without gangrene; L03.115 Cellulitis of right lower limb; L84 Corns and callosities; E11.22 Type 2 diabetes mellitus with diabetic chronic kidney disease; I12.9 Hypertensive chronic kidney disease with stage 1 through stage 4 chronic kidney disease, or unspecified chronic kidney disease; N18.9 Chronic kidney disease, unspecified; M62.81 Muscle weakness (generalized); R26.2 Difficulty in walking, not elsewhere classified; M54.40 Lumbago with sciatica, unspecified side; M16.0 Bilateral primary osteoarthritis of hip; I25.9 Chronic ischemic heart disease, unspecified; E78.5 Hyperlipidemia, unspecified; K58.9 Irritable bowel syndrome, unspecified; F33.9 Major depressive disorder, recurrent, unspecified; F41.9 Anxiety disorder, unspecified; Z68.42 Body mass index [BMI] 45.0-49.9, adult; Z79.4 Long term (current) use of insulin; Z79.899 Other long term (current) drug therapy ==

== ENCOUNTER → 2021-08-20 | Outpatient (CLI) | payer OTHER | LOC: HYPER 10:15 | PROVIDERS: ATTEND Emergency Medicine Emergency Medical Services | DX: E11.621 Type 2 diabetes mellitus with foot ulcer (principal); L89.890 Pressure ulcer of other site, unstageable; L97.512 Non-pressure chronic ulcer of other part of right foot with fat layer exposed; L89.613 Pressure ulcer of right heel, stage 3; L97.412 Non-pressure chronic ulcer of right heel and midfoot with fat layer exposed; E11.40 Type 2 diabetes mellitus with diabetic neuropathy, unspecified; E11.51 Type 2 diabetes mellitus with diabetic peripheral angiopathy without gangrene; L03.115 Cellulitis of right lower limb; L84 Corns and callosities; E11.22 Type 2 diabetes mellitus with diabetic chronic kidney disease; I12.9 Hypertensive chronic kidney disease with stage 1 through stage 4 chronic kidney disease, or unspecified chronic kidney disease; N18.9 Chronic kidney disease, unspecified; E66.01 Morbid (severe) obesity due to excess calories; M62.81 Muscle weakness (generalized); R26.2 Difficulty in walking, not elsewhere classified; M54.40 Lumbago with sciatica, unspecified side; M16.0 Bilateral primary osteoarthritis of hip; I25.9 Chronic ischemic heart disease, unspecified; E78.5 Hyperlipidemia, unspecified; K58.9 Irritable bowel syndrome, unspecified; F33.9 Major depressive disorder, recurrent, unspecified; F41.9 Anxiety disorder, unspecified; Z68.42 Body mass index [BMI] 45.0-49.9, adult; Z79.4 Long term (current) use of insulin; Z68.41 Body mass index [BMI] 40.0-44.9, adult ==

== ENCOUNTER → 2021-09-10 | Outpatient (CLI) | payer OTHER | LOC: HYPER 09:57 | PROVIDERS: ATTEND Emergency Medicine Emergency Medical Services | DX: E11.621 Type 2 diabetes mellitus with foot ulcer (principal); L89.890 Pressure ulcer of other site, unstageable; L97.512 Non-pressure chronic ulcer of other part of right foot with fat layer exposed; L89.613 Pressure ulcer of right heel, stage 3; L97.412 Non-pressure chronic ulcer of right heel and midfoot with fat layer exposed; E11.40 Type 2 diabetes mellitus with diabetic neuropathy, unspecified; E11.51 Type 2 diabetes mellitus with diabetic peripheral angiopathy without gangrene; L03.115 Cellulitis of right lower limb; L84 Corns and callosities; E11.22 Type 2 diabetes mellitus with diabetic chronic kidney disease; I12.9 Hypertensive chronic kidney disease with stage 1 through stage 4 chronic kidney disease, or unspecified chronic kidney disease; N18.9 Chronic kidney disease, unspecified; E66.01 Morbid (severe) obesity due to excess calories; M62.81 Muscle weakness (generalized); R26.2 Difficulty in walking, not elsewhere classified; M54.40 Lumbago with sciatica, unspecified side; M16.0 Bilateral primary osteoarthritis of hip; I25.9 Chronic ischemic heart disease, unspecified; E78.5 Hyperlipidemia, unspecified; K58.9 Irritable bowel syndrome, unspecified; F33.9 Major depressive disorder, recurrent, unspecified; F41.9 Anxiety disorder, unspecified; Z68.42 Body mass index [BMI] 45.0-49.9, adult; Z79.4 Long term (current) use of insulin; Z68.41 Body mass index [BMI] 40.0-44.9, adult ==

== ENCOUNTER → 2021-10-01 | Outpatient (CLI) | payer OTHER | LOC: HYPER 09:16 | PROVIDERS: ATTEND Emergency Medicine Emergency Medical Services | DX: E11.621 Type 2 diabetes mellitus with foot ulcer (principal); L89.613 Pressure ulcer of right heel, stage 3; L97.412 Non-pressure chronic ulcer of right heel and midfoot with fat layer exposed; L89.890 Pressure ulcer of other site, unstageable; L97.511 Non-pressure chronic ulcer of other part of right foot limited to breakdown of skin; E11.40 Type 2 diabetes mellitus with diabetic neuropathy, unspecified; E11.51 Type 2 diabetes mellitus with diabetic peripheral angiopathy without gangrene; L84 Corns and callosities; E11.22 Type 2 diabetes mellitus with diabetic chronic kidney disease; I12.9 Hypertensive chronic kidney disease with stage 1 through stage 4 chronic kidney disease, or unspecified chronic kidney disease; N18.9 Chronic kidney disease, unspecified; M62.81 Muscle weakness (generalized); R26.2 Difficulty in walking, not elsewhere classified; M54.40 Lumbago with sciatica, unspecified side; M16.0 Bilateral primary osteoarthritis of hip; E78.5 Hyperlipidemia, unspecified; K58.9 Irritable bowel syndrome, unspecified; F41.9 Anxiety disorder, unspecified; F33.9 Major depressive disorder, recurrent, unspecified; Z79.4 Long term (current) use of insulin; Z79.84 Long term (current) use of oral hypoglycemic drugs; Z91.81 History of falling; Z68.42 Body mass index [BMI] 45.0-49.9, adult; Z79.82 Long term (current) use of aspirin; Z79.899 Other long term (current) drug therapy ==

== ENCOUNTER → 2021-10-15 | Outpatient (CLI) | payer OTHER | LOC: HYPER 10:02 | PROVIDERS: ATTEND Emergency Medicine Emergency Medical Services | DX: L89.613 Pressure ulcer of right heel, stage 3 (principal); L89.890 Pressure ulcer of other site, unstageable; E11.40 Type 2 diabetes mellitus with diabetic neuropathy, unspecified; E11.51 Type 2 diabetes mellitus with diabetic peripheral angiopathy without gangrene; L84 Corns and callosities; E11.22 Type 2 diabetes mellitus with diabetic chronic kidney disease; I12.9 Hypertensive chronic kidney disease with stage 1 through stage 4 chronic kidney disease, or unspecified chronic kidney disease; N18.9 Chronic kidney disease, unspecified; M62.81 Muscle weakness (generalized); R26.2 Difficulty in walking, not elsewhere classified; M54.40 Lumbago with sciatica, unspecified side; M16.0 Bilateral primary osteoarthritis of hip; E78.5 Hyperlipidemia, unspecified; K58.9 Irritable bowel syndrome, unspecified; F41.9 Anxiety disorder, unspecified; F33.9 Major depressive disorder, recurrent, unspecified; Z79.84 Long term (current) use of oral hypoglycemic drugs; Z68.42 Body mass index [BMI] 45.0-49.9, adult; Z79.82 Long term (current) use of aspirin ==